=== PATIENT | female | born 1960 | race Caucasian/White ===

== ENCOUNTER → 2018-01-28 | Outpatient (CLI) | payer OTHER ==
--- NOTE | 2018-01-28 09:59 | XR ---
EXAMINATION TYPE: XR Hip Complete LT DATE OF EXAM: 01/28/2018 CLINICAL HISTORY: pain TECHNIQUE: AP and frogleg views of the left hip are obtained. COMPARISON: None. FINDINGS: There is no acute fracture/dislocation evident. The joint space appears mild degenerativ e joint space narrowing.. The overlying soft tissue appears unremarkable. IMPRESSION: 1. There is no acute fracture or dislocation.ICD 10 NO FRACTURE, INITIAL EVALUATION
--- NOTE | 2018-01-28 10:01 | XR ---
EXAMINATION TYPE: XR lumbar spine 2 or 3V DATE OF EXAM: 01/28/2018 CLINICAL HISTORY: pain TECHNIQUE: Three views of the lumbar spine are submitted. COMPARISON: None. FINDINGS: There are 5 lumbar type vertebral bodies identified. The lumbar spine shows satisfactory alignment w ithout evidence of acute fracture or dislocation. Vertebral body heights are within normal limits. Moderate degenerative disc space narrowing is noted throughout with ventral spondylosis. Moderate to severe facet joint arthropathy identified. The overlying soft tissue appears unremarkable. IMPRESSION: No acute fracture or dislocation is seen in the lumbar spine. ICD 10 NO FRACTURE, INITIAL EVALUATION
== END ==
LOC: RADXRMAIN 09:25
PROVIDERS: ATTEND Internal Medicine
DX: M25.552 Pain in left hip (principal); M54.5 Low back pain
CPT/HCPCS: 72100; 73502

== ENCOUNTER 2018-07-14 10:46 | Emergency (ER) | payer OTHER ==
[2018-07-14 11:00] VITALS: RESP 18
[2018-07-14] MEDS ORDERED: HYDROcodone/APAP 5-325MG 1 EACH TAB PO STA (11:06)
--- NOTE | 2018-07-14 11:46 | ED ---
Upper Extremity HPI - General Chief Complaint: Extremity Injury, Upper Stated Complaint: Shoulder/neck pain Time Seen by Provider: 07/14/18 11:00 Source: patient, RN notes reviewed Mode of arrival: ambulatory Limitations: no limitations - History of Present Illness Initial Comments: 57-year-old female presents emergency Department chief complaint right shoulder pain. Patient states she slipped down her stairs and states that she caught herself by grabbing the railing with her arm. Patient is left-hand dominant complaint of right shoulder pain that radiates up and down. Patient states it's better at rest severe pain with movement. No prior injuries. Denies any fall to the ground no head injury no loss conscious. Patient has no paresthesias no focal weakness. - Related Data Home Medications Medication Instructions Recorded Confirmed Gabapentin (Unknown) 1 tab PO DIRECTED 07/14/18 07/14/18 Ibuprofen [Motrin Ib] 400 mg PO Q6H 07/14/18 07/14/18 Meloxicam 15 mg PO DAILY 07/14/18 07/14/18 Previous Rx's Medication Instructions Recorded Hydrocodone/Acetaminophen [[place] 1 tab PO Q6HR PRN #12 tab 07/14/18 5-325] Allergies Allergy/AdvReac Type Severity Reaction Status Date / Time adhesive Allergy Unknown RED SKIN Verified 12/12/15 13:37 ondansetron HCl Allergy Unknown Swelling Verified 12/12/15 13:37 [From Zofran (as hydrochloride)] ibuprofen [From Motrin] Allergy Unknown Verified 07/14/18 11:24 Childhood Review of Systems ROS Statement: Those systems with pertinent positive or pertinent negative responses have been documented in the HPI. ROS Other: All systems not noted in ROS Statement are negative. Past Medical History Past Medical History: Atrial Flutter, Cancer, Chest Pain / Angina, COPD, Fibromyalgia, GERD/Reflux, Hyperlipidemia, Hypertension, Liver Disease, Osteoarthritis (OA) Additional Past Medical History / Comment(s): MIGRAINES, BACK PAIN, HEPATITIS B & C, HX OF CANCER OF STOMACH 2011. feet & leg swelling, hx. small open area in mid-abd for few days-"comes & goes" History of Any Multi-Drug Resistant Organisms: None Reported Past Surgical History: Ablation, Appendectomy, Bariatric Surgery, Cardiac Ablation, Section, Hysterectomy, Joint Replacement Additional Past Surgical History / Comment(s): hx. rouxen-y, spleen removed, both knees replaced, catarats removed Past Anesthesia/Blood Transfusion Reactions: No Reported Reaction Past Psychological History: Depression Smoking Status: Never smoker Past Alcohol Use History: None Reported Past Drug Use History: None Reported - Past Family History Sister(s) Family Medical History: Cancer Daughter(s) Family Medical History: Pulmonary Embolus Mother Family Medical History: Cancer General Exam Limitations: no limitations General appearance: alert, in no apparent distress Head exam: Present: atraumatic, normocephalic, normal inspection Neck exam: Present: normal inspection, full ROM. Absent: tenderness, meningismus, lymphadenopathy Respiratory exam: Present: normal lung sounds bilaterally. Absent: respiratory distress, wheezes, rales, rhonchi, stridor Cardiovascular Exam: Present: regular rate, normal rhythm, normal heart sounds. Absent: systolic murmur, diastolic murmur, rubs, gallop, clicks Extremities exam: Present: other (Limited movement of the right shoulder, full range of motion of the right elbow, neurovascular intact tenderness with palpation with no obvious swelling no ecchymosis.) Neurological exam: Present: alert, oriented X3, CN II-XII intact, reflexes normal. Absent: motor sensory deficit Skin exam: Present: warm, dry, intact, normal color. Absent: rash Course Vital Signs 07/14/18 10:55 Temperature 98.0 F Pulse Rate 79 Respiratory 18 Rate Blood Pressure 199/93 O2 Sat by Pulse 97 Oximetry Medical Decision Making - Medical Decision Making 57-year-old female presented for right shoulder injury. This is consistent with rotator cuff injury possible tear. Patient placed in a sling and follow-up with orthopedics. Patient discharged with pain medication return parameters were discussed. Disposition Clinical Impression: Strain of shoulder, Injury of right rotator cuff Disposition: HOME SELF-CARE Condition: Stable Instructions (If sedation given, give patient instructions): Rotator Cuff Injury (ED) Additional Instructions: Please return to the Emergency Department if symptoms worsen or any other concerns. Prescriptions: Hydrocodone/Acetaminophen [[place] 5-325] 1 tab PO Q6HR PRN #12 tab PRN Reason: Pain Is patient prescribed a controlled substance at d/c from ED?: No Referrals: Gorge Kaur MD [Primary Care Provider] - 1-2 days Rolf Negron MD [STAFF PHYSICIAN] - 1-2 days Time of Disposition: 12:55
--- NOTE | 2018-07-14 12:34 | XR ---
EXAMINATION TYPE: XR shoulder complete RT DATE OF EXAM: 07/14/2018 COMPARISON: NONE HISTORY: Pain TECHNIQUE: Three views are submitted. FINDINGS: The osseous structures are intact. There is no acute fracture or dislocation. There is diffuse osteo penia. Interstitial lung disease within the visualized lung auguste. Hypertrophic change of the AC chapo nt. IMPRESSION: 1. AC joint arthropathy 2. Correlate for chronic interstitial lung disease.
[2018-07-14 13:05] VITALS: BP 147/87; PULSE 78; TEMP 97.7
== END 2018-07-14 13:11 | disposition home or self-care (01) ==
LOC: EC 10:46
DX: S46.011A Strain of muscle(s) and tendon(s) of the rotator cuff of right shoulder, initial encounter (principal); M79.7 Fibromyalgia; M19.90 Unspecified osteoarthritis, unspecified site; G43.909 Migraine, unspecified, not intractable, without status migrainosus; Z85.028 Personal history of other malignant neoplasm of stomach; Z96.653 Presence of artificial knee joint, bilateral; Z79.1 Long term (current) use of non-steroidal anti-inflammatories (NSAID); Z79.899 Other long term (current) drug therapy; Z91.048 Other nonmedicinal substance allergy status; Z88.8 Allergy status to other drugs, medicaments and biological substances; Z88.6 Allergy status to analgesic agent; W18.40XA Slipping, tripping and stumbling without falling, unspecified, initial encounter
CPT/HCPCS: 99283

== ENCOUNTER 2018-07-23 19:13 | Inpatient (IN) | payer OTHER ==
[2018-07-23] MEDS ORDERED: SODIUM CHLORIDE 0.9% 500 ML 500 ML IV STA (19:30)
--- NOTE | 2018-07-23 19:39 | ED ---
General Adult HPI - General Chief complaint: Weakness Stated complaint: Weakness Time Seen by Provider: 07/23/18 19:23 Source: patient, EMS Mode of arrival: EMS Limitations: no limitations - History of Present Illness Initial comments: 57-year-old female presenting for right groin pain. Patient states she has had right groin pain and right shoulder pain for the past week. Patient states it began after she almost fell catching herself the right arm injuring her right hip. Patient states she has been able to ambulate. Patient states the pain has been increasing. Patient states today she felt generalized weak and unwell. Family states patient was not acting like her usual self. She seemed very tired. Patient is out of her Percocet she stated at home. Pt denies fall, chest pain, back, nausea, vomiting, headache, dizziness. Pt states that she just doesnt feel well. Pt poor historian, despite being alert and oriented. remaining ROS (-), Patient denies any recent fever, chills, cough, abdominal pain, nausea or vomiting, numbness or tingling, dysuria or hematuria, constipation or diarrhea, visual changes, or any other complaints. - Related Data Home Medications Medication Instructions Recorded Confirmed Ibuprofen [Motrin Ib] 400 mg PO Q6H 07/14/18 07/23/18 Gabapentin [Neurontin] 300 mg PO QID 07/23/18 07/23/18 Allergies Allergy/AdvReac Type Severity Reaction Status Date / Time adhesive Allergy Unknown RED SKIN Verified 07/23/18 19:41 ondansetron HCl Allergy Unknown Swelling Verified 07/23/18 19:41 [From Zofran (as hydrochloride)] ibuprofen [From Motrin] Allergy Unknown Verified 07/23/18 19:41 Childhood Review of Systems ROS Statement: Those systems with pertinent positive or pertinent negative responses have been documented in the HPI. ROS Other: All systems not noted in ROS Statement are negative. Past Medical History Past Medical History: Atrial Flutter, Cancer, Chest Pain / Angina, COPD, Fibromyalgia, GERD/Reflux, Hyperlipidemia, Hypertension, Liver Disease, Osteoarthritis (OA) Additional Past Medical History / Comment(s): MIGRAINES, BACK PAIN, HEPATITIS B & C, HX OF CANCER OF STOMACH 2011. feet & leg swelling, hx. small open area in mid-abd for few days-"comes & goes" History of Any Multi-Drug Resistant Organisms: None Reported Past Surgical History: Ablation, Appendectomy, Bariatric Surgery, Cardiac Ablation, Section, Hysterectomy, Joint Replacement Additional Past Surgical History / Comment(s): hx. rouxen-y, spleen removed, both knees replaced, catarats removed Past Anesthesia/Blood Transfusion Reactions: No Reported Reaction Past Psychological History: Depression Smoking Status: Never smoker Past Alcohol Use History: None Reported Past Drug Use History: None Reported - Past Family History Sister(s) Family Medical History: Cancer Daughter(s) Family Medical History: Pulmonary Embolus Mother Family Medical History: Cancer General Exam - General Exam Comments Initial Comments: General: The patient is awake and alert, in no distress. Morbidly obese Eye: +3 mm pupils are equal, round and reactive to light, extra-ocular movements are intact. No nystagmus. There is normal conjunctiva bilaterally. No signs of icterus. Ears, nose, mouth and throat: There are moist mucous membranes and no oral lesions. Neck: The neck is supple, there is no tenderness or JVD. Cardiovascular: There is a regular rate and rhythm. No murmur, rub or gallop is appreciated. Respiratory: Lungs are clear to auscultation, respirations are non-labored, breath sounds are equal. No wheezes, stridor, rales, or rhonchi. Gastrointestinal: Soft, non-distended, non-tender abdomen without masses or organomegaly noted. There is no rebound or guarding present. No CVA tenderness. Bowel sounds are unremarkable. Musculoskeletal: Normal ROM, no tenderness. Strength 5/5 of UE and LE b/l. Sensation intact. Pulses equal bilaterally 2+. Neurological: A&O x 3. CN II-XII intact, There are no obvious motor or sensory deficits. Coordination appears grossly intact. Speech is normal. No drift. Skin: Skin is warm and dry and no rashes or lesions are noted. No LE edema. Psychiatric: Cooperative, appropriate mood & affect, normal judgment. Limitations: no limitations Course Vital Signs 07/23/18 07/23/18 07/23/18 19:22 22:14 23:00 Temperature 100.2 F H 99 F Pulse Rate 98 97 77 Respiratory 20 20 20 Rate Blood Pressure 169/89 142/68 138/68 O2 Sat by Pulse 97 98 98 Oximetry 07/24/18 07/24/18 07/24/18 00:52 01:00 02:00 Temperature 98.8 F 98.7 F Pulse Rate 82 81 84 Respiratory 18 20 20 Rate Blood Pressure 146/61 151/85 143/64 O2 Sat by Pulse 97 97 97 Oximetry 07/24/18 07/24/18 07/24/18 03:00 04:00 04:43 Temperature 98.6 F 97.9 F Pulse Rate 79 87 88 Respiratory 18 18 18 Rate Blood Pressure 140/62 134/87 133/73 O2 Sat by Pulse 97 98 97 Oximetry EKG Findings - EKG Comments: EKG Findings:: Ventricular rate 92 bpm, ID interval 142 ms, QRS duration 94 ms, QT/QTC 364/450 ms. Normal sinus rhythm, left axis deviation noted. No ST elevation or depression. EKG reviewed by myself and attending provider. Medical Decision Making - Medical Decision Making 57-year-old female presenting for multiple complaints. Patient states she has had right groin and right shoulder pain since she almost fell a week prior. Patient states she had previous right rotator cuff injury. Patient denies chest pain. EKG revealed no acute abnormalities. Troponin negative. These were completed given patient's obesity female gender and past medical history with concern for atypical chest pain presentation. Patient is able to fully range at the right hip. Patient states it is uncomfortable. Imaging studies reveal no acute osseous injury. Patient neurovascularly intact. Family states patient seems way more tired than usual, and out of it. CT revealed old lacunar infarct, no acute findings. No focal deficits. Pt dry on exam. Unable to give urine sample. Pt states decreased oral intake at home, concern for dehydration. Pt did have low grade fever on arrival, leukocytosis on laboratory studies, CXR (-). No meningeal irritation signs on examination. Pt does not appear overtly altered. Lactic acid elevated, repeat WNL. UA unremarkable. Pt was evaluated in person by attending provider Dr. Savage who is agreeable with patient admission for further evaluation fo leukocytosis, weakness and fever. Pt was placed on broad spectrum antibiotic in the ER. Pt was transferred to the floor appearing well. Blood culture pending. Orthopedic surgery on consult. - Lab Data Result diagrams: 07/23/18 20:08 07/23/18 20:08 Lab Results 07/23/18 07/23/18 07/23/18 Range/Units 20:08 20:08 20:08 WBC 18.8 H (3.8-10.6) k/uL RBC 4.29 (3.80-5.40) m/uL Hgb 14.3 (11.4-16.0) gm/dL Hct 44.2 (34.0-46.0) % MCV 103.1 H (80.0-100.0) fL MCH 33.4 (25.0-35.0) pg MCHC 32.4 (31.0-37.0) g/dL RDW 13.9 (11.5-15.5) % Plt Count 158 (150-450) k/uL Neutrophils % 86 % Lymphocytes % 8 % Monocytes % 5 % Eosinophils % 1 % Basophils % 0 % Neutrophils # 16.1 H (1.3-7.7) k/uL Lymphocytes # 1.5 (1.0-4.8) k/uL Monocytes # 0.8 (0-1.0) k/uL Eosinophils # 0.1 (0-0.7) k/uL Basophils # 0.1 (0-0.2) k/uL Manual Slide Review Performed Large Platelets Present Macrocytosis Slight PT (9.0-12.0) sec INR (<1.2) APTT (22.0-30.0) sec D-Dimer (<0.60) mg/L FEU Sodium 140 (137-145) mmol/L Potassium 4.0 (3.5-5.1) mmol/L Chloride 103 (98-107) mmol/L Carbon Dioxide 29 (22-30) mmol/L Anion Gap 8 mmol/L BUN 19 H (7-17) mg/dL Creatinine 0.46 L (0.52-1.04) mg/dL Est GFR (CKD-EPI)AfAm >90 (>60 ml/min/1.73 sqM) Est GFR (CKD-EPI)NonAf >90 (>60 ml/min/1.73 sqM) Glucose 180 H (74-99) mg/dL Lactic Ac Sepsis Rflx Plasma Lactic Acid Rui (0.7-2.0) mmol/L Calcium 10.0 (8.4-10.2) mg/dL Total Bilirubin 1.4 H (0.2-1.3) mg/dL AST 83 H (14-36) U/L ALT 65 H (9-52) U/L Alkaline Phosphatase 84 (38-126) U/L Troponin I (0.000-0.034) ng/mL Total Protein 7.5 (6.3-8.2) g/dL Albumin 4.1 (3.5-5.0) g/dL Urine Color Urine Appearance (Clear) Urine pH (5.0-8.0) Ur Specific [place] (1.001-1.035) Urine Protein (Negative) Urine Glucose (UA) (Negative) Urine Ketones (Negative) Urine Blood (Negative) Urine Nitrite (Negative) Urine Bilirubin (Negative) Urine Urobilinogen (<2.0) mg/dL Ur Leukocyte Esterase (Negative) Influenza Type A RNA Not Detected (Not Detectd) Influenza Type B (PCR) Not Detected (Not Detectd) 07/23/18 07/23/18 07/23/18 Range/Units 20:08 20:08 20:08 WBC (3.8-10.6) k/uL RBC (3.80-5.40) m/uL Hgb (11.4-16.0) gm/dL Hct (34.0-46.0) % MCV (80.0-100.0) fL MCH (25.0-35.0) pg MCHC (31.0-37.0) g/dL RDW (11.5-15.5) % Plt Count (150-450) k/uL Neutrophils % % Lymphocytes % % Monocytes % % Eosinophils % % Basophils % % Neutrophils # (1.3-7.7) k/uL Lymphocytes # (1.0-4.8) k/uL Monocytes # (0-1.0) k/uL Eosinophils # (0-0.7) k/uL Basophils # (0-0.2) k/uL Manual Slide Review Large Platelets Macrocytosis PT 11.8 (9.0-12.0) sec INR 1.1 (<1.2) APTT 23.7 (22.0-30.0) sec D-Dimer 1.64 H (<0.60) mg/L FEU Sodium (137-145) mmol/L Potassium (3.5-5.1) mmol/L Chloride (98-107) mmol/L Carbon Dioxide (22-30) mmol/L Anion Gap mmol/L BUN (7-17) mg/dL Creatinine (0.52-1.04) mg/dL Est GFR (CKD-EPI)AfAm (>60 ml/min/1.73 sqM) Est GFR (CKD-EPI)NonAf (>60 ml/min/1.73 sqM) Glucose (74-99) mg/dL Lactic Ac Sepsis Rflx Plasma Lactic Acid Rui 2.8 H* (0.7-2.0) mmol/L Calcium (8.4-10.2) mg/dL Total Bilirubin (0.2-1.3) mg/dL AST (14-36) U/L ALT (9-52) U/L Alkaline Phosphatase (38-126) U/L Troponin I <0.012 (0.000-0.034) ng/mL Total Protein (6.3-8.2) g/dL Albumin (3.5-5.0) g/dL Urine Color Urine Appearance (Clear) Urine pH (5.0-8.0) Ur Specific [place] (1.001-1.035) Urine Protein (Negative) Urine Glucose (UA) (Negative) Urine Ketones (Negative) Urine Blood (Negative) Urine Nitrite (Negative) Urine Bilirubin (Negative) Urine Urobilinogen (<2.0) mg/dL Ur Leukocyte Esterase (Negative) Influenza Type A RNA (Not Detectd) Influenza Type B (PCR) (Not Detectd) 07/23/18 07/24/18 07/24/18 Range/Units 21:13 00:26 01:31 WBC (3.8-10.6) k/uL RBC (3.80-5.40) m/uL Hgb (11.4-16.0) gm/dL Hct (34.0-46.0) % MCV (80.0-100.0) fL MCH (25.0-35.0) pg MCHC (31.0-37.0) g/dL RDW (11.5-15.5) % Plt Count (150-450) k/uL Neutrophils % % Lymphocytes % % Monocytes % % Eosinophils % % Basophils % % Neutrophils # (1.3-7.7) k/uL Lymphocytes # (1.0-4.8) k/uL Monocytes # (0-1.0) k/uL Eosinophils # (0-0.7) k/uL Basophils # (0-0.2) k/uL Manual Slide Review Large Platelets Macrocytosis PT (9.0-12.0) sec INR (<1.2) APTT (22.0-30.0) sec D-Dimer (<0.60) mg/L FEU Sodium (137-145) mmol/L Potassium (3.5-5.1) mmol/L Chloride (98-107) mmol/L Carbon Dioxide (22-30) mmol/L Anion Gap mmol/L BUN (7-17) mg/dL Creatinine (0.52-1.04) mg/dL Est GFR (CKD-EPI)AfAm (>60 ml/min/1.73 sqM) Est GFR (CKD-EPI)NonAf (>60 ml/min/1.73 sqM) Glucose (74-99) mg/dL Lactic Ac Sepsis Rflx Y Plasma Lactic Acid Rui 1.5 (0.7-2.0) mmol/L Calcium (8.4-10.2) mg/dL Total Bilirubin (0.2-1.3) mg/dL AST (14-36) U/L ALT (9-52) U/L Alkaline Phosphatase (38-126) U/L Troponin I (0.000-0.034) ng/mL Total Protein (6.3-8.2) g/dL Albumin (3.5-5.0) g/dL Urine Color Yellow Urine Appearance Clear (Clear) Urine pH 6.0 (5.0-8.0) Ur Specific [place] >1.050 H (1.001-1.035) Urine Protein Trace H (Negative) Urine Glucose (UA) 2+ H (Negative) Urine Ketones Negative (Negative) Urine Blood Negative (Negative) Urine Nitrite Negative (Negative) Urine Bilirubin Negative (Negative) Urine Urobilinogen 4.0 (<2.0) mg/dL Ur Leukocyte Esterase Negative (Negative) Influenza Type A RNA (Not Detectd) Influenza Type B (PCR) (Not Detectd) Disposition Clinical Impression: Generalized weakness, Fever, Altered mental status, Right hip pain Disposition: HOME SELF-CARE Condition: Stable Is patient prescribed a controlled substance at d/c from ED?: No Time of Disposition: 02:22 Decision to Admit Reason: Admit from EC Decision Date: 07/24/18 Decision Time: 02:22
[2018-07-23 20:20] LABS: Basophils # (A) 0.1 k/uL (0-0.2); Basophils % (A) 0 %; Eosinophils # (A) 0.1 k/uL (0-0.7); Eosinophils % (A) 1 %; HCT 44.2 % (34.0-46.0); HGB 14.3 gm/dL (11.4-16.0); Lymphocytes # (A) 1.5 k/uL (1.0-4.8); Lymphocytes % (A) 8 %; MCH 33.4 pg (25.0-35.0); MCHC 32.4 g/dL (31.0-37.0); MCV 103.1 fL (80.0-100.0); Macrocytosis Slight; Mean Platelet Volume 12.2; Monocytes # (A) 0.8 k/uL (0-1.0); Monocytes % (A) 5 %; Neutrophils # (A) 16.1 k/uL (1.3-7.7); Neutrophils % (A) 86 %; Platelet Count 158 k/uL (150-450); RBC 4.29 m/uL (3.80-5.40); RDW 13.9 % (11.5-15.5); WBC 18.8 k/uL (3.8-10.6)
[2018-07-23 20:30] LABS: ALT 65 U/L (9-52); AST 83 U/L (14-36); Albumin 4.1 g/dL (3.5-5.0); Alkaline Phosphatase 84 U/L (38-126); Anion Gap 8 mmol/L; Blood Urea Nitrogen 19 mg/dL (7-17); Carbon Dioxide 29 mmol/L (22-30); Chloride 103 mmol/L (98-107); Glucose 180 mg/dL (74-99); Sodium 140 mmol/L (137-145); Total Bilirubin 1.4 mg/dL (0.2-1.3); Total Protein 7.5 g/dL (6.3-8.2)
--- NOTE | 2018-07-23 20:30 | XR ---
EXAMINATION TYPE: XR chest 2V DATE OF EXAM: 07/23/2018 COMPARISON: 06/19/2015 HISTORY: Weakness TECHNIQUE: Frontal and lateral views of the chest are obtained. FINDINGS: There is no heart failure nor confluent pneumonic infiltrate. Costophrenic angles are martha r. There are chest leads. Bony thorax is intact. There are numerous surgical clips in the left upper quadrant. IMPRESSION: No active cardiopulmonary disease. Normal heart. No change.
[2018-07-23 20:34] LABS: INR 1.1 (<1.2)
[2018-07-23 20:35] LABS: Partial Thromboplastin Time 23.7 sec (22.0-30.0); Prothrombin Time 11.8 sec (9.0-12.0)
[2018-07-23 20:42] LABS: D-Dimer 1.64 mg/L FEU (<0.60)
[2018-07-23 21:18] LABS: Large Platelets Present
[2018-07-23] MEDS ORDERED: SODIUM CHLORIDE 0.9% 1,000 ML IV ONE (21:21)
--- NOTE | 2018-07-23 21:25 | CT ---
EXAMINATION TYPE: CT brain wo con DATE OF EXAM: 07/23/2018 COMPARISON: 02/12/2011 HISTORY: Altered mental status. CT DLP: 1189.4 mGycm Automated exposure control for dose reduction was used. FINDINGS: There is 1 cm hypodensity in the anterior left internal capsule consistent with old lacunar infarct. There is mild cerebral atrophy. There is no mass effect nor midline shift. There is no sign of intrac ranial hemorrhage. The calvarium is intact. IMPRESSION: MILD ATROPHY. OLD LEFT INTERNAL CAPSULE LACUNAR INFARCT IS A CHANGE COMPARED TO OLD CT SCAN. NO ACUTE INTRACRANIAL ABNORMALITY.
--- NOTE | 2018-07-23 21:26 | XR ---
EXAMINATION TYPE: XR Hip Complete RT DATE OF EXAM: 07/23/2018 COMPARISON: NONE HISTORY: Right hip pain TECHNIQUE: 2 views FINDINGS: I see no fracture nor dislocation. Hip joint space is fairly normal. There is no sign of hi p dysplasia. Sacroiliac joint appears intact. IMPRESSION: Negative right hip exam.
--- NOTE | 2018-07-23 23:10 | CT ---
EXAM: CT Angiography Chest Without And With Intravenous Contrast CLINICAL HISTORY: ITS.REASON CT Reason: Pain TECHNIQUE: Axial computed tomographic angiography images of the chest without and with intravenous contrast using pulmonary embolism protocol. CTDI is 16. 9 mGy and DLP is 1195 mGy-cm. This CT exam was performed using one or more of the following dose reduction techniques: automated exposure control, adjustment of the mA and/or kV according to patient size, and/or use of iterative reconstruction technique. MIP reconstructed images were created and reviewed. COMPARISON: Chest radiograph on 07/23/2018 FINDINGS: Lung parenchyma: Minimal dependent atelectasis bilaterally. Mild patchy density in the lateral right lower lobe and minimal focal groundglass opacity in the left lower lobe may represent atelectasis. No nodule. Pleural space: Normal. No pleural effusion or pneumothorax. Mediastinum/law: Nonspecific mildly prominent mediastinal and hilar lymph nodes. Heart: Borderline size of the heart. No pericardial effusion. Vasculature: Normal. No pulmonary embolus. Aorta: Normal. No aneurysm or dissection. Airways: Patent. Bones: Osteopenia. Degenerative changes of the spine. No bony lesion or acute fracture. Muscles: No mass. Subcutaneous tissues: Normal. IMPRESSION: 1. No definite pulmonary embolus identified. 2. No aortic aneurysm or dissection. 3. No definite acute pulmonary parenchymal abnormality identified. Possible mild focal atelectasis in the lateral right lower lobe and in the left lower lobe. EXAM: CT Angiography Abdomen and Pelvis Without And With Intravenous Contrast CLINICAL HISTORY: ITS.REASON CT Reason: Pain TECHNIQUE: Axial computed tomographic angiography images of the abdomen and pelvis without and with intravenous contrast. CTDI is 16.9 mGy and DLP is 1334 mGy-cm. This CT exam was performed using one or more of the following dose reduction techniques: automated exposure control, adjustment of the mA and/or kV according to patient size, and/or use of iterative reconstruction technique. MIP reconstructed images were created and reviewed. COMPARISON: None FINDINGS: Liver: Hepatic steatosis. Hepatomegaly. Nodular contour of the liver may represent cirrhosis. No focal lesion. Spleen: Postsurgical changes in the left upper quadrant may be related to prior splenectomy. Prominent splenule noted. Gallbladder: Mildly distended gallbladder. No stones or biliary dilatation. Pancreas: Atrophy of the pancreas. No acute inflammation. No mass. Adrenal glands: Normal. No mass. Kidneys: Punctate nonobstructing bilateral renal stones. No hydronephrosis or definite ureteral stone. Bowel: Appendix is not visualized, but no CT evidence of acute appendicitis. No bowel obstruction or inflammation. Prior gastric surgery. Urinary bladder: Normal. No wall thickening or mass. Reproductive organs: Prior hysterectomy. Muscles: No mass. Subcutaneous tissues: Normal. Peritoneal space: Normal. No free fluid. Lymph nodes: Normal. No lymphadenopathy. Vessels: Mild atherosclerotic changes of the vasculature. No aneurysm or dissection. Bones: Osteopenia. Degenerative changes of the hips and spine. No acute fracture or bony lesion. Lung bases: Normal. IMPRESSION: 1. No aortic aneurysm or dissection. 2. Punctate nonobstructing bilateral renal stones. No hydronephrosis or ureteral stone.
[2018-07-24] MEDS ORDERED: NALOXONE 0.4 MG/ML 1 ML VIAL IV PRN (00:16)
[2018-07-24] MEDS: SODIUM CHLORIDE 0.9% 1,000 ML IV SCH ×2 (00:59→10:49)
[2018-07-24 01:43] LABS: Appearance,Urine Clear (Clear); Bilirubin,Urine Negative (Negative); Blood,Urine Negative (Negative); Color,Urine Yellow; Glucose,Urine (UA) 2+ (Negative); Ketones,Urine Negative (Negative); Leukocyte Esterase,Urine Negative (Negative); Nitrite,Urine Negative (Negative); Protein,Urine Trace (Negative)
[2018-07-24 01:48] LABS: Specific Gravity,Urine >1.050 (1.001-1.035)
[2018-07-24] MEDS ORDERED: MORPHINE SULFATE 4 MG/ML SYRINGE IVP STA (02:06)
[2018-07-24] MEDS ORDERED: VANCOMYCIN IV PER PHARMACY 1 EACH MISC MISCELLANE PRN (02:21)
[2018-07-24] MEDS ORDERED: VANCOMYCIN 2,000 MG in SODIUM CHLORIDE 0.9% 500 ML 500 ML IVPB STA (02:23)
[2018-07-24 05:41] VITALS: BMI 47.0
[2018-07-24] MEDS: MORPHINE SULFATE 2 MG/ML SYRINGE IVP PRN ×4 (06:12→20:52)
[2018-07-24] MEDS: VANCOMYCIN 2,000 MG in SODIUM CHLORIDE 0.9% 500 ML 500 ML IVPB SCH ×2 (10:49→19:17)
[2018-07-24] MEDS: HYDROcodone/APAP 5-325MG 1 EACH TAB PO PRN ×2 (11:06→16:59)
[2018-07-24] MEDS: GABAPENTIN 300 MG CAP PO SCH ×3 (12:31→21:04)
--- NOTE | 2018-07-24 14:34 | XR ---
EXAMINATION TYPE: XR lumbar spine 2 or 3V DATE OF EXAM: 07/24/2018 COMPARISON: 01/28/2018 HISTORY: Low back pain TECHNIQUE: Three-view lumbar spine FINDINGS: Disc heights are preserved. Vertebral body heights are preserved. Alignment is normal. Ther e 5 lumbar-type tubal bodies. The pedicles are intact. IMPRESSION: 1. No acute osseous abnormality.
--- NOTE | 2018-07-24 14:52 | P.GSCN ---
History of Present Illness Consult date: 07/24/18 Reason for Consult: Right groin pain History of present illness: We will consult to see this patient for complaints of right groin pain. Patient was actually moaning when I entered the room and was holding her right groin. She thinks it may be related to a partial fall. Patient had a CAT scan of the chest and also a CAT scan of the abdomen and pelvis without evidence of inflammatory change or hernia. Patient does not notice any redness or swelling. No bulge. Denies abdominal pain to me. Review of Systems The patient denies any acute changes in vision or hearing, no dysphagia or odynophagia, no chest pain or shortness of breath, no dysuria or hematuria, no headache, no runny nose, no rectal bleeding or melena, no unexplained weight loss Past Medical History Past Medical History: Atrial Flutter, Cancer, Chest Pain / Angina, COPD, Fibromyalgia, GERD/Reflux, Hyperlipidemia, Hypertension, Liver Disease, Osteoarthritis (OA) Additional Past Medical History / Comment(s): MIGRAINES, BACK PAIN, HEPATITIS B & C, HX OF CANCER OF STOMACH 2011. feet & leg swelling, hx. small open area in mid-abd for few days-"comes & goes" History of Any Multi-Drug Resistant Organisms: None Reported Past Surgical History: Ablation, Appendectomy, Bariatric Surgery, Cardiac Ablation, Section, Hysterectomy, Joint Replacement Additional Past Surgical History / Comment(s): hx. rouxen-y (1979), spleen removed, both knees replaced, catarats removed Past Anesthesia/Blood Transfusion Reactions: No Reported Reaction Past Psychological History: Depression Additional Psychological History / Comment(s): claustrophobic Smoking Status: Never smoker Past Alcohol Use History: None Reported Past Drug Use History: None Reported - Past Family History Sister(s) Family Medical History: Cancer Daughter(s) Family Medical History: Pulmonary Embolus Mother Family Medical History: Cancer, Myocardial Infarction ([place]) Additional Family Medical History / Comment(s): of massive heart attack Father Additional Family Medical History / Comment(s): Shot himself Medications and Allergies Home Medications Medication Instructions Recorded Confirmed Type Ibuprofen [Motrin Ib] 400 mg PO Q6H 07/14/18 07/23/18 History Gabapentin [Neurontin] 300 mg PO QID 07/23/18 07/23/18 History Allergies Allergy/AdvReac Type Severity Reaction Status Date / Time adhesive Allergy Unknown RED SKIN Verified 07/23/18 19:41 ondansetron HCl Allergy Unknown Swelling Verified 07/23/18 19:41 [From Zofran (as hydrochloride)] ibuprofen [From Motrin] Allergy Unknown Verified 07/23/18 19:41 Childhood Surgical - Exam Vital Signs Temp Pulse Resp BP Pulse Ox 100.2 F H 98 20 169/89 97 07/23/18 19:22 07/23/18 19:22 07/23/18 19:22 07/23/18 19:22 07/23/18 19:22 Physical exam: General: Well-developed, well-nourished HEENT: Normocephalic, sclerae nonicteric Abdomen: Mild to moderate tenderness right groin laterally, no mass, no erythema, nondistended Extremities: No edema Neuro: Alert and oriented Results - Labs 07/23/18 20:08 07/23/18 20:08 Abnormal Lab Results - Last 24 Hours (Table) 07/23/18 07/23/18 07/23/18 Range/Units 20:08 20:08 20:08 WBC 18.8 H (3.8-10.6) k/uL MCV 103.1 H (80.0-100.0) fL Neutrophils # 16.1 H (1.3-7.7) k/uL D-Dimer (<0.60) mg/L FEU BUN 19 H (7-17) mg/dL Creatinine 0.46 L (0.52-1.04) mg/dL Glucose 180 H (74-99) mg/dL Plasma Lactic Acid Rui 2.8 H* (0.7-2.0) mmol/L Total Bilirubin 1.4 H (0.2-1.3) mg/dL AST 83 H (14-36) U/L ALT 65 H (9-52) U/L Ur Specific [place] (1.001-1.035) Urine Protein (Negative) Urine Glucose (UA) (Negative) 07/23/18 07/24/18 Range/Units 20:08 01:31 WBC (3.8-10.6) k/uL MCV (80.0-100.0) fL Neutrophils # (1.3-7.7) k/uL D-Dimer 1.64 H (<0.60) mg/L FEU BUN (7-17) mg/dL Creatinine (0.52-1.04) mg/dL Glucose (74-99) mg/dL Plasma Lactic Acid Rui (0.7-2.0) mmol/L Total Bilirubin (0.2-1.3) mg/dL AST (14-36) U/L ALT (9-52) U/L Ur Specific [place] >1.050 H (1.001-1.035) Urine Protein Trace H (Negative) Urine Glucose (UA) 2+ H (Negative) Diabetes panel 07/23/18 Range/Units 20:08 Sodium 140 (137-145) mmol/L Potassium 4.0 (3.5-5.1) mmol/L Chloride 103 (98-107) mmol/L Carbon Dioxide 29 (22-30) mmol/L BUN 19 H (7-17) mg/dL Creatinine 0.46 L (0.52-1.04) mg/dL Glucose 180 H (74-99) mg/dL Calcium 10.0 (8.4-10.2) mg/dL AST 83 H (14-36) U/L ALT 65 H (9-52) U/L Alkaline Phosphatase 84 (38-126) U/L Total Protein 7.5 (6.3-8.2) g/dL Albumin 4.1 (3.5-5.0) g/dL Calcium panel 07/23/18 Range/Units 20:08 Calcium 10.0 (8.4-10.2) mg/dL Albumin 4.1 (3.5-5.0) g/dL Pituitary panel 07/23/18 Range/Units 20:08 Sodium 140 (137-145) mmol/L Potassium 4.0 (3.5-5.1) mmol/L Chloride 103 (98-107) mmol/L Carbon Dioxide 29 (22-30) mmol/L BUN 19 H (7-17) mg/dL Creatinine 0.46 L (0.52-1.04) mg/dL Glucose 180 H (74-99) mg/dL Calcium 10.0 (8.4-10.2) mg/dL Adrenal panel 07/23/18 Range/Units 20:08 Sodium 140 (137-145) mmol/L Potassium 4.0 (3.5-5.1) mmol/L Chloride 103 (98-107) mmol/L Carbon Dioxide 29 (22-30) mmol/L BUN 19 H (7-17) mg/dL Creatinine 0.46 L (0.52-1.04) mg/dL Glucose 180 H (74-99) mg/dL Calcium 10.0 (8.4-10.2) mg/dL Total Bilirubin 1.4 H (0.2-1.3) mg/dL AST 83 H (14-36) U/L ALT 65 H (9-52) U/L Alkaline Phosphatase 84 (38-126) U/L Total Protein 7.5 (6.3-8.2) g/dL Albumin 4.1 (3.5-5.0) g/dL Assessment and Plan (1) Right hip pain Narrative/Plan: Patient with pain in right groin. No evidence of abscess or hernia on exam or CAT scan. No surgical intervention planned. Suspect musculoskeletal source. We'll sign off. Please call if needed. Current Visit: Yes Status: Acute Code(s): M25.551 - PAIN IN RIGHT HIP SNOMED Code(s): 45689483
--- NOTE | 2018-07-24 17:06 | P.CNOR ---
History of Present Illness - [facility] Consult date: 07/24/18 Consult reason: joint pain History of present illness: Patient is a 57-year-old female who was brought in to [facility] yesterday with regards to right hip/groin pain. Patient states that the pain has been going on for a few days now. Patient has not been able to put weight on the leg, she's had difficulty urinating also. Patient denies any recent traumatic falls. Patient was in the hospital about a week ago after sustaining a stumble down a few steps, she states that she didn't fall she did catch herself with her right arm. She was evaluated for right shoulder pain at that time, she was sent home and advised to follow-up with orthopedics. Patient has not seen an orthopedic surgeon since that initial injury. Upon arrival to the hospital, multiple imaging test labs were done. She was evaluated for a possible cardiac workup due to the shoulder pain, her labs also were very abnormal. She's had multiple medical specialties consult at this time. Our team was consulted with regards to the right hip pain. Patient was evaluated at bedside today, Dr. Waldrop was available to examine the patient also. Patient does have history of bilateral total knee replacements, she is unsure the exact date. She also states she's had a history of back problems in the lumbar spine, she's received previous injections, again she cannot provide the day. She denies any orthopedic surgery involving the right hip. Patient denies any other orthopedic complaints at this time. Review of Systems Constitutional: Reports as per HPI Past Medical History Past Medical History: Atrial Flutter, Cancer, Chest Pain / Angina, COPD, Fibromyalgia, GERD/Reflux, Hyperlipidemia, Hypertension, Liver Disease, Osteoarthritis (OA) Additional Past Medical History / Comment(s): MIGRAINES, BACK PAIN, HEPATITIS B & C, HX OF CANCER OF STOMACH 2011. feet & leg swelling, hx. small open area in mid-abd for few days-"comes & goes" History of Any Multi-Drug Resistant Organisms: None Reported Past Surgical History: Ablation, Appendectomy, Bariatric Surgery, Cardiac Ablation, Section, Hysterectomy, Joint Replacement Additional Past Surgical History / Comment(s): hx. rouxen-y (1979), spleen removed, both knees replaced, catarats removed Past Anesthesia/Blood Transfusion Reactions: No Reported Reaction Past Psychological History: Depression Additional Psychological History / Comment(s): claustrophobic Smoking Status: Never smoker Past Alcohol Use History: None Reported Past Drug Use History: None Reported - Past Family History Sister(s) Family Medical History: Cancer Daughter(s) Family Medical History: Pulmonary Embolus Mother Family Medical History: Cancer, Myocardial Infarction ([place]) Additional Family Medical History / Comment(s): of massive heart attack Father Additional Family Medical History / Comment(s): Shot himself Medications and Allergies Home Medications Medication Instructions Recorded Confirmed Type Ibuprofen [Motrin Ib] 400 mg PO Q6H 07/14/18 07/23/18 History Gabapentin [Neurontin] 300 mg PO QID 07/23/18 07/23/18 History Allergies Allergy/AdvReac Type Severity Reaction Status Date / Time adhesive Allergy Unknown RED SKIN Verified 07/23/18 19:41 ondansetron HCl Allergy Unknown Swelling Verified 07/23/18 19:41 [From Zofran (as hydrochloride)] ibuprofen [From Motrin] Allergy Unknown Verified 07/23/18 19:41 Childhood Physical Examination Right lower extremity: Log roll maneuver of the right leg does reproduce pain in the right groin She has difficulty with lifting the right leg at this time Straight leg raise of the right leg reproduces pain in the right groin and also in the low back No tenderness with palpation over the knee, lower leg, foot or ankle Dorsal pedis pulses 2+, her sensory exam light touch is intact Results - Labs Labs: Abnormal Lab Results - Last 24 Hours (Table) 07/23/18 07/23/18 07/23/18 Range/Units 20:08 20:08 20:08 WBC 18.8 H (3.8-10.6) k/uL MCV 103.1 H (80.0-100.0) fL Neutrophils # 16.1 H (1.3-7.7) k/uL D-Dimer (<0.60) mg/L FEU BUN 19 H (7-17) mg/dL Creatinine 0.46 L (0.52-1.04) mg/dL Glucose 180 H (74-99) mg/dL Plasma Lactic Acid Rui 2.8 H* (0.7-2.0) mmol/L Total Bilirubin 1.4 H (0.2-1.3) mg/dL AST 83 H (14-36) U/L ALT 65 H (9-52) U/L Ur Specific [place] (1.001-1.035) Urine Protein (Negative) Urine Glucose (UA) (Negative) 07/23/18 07/24/18 Range/Units 20:08 01:31 WBC (3.8-10.6) k/uL MCV (80.0-100.0) fL Neutrophils # (1.3-7.7) k/uL D-Dimer 1.64 H (<0.60) mg/L FEU BUN (7-17) mg/dL Creatinine (0.52-1.04) mg/dL Glucose (74-99) mg/dL Plasma Lactic Acid Rui (0.7-2.0) mmol/L Total Bilirubin (0.2-1.3) mg/dL AST (14-36) U/L ALT (9-52) U/L Ur Specific [place] >1.050 H (1.001-1.035) Urine Protein Trace H (Negative) Urine Glucose (UA) 2+ H (Negative) H & H 07/23/18 Range/Units 20:08 Hgb 14.3 (11.4-16.0) gm/dL Hct 44.2 (34.0-46.0) % Coagulation 07/23/18 Range/Units 20:08 INR 1.1 (<1.2) Result Diagrams: 07/23/18 20:08 07/23/18 20:08 - Diagnostic results Hip x-ray: report reviewed, image reviewed Assessment and Plan Plan: Imaging: Hip x-rays were reviewed, negative for any acute fractures or dislocations Assessment: 1. Right hip pain 2. Lumpar pain 3. Likely lumbar radiculopathy 4. Possible right hip AVN/Stress fracture Plan: Dr. Waldrop was available at bedside today to examine the patient and discuss further treatment options. At this time we will order a computed tomography scan of the right hip to further evaluate Recommend pain management consult Other medical specially recommendations Time with Patient: Less than 30
--- NOTE | 2018-07-24 18:07 | HP ---
HISTORY AND PHYSICAL CHIEF COMPLAINT: Right groin pain and right shoulder pain. HISTORY OF PRESENT ILLNESS: This is another admission for this 57-year-old white female who has been having some trouble with right shoulder pain for some time and was going to come into the office, but then she developed acute and severe right groin pain and came to the emergency room. She had no fever or chills. She has had no definite history of trauma but thinks she might have injured it when she stretched or strained recently. REVIEW OF SYSTEMS: She has had no headaches, neurologic problems, shortness of breath, cough, hemoptysis, chest pain, heart disease, abdominal pain, nausea, vomiting, diarrhea, melena, renal disease, diabetes, etc. Past medical history, family history, and personal and social histories are all otherwise unknown or noncontributory. PHYSICAL EXAMINATION: Blood pressure is 138/87 with a pulse of 92, respirations of 36, and she is afebrile. In general she appeared to be well developed, well nourished and in quite a bit of discomfort. She is holding her right groin. Head, ears, eyes, nose, mouth and throat are normal. Chest is clear. Cardiac exam is normal. Abdomen is soft, nontender. There is no palpable mass in the right groin. Her hip does seem irritable. Extremities are normal. Neurologically she is intact. IMPRESSION: 1. Acute right hip pain with leukocytosis. 2. ? septic joint. 3. Rule out inguinal hernia, incarcerated. PLAN: 1. Bed rest. 2. IV fluids. 3. Analgesics. 4. Consult with Surgery and Orthopedics. 5. CT of the hip. MMODL / IJN: [id number] /
[2018-07-25] MEDS: HYDROcodone/APAP 5-325MG 1 EACH TAB PO PRN ×4 (01:06→22:33)
[2018-07-25] MEDS: SODIUM CHLORIDE 0.9% 1,000 ML IV SCH ×2 (03:10→16:57)
[2018-07-25] MEDS: VANCOMYCIN 2,000 MG in SODIUM CHLORIDE 0.9% 500 ML 500 ML IVPB SCH ×2 (03:10→15:19)
[2018-07-25] MEDS: MORPHINE SULFATE 2 MG/ML SYRINGE IVP PRN ×5 (03:29→21:17)
[2018-07-25] MEDS: GABAPENTIN 300 MG CAP PO SCH ×4 (08:28→21:17)
[2018-07-25 08:49] LABS: Anion Gap 5 mmol/L; Blood Urea Nitrogen 16 mg/dL (7-17); Calcium 8.6 mg/dL (8.4-10.2); Carbon Dioxide 25 mmol/L (22-30); Chloride 107 mmol/L (98-107); Glucose 170 mg/dL (74-99); Potassium 3.8 mmol/L (3.5-5.1); Sodium 137 mmol/L (137-145)
[2018-07-25 10:54] LABS: Basophils # (A) 0.1 k/uL (0-0.2); Basophils % (A) 0 %; Eosinophils # (A) 0.1 k/uL (0-0.7); Eosinophils % (A) 1 %; HCT 38.5 % (34.0-46.0); HGB 12.4 gm/dL (11.4-16.0); Lymphocytes # (A) 2.7 k/uL (1.0-4.8); Lymphocytes % (A) 17 %; MCH 34.1 pg (25.0-35.0); MCHC 32.2 g/dL (31.0-37.0); MCV 105.7 fL (80.0-100.0); Macrocytosis Moderate; Mean Platelet Volume 12.9; Monocytes % (A) 6 %; Neutrophils # (A) 11.9 k/uL (1.3-7.7); Neutrophils % (A) 74 %; Platelet Count 141 k/uL (150-450); RBC 3.64 m/uL (3.80-5.40); RDW 13.8 % (11.5-15.5)
--- NOTE | 2018-07-25 11:26 | P.PN ---
Progress Note - Text Progress Note Date: 07/25/18 Patient seen lying in bed. Patient reports that her hip pain has improved and states that her back pain persists. She has no other current orthopedic complaints. Logrolling of the right hip is without significant pain. There is no ecchymosis or discoloration around the right hip area. Distal neurovascular exam is intact. Computed tomography scan of the pelvis was reviewed noting no fracture or other osseous abnormality in the right hip area. There is no suspicious fluid or other abnormality in the right hip or pelvic area. Impression: 1. No evidence for right hip pathology 2. I suspect lumbar radiculopathy as a source of patient's ongoing pain Plan: 1. I would recommend pain management referral 2. We'll sign off on the case and reevaluate if needed
[2018-07-25 12:04] LABS: Large Platelets Present
--- NOTE | 2018-07-25 14:00 | PN ---
PROGRESS NOTE CHIEF COMPLAINT: Right groin pain. HISTORY OF PRESENT ILLNESS: This lady's pain is doing a bit better. She has had a fairly thorough investigation and there has been no obvious etiology. It does not look like she has a septic joint. There is no hernia. PHYSICAL EXAM: Vital signs are normal. Her chest is clear. The cardiac exam is normal and abdomen is soft, nontender and she is not tender in the right groin. IMPRESSION: Right groin pain with leukocytosis and fever. PLAN: 1. Continue to follow. 2. DELL and sed rate. MMODL / IJN: [id number] /
[2018-07-25] MEDS ORDERED: ACETAMINOPHEN TAB 325 MG TAB PO STA (23:57)
--- NOTE | 2018-07-26 00:02 | P.CONS ---
History of Present Illness - Reason for Consult Consult date: 07/25/18 Leukocytosis Requesting physician: Yanick Holm - Chief Complaint Right groin pain x few days - History of Present Illness Patient is a 57-year-old female presenting to the ER at [facility] with a chief complaints of right groin pain apparently the patient said she was trying to prevent a fall and may have stretched her hip area that happened a few days ago patient did have worsening of the pain in the right groin area describing the pain to be more of a sharp nature about 8 out of 10 and no radiation patient has felt nauseated but no vomiting denies having any chest pain shortness of breath or cough no bone pain no diarrhea patient on presentation to the hospital was noticed to have a low-grade fever 100.2 the patient did have elevated white count of 18,000 and she did have extensive workup including CT of the chest that was negative for PE or pneumonia CT of abdominal pelvis did not show any extremity changes in the right lower quadrant area, gallbladder was noted to be slightly distended and the patient did have mildly elevated liver enzymes with a bilirubin of 1.4, patient did have blood culture drawn which are currently pending she has been started on vancomycin and infectious disease was consulted for further recommendation regarding antibiotic therapy Review of Systems CONSTITUTIONAL: Positive for weakness. Low-grade Fever EYES: No complaint. ENT:No complaint. RESPIRATORY: No complaint. CARDIOVASCULAR: No complaint. GENITOURINARY: No complaint. GASTROINTESTINAL: As per history of present illness. MUSCULOSKELETAL: As per history of present illness. INTEGUMENTARY: No complaint. PSYCHOLOGICAL: No complaint. ENDOCRINE: No complaint. NEUROLOGIC: No complaint. Past Medical History Past Medical History: Atrial Flutter, Cancer, Chest Pain / Angina, COPD, Fibromyalgia, GERD/Reflux, Hyperlipidemia, Hypertension, Liver Disease, Os teoarthritis (OA) Additional Past Medical History / Comment(s): MIGRAINES, BACK PAIN, HEPATITIS B & C, HX OF CANCER OF STOMACH 2011. feet & leg swelling, hx. small open area in mid-abd for few days-"comes & goes" History of Any Multi-Drug Resistant Organisms: None Reported Past Surgical History: Ablation, Appendectomy, Bariatric Surgery, Cardiac Ablation, Section, Hysterectomy, Joint Replacement Additional Past Surgical History / Comment(s): hx. rouxen-y (1979), spleen removed, both knees replaced, catarats removed Past Anesthesia/Blood Transfusion Reactions: No Reported Reaction Past Psychological History: Depression Additional Psychological History / Comment(s): claustrophobic Smoking Status: Never smoker Past Alcohol Use History: None Reported Past Drug Use History: None Reported - Past Family History Sister(s) Family Medical History: Cancer Daughter(s) Family Medical History: Pulmonary Embolus Mother Family Medical History: Cancer, Myocardial Infarction ([place]) Additional Family Medical History / Comment(s): of massive heart attack Father Additional Family Medical History / Comment(s): Shot himself Medications and Allergies Home Medications Medication Instructions Recorded Confirmed Type Ibuprofen [Motrin Ib] 400 mg PO Q6H 07/14/18 07/23/18 History Gabapentin [Neurontin] 300 mg PO QID 07/23/18 07/23/18 History Allergies Allergy/AdvReac Type Severity Reaction Status Date / Time adhesive Allergy Unknown RED SKIN Verified 07/23/18 19:41 ondansetron HCl Allergy Unknown Swelling Verified 07/23/18 19:41 [From Zofran (as hydrochloride)] ibuprofen [From Motrin] Allergy Unknown Verified 07/23/18 19:41 Childhood Physical Exam Vitals: Vital Signs Temp Pulse Resp BP Pulse Ox 07/25/18 07:00 98.7 F 70 16 126/77 98 07/25/18 01:18 99.0 F 90 17 150/88 94 L 07/24/18 19:31 99.2 F 78 19 156/72 97 07/24/18 14:48 98.5 F 84 18 167/66 96 Intake and Output 07/24/18 07/25/18 07/25/18 22:59 06:59 14:59 Intake Total 236 Output Total 250 375 Balance -250 -375 236 Intake: Oral 236 Output: Urine 250 375 Other: Voiding Method Indwelling Catheter Indwelling Catheter # Bowel Movements 0 GENERAL DESCRIPTION: Middle-aged female lying in bed, no distress. No tachypnea or accessory muscle of respiration use. HEENT: Shows Pallor , no scleral icterus. Oral mucous membrane is dry. No pharyngeal erythema or thrush NECK: Trachea central, no thyromegaly. LUNGS: Unlabored breathing. Clear to auscultation anteriorly. No wheeze or crackle. HEART: S1, S2, regular rate and rhythm. No loud murmur ABDOMEN: Soft, no tenderness , guarding or rigidity, no organomegaly EXTREMITIES: No edema of feet. Right groin with no redness no point tenderness no open wound SKIN: No rash, no masses palpable. NEUROLOGICAL: The patient is awake, alert, oriented x3, mood and affect normal. Results CBC & Chem 7: 07/25/18 08:15 07/25/18 08:15 Labs: Abnormal Lab Results - Last 24 Hours (Table) 07/25/18 07/25/18 07/25/18 Range/Units 08:15 08:15 08:15 WBC 16.0 H (3.8-10.6) k/uL RBC 3.64 L (3.80-5.40) m/uL MCV 105.7 H (80.0-100.0) fL Plt Count 141 L (150-450) k/uL Neutrophils # 11.9 H (1.3-7.7) k/uL ESR 25 H (0-20) mm/hr Creatinine 0.35 L (0.52-1.04) mg/dL Glucose 170 H (74-99) mg/dL Microbiology - Last 24 Hours (Table) 07/23/18 20:08 Blood Culture - Preliminary Blood No Growth after 24 hours Assessment and Plan Assessment: 1-patient with leukocytosis source is likely multifactorial in this patient has been presented to the hospital with right groin pain however no evidence of any cellulitic changes was noticed on examination or any point tenderness x-rays of the hip were negative CT of abdominal pelvis did not show any inflammatory changes in the right lower quadrant area patient did have elevated liver enzymes are distended gallbladder that could be a source of this elevated white count however were not explain her pain to the right groin, CT of abdominal pelvis to notice some bilateral renal stones with a questionable passage of stone on the right side could be contributing to some of this pain however there was no evidence of any hematuria on the UA Plan: 1-we will obtain ultrasound of the abdominal area concentrating on the gallbladder and the right kidney 2-we will check a CRP and sed rate in the morning 3-continue with empiric vancomycin to which the patient white count seem to have responded We will follow-up on clinical condition and cultures to further adjust medication if needed Thank you for this consultation will follow this patient along with you Time with Patient: Greater than 30
[2018-07-26] MEDS: VANCOMYCIN 2,000 MG in SODIUM CHLORIDE 0.9% 500 ML 500 ML IVPB SCH ×3 (00:22→16:44)
[2018-07-26] MEDS: MORPHINE SULFATE 2 MG/ML SYRINGE IVP PRN ×6 (01:35→23:08)
[2018-07-26] MEDS: HYDROcodone/APAP 5-325MG 1 EACH TAB PO PRN ×2 (04:21→10:03)
[2018-07-26] MEDS ORDERED: VANCOMYCIN TROUGH DUE 1 EACH MISC MISCELLANE ONE (07:00)
[2018-07-26] MEDS: SODIUM CHLORIDE 0.9% 1,000 ML IV SCH ×2 (07:09→23:07)
[2018-07-26 07:57] LABS: ALT 33 U/L (9-52); AST 27 U/L (14-36); Alkaline Phosphatase 64 U/L (38-126); Anion Gap 5 mmol/L; Bilirubin, Delta 0.6 mg/dL (0.0-0.2); Bilirubin,Unconjugated 1.3 mg/dL (0.0-1.1); Blood Urea Nitrogen 12 mg/dL (7-17); C Reactive Protein 87.3 mg/L (<10.0); Calcium 8.5 mg/dL (8.4-10.2); Carbon Dioxide 27 mmol/L (22-30); Chloride 105 mmol/L (98-107); Glucose 114 mg/dL (74-99); Potassium 3.7 mmol/L (3.5-5.1); Sodium 137 mmol/L (137-145); Total Bilirubin 1.9 mg/dL (0.2-1.3)
--- NOTE | 2018-07-26 08:20 | US ---
EXAMINATION TYPE: US abdomen complete DATE OF EXAM: 07/26/2018 COMPARISON: CT 07/23/2018 CLINICAL HISTORY: Fever , elevated liver enzymes. Spleen surgically absent. History of stomach CA. Di fficult and limited exam due to patient body habitus and patient inability to roll onto her side due to pain EXAM MEASUREMENTS: Liver Length: 17.9 cm Gallbladder Wall: 0.2 cm CBD: 0.6 cm Spleen: Surgically absent Right Kidney: 13.7 x 4.8 x 6.9 cm Left Kidney: 14.6 x 5.8 x 5.0 cm Pancreas: Obscured by bowel gas Liver: Limited visualization. Visualized portions heterogeneous, measuring upper limits of normal Gallbladder: Echogenic debris visualized, stone vs sludge Evidence for sonographic Negron's sign: Yes CBD: Measuring upper limits of normal. Distal portion obscured by bowel gas Spleen: Surgically absent. Within the splenic fossa there is a hypoechoic area visualized measuring 6.5 x 6.1 x 6.0 cm, probable splenule visualized on recent CT Right Kidney: No hydronephrosis. Echogenic foci visualized measuring 0.8 cm Left Kidney: No hydronephrosis or masses seen. Limited visualization Upper IVC: wnl Abd Aorta: Obscured by overlying bowel gas The liver is heterogeneous. The intrahepatic portion of the IVC is within normal limits. Common b ile duct is unremarkable. The spleen is surgically absnet. Kidneys are symmetric and free of hydr onephrosis. No renal lesions are seen. The pancreas is obscured. The liver is upper limits of normal in size and slightly heterogenous. There is debris within the gallbladder. Gallbladder wall measures 2.4 mm. The distal common hepatic d uct measures 6 mm. There is right upper quadrant tenderness. The spleen is been surgically removed. There is a 6.5 x 6.1 x 6 cm solid mass in the splenic fossa wh ich may represent a splenule. There is a nonshadowing echogenic focus within the right kidney which may be a nonshadowing calculus or just some echogenic renal sinus fat. The left kidney is unremarkable. Visualized portions of aorta and IVC are unremarkable. IMPRESSION: 1. BORDERLINE HEPATOMEGALY. 2. STATUS POST SPLENECTOMY. 3. DEBRIS WITHIN THE GALLBLADDER. 4. QUESTIONABLE NONSHADOWING CALCULUS IN THE RENAL SINUS OF THE RIGHT KIDNEY.
[2018-07-26] MEDS: GABAPENTIN 300 MG CAP PO SCH ×4 (08:32→23:08)
[2018-07-26 08:33] LABS: Basophils # (A) 0.1 k/uL (0-0.2); Basophils % (A) 1 %; Eosinophils # (A) 0.1 k/uL (0-0.7); Eosinophils % (A) 1 %; HCT 38.5 % (34.0-46.0); HGB 12.4 gm/dL (11.4-16.0); Lymphocytes # (A) 3.1 k/uL (1.0-4.8); Lymphocytes % (A) 29 %; MCH 33.7 pg (25.0-35.0); MCHC 32.3 g/dL (31.0-37.0); MCV 104.3 fL (80.0-100.0); Macrocytosis Slight; Mean Platelet Volume 12.1; Monocytes # (A) 0.7 k/uL (0-1.0); Monocytes % (A) 6 %; Neutrophils # (A) 6.4 k/uL (1.3-7.7); Neutrophils % (A) 60 %; Platelet Count 145 k/uL (150-450); RBC 3.69 m/uL (3.80-5.40); RDW 13.9 % (11.5-15.5); WBC 10.6 k/uL (3.8-10.6)
[2018-07-26 09:45] LABS: Large Platelets Present
[2018-07-26 11:55] LABS: Erythrocyte Sedimentation Rate 36 mm/hr (0-20)
[2018-07-26] MEDS: HYDROcodone/APAP 10-325MG 1 EACH TAB PO PRN ×2 (13:20→20:29)
[2018-07-26 18:11] LABS: Appearance,Urine Clear (Clear); Bilirubin,Urine Negative (Negative); Blood,Urine Moderate (Negative); Color,Urine Yellow; Glucose,Urine (UA) 1+ (Negative); Ketones,Urine Negative (Negative); Leukocyte Esterase,Urine Negative (Negative); Mucus,Urine Occasional /hpf; Nitrite,Urine Negative (Negative); PH, Urine 6.5 (5.0-8.0); Protein,Urine Trace (Negative); RBC,Urine >182 /hpf (0-5); Specific Gravity,Urine 1.019 (1.001-1.035)
--- NOTE | 2018-07-26 22:28 | PN ---
PROGRESS NOTE DATE OF SURGERY: 07/26/2018. REASON FOR FOLLOW UP: 1. Leukocytosis, possibly reactive. 2. Right groin pain more likely secondary to right-sided renal stone. INTERVAL HISTORY: The patient is currently afebrile. The patient pain has slightly eased up. The patient denies having any chest pain. No shortness of breath or cough. No diarrhea. PHYSICAL EXAMINATION: Blood pressure is 142/71 with a pulse of 75, temperature 98.5. She is 97% on room air. General description is a middle aged female, lying in bed in no distress. Respiratory system: Unlabored breathing. Clear to auscultation anteriorly. Heart S1, S2. Regular rate and rhythm. Abdomen soft, no tenderness. Extremities: No edema of the feet. LABS: Hemoglobin is 12.4 with white count 10.6, BUN of 12, creatinine 0.33. Ultrasound of the kidneys shows a right-sided renal stone 8 mm. DIAGNOSTIC IMPRESSION AND PLAN: Patient with right flank pain, more likely due to right-sided renal stone. However, the ultrasound failed to show any evidence of hydronephrosis. The UA will be checked. Discontinue the vancomycin. Rocephin to cover renal stone and repeat CBC tomorrow. MMODL / IJN: [id number] /
[2018-07-27] MEDS: MORPHINE SULFATE 2 MG/ML SYRINGE IVP PRN ×3 (04:48→22:28)
[2018-07-27] MEDS: HYDROcodone/APAP 10-325MG 1 EACH TAB PO PRN ×2 (06:00→15:37)
--- NOTE | 2018-07-27 07:32 | P.GSCN ---
History of Present Illness Consult date: 07/27/18 History of present illness: Patient is a 57-year-old female who came in to the hospital because of some disorientation and right hip and abdominal pain. She was found to have a leukocytosis. She has been evaluated including an abdominal ultrasound that suggested gallbladder sludge and a possible right renal calculus. Because of the right renal calculus we were asked to see the patient. The patient is interviewed at the bedside and appears to be oriented appropriately. The patient states that she has had pain since last week and the right hip region radiating to the right groin region. She has sensation of difficulty or urgency of urination unrelieved by Lema catheter. The patient's initial urinalysis was clear but a subsequent urinalysis was loaded with red blood cells. The patient states that she has a history of passing many small stones but has never collected a stone. She states that she has seen a urologist in the past. The ultrasound reviewed by me shows a possible 8 mm stone in the mid right kidney. There is no hydronephrosis. Her white count yesterday was down to 10,000. She is afebrile with stable vital signs. Review of Systems - Constitutional Reports anorexia - Gastrointestinal Reports abdominal pain - Genitourinary Genitourinary: Reports as per HPI Past Medical History Past Medical History: Atrial Flutter, Cancer, Chest Pain / Angina, COPD, Fibromyalgia, GERD/Reflux, Hyperlipidemia, Hypertension, Liver Disease, Osteoarthritis (OA) Additional Past Medical History / Comment(s): MIGRAINES, BACK PAIN, HEPATITIS B & C, HX OF CANCER OF STOMACH 2011. feet & leg swelling, hx. small open area in mid-abd for few days-"comes & goes" History of Any Multi-Drug Resistant Organisms: None Reported Past Surgical History: Ablation, Appendectomy, Bariatric Surgery, Cardiac Ablation, Section, Hysterectomy, Joint Replacement Additional Past Surgical History / Comment(s): hx. rouxen-y (1979), spleen removed, both knees replaced, catarats removed Past Anesthesia/Blood Transfusion Reactions: No Reported Reaction Past Psychological History: Depression Additional Psychological History / Comment(s): claustrophobic Smoking Status: Never smoker Past Alcohol Use History: None Reported Past Drug Use History: None Reported - Past Family History Sister(s) Family Medical History: Cancer Daughter(s) Family Medical History: Pulmonary Embolus Mother Family Medical History: Cancer, Myocardial Infarction ([place]) Additional Family Medical History / Comment(s): of massive heart attack Father Additional Family Medical History / Comment(s): Shot himself Medications and Allergies Home Medications Medication Instructions Recorded Confirmed Type Ibuprofen [Motrin Ib] 400 mg PO Q6H 07/14/18 07/23/18 History Gabapentin [Neurontin] 300 mg PO QID 07/23/18 07/23/18 History Allergies Allergy/AdvReac Type Severity Reaction Status Date / Time adhesive Allergy Unknown RED SKIN Verified 07/23/18 19:41 ondansetron HCl Allergy Unknown Swelling Verified 07/23/18 19:41 [From Zofran (as hydrochloride)] ibuprofen [From Motrin] Allergy Unknown Verified 07/23/18 19:41 Childhood Surgical - Exam Vital Signs Temp Pulse Resp BP Pulse Ox 100.2 F H 98 20 169/89 97 07/23/18 19:22 07/23/18 19:22 07/23/18 19:22 07/23/18 19:22 07/23/18 19:22 - General well developed, well nourished, obese - Eyes PERRL - ENT no hearing loss - Neck no masses - Respiratory normal expansion, normal respiratory effort - Cardiovascular Rhythm: regular - Abdomen Abdomen: soft, non tender - Integumentary no rash, no growths - Neurologic normal coordination, normal sensation - Musculoskeletal normal posture - Psychiatric oriented to time, oriented to person, oriented to place, speech is normal, memory intact Results - Labs 07/26/18 07:00 07/26/18 07:00 Abnormal Lab Results - Last 24 Hours (Table) 07/26/18 07/26/18 07/26/18 Range/Units 07:00 07:00 18:00 RBC 3.69 L (3.80-5.40) m/uL MCV 104.3 H (80.0-100.0) fL Plt Count 145 L (150-450) k/uL ESR 36 H (0-20) mm/hr Creatinine 0.33 L (0.52-1.04) mg/dL Glucose 114 H (74-99) mg/dL Total Bilirubin 1.9 H (0.2-1.3) mg/dL Unconjugated Bilirubin 1.3 H (0.0-1.1) mg/dL Delta Bilirubin 0.6 H (0.0-0.2) mg/dL C-Reactive Protein 87.3 H (<10.0) mg/L Total Protein 6.0 L (6.3-8.2) g/dL Albumin 3.0 L (3.5-5.0) g/dL Urine Protein Trace H (Negative) Urine Glucose (UA) 1+ H (Negative) Urine Blood Moderate H (Negative) Urine RBC >182 H (0-5) /hpf Urine Mucus Occasional H (None) /hpf Microbiology - Last 24 Hours (Table) 07/23/18 20:08 Blood Culture Gram Stain - Preliminary Blood 07/23/18 20:08 Blood Culture - Final Blood Diabetes panel 07/26/18 Range/Units 07:00 Sodium 137 (137-145) mmol/L Potassium 3.7 (3.5-5.1) mmol/L Chloride 105 (98-107) mmol/L Carbon Dioxide 27 (22-30) mmol/L BUN 12 (7-17) mg/dL Creatinine 0.33 L (0.52-1.04) mg/dL Glucose 114 H (74-99) mg/dL Calcium 8.5 (8.4-10.2) mg/dL AST 27 (14-36) U/L ALT 33 (9-52) U/L Alkaline Phosphatase 64 (38-126) U/L Total Protein 6.0 L (6.3-8.2) g/dL Albumin 3.0 L (3.5-5.0) g/dL Calcium panel 07/26/18 Range/Units 07:00 Calcium 8.5 (8.4-10.2) mg/dL Albumin 3.0 L (3.5-5.0) g/dL Pituitary panel 07/26/18 Range/Units 07:00 Sodium 137 (137-145) mmol/L Potassium 3.7 (3.5-5.1) mmol/L Chloride 105 (98-107) mmol/L Carbon Dioxide 27 (22-30) mmol/L BUN 12 (7-17) mg/dL Creatinine 0.33 L (0.52-1.04) mg/dL Glucose 114 H (74-99) mg/dL Calcium 8.5 (8.4-10.2) mg/dL Adrenal panel 07/26/18 Range/Units 07:00 Sodium 137 (137-145) mmol/L Potassium 3.7 (3.5-5.1) mmol/L Chloride 105 (98-107) mmol/L Carbon Dioxide 27 (22-30) mmol/L BUN 12 (7-17) mg/dL Creatinine 0.33 L (0.52-1.04) mg/dL Glucose 114 H (74-99) mg/dL Calcium 8.5 (8.4-10.2) mg/dL Total Bilirubin 1.9 H (0.2-1.3) mg/dL AST 27 (14-36) U/L ALT 33 (9-52) U/L Alkaline Phosphatase 64 (38-126) U/L Total Protein 6.0 L (6.3-8.2) g/dL Albumin 3.0 L (3.5-5.0) g/dL - Imaging US - abdomen: report reviewed, image reviewed US - pelvic: report reviewed, image reviewed Assessment and Plan Assessment: Impression: Abnormal right renal ultrasound suggesting kidney stone. Right- sided abdominal pain with bladder symptoms. Microscopic hematuria. Personal history of kidney stones Recommendations: Given the information to suggest active kidney stone disease CAT scan of the abdomen would be of benefit given she is having a lot of bladder symptoms. An ultrasound unfortunately will not give us any information in that region. There is no hydronephrosis at the time of the ultrasound. A CAT scan of the the most sufficient test to determine whether she has a stone in the ureter. It also will confirm whether the calcification seen in the kidney as a stone or not.
--- NOTE | 2018-07-27 09:08 | CT ---
EXAMINATION TYPE: CT abdomen pelvis wo con DATE OF EXAM: 07/27/2018 COMPARISON: PET/CT dated 07/15/[address] dated 07/23/2018 HISTORY: Urine retention, painful urination. CT DLP: 1504.4 mGycm Automated exposure control for dose reduction was used. TECHNIQUE: Helical acquisition of images was performed from the lung bases through the pelvis. FINDINGS: LUNG BASES: There are small bilateral pleural effusions are partially visualized with associated comp ressive atelectasis. Right basilar pulmonary nodule is seen peripherally measuring approximately 8 mm . This nodule appears new from the prior 07/23/2018 and therefore likely represents nodular atelectasi s. Medial right lower lobe pulmonary nodule measures 9 mm. Bibasilar atelectasis is nodular. Pulmonar y vascular congestion is seen with scattered groundglass opacities likely on the basis of pulmonary e nora. LIVER/GB: The inferior hepatic margin demonstrates a nodular appearance suggesting underlying hepatoc ellular disease. There is elongation of the left hepatic lobe into the left upper quadrant. Lack of o ral contrast limits evaluation for hepatic mass. No radiopaque calculi are seen within the gallbladde r. PANCREAS: Mild pancreatic parenchymal atrophy is seen without ductal dilatation. 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 This rounded mass measures approximately 7.0 cm. ADRENALS: No significant abnormality is seen. KIDNEYS: Bilateral nonobstructing nephrolithiasis is seen with 2 left-sided calculi measuring up to 4 mm and a right-sided renal calculus measuring up to 5 mm. No hydronephrosis of either kidney. FREE AIR: No free air is visualized ADENOPATHY: No greater than 1 cm short axis lymph node noted in the abdomen or pelvis. REPRODUCTIVE ORGANS: Uterus appears surgically absent. URINARY BLADDER: Brower catheter is seen and therefore the urinary bladder is entirely decompressed a nd nondiagnostic. Minimal fat stranding is seen surrounding the urinary bladder. Correlate with urina lysis to evaluate for cystitis. OSSEOUS STRUCTURES: Moderate femoral acetabular arthropathy seen bilaterally and mild multilevel deg enerative changes of the spine. BOWEL: Postsurgical changes are seen of the stomach in this patient with a known prior just tumor. T here is a small lymph node along the greater curvature the stomach and series 201 image 37 measuring 5 mm that was not seen on the prior PET/CT of 2015. Small gastrohepatic lymph nodes are also present, similar to the prior 2016. Periportal lymph nodes have increased from the prior. These measure up to 1.2 cm in short axis. 1.4 cm fat attenuation within the gastric antrum likely relates to a polyp or lipoma leiomyoma as this was seen on the prior of 2016. OTHER: Mild anasarca is present. Midline ventral scar is present from prior surgical intervention. Mi ld atherosclerosis of the abdominal aorta and its branches are seen. IMPRESSION: 1. BROWER CATHETER IS PLACED WITHIN THE URINARY BLADDER AND THE BLADDER IS ENTIRELY DECOMPRESSED AND N ONDIAGNOSTIC. SMALL AMOUNT OF FAT STRANDING SEEN SURROUNDING THE LATTER SUGGESTS CYSTITIS. CORRELATE WITH URINALYSIS IN THIS PATIENT WITH URINARY RETENTION. 2. FINDINGS SUGGESTING HEPATIC CIRRHOSIS WITH PERIPORTAL ADENOPATHY THAT COULD BE REACTIVE OR NEOPLAS TIC. 3. POSTSURGICAL CHANGES OF THE STOMACH. THERE IS A SOLITARY 5 MM SHORT AXIS LYMPH NODE ALONG THE GREA TER CURVATURE THE STOMACH THAT IS NEW FROM 2016. SURVEILLANCE IS RECOMMENDED FOR THIS NODULE GIVEN TH E PRIOR HISTORY OF GIST TUMOR. GASTROHEPATIC LIGAMENT PROMINENT LYMPH NODES ARE UNCHANGED FROM 2016. 4. BILATERAL NONOBSTRUCTING RENAL CALCULI. 5. PARTIALLY VISUALIZED SMALL PLEURAL EFFUSIONS, MILD PULMONARY EDEMA ATELECTASIS, AND RIGHT LOWER LO BE PULMONARY NODULE FOR WHICH SURVEILLANCE IS ALSO RECOMMENDED. ANASARCA IS ALSO SEEN.
[2018-07-27] MEDS: GABAPENTIN 300 MG CAP PO SCH ×4 (11:14→22:23)
[2018-07-27] MEDS: SODIUM CHLORIDE 0.9% 1,000 ML IV SCH ×2 (11:20→22:23)
[2018-07-27] MEDS ORDERED: IOPAMIDOL-300 CONTRAST 30 ML VIAL (ORAL USE) PO PRN (12:07)
--- NOTE | 2018-07-27 15:35 | PN ---
PROGRESS NOTE DATE OF SERVICE: 07/26/2018 CHIEF COMPLAINT: Right groin pain. HISTORY OF PRESENT ILLNESS: This lady's pain has now moved around toward the back. CT of the abdomen demonstrated stone in the kidney, but nothing else. Her white count is starting to come down and her temperature has only been minimally at night. PHYSICAL EXAMINATION: The abdomen is soft, nontender and there are no masses. Chest is clear and the cardiac exam is normal. IMPRESSION: impression right groin and right low back pain with low-grade fever and elevated white count, etiology unknown. PLAN: 1. Continue workup. 2. Continue to follow temperature and white cell count. Her WBC count is going down. Temperature has a high of 99.8. Blood pressure has been good. No change in program and continue to look for the etiology of her discomfort. It was thought that it might be related to her right kidney where she has a stone, but there is nothing to suggest obstructive uropathy. MMODL / IJN: [id number] /
--- NOTE | 2018-07-27 15:41 | PN ---
PROGRESS NOTE CHIEF COMPLAINT: Right groin and flank pain. HISTORY OF PRESENT ILLNESS: This lady has now developed more discomfort around in the right flank. She has been seen by Urology and CTs going to be done. PHYSICAL EXAM: Abdomen is soft. Chest is clear. There are no rashes seen on the side of her abdomen or trunk. IMPRESSION: Right groin and right low back pain, etiology unknown. PLAN: Continue workup. CT of the abdomen has been ordered. If she continues to have further difficulty, an MRI may be done to assess the abnormality seen in the LS spine. MMODL / IJN: [id number] /
[2018-07-27] MEDS: ceFAZolin IN SWFI 2 GM/20 ML SYRINGE IVP SCH (18:13)
--- NOTE | 2018-07-27 23:26 | PN ---
PROGRESS NOTE DATE OF SERVICE: 07/27/2018. REASON FOR FOLLOW UP: A right groin pain with group C history of bacteremia. INTERVAL HISTORY: The patient overall clinical course complicated by positive blood cultures which were reported to be positive late last night. The patient has been having upper abdominal pain to the right groin area, though no worsening. No nausea, vomiting or any diarrhea. PHYSICAL EXAMINATION: Blood pressure 157/73 with a pulse of 72, temperature 98.5. She is 96% on room air. General description is a middle-aged female lying in bed in no distress. Respiratory system: Unlabored breathing. Clear to auscultation anteriorly. Heart S1, S2. Regular rate and rhythm. Abdomen soft, no tenderness. LABS: No new labs have been obtained today. The blood culture was positive for beta- hemolytic strep group C on 07/03. DIAGNOSTIC IMPRESSION AND PLAN: Patient admitted to the hospital with right flank pain which was thought to be related to her right-sided kidney stone, now with evidence of cholestasis of bacteremia infection though there is no evidence of any cellulitis of the right foot area, underlying deep muscular infection patient is the cultures not entirely excluded. We will go ahead and order an MRI of the right hip area, antibiotic adjusted to cefazolin 2 g q.8h. Blood culture has been repeated to document clearance of bacteremia. Continue supportive care. MMODL / IJN: [id number] /
[2018-07-28] MEDS: ceFAZolin IN SWFI 2 GM/20 ML SYRINGE IVP SCH ×4 (00:30→23:04)
[2018-07-28] MEDS: HYDROcodone/APAP 10-325MG 1 EACH TAB PO PRN ×3 (01:45→21:07)
[2018-07-28] MEDS: MORPHINE SULFATE 2 MG/ML SYRINGE IVP PRN ×3 (04:43→17:15)
--- NOTE | 2018-07-28 06:50 | P.PN ---
Subjective Progress Note Date: 07/28/[address] a ct scan looking for a ureteral stone SHe has tiny bilateral renal stones but no ureteral calculi THe renal stones dont explain her pain pattern No treatment for the renal stones is required at this point in time Objective - Vital Signs Vital signs: Vital Signs Temp 98.6 F 07/27/18 23:00 Pulse 72 07/27/18 23:00 Resp 18 07/27/18 23:00 BP 153/77 07/27/18 23:00 Pulse Ox 97 07/27/18 23:00 Intake & Output 07/27/18 07/27/18 07/28/18 06:59 18:59 06:59 Intake Total 1625 700 Output Total 900 2000 Balance -900 1625 -1300 Intake: Intake, IV Titration 625 Amount Sodium Chloride 0.9% 1, 525 000 ml @ 75 mls/hr IV . [id number] [facility] Rx#:[id number] cefTRIAXone 1 gm In 100 Sodium Chloride 0.9% 50 ml @ 100 mls/hr IVPB Q24HR [facility] Rx#:[id number] Oral 1000 700 Output: Urine 900 2000 Other: Voiding Method Indwelling Catheter Indwelling Catheter Indwelling Catheter # Voids 0 0 # Bowel Movements 0 0 - Labs CBC & Chem 7: 07/26/18 07:00 07/26/18 07:00 Labs: Microbiology - Last 24 Hours (Table) 07/23/18 20:08 Blood Culture Gram Stain - Preliminary Blood Blood Culture - Preliminary Beta Hemolytic Strep Group C
[2018-07-28] MEDS: GABAPENTIN 300 MG CAP PO SCH ×4 (08:56→21:05)
[2018-07-28] MEDS: BISACODYL 5 MG TABLET.DR PO SCH (09:24)
[2018-07-28] MEDS: SODIUM CHLORIDE 0.9% 1,000 ML IV SCH (12:19)
--- NOTE | 2018-07-28 16:59 | MR ---
EXAMINATION TYPE: MR lumbar spine wo/w con DATE OF EXAM: 07/28/2018 COMPARISON: NONE HISTORY: 57-year-old female persistent right back pain Technique: Multiplanar, multisequence images of the lumbar spine were obtained before and after admin istration of 13 mL intravenous Gadavist gadolinium contrast. FINDINGS: Low signal in the marrow without suspicious bone marrow replacement. Findings suggest red marrow hype rplasia. Scattered Modic type II fatty endplate changes are present. Schmorl's node within the visualized lowe r thoracic and upper lumbar spine. A component of mild congenital spinal canal narrowing mid lumbar spine with AP canal dimension of 1.3 cm. Moderate multilevel degenerative disc disease with variable mild disc desiccation and disc bulging. Facet arthropathy mid to lower lumbar spine. Alignment is maintained and vertebral body heights are preserved. Conus medullaris is normal. At T12-L1, mild diffuse disc bulge impressing on the ventral thecal sac without significant spinal ca nal stenosis. No neuroforaminal stenosis. At L1-L2, mild diffuse disc bulge impressing on ventral thecal sac. No significant spinal canal or fo raminal stenosis. At L2-L3, eccentric leftward disc bulge causing minimal inferior left neuroforaminal narrowing. Facet arthropathy contributes to mild right neuroforaminal stenosis. No significant spinal canal stenosis. At L3-L4, is disc bulge with some prominent dorsal epidural fat and ligamentum flavum thickening as w ell as facet degenerative change. Changes result in mild overall attenuation of the thecal sac. No si gnificant neuroforaminal stenosis. At L4-L5, diffuse disc bulge with hypertrophic facet arthropathy with joint effusions. Mild overall s luci canal stenosis. Changes result in moderate right neuroforaminal stenosis. Disc material abuts t he traversing right L5 nerve root. At L5-S1, bulging disc and facet degenerative change. No significant canal or foraminal stenosis. No prevertebral or paravertebral soft tissue abnormality seen. No abnormal enhancement within the spinal canal. IMPRESSION: 1. Mild multilevel degenerative disc disease superimposed on hypertrophic facet arthropathy mid to lo wer lumbar spine and underlying congenital canal narrowing mid lumbar spine. Changes result in overal l mild spinal canal stenosis at L4-L5 and mild attenuation of the thecal sac at L3-L4. No high-grade canal compromise. 2. Moderate right neuroforaminal stenosis at L4-L5 with disc material also abutting the traversing ri ght L5 nerve root at this level. 3. Signal changes suggest red marrow hyperplasia which can be seen in the setting of anemia, obesity, smoking, and chronic disease. Clinically correlate. 4. The facet arthropathy is particularly severe at L4-L5 where bilateral facet joint effusions are pr esent.
--- NOTE | 2018-07-28 18:13 | PN ---
PROGRESS NOTE CHIEF COMPLAINT: Right groin and right flank pain. HISTORY OF PRESENT ILLNESS: This lady continues to have more difficulty with her back pain. The right groin pain seems to have transitioned into right flank pain. She does have a stone in the kidney, but there is apparently no ureteral obstruction or hydronephrosis. It should be noted that when she came in she had an elevated white count and temperature, but temperature has gone down and white count has as well. She did have a positive blood culture for strep. 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 In the meantime, MRI has been ordered of the LS spine and Urology continues to follow. PHYSICAL EXAMINATION: Vital signs are normal. Chest is clear. Cardiac exam is normal. Abdomen is soft and nontender. She has a little tenderness in the right flank. Groin is normal. There is no rash. IMPRESSION: 1. Right groin and right flank pain, etiology unknown. 2. History of prior neoplasm. 3. Positive blood culture. PLAN: Await further treatment recommendations from Urology, and an MRI of the LS spine has been ordered. We will also try to access the records of her neoplasm in 2012. MMODL / IJN: [id number] /
--- NOTE | 2018-07-28 23:10 | PN ---
PROGRESS NOTE DATE OF SERVICE: 07/28/2018 REASON FOR FOLLOWUP: Group C strep bacteremia and right groin pain. INTERVAL HISTORY: The patient is currently afebrile. Pain to the right leg is slightly decreased. The patient denies having any chest pain or shortness of breath or cough. No diarrhea. PHYSICAL EXAMINATION: Blood pressure 147/73 with a pulse of 75, temperature 98.4. She is 96% on room air. General description is a middle-aged female lying in bed in no distress. RESPIRATORY SYSTEM: Unlabored breathing. Clear to auscultation anteriorly. HEART: S1, S2. Regular rate and rhythm. ABDOMEN: Soft. No tenderness. LABS/IMAGING: No new labs have been obtained today. Blood culture with group C strep. Repeat blood culture has been negative so far. MRI of the hip area was ordered, not completed, and has been switched to MRI of the lumbar spine, showing degenerative changes. DIAGNOSTIC IMPRESSION AND PLAN: Patient with group C bacteremia with right flank pain with concern for right hip septic arthritis. An MRI of the right hip was ordered canceled by the admitting physician. MRI of the lumbar spine has been done. She is on cefazolin. Follow-up blood cultures have been negative. negative. Transition to oral antibiotic on discharge with close outpatient followup with Orthopedics. Continue supportive care. MMODL / IJN: [id number] /
[2018-07-29] MEDS: MORPHINE SULFATE 2 MG/ML SYRINGE IVP PRN ×4 (00:52→21:27)
[2018-07-29] MEDS: SODIUM CHLORIDE 0.9% 1,000 ML IV SCH ×2 (04:18→15:38)
[2018-07-29] MEDS: HYDROcodone/APAP 10-325MG 1 EACH TAB PO PRN ×2 (05:33→11:32)
[2018-07-29] MEDS: ceFAZolin IN SWFI 2 GM/20 ML SYRINGE IVP SCH ×2 (08:02→15:31)
[2018-07-29] MEDS: GABAPENTIN 300 MG CAP PO SCH ×4 (08:03→21:24)
[2018-07-29] MEDS: BISACODYL 5 MG TABLET.DR PO SCH (08:03)
[2018-07-29 10:12] LABS: Basophils # (A) 0.1 k/uL (0-0.2); Basophils % (A) 1 %; Eosinophils # (A) 0.4 k/uL (0-0.7); Eosinophils % (A) 5 %; HCT 35.3 % (34.0-46.0); HGB 11.9 gm/dL (11.4-16.0); Lymphocytes # (A) 2.7 k/uL (1.0-4.8); Lymphocytes % (A) 39 %; MCH 35.2 pg (25.0-35.0); MCHC 33.8 g/dL (31.0-37.0); Macrocytosis Slight; Mean Platelet Volume 10.6; Monocytes # (A) 0.4 k/uL (0-1.0); Monocytes % (A) 5 %; Neutrophils # (A) 3.3 k/uL (1.3-7.7); Neutrophils % (A) 47 %; Platelet Count 224 k/uL (150-450); RDW 13.9 % (11.5-15.5)
[2018-07-29 11:08] LABS: Anion Gap 6 mmol/L; Blood Urea Nitrogen 8 mg/dL (7-17); Calcium 8.5 mg/dL (8.4-10.2); Carbon Dioxide 27 mmol/L (22-30); Chloride 106 mmol/L (98-107); Glucose 108 mg/dL (74-99); Potassium 3.9 mmol/L (3.5-5.1); Sodium 139 mmol/L (137-145)
--- NOTE | 2018-07-29 13:54 | PN ---
PROGRESS NOTE DATE OF SERVICE: 07/29/2018 REASON FOR FOLLOWUP: Group C strep bacteremia. INTERVAL HISTORY: The patient is currently afebrile. He has been breathing comfortably. Still complaining of pain to the right sacroiliac area. The patient denies having any chest pain. No shortness of breath or cough. No abdominal pain or any diarrhea. PHYSICAL EXAMINATION: Blood pressure is 160/75 with a pulse of 58, temperature 98, she is 94% on room air. General description is a middle-aged female, up in the bed in no distress. RESPIRATORY SYSTEM: Unlabored breathing, clear to auscultation anteriorly. HEART: S1, S2. Regular rate and rhythm. ABDOMEN: Soft, no tenderness. LABS: Hemoglobin is 11.8, white count 7.0 with a BUN of 8, creatinine 0.31. Blood culture repeat has been negative so far. DIAGNOSTIC IMPRESSION AND PLAN: Patient with leukocytosis and patient has predominantly right hip pain, mostly radiating pain with consult initially for a urinary source. He was noticed to have a stone, but no hydronephrosis. Subsequently, did have a positive blood culture with group C strep bacteremia, culture had been negative currently with Cefazolin. He did request for a MRI of the right hip that was canceled by the admitting physician. An MRI of the lumbosacral spine has mostly with degenerative changes. Cefazolin will be switched over to Keflex on discharge to finish a course of therapy with close outpatient followup. MMODL / IJN: [id number] /
--- NOTE | 2018-07-29 16:39 | PN ---
PROGRESS NOTE CHIEF COMPLAINT: Right groin and right flank pain. HISTORY OF PRESENT ILLNESS: This lady's pain is just about the same, possibly a little bit better. Workup continues to look for the etiology of her discomfort. Urology agrees that the stone in the kidney is not causing the problem. An MRI done yesterday fails to demonstrate any significant process to identify a source of radiculopathy. PHYSICAL EXAMINATION: Chest is clear. Cardiac exam is normal. Abdomen is soft, nontender. IMPRESSION: Pain in the right groin and right flank, etiology unknown. PLAN: If nothing further develops, she was told we will probably send her home tomorrow, and we can consider further treatment as an outpatient. Trying to discover the cause of this lady's pain has not been successful. WALLACEL / IJN: [id number] /
[2018-07-30] MEDS: ceFAZolin IN SWFI 2 GM/20 ML SYRINGE IVP SCH ×4 (00:51→23:19)
[2018-07-30] MEDS: SODIUM CHLORIDE 0.9% 1,000 ML IV SCH ×2 (03:44→17:18)
[2018-07-30] MEDS: MORPHINE SULFATE 2 MG/ML SYRINGE IVP PRN ×4 (04:06→21:01)
[2018-07-30] MEDS: BISACODYL 5 MG TABLET.DR PO SCH (08:15)
[2018-07-30] MEDS: GABAPENTIN 300 MG CAP PO SCH ×4 (08:15→21:01)
--- NOTE | 2018-07-30 15:10 | PN ---
PROGRESS NOTE DATE OF SERVICE: 07/30/2018 REASON FOR FOLLOWUP: Group C strep bacteremia. INTERVAL HISTORY: The patient is currently afebrile. The patient is breathing comfortably. Denies having any chest pain or cough. No abdominal pain, is complaining of some pain in the right flank area. No nausea, vomiting and no diarrhea. PHYSICAL EXAMINATION: Blood pressure 145/77, pulse of 61, temperature 98.2, he is 93% on room air. General description is a middle-aged female, up in the chair in no distress. RESPIRATORY SYSTEM: Unlabored breathing with decreased breath sounds at the base. HEART: S1, S2. Regular rate and rhythm. ABDOMEN: Soft, no tenderness. Examination the right flank area currently with no evidence of any cellulitis, induration or fluctuation. LABS: No new lab has been obtained today. Her white count was normal as of yesterday. Blood culture repeat has been negative. DIAGNOSTIC IMPRESSION AND PLAN: Patient with beta-hemolytic group B bacteremia. This patient's abdominal symptoms has been right groin pain with concern initially for possible ureteral stone. The patient's follow up blood culture has been negative. Currently, Cefazolin will be transferred to oral Keflex for a short course of physical therapy with close outpatient followup. Continue supportive care. MMODL / IJN: [id number] /
--- NOTE | 2018-07-30 15:25 | PN ---
PROGRESS NOTE CHIEF COMPLAINT: Persistent right groin and low back pain. HISTORY OF PRESENT ILLNESS: This lady is still complaining of a right-sided low back pain. It is slowly improving. So far, there has been no obvious etiology for her back and groin pains, nor her temperature and elevated white count. PHYSICAL EXAM: Her chest is clear. Cardiac exam is normal. The abdomen is soft, nontender and hip is not irritable. IMPRESSION: 1. Right hip and low back pain, etiology unknown. 2. Urinary retention. PLAN: If she is continues to improve, she could probably be discharged in the next day or two to outpatient followup. MMODL / IJN: [id number] /
[2018-07-30] MEDS: HYDROcodone/APAP 10-325MG 1 EACH TAB PO PRN (17:50)
[2018-07-31] MEDS: MORPHINE SULFATE 2 MG/ML SYRINGE IVP PRN ×2 (04:03→08:03)
[2018-07-31] MEDS: HYDROcodone/APAP 10-325MG 1 EACH TAB PO PRN ×3 (04:04→17:51)
[2018-07-31] MEDS: SODIUM CHLORIDE 0.9% 1,000 ML IV SCH (06:05)
[2018-07-31] MEDS: GABAPENTIN 300 MG CAP PO SCH ×3 (08:03→17:51)
[2018-07-31] MEDS: BISACODYL 5 MG TABLET.DR PO SCH (08:05)
[2018-07-31] MEDS: ceFAZolin IN SWFI 2 GM/20 ML SYRINGE IVP SCH ×2 (08:37→17:20)
[2018-07-31 09:36] VITALS: RESP 12
--- NOTE | 2018-07-31 14:18 | PN ---
PROGRESS NOTE DATE OF SERVICE: 07/31/2018 REASON FOR FOLLOW UP: Group C strep bacteremia. INTERVAL HISTORY: The patient is currently afebrile. The patient is breathing comfortably. Denies having any chest pain or any cough. No abdominal pain or any diarrhea. PHYSICAL EXAMINATION: Blood pressure is 160/81 with a pulse of 72, temperature 98, she is 94% on room air. General description is a middle-aged female, lying in bed in no distress. RESPIRATORY SYSTEM: Unlabored breathing, clear to auscultation anteriorly. HEART: S1, S2. Regular rate and rhythm. ABDOMEN: Soft, no tenderness. LABS: No new labs have been obtained today. Blood cultures on 07/27 have been negative. DIAGNOSTIC IMPRESSION AND PLAN: Patient with group C bacteremia in this patient predominantly has been right flank and groin pain with concern for possible urinary source. A repeat blood culture has been negative, currently cefazolin will be transitioned to a short course of oral Keflex to finish a course of therapy. Continue supportive care. MMODL / IJN: [id number] /
[2018-07-31 16:03] VITALS: BP 175/74; PULSE 69; TEMP 98.5
--- NOTE | 2018-07-31 18:14 | DS ---
DISCHARGE SUMMARY CHIEF COMPLAINT: Pain in the right groin with fever and elevated white count. HISTORY OF PRESENT ILLNESS AND PHYSICAL EXAM: Details of this lady's history and physical can be found in the initial workup. LABORATORY STUDIES: While she was in the hospital, she had laboratory studies, details of which can be found laboratory section of her chart. COURSE IN HOSPITAL: After admission, she was placed on bedrest and started on intravenous fluids and appropriate cultures were obtained. She was seen by Orthopedics, Infectious Disease and the etiology of the pain was never clarified. The right hip and groin pain subsided and then moved to the right flank area and it was thought that this could be somehow related to renal problem. She was seen by Urology. She has stone in the kidney, but not in the ureter and there is no hydronephrosis. She continued to slowly improve and her temperature stayed down and white count came down to normal. An MRI of the LS spine was obtained to rule out radiculopathy and it was unremarkable. Infectious Disease recommended an MRI of the right hip, but apparently she is too large for the scanner. She is doing well. It was felt she could go home on the and she will go home with home care with [facility]. We will see her in the office in several days. We will continue workup which may include the MRI of the hip. FINAL DIAGNOSES: 1. Acute right hip pain with elevated white count and fever, etiology unknown. 2. Right renal stone. OPERATIONS: None. CONSULTATIONS: Orthopedics, Infectious Disease, urology. She is improved. MMODL / IJN: [id number] /
== END 2018-07-31 18:21 | disposition home health service (06) | DRG 556 ==
LOC: EC 19:13 → SUPCPDRO 19:13 → 4SSUR 07-24 04:20
PROVIDERS: ADMIT Family Medicine; ATTEND Family Medicine
DX: M25.551 Pain in right hip (principal); Z68.42 Body mass index [BMI] 45.0-49.9, adult; R78.81 Bacteremia; D72.829 Elevated white blood cell count, unspecified; R50.9 Fever, unspecified; N20.0 Calculus of kidney; E66.9 Obesity, unspecified; E78.5 Hyperlipidemia, unspecified; F40.240 Claustrophobia; I10 Essential (primary) hypertension; J44.9 Chronic obstructive pulmonary disease, unspecified; K21.9 Gastro-esophageal reflux disease without esophagitis; M54.10 Radiculopathy, site unspecified; M79.7 Fibromyalgia; Z82.49 Family history of ischemic heart disease and other diseases of the circulatory system; Z85.028 Personal history of other malignant neoplasm of stomach; Z86.73 Personal history of transient ischemic attack (TIA), and cerebral infarction without residual deficits; Z87.442 Personal history of urinary calculi; Z90.710 Acquired absence of both cervix and uterus; Z79.1 Long term (current) use of non-steroidal anti-inflammatories (NSAID); Z79.899 Other long term (current) drug therapy; Z88.6 Allergy status to analgesic agent; Z88.8 Allergy status to other drugs, medicaments and biological substances; Z98.84 Bariatric surgery status; Z96.60 Presence of unspecified orthopedic joint implant; B95.4 Other streptococcus as the cause of diseases classified elsewhere
CPT/HCPCS: 36415; 70450; 71046; 71275; 72100; 72158; 73502; 74174; 74176; 76700; 80048; 80053; 80076; 80202; 81001; 81003; 83605; 84484; 85025; 85379; 85610; 85652; 85730; 86038; 86140; 87040; 87077; 87186; 87502; 93005; 96361; 96365; 96366; 96367; 96375; 99285

== ENCOUNTER → 2018-10-03 | Outpatient (CLI) | payer OTHER ==
--- NOTE | 2018-10-07 16:54 | PE ---
EXAMINATION TYPE: PET CT fusion skull to thigh DATE OF EXAM: 10/03/2018 COMPARISON: CT abdomen and pelvis July 27, 2018 and older CTs. Prior PET/CT July 15, 2015 HISTORY: History of stomach cancer or just diagnosed 2011 completed chemotherapy 2016 TECHNIQUE: Following the intravenous administration of 11.54 mCi of F-18 FDG, whole body images are performed from the skull base to the midthigh. Images are reviewed on the computer in the coronal, a xial, and sagittal planes. Reconstructed rotating images are created on independent workstation and reviewed on the computer. A noncontrast CT is performed in conjunction with the PET scan. SCAN: Subsequent Scan FINDINGS: Exam is noted suboptimal secondary to patient's markedly large body habitus. SKULL BASE AND NECK: No definitive new areas of suspicious radiotracer uptake. CHEST, MEDIASTINUM, AND HILAR REGION: No areas of new radiotracer uptake. ABDOMEN AND PELVIS: Normal excretion is seen. Small focus of radiotracer uptake axial image 180 is pr esumed along the course of left ureter. No additional areas of suspicious radiotracer uptake are pres ent. OSSEOUS STRUCTURES: No new areas of suspicious hypermetabolic uptake. OTHER CT: Enlarged pulmonary arteries are present, CT finding suggesting underlying pulmonary artery hypertension. Surgical changes epigastric region are again seen. Fatty-replaced atrophy of pancreas is redemonstrat ed. Uterus is surgically absent. Remnant ovaries are present in the adnexa axial image 209. IMPRESSION: Suboptimal study due to body habitus, no obvious new areas of hypermetabolic uptake to mcdaniel ggest recurrent malignancy are identified.
== END | disposition home or self-care (01) ==
LOC: RADPETMAIN 10:09
PROVIDERS: ATTEND Internal Medicine Hematology & Oncology
DX: D48.1 Neoplasm of uncertain behavior of connective and other soft tissue (principal)
CPT/HCPCS: 78815; A9552

== ENCOUNTER 2019-06-11 18:30 | Emergency (ER) | payer OTHER ==
[2019-06-11 18:36] VITALS: BP 175/92; PULSE 85; RESP 16; TEMP 98
--- NOTE | 2019-06-11 18:58 | ED ---
General Adult HPI - General Chief complaint: Extremity Injury, Upper Stated complaint: right hand swelling Time Seen by Provider: 06/11/19 18:40 Source: patient, RN notes reviewed Mode of arrival: ambulatory Limitations: no limitations - History of Present Illness Initial comments: 58-year-old female presents to the emergency department for a chief complaint of right hand bruising. Patient states that she was at the [facility] and she had to use twist handles to open the machines. States it is very difficult to do so. States later in the day she started to notice bruising to the dorsum of the hand. Patient was concerned it could be a blood clot. Patient does not room or any other injury. Patient denies any Pain except when touching the area. Denies any difficulty flexing or extending the fingers.Patient has no other complaints at this time including shortness of breath, chest pain, abdominal pain, nausea or vomiting, headache, or visual changes. - Related Data Home Medications Medication Instructions Recorded Confirmed Ibuprofen [Motrin Ib] 400 mg PO Q6H 07/14/18 07/23/18 Gabapentin [Neurontin] 300 mg PO QID 07/23/18 07/23/18 Previous Rx's Medication Instructions Recorded Cephalexin [Keflex] 500 mg PO Q6HR #40 cap 07/31/18 Allergies Allergy/AdvReac Type Severity Reaction Status Date / Time adhesive Allergy Unknown RED SKIN Verified 06/11/19 18:35 ondansetron HCl Allergy Unknown Swelling Verified 06/11/19 18:35 [From Zofran (as hydrochloride)] ibuprofen [From Motrin] Allergy Unknown Verified 06/11/19 18:35 Childhood Review of Systems ROS Statement: Those systems with pertinent positive or pertinent negative responses have been documented in the HPI. ROS Other: All systems not noted in ROS Statement are negative. Past Medical History Past Medical History: Atrial Flutter, Cancer, Chest Pain / Angina, COPD, Fibromyalgia, GERD/Reflux, Hyperlipidemia, Hypertension, Liver Disease, Osteoarthritis (OA) Additional Past Medical History / Comment(s): MIGRAINES, BACK PAIN, HEPATITIS B & C, HX OF CANCER OF STOMACH 2011. feet & leg swelling, hx. small open area in mid-abd for few days-"comes & goes" History of Any Multi-Drug Resistant Organisms: None Reported Past Surgical History: Ablation, Appendectomy, Bariatric Surgery, Cardiac Ablation, Section, Hysterectomy, Joint Replacement Additional Past Surgical History / Comment(s): hxEmmanuel mulligan (1979), spleen removed, both knees replaced, catarats removed Past Anesthesia/Blood Transfusion Reactions: No Reported Reaction Past Psychological History: Depression Smoking Status: Never smoker Past Alcohol Use History: None Reported Past Drug Use History: None Reported - Past Family History Sister(s) Family Medical History: Cancer Daughter(s) Family Medical History: Pulmonary Embolus Mother Family Medical History: Cancer, Myocardial Infarction ([place]) Additional Family Medical History / Comment(s): of massive heart attack Father Additional Family Medical History / Comment(s): Shot himself General Exam Limitations: no limitations General appearance: alert, in no apparent distress Head exam: Present: atraumatic, normocephalic, normal inspection Eye exam: Present: normal appearance, PERRL, EOMI. Absent: scleral icterus, conjunctival injection, periorbital swelling ENT exam: Present: normal exam, mucous membranes moist Neck exam: Present: normal inspection, full ROM. Absent: tenderness, meningismus, lymphadenopathy Respiratory exam: Present: normal lung sounds bilaterally. Absent: respiratory distress, wheezes, rales, rhonchi, stridor Cardiovascular Exam: Present: regular rate, normal rhythm, normal heart sounds. Absent: systolic murmur, diastolic murmur, rubs, gallop, clicks Extremities exam: Present: full ROM (Full range of motion of all digits of the right hand including the second and third digits.), tenderness (Tenderness noted over the dorsum of the right second and third metacarpal heads.), normal capillary refill (Capillary refill less than 2 seconds, radial pulse 2+ in the right upper extremity.), other (Patient does have raised area of ecchymosis noted over the dorsum of the second and third metacarpal heads of the right hand. This is about 3 cm x 3 cm in size. There is no sign of cellulitis or abscess.). Absent: pedal edema, joint swelling, calf tenderness Course Vital Signs 06/11/19 18:33 Temperature 98.0 F Pulse Rate 85 Respiratory 16 Rate Blood Pressure 175/92 O2 Sat by Pulse 96 Oximetry Medical Decision Making - Medical Decision Making X-ray of the right hand shows no definite acute fracture or dislocation. I do not have a significant concern for occult fracture. She was wrapped with an Daron wrap. At this time patient will be discharged home. She will return for any worsening symptoms. Disposition Clinical Impression: Contusion, hand Disposition: HOME SELF-CARE Condition: Good Instructions (If sedation given, give patient instructions): Contusion in Adults (ED) Additional Instructions: Please take Motrin and Tylenol for pain. Rest ice and elevate the right hand. Use Daron wrap as needed. Follow-up with primary care in 1-2 days. Return to the emergency department if you have any worsening symptoms. Is patient prescribed a controlled substance at d/c from ED?: No Referrals: Yanick Holm MD [Primary Care Provider] - 1-2 days Time of Disposition: 19:27
--- NOTE | 2019-06-11 19:01 | XR ---
EXAMINATION TYPE: XR hand complete RT DATE OF EXAM: 06/11/2019 COMPARISON: NONE HISTORY: Pain TECHNIQUE: Three views are submitted. FINDINGS: The osseous structures are intact. There is arthropathy of the DIP joints of all digits. And there is no acute fracture or dislocation. IMPRESSION: 1. No definite acute fracture or dislocation if symptoms persist, follow-up study in 7 to 10 days wo uld be suggested 2. Arthropathy.
== END 2019-06-11 19:46 | disposition home or self-care (01) ==
LOC: EC 18:30
DX: S60.221A Contusion of right hand, initial encounter (principal); M19.90 Unspecified osteoarthritis, unspecified site; Z88.6 Allergy status to analgesic agent; Z88.8 Allergy status to other drugs, medicaments and biological substances; Z91.048 Other nonmedicinal substance allergy status; Z79.1 Long term (current) use of non-steroidal anti-inflammatories (NSAID); Z85.028 Personal history of other malignant neoplasm of stomach; Z86.69 Personal history of other diseases of the nervous system and sense organs; Z98.890 Other specified postprocedural states; Z80.9 Family history of malignant neoplasm, unspecified
CPT/HCPCS: 99283

== ENCOUNTER → 2019-11-30 | Outpatient (CLI) | payer OTHER ==
--- NOTE | 2019-11-30 22:45 | CT ---
EXAMINATION TYPE: CT brain wo con DATE OF EXAM: 11/30/2019 HISTORY: Hypertension and multiple repeated recent falls. History of stomach cancer. CT DLP: 1219 mGycm. Automated Exposure Control for Dose Reduction was Utilized. TECHNIQUE: CT scan of the head is performed without contrast. COMPARISON: CT brain July 23, 2018. FINDINGS: There is no acute intracranial hemorrhage or midline shift identified. There is diffuse v entricular and sulcal prominence consistent with diffuse age-related cerebral atrophy. There is low- attenuation in the periventricular white matter consistent with chronic small vessel ischemic change. Old lacunar infarct right internal capsule axial image 32 is redemonstrated. The calvarium is intac t. The globes are intact and the visualized sinuses are clear. IMPRESSION: No acute intracranial hemorrhage or midline shift. There is mild diffuse age-related ce rebral atrophy and mild to borderline moderate chronic small vessel ischemic change along with old le ft side lacunar infarct are all redemonstrated. No significant change from prior CT.
== END | disposition home or self-care (01) ==
LOC: RADCTMAIN 17:25
PROVIDERS: ATTEND Family Medicine
DX: I10 Essential (primary) hypertension (principal); I67.82 Cerebral ischemia; G31.9 Degenerative disease of nervous system, unspecified; R29.6 Repeated falls; Z86.73 Personal history of transient ischemic attack (TIA), and cerebral infarction without residual deficits
CPT/HCPCS: 70450

== ENCOUNTER → 2020-08-17 | Outpatient (CLI) | payer OTHER ==
[2020-08-17 12:29] LABS: INR 1.2 (<1.2); Partial Thromboplastin Time 24.4 sec (22.0-30.0); Prothrombin Time 12.6 sec (9.0-12.0)
[2020-08-17 12:35] LABS: Appearance,Urine Clear (Clear); Bacteria,Urine Rare /hpf; Bilirubin,Urine Negative (Negative); Blood,Urine Small (Negative); Color,Urine Yellow; Glucose,Urine (UA) Trace (Negative); Hyaline Casts,Urine 2 /lpf (0-2); Ketones,Urine Trace (Negative); Leukocyte Esterase,Urine Trace (Negative); Mucus,Urine Many /hpf; Nitrite,Urine Negative (Negative); Protein,Urine 1+ (Negative); RBC,Urine 12 /hpf (0-5); Specific Gravity,Urine 1.037 (1.001-1.035); Squamous Epithelial Cell,Urine 3 /hpf (0-4); WBC,Urine 3 /hpf (0-5)
[2020-08-17 18:54] LABS: HGB 14.2 g/dL (12.0-15.0); MCH 33.9 pg (27.0-32.0); MCV 102.6 fL (80.0-97.0); Mean Platelet Volume 13.8 fL (9.5-12.2); Platelet Count 148 X 10*3/uL (140-440); RBC 4.19 X 10*6/uL (4.10-5.20); RDW 13.5 % (11.5-14.5); WBC 5.52 X 10*3/uL (4.50-10.00)
[2020-08-17 19:03] LABS: Albumin/Globulin Ratio 1.43 (1.60-3.17); Anion Gap 8.7 mmol/L (4.00-12.00); Calcium 9.3 mg/dL (8.7-10.3); Carbon Dioxide 27.3 mmol/L (21.6-31.8); Globulin 2.8 g/dL (1.6-3.3); Non-African American GFR(CKD) 98.4 (60.0-200.0); Potassium 4.6 mmol/L (3.5-5.5); Total Bilirubin 1.8 mg/dL (0.2-1.2); Total Protein 6.8 g/dL (6.2-8.2)
== END | disposition home or self-care (01) ==
LOC: LABWHC1 11:29
PROVIDERS: ATTEND Orthopaedic Surgery
DX: Z01.818 Encounter for other preprocedural examination (principal); R94.31 Abnormal electrocardiogram [ECG] [EKG]
CPT/HCPCS: 36415; 80053; 81001; 85027; 85610; 85730; 87070; 93005

== ENCOUNTER 2020-08-29 07:30 | Inpatient (IN) | payer OTHER ==
[2020-08-24 17:58] VITALS: BMI 48.4
[~2020-08-29 07:30] MED LIST: ACETAMINOPHEN TAB 500 MG TAB PO PRN; DEXAMETHASONE SOD PHOSPHATE 4 MG/ML 1 ML VIAL IV ONE; GABAPENTIN 300 MG CAP PO PRN; HYDROmorphone 0.2 MG/1 ML SYRINGE IVP PRN; LACTATED RINGERS 1,000 ML IV SCH; LIDOCAINE 1% (10MG/ML) FOR IV START INTRADERMA PRN; MAGNESIUM HYDROXIDE 2,400 MG/10 ML CUP PO PRN; MIDAZOLAM 2 MG/2 ML VIAL IV PRN; NA PHOS,M-B/NA PHOS,DI-BA 133 ML ENEMA RECTAL PRN; NALOXONE 0.4 MG/ML 1 ML VIAL IV PRN; TRANEXAMIC ACID 1,000 MG in SODIUM CHLORIDE 0.9% 100 ML IVPB PRN; VANCOMYCIN 2,000 MG in SODIUM CHLORIDE 0.9% 500 ML 500 ML IVPB PRN; bisacodyL 10 MG SUPP RECTAL PRN; hydrOXYzine pamoate 25 MG CAP PO PRN
[2020-08-29] MEDS ORDERED: SUCCINYLCHOLINE CHLORIDE VIAL 200 MG/10 ML VIAL IV ONE (09:24)
[2020-08-29] MEDS ORDERED: GLYCOPYRROLATE 0.2 MG/ML 2 ML VIAL ONE (09:24)
[2020-08-29] MEDS ORDERED: MIDAZOLAM 2 MG/2 ML VIAL ONE (09:24)
[2020-08-29] MEDS ORDERED: NEOSTIGMINE 1 MG/ML 10 ML VIAL ONE (09:24)
[2020-08-29] MEDS ORDERED: LIDOCAINE 1% INJ 10MG/ML (20 ML MDV) ONE (09:24)
[2020-08-29] MEDS ORDERED: ROCURONIUM 10 MG/ML (5 ML VIAL) IV ONE (09:24)
[2020-08-29] MEDS ORDERED: TRANEXAMIC ACID 1,000 MG/10 ML VIAL ONE (09:24)
[2020-08-29] MEDS ORDERED: hydrALAZINE HCL 20 MG/ML 1 ML VIAL ONE (09:24)
[2020-08-29] MEDS ORDERED: PROPOFOL 10 MG/ML 20 ML VIAL IV ONE (09:24)
[2020-08-29] MEDS ORDERED: fentaNYL (PF) 50 MCG/ML 2 ML AMP ONE (09:24)
[2020-08-29] MEDS ORDERED: SODIUM CHLORIDE 0.9% 100 ML BAG ONE (09:24)
[2020-08-29] MEDS ORDERED: HYDROmorphone (PF) 1 MG/ML ONE (09:24)
[2020-08-29] MEDS ORDERED: ESMOLOL 100 MG/10 ML VIAL ONE (09:24)
[2020-08-29] MEDS ORDERED: METOPROLOL TARTRATE 5 MG/5 ML VIAL IVP ONE (09:24)
[2020-08-29] MEDS ORDERED: ceFAZolin 3,000 MG in SODIUM CHLORIDE 0.9% IRRIGATIO 3,000 ML IRRIGATION ONE (09:27)
--- NOTE | 2020-08-29 11:17 | P.OP ---
Date of Procedure: 08/29/20 Preoperative Diagnosis: Ligamentous instability left total knee Postoperative Diagnosis: Ligamentous instability left total knee Procedure(s) Performed: revision left total knee arthroplasty Implants: Guevara [employer] Nephew Legion Oxinium constrained femoral component size 5, right G[employer]hew Legion press-fit stem, straight 16 mm x 160 mm G[employer]vara [employer]hew Legion 10 mm distal 10 mm posterior femoral wedge lateral Guevara & Nephew legion revision tibial baseplate size 3, right G[employer] Legion press-fit stem, straight 15 mm x 160 mm Guevara [employer] Nephew Angela II constrained articular insert size 3-4, 13 mm All components were cemented using Palacos R bone cement.. The articulation is Oxinium on polyethylene. Anesthesia: spinal Surgeon: Gurdeep De Santiago Well Drill Operator Rotary Drill #1: Tana Dao Estimated Blood Loss (ml): 250 Pathology: other (Cultures 2) Condition: stable Disposition: PACU Indications for Procedure: This is a 59-year-old female has had a prior left total knee arthroplasty. She states she is always had some problem with that but this past winter she slipped on some ice and injured her knee. Since that time she's had significant instability of her knee with a sensation of her knee giving out. Her physical exam shows instability of her knee mainly with the posterior cruciate ligament. After discussing the surgical nonsurgical treatment options with her at length she wishes to proceed with a revision left total knee arthroplasty. Informed consent was obtained. Operative Findings: The operative findings are consistent with instability of her left total knee arthroplasty. Description of Procedure: Patient was seen in the preoperative area consent was reviewed and operative site was marked with a skin marker. An adductor canal pain catheter was placed by anesthesia in the preoperative area. Patient was then brought to the operating room and given preoperative antibiotics intravenously. A spinal anesthetic was administered by the anesthesia department. A tourniquet was placed on the upper thigh and the lower extremity was prepped and draped in usual sterile fashion. A gram of transexamic acid was given. A universal timeout was then performed which confirmed the patient's name, surgical site, ALLERGIES, and consent. The lower extremity was then exsanguinated and tourniquet was inflated to 350 mmHg. A standard and anterior midline approach to the knee was performed. The skin and subcutaneous tissue was dissected down to the patellar tendon. A medial parapatellar arthrotomy was then performed. The knee was then extended, the patellar was everted, and the knee was again flexed. The knee was then cultured 2. A frozen section was obtained which was found to be negative for acute inflammation. The prosthesis was then evaluated and the tibial component was found to be loose. Using a small oscillating saw, the cement implant interface was disrupted and the femoral and tibial components were then removed without difficulty. Next, sequential reaming of the femoral canal was then performed by hand. The femur was then sized and the distal cutting block was then placed in the distal femur was then freshened with a cut. Next the 4-in-1 cutting block was then placed, and set for the appropriate rotation. Anterior posterior chamfer cuts were then performed as well as anterior posterior cuts. The trial femur was then placed with appropriate length stem. Next the box cutting guide was placed in the bone for the box was then reamed and removed. Femoral trial was then removed. Attention was then directed to the tibia. Sequential reaming of the tibial canal was then performed with appropriate size. The intramedullary tibial cutting guide was then placed the tibia was then freshened with a minimal resection. The tibia was then sized and the canal was prepared for the stem. The tibial trial was then placed and found to have a good fit. The femoral trial was then placed as well. Next, the insert trials were then sequentially used until the appropriate-sized insert was reached. Knee was able to fully extend and flex to 120 and was stable to varus and valgus and anterior posterior stresses throughout all range of motion. Trials were then removed. The cut surfaces of bone were then irrigated with pulsatile lavage. The knee was also irrigated with Irrisept solution. The components were then opened, the cement was mixed, and the components were then cemented in place. The cement was allowed to harden with the knee in full extension. After the cemented hardened. The tourniquet was released, and hemostasis was obtained. A second gram of transexamic acid was given. The knee was again irrigated. The knee was again taken through range of motion and found to be stable throughout all range of motion of 0-130, and the patella tracked normally. The fascia was then closed with #2 strata fix suture. The subcutaneous tissue was closed with 3-0 Vicryl and 3-0 strata fix. Exofin glue was used for the skin and placed with the knee in flexion. The patient was placed in a sterile silver dressing. Patient was then transferred to recovery room in stable condition. The podiatry assistant KELLI Dean was required due the complexity surgery and the need for a skilled neurosurgical physician assistant. She assisted in positioning, draping, retraction, and closure of the wound.
[2020-08-29] MEDS: HYDROmorphone 0.5 MG/0.5 ML SYRINGE IVP PRN ×2 (12:03→12:57)
[2020-08-29] MEDS ORDERED: HYDROmorphone 1 MG/ML 1 ML SYRINGE IVP ONE ×2 (12:14→12:39)
[2020-08-29] MEDS ORDERED: LACTATED RINGERS 1,000 ML IV ONE (12:19)
[2020-08-29] MEDS ORDERED: diphenhydrAMINE 50 MG/ML 1 ML VIAL IVP ONE (12:20)
--- NOTE | 2020-08-29 13:18 | XR ---
EXAMINATION TYPE: XR knee limited LT DATE OF EXAM: 08/29/2020 COMPARISON: 06/20/2010 HISTORY: Postoperative knee replacement FINDINGS: AP and lateral limited views of the left knee were obtained. There is a left total knee pro sthesis with distal femoral, proximal proximal tibial components and patellar component intact. No ra diographic evidence evidence of fracture or loosening. Mild overlying soft tissue emphysema suggestiv e of recent postsurgical change. IMPRESSION: 1. Postoperative left total knee replacement.
[2020-08-29] MEDS: HYDROcodone/APAP 7.5-325MG 1 EACH TAB PO PRN ×2 (14:00→18:03)
[2020-08-29] MEDS: SODIUM CHLORIDE 0.9% 1,000 ML IV SCH ×2 (14:37→23:32)
[2020-08-29] MEDS: HYDROmorphone 1 MG/ML 1 ML SYRINGE IVP PRN ×2 (15:29→18:23)
[2020-08-29] MEDS ORDERED: ceFAZolin 3 GM in SODIUM CHLORIDE 0.9% 100 ML IVPB SCH (16:00)
[2020-08-29] MEDS ORDERED: VANCOMYCIN 2,000 MG in SODIUM CHLORIDE 0.9% 500 ML 500 ML IVPB ONE (21:00)
[2020-08-29] MEDS: ASPIRIN 325 MG TAB PO SCH (23:14)
[2020-08-29] MEDS: clonazePAM 1 MG TAB PO PRN (23:14)
[2020-08-29] MEDS: SENNOSIDES-DOCUSATE SODIUM 1 EACH TAB PO SCH (23:29)
[2020-08-29] MEDS: GABAPENTIN 300 MG CAP PO SCH (23:32)
[2020-08-29] MEDS: QUEtiapine 100 MG TAB PO SCH (23:32)
[2020-08-29] MEDS: hydrALAZINE HCL 50 MG TAB PO SCH (23:32)
[2020-08-30] MEDS: HYDROcodone/APAP 7.5-325MG 1 EACH TAB PO PRN ×4 (00:56→20:33)
[2020-08-30] MEDS: HYDROmorphone 1 MG/ML 1 ML SYRINGE IVP PRN ×3 (04:45→22:32)
[2020-08-30] MEDS: GABAPENTIN 300 MG CAP PO SCH ×3 (07:02→22:02)
[2020-08-30] MEDS: hydrALAZINE HCL 50 MG TAB PO SCH ×3 (07:02→22:02)
[2020-08-30] MEDS: ASPIRIN 325 MG TAB PO SCH ×2 (07:02→20:34)
--- NOTE | 2020-08-30 08:08 | P.DS ---
Providers Date of admission: 08/29/2020 Expected date of discharge: 08/30/20 Attending physician: Gurdeep De Santiago Consults: 08/29/20 07:00 Consult Physician Routine Consulting Provider: Yanick Holm Consult Reason/Comments: medical management Do you want consulting provider notified?: Yes Primary care physician: Yanick Holm - Discharge Diagnosis(es) (1) Instability of left knee joint Current Visit: Yes Status: Acute (2) Status post revision of total replacement of left knee Current Visit: Yes Status: Acute Hospital Course: This is a 59-year-old female who was last seen with complaint of continued left knee pain. The patient has a known history of total left knee arthroplasty with chronic left knee instability and failure of components. She has presented to discuss surgical options. After discussion and consideration the patient elects to proceed with revision total left knee arthroplasty. The patient is seen preoperatively by her primary care physician and cleared for surgery. The patient is admitted to [facility] for revision total left knee arthroplasty. The procedures performed without complication or sequelae. He is doing well postoperatively. Vital signs are stable at discharge. Labs are stable at discharge. the patient is ambulating well with walker with minimal assistance. The patient is discharged to home on postop day #1 pending medical clearance and physical therapy. Please see orders and refer to the med rec for accurate list of medications. Plan - Discharge Summary Discharge Rx Participant: Yes New Discharge Prescriptions: New Aspirin 325 mg PO BID #60 tab HYDROcodone/APAP 7.5-325MG [[place] 7.5-325] 1 - 2 tab PO Q6H PRN #32 tab PRN Reason: Pain Sennosides [Senokot] 2 tab PO DAILY PRN #60 tablet PRN Reason: Constipation No Action Gabapentin [Neurontin] 300 mg PO TID clonazePAM [KlonoPIN] 1 mg PO TID PRN PRN Reason: Anxiety QUEtiapine [SEROquel] 100 mg PO HS hydrALAZINE HCL [Apresoline] 100 mg PO TID Tears 1 drop BOTH EYES DAILY Aspirin [Adult Low Dose Aspirin EC] 81 mg PO DAILY HYDROcodone/APAP 7.5-325MG [[place] 7.5-325] 1 tab PO DIRECTED PRN PRN Reason: Pain Albuterol Sulfate [Proair Hfa] 1 - 2 puff INHALATION Q4HR PRN PRN Reason: Shortness Of Breath Discharge Medication List Gabapentin [Neurontin] 300 mg PO TID 07/23/18 [History] Albuterol Sulfate [Proair Hfa] 1 - 2 puff INHALATION Q4HR PRN 08/24/20 [History] Aspirin [Adult Low Dose Aspirin EC] 81 mg PO DAILY 08/24/20 [History] HYDROcodone/APAP 7.5-325MG [[place] 7.5-325] 1 tab PO DIRECTED PRN 08/24/20 [History] QUEtiapine [SEROquel] 100 mg PO HS 08/24/20 [History] Tears 1 drop BOTH EYES DAILY 08/24/20 [History] clonazePAM [KlonoPIN] 1 mg PO TID PRN 08/24/20 [History] hydrALAZINE HCL [Apresoline] 100 mg PO TID 08/24/20 [History] Aspirin 325 mg PO BID #60 tab 08/29/20 [Rx] HYDROcodone/APAP 7.5-325MG [[place] 7.5-325] 1 - 2 tab PO Q6H PRN #32 tab 08/29/20 [Rx] Sennosides [Senokot] 2 tab PO DAILY PRN #60 tablet 08/29/20 [Rx] Follow up Appointment(s)/Referral(s): Gurdeep De Santiago DO [Doctor of Osteopathic Medicine] - 2 Weeks Activity/Diet/Wound Care/Special Instructions: Weightbearing as tolerated with a walker. CPM 5-6h daily as tolerated. Leave dressing intact. Dressing may be removed by home care nurse or by patient in 7 days. Then change dressing twice daily until follow up. May shower with initial dressing intact and after removal. If dressing become saturated, please remove. Recommend use of compression stockings daily until follow up to help prevent swelling and blood clots. May remove at night before sleeping. Please take aspirin 325mg twice daily for 30 days to prevent blood clots. Please follow up with [facility] and call with any questions or concerns, . Discharge Disposition: HOME WITH HOME HEALTH SERVICES
[2020-08-30] MEDS ORDERED: NON FORMULARY DRUG (Aspirin [Adult Low Dose Aspirin Ec] 81 MG Tablet.Dr) PO SCH (09:00)
[2020-08-30] MEDS: ARTIFICIAL TEARS-HYPROMELLOSE DROPS 15 ML BTL BOTH EYES SCH (09:00)
[2020-08-30 11:27] LABS: HCT 37.4 % (34.0-46.0); HGB 12.3 gm/dL (11.4-16.0); MCHC 32.8 g/dL (31.0-37.0); MCV 106.8 fL (80.0-100.0); Macrocytosis Moderate; Mean Platelet Volume 12.7; Platelet Count 121 k/uL (150-450); RDW 13.1 % (11.5-15.5); WBC 9.6 k/uL (3.8-10.6)
[2020-08-30] MEDS: SODIUM CHLORIDE 0.9% 1,000 ML IV SCH ×2 (14:17→22:30)
[2020-08-30 14:52] LABS: Band Neutrophils % 1 %; Large Platelets Present; Lymphocytes # (M) 2.98 k/uL (1.0-4.8); Monocytes # (M) 0.77 k/uL (0-1.0); Neutrophils % (M) 60 %; Nucleated Red Blood Cells 0 /100 WBC (0-0); Total Cells Counted 100
[2020-08-30] MEDS: HYDROmorphone 0.5 MG/0.5 ML SYRINGE IVP PRN ×2 (15:44→18:37)
--- NOTE | 2020-08-30 19:57 | PN ---
PROGRESS NOTE DATE OF SERVICE: 08/30/2020 CHIEF COMPLAINT: Status post left TKA. HISTORY OF PRESENT ILLNESS: This lady is doing well and pain is under good control. She has had no fever and chills, shortness of breath, chest pain, abdominal pain, nausea, etc. PHYSICAL EXAMINATION: Color is good. VITAL SIGNS: Normal. Head, ears, eyes, nose, mouth are normal. Chest is clear. Cardiac exam is normal. Abdomen is soft and nontender. Extremities are normal except for the dressing on the left knee. RECOMMENDATIONS: None. She thinks she may be going home today and we will follow her up as an outpatient. MMODL / IJN: [id number] /
[2020-08-30] MEDS: SENNOSIDES-DOCUSATE SODIUM 1 EACH TAB PO SCH (20:40)
[2020-08-30] MEDS: clonazePAM 1 MG TAB PO PRN (22:02)
[2020-08-30] MEDS: QUEtiapine 100 MG TAB PO SCH (22:02)
--- NOTE | 2020-08-30 23:21 | CONS ---
CONSULTATION CHIEF COMPLAINT: Arthritis left knee. HISTORY OF PRESENT ILLNESS: This is another admission for this 59-year-old white male who has come in for an elective left TKA. She has a past history of hypertension, bipolar depression and COPD and she has been in good condition, good health and has not had any recent symptoms of neurologic problems, headaches, chest pain, shortness of breath, abdominal pain, nausea, vomiting, hematemesis, melena, hematochezia, jaundice, hepatitis, hematuria, frequency, urgency, etc. Past medical history, family history, personal and social histories reveal that she is ALLERGIC to SULFA, ZOLOFT, NSAIDs, and SURGICAL TAPE. Her medications include hydralazine, Vicodin, Symbicort, Klonopin, Seroquel, lisinopril, Wellbutrin, Lasix, Vitamin D, Ventolin, Norvasc, and gabapentin. 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 Surgically, she has had an appendectomy and a hysterectomy and a splenectomy along with the gastric surgery for the neoplasm. She has had a procedures on both knees. She is a nonsmoker. PHYSICAL EXAMINATION: Blood pressure is 148/85 with a pulse of 88, respirations 20 and she is afebrile . In general she appeared to be well developed, well nourished, in no acute distress. Skin color was normal. Skin was warm and dry. Lymph nodes were not enlarged. Head, ears, eyes, nose, mouth and throat were normal. Neck veins not distended. Thyroid is not enlarged. Chest is clear. Cardiac exam is normal sinus rhythm. Abdomen is protuberant, soft and nontender without any masses or visceromegaly. Extremities: Normal except for the left knee arthritis. Neurologically she is intact. IMPRESSION: 1. Osteoarthritis of the left knee. 2. Hypertension. 3. Bipolar depression. PLAN: No change in the proposed surgical plan. MMODL / IJN: [id number] /
[2020-08-31] MEDS: HYDROcodone/APAP 7.5-325MG 1 EACH TAB PO PRN ×2 (05:50→12:24)
[2020-08-31] MEDS: ARTIFICIAL TEARS-HYPROMELLOSE DROPS 15 ML BTL BOTH EYES SCH (06:53)
[2020-08-31] MEDS: hydrALAZINE HCL 50 MG TAB PO SCH (06:53)
[2020-08-31] MEDS: ASPIRIN 325 MG TAB PO SCH (06:53)
[2020-08-31] MEDS: GABAPENTIN 300 MG CAP PO SCH (06:53)
[2020-08-31 07:34] VITALS: RESP 19
[2020-08-31] MEDS ORDERED: KETOROLAC 15 MG/ML 1 ML VIAL IVP PRN (09:27)
[2020-08-31] MEDS: HYDROmorphone 1 MG/ML 1 ML SYRINGE IVP PRN (09:43)
[2020-08-31 15:25] VITALS: BP 166/66; PULSE 87; TEMP 98
--- NOTE | 2020-08-31 18:59 | PN ---
PROGRESS NOTE DATE OF SERVICE: 08/31/2020. CHIEF COMPLAINT: Status post left knee replacement. HISTORY OF PRESENT ILLNESS: This lady is doing well. She has had no fever, chills, shortness of breath, chest pain, abdominal pain, nausea, etc. It was planned that she would go home, but she is apparently very weak and unable to bear weight and will be discharged for rehab at a local longterm. FINAL DIAGNOSES: 1. Status post left TKA. 2. Hypertension. OPERATIONS: Left TKA. MMODL / IJN: [id number] /
== END 2020-08-31 16:25 | DRG 467 ==
LOC: OR 07:30 → 4SSUR 14:14 → OR 08-30 10:25
PROVIDERS: ADMIT Orthopaedic Surgery; ATTEND Orthopaedic Surgery
PROC: 0SWD0JZ Revision of Synthetic Substitute in Left Knee Joint, Open Approach (ICD-10-PCS; principal; 2020-08-29 09:15)
DX: T84.023A Instability of internal left knee prosthesis, initial encounter (principal); F31.30 Bipolar disorder, current episode depressed, mild or moderate severity, unspecified; Y79.2 Prosthetic and other implants, materials and accessory orthopedic devices associated with adverse incidents; W00.0XXA Fall on same level due to ice and snow, initial encounter; I10 Essential (primary) hypertension; J44.9 Chronic obstructive pulmonary disease, unspecified; M17.12 Unilateral primary osteoarthritis, left knee; M25.362 Other instability, left knee; Z85.028 Personal history of other malignant neoplasm of stomach; Z90.710 Acquired absence of both cervix and uterus; Z90.81 Acquired absence of spleen; Z90.49 Acquired absence of other specified parts of digestive tract; Z88.6 Allergy status to analgesic agent; Z88.2 Allergy status to sulfonamides; Z88.8 Allergy status to other drugs, medicaments and biological substances; Z75.1 Person awaiting admission to adequate facility elsewhere; Z79.51 Long term (current) use of inhaled steroids; Z79.899 Other long term (current) drug therapy
CPT/HCPCS: 85025; 87070; 87075; 87205

== ENCOUNTER → 2020-10-23 | Outpatient (CLI) | payer OTHER ==
[2020-10-23 23:35] LABS: Basophils # (A) 0.12 X 10*3/uL (0.00-0.10); Basophils % (A) 2.1 %; Eosinophils # (A) 0.16 X 10*3/uL (0.04-0.35); Eosinophils % (A) 2.8 %; HCT 40.6 % (37.2-46.3); HGB 13.2 g/dL (12.0-15.0); Lymphocytes # (A) 3.23 X 10*3/uL (0.90-5.00); Lymphocytes % (A) 56.2 %; MCH 34.6 pg (27.0-32.0); MCHC 32.5 g/dL (32.0-37.0); MCV 106.6 fL (80.0-97.0); Macrocytosis (M) 2+; Mean Platelet Volume 13.6 fL (9.5-12.2); Monocytes # (A) 1.07 X 10*3/uL (0.20-1.00); Monocytes % (A) 18.6 %; Neutrophils # (A) 1.17 X 10*3/uL (1.80-7.70); Neutrophils % (A) 20.3 %; Platelet Count 179 X 10*3/uL (140-440); RBC 3.81 X 10*6/uL (4.10-5.20); RDW 14.7 % (11.5-14.5); WBC 5.75 X 10*3/uL (4.50-10.00)
== END | disposition home or self-care (01) ==
LOC: LABWHC1 15:48
PROVIDERS: ATTEND Family Medicine
DX: M00.9 Pyogenic arthritis, unspecified (principal); M25.562 Pain in left knee
CPT/HCPCS: 36415; 85025; 86140

== ENCOUNTER 2021-03-04 11:46 | Emergency (ER) | payer OTHER ==
[2021-03-04 12:46] VITALS: BP 167/71; RESP 16; TEMP 98.2
--- NOTE | 2021-03-04 13:26 | XR ---
EXAMINATION TYPE: XR wrist complete LT DATE OF EXAM: 03/04/2021 CLINICAL HISTORY: pain TECHNIQUE: 4 images of the left wrist are obtained. COMPARISON: None. FINDINGS: There is no acute fracture/dislocation evident. The joint spaces appear within normal olivia its. The overlying soft tissue appears unremarkable. IMPRESSION: There is no acute fracture or dislocation seen. ICD 10 NO FRACTURE, INITIAL EVALUATION
--- NOTE | 2021-03-04 13:26 | XR ---
EXAMINATION TYPE: XR hand complete LT DATE OF EXAM: 03/04/2021 CLINICAL HISTORY: pain TECHNIQUE: Frontal, lateral and oblique images of the left hand are obtained. COMPARISON: None. FINDINGS: There is no acute fracture/dislocation evident. The joint spaces appear within normal limi ts. The overlying soft tissue appears unremarkable. IMPRESSION: There is no acute fracture or dislocation. ICD 10 NO FRACTURE, INITIAL EVALUATION
--- NOTE | 2021-03-04 13:56 | ED ---
General Adult HPI - General Chief complaint: Extremity Injury, Upper Stated complaint: tripped,lt wrist pain Time Seen by Provider: 03/04/21 13:48 Source: patient, RN notes reviewed, old records reviewed Mode of arrival: wheelchair Limitations: no limitations - History of Present Illness Initial comments: This is a well-appearing 60-year-old female that presents to the emergency room with complaints of left wrist pain for the past 2 days. Patient states that she was sitting in a chair and fell backward catching the wrist and hand on the door. She states that she took Aleve today and it has helped with the pain. She states the pain at this time is 7 out of 10. It is sharp with palpation but otherwise just achy. She denies any other injuries. She did not lose consciousness. She does have a history of osteoarthritis, fibromyalgia, atrial flutter GI cancer. -: days(s) (2) Location: left, upper extremity (wrist) Radiation: non-radiation Severity scale (1-10): 7 Quality: aching, sharp Consistency: constant Improves with: medication (aleve) Associated Symptoms: denies other symptoms Treatments Prior to Arrival: other (aleve) - Related Data Home Medications Medication Instructions Recorded Confirmed Gabapentin [Neurontin] 300 mg PO TID PRN 07/23/18 03/04/21 Albuterol Sulfate [Proair Hfa] 1 - 2 puff INHALATION RT-Q4H PRN 08/24/20 03/04/21 QUEtiapine [SEROquel] 100 mg PO HS 08/24/20 03/04/21 clonazePAM [KlonoPIN] 1 mg PO TID PRN 08/24/20 03/04/21 hydrALAZINE HCL [Apresoline] 100 mg PO TID 08/24/20 03/04/21 Budesonide/Formoterol Fumarate 2 puff INHALATION RT-BID 03/04/21 03/04/21 [Symbicort 160-4.5 Mcg Inhaler] Doxazosin [Cardura] 1 mg PO DAILY 03/04/21 03/04/21 Furosemide [Lasix] 40 mg PO DAILY 03/04/21 03/04/21 Ibuprofen [Advil] 400 mg PO Q8HR PRN 03/04/21 03/04/21 oxyCODONE-APAP 10-325MG [Percocet 1 tab PO Q4H PRN 03/04/21 03/04/21 10-325 mg] Allergies Allergy/AdvReac Type Severity Reaction Status Date / Time adhesive Allergy Unknown RED SKIN Verified 03/04/21 14:15 WITH PROLONGED USE ondansetron HCl Allergy Unknown Swelling Verified 03/04/21 14:15 [From Zofran (as hydrochloride)] ibuprofen [From Motrin] Allergy Rash/Hives Verified 03/04/21 14:15 Review of Systems ROS Statement: Those systems with pertinent positive or pertinent negative responses have been documented in the HPI. ROS Other: All systems not noted in ROS Statement are negative. Past Medical History Past Medical History: Atrial Flutter, Cancer, Chest Pain / Angina, COPD, Fibromyalgia, GERD/Reflux, Hyperlipidemia, Hypertension, Liver Disease, Osteoarthritis (OA) Additional Past Medical History / Comment(s): MIGRAINES, BACK PAIN, HEPATITIS B & C, HX OF CANCER OF STOMACH 2011. feet & leg swelling, hx. small open area in mid-abd for few days-"comes & goes" History of Any Multi-Drug Resistant Organisms: None Reported Past Surgical History: Ablation, Appendectomy, Bariatric Surgery, Cardiac Ablation, Section, Hysterectomy, Joint Replacement Additional Past Surgical History / Comment(s): hx. rouxen-y (1979), spleen removed, both knees replaced, catarats removed Past Anesthesia/Blood Transfusion Reactions: No Reported Reaction Past Psychological History: Depression Smoking Status: Never smoker Past Alcohol Use History: None Reported Past Drug Use History: None Reported - Past Family History Sister(s) Family Medical History: Cancer Daughter(s) Family Medical History: Deep Vein Thrombosis (DVT), Pulmonary Embolus Mother Family Medical History: Cancer, Myocardial Infarction ([place]) Additional Family Medical History / Comment(s): of massive heart attack Father Family Medical History: No Reported History Additional Family Medical History / Comment(s): . General Exam Limitations: no limitations General appearance: alert, in no apparent distress Head exam: Present: atraumatic, normocephalic, normal inspection Eye exam: Present: normal appearance, EOMI Neck exam: Present: normal inspection, full ROM. Absent: tenderness, meningismus, lymphadenopathy Respiratory exam: Present: normal lung sounds bilaterally. Absent: respiratory distress, wheezes, rales, rhonchi, stridor Cardiovascular Exam: Present: regular rate, normal heart sounds. Absent: systolic murmur, diastolic murmur, rubs, gallop, clicks GI/Abdominal exam: Present: soft, normal bowel sounds. Absent: distended, tenderness, guarding, rebound, rigid Left Forearm Wrist exam: Present: full ROM, tenderness, tenderness over anatomical snuff box Hand Wrist exam: Present: full ROM, tenderness (Snuffbox tenderness), swelling (Base of left thumb). Absent: laceration, ecchymosis Neuro motor exam: Present: wrist extension intact Neurosensory exam: Present: radial nerve intact, ulnar nerve intact, median nerve intact Vascular: Present: normal capillary refill. Absent: vascular compromise, Pallo Neurological exam: Present: alert, oriented X3 Psychiatric exam: Present: normal affect, normal mood Skin exam: Present: warm, dry, intact, normal color. Absent: rash Course Vital Signs 03/04/21 03/04/21 12:43 14:28 Temperature 98.2 F Pulse Rate 67 78 Respiratory 16 16 Rate Blood Pressure 167/71 O2 Sat by Pulse 98 98 Oximetry Procedures - Orthopedic Splinting/Casting Injury #1 Side: left Upper Extremity Injury Location: short arm, wrist Upper Extremity Immobilizer: Daron wrap, synthetic pre-padded splint Medical Decision Making - Medical Decision Making 60-year-old female presents to the emergency room after falling off of a chair injuring her left wrist and hand 2 days ago. X-rays are negative for fracture. She does have pain at the anatomical snuffbox. She was placed in a short arm splint and will be referred to orthopedics. She was neurovascularly intact prior to and post splinting. She states that she has seen Dr. Priest in the past for her knee. She has Aleve at home and does not want any other pain medication to be prescribed. She was directed to rest, ice, compress and elevate. Case discussed with Dr. Mendez Disposition Clinical Impression: Left wrist injury Disposition: HOME SELF-CARE Condition: Good Instructions (If sedation given, give patient instructions): Wrist Injury (ED) Additional Instructions: Wear splint until seen by orthopedics next week. Continue your Aleve as directed. Rest, ice, and elevate arm while at home. Return to the emergency room with a new worsening symptoms. Is patient prescribed a controlled substance at d/c from ED?: No Referrals: Yanick Holm MD [Primary Care Provider] - 1-2 days Mitesh Sesay MD [STAFF PHYSICIAN] - 1-2 days Time of Disposition: 14:05
[2021-03-04 14:29] VITALS: PULSE 78
== END 2021-03-04 14:28 | disposition home or self-care (01) ==
LOC: EC 11:46
DX: S69.82XA Other specified injuries of left wrist, hand and finger(s), initial encounter (principal); I48.4 Atypical atrial flutter; J44.9 Chronic obstructive pulmonary disease, unspecified; M79.7 Fibromyalgia; K21.9 Gastro-esophageal reflux disease without esophagitis; E78.5 Hyperlipidemia, unspecified; I10 Essential (primary) hypertension; M19.90 Unspecified osteoarthritis, unspecified site; F32.A Depression, unspecified; Z88.6 Allergy status to analgesic agent; Z85.028 Personal history of other malignant neoplasm of stomach; Z90.49 Acquired absence of other specified parts of digestive tract; Z98.84 Bariatric surgery status; Z90.710 Acquired absence of both cervix and uterus; Z96.653 Presence of artificial knee joint, bilateral; W07.XXXA Fall from chair, initial encounter
CPT/HCPCS: 29125; 99283

== ENCOUNTER 2021-07-05 05:59 | Day surgery (SDC) | payer OTHER ==
[2021-07-03 13:48] VITALS: BMI 47.4
[~2021-07-05 05:59] MED LIST changes: -ACETAMINOPHEN TAB 500 MG TAB PO PRN; +ALPRAZolam 0.25 MG TAB PO PRN; +ALPRAZolam 0.5 MG TAB PO PRN; +ATORVASTATIN 80 MG TAB PO STA; -DEXAMETHASONE SOD PHOSPHATE 4 MG/ML 1 ML VIAL IV ONE; -GABAPENTIN 300 MG CAP PO PRN; -HYDROmorphone 0.2 MG/1 ML SYRINGE IVP PRN; -LACTATED RINGERS 1,000 ML IV SCH; -LIDOCAINE 1% (10MG/ML) FOR IV START INTRADERMA PRN; -MAGNESIUM HYDROXIDE 2,400 MG/10 ML CUP PO PRN; -MIDAZOLAM 2 MG/2 ML VIAL IV PRN; -NA PHOS,M-B/NA PHOS,DI-BA 133 ML ENEMA RECTAL PRN; -NALOXONE 0.4 MG/ML 1 ML VIAL IV PRN; +NITROGLYCERIN SL TABS 0.4 MG TAB SUBLINGUAL PRN; +SODIUM CHLORIDE 0.9% 1,000 ML in EMPTY BAG 1 BAG IV SCH; -TRANEXAMIC ACID 1,000 MG in SODIUM CHLORIDE 0.9% 100 ML IVPB PRN; -VANCOMYCIN 2,000 MG in SODIUM CHLORIDE 0.9% 500 ML 500 ML IVPB PRN; -bisacodyL 10 MG SUPP RECTAL PRN; -hydrOXYzine pamoate 25 MG CAP PO PRN
[2021-07-05] MEDS ORDERED: ASPIRIN 81 MG ONE (06:18)
[2021-07-05 06:46] VITALS: TEMP 98.3
[2021-07-05 06:51] LABS: African American GFR (CKD) >90 (>60 ml/min/1.73 sqM); Anion Gap 6 mmol/L; Blood Urea Nitrogen 10 mg/dL (7-17); Calcium 8.7 mg/dL (8.4-10.2); Carbon Dioxide 28 mmol/L (22-30); Chloride 107 mmol/L (98-107); Glucose 115 mg/dL (74-99); Non-African American GFR(CKD) >90 (>60 ml/min/1.73 sqM); Potassium 3.8 mmol/L (3.5-5.1); Sodium 141 mmol/L (137-145)
[2021-07-05 06:58] LABS: HCT 43.3 % (34.0-46.0); HGB 13.9 gm/dL (11.4-16.0); MCH 34.7 pg (25.0-35.0); MCV 108.5 fL (80.0-100.0); Macrocytosis Marked; Mean Platelet Volume 11.8; Platelet Count 151 k/uL (150-450); RBC 3.99 m/uL (3.80-5.40); RDW 14.2 % (11.5-15.5); WBC 6.8 k/uL (3.8-10.6)
[2021-07-05] MEDS ORDERED: LIDOCAINE 1% INJ 10MG/ML (20 ML MDV) ONE (07:24)
[2021-07-05] MEDS ORDERED: VERAPAMIL 2.5 MG/ML 2 ML AMP ONE (07:25)
[2021-07-05] MEDS ORDERED: fentaNYL (PF) 50 MCG/ML 2 ML AMP ONE (07:35)
[2021-07-05] MEDS ORDERED: MIDAZOLAM 2 MG/2 ML VIAL IV ONE (07:37)
[2021-07-05] MEDS ORDERED: LIDOCAINE 1% INJ 10MG/ML (20 ML MDV) SQ ONE (07:37)
[2021-07-05] MEDS ORDERED: fentaNYL (PF) 50 MCG/ML 2 ML AMP IV ONE (07:37)
[2021-07-05] MEDS: VERAPAMIL SYRINGE (5 MG/10 ML) INTRAARTER ONE ×2 (07:40→07:45)
[2021-07-05] MEDS ORDERED: HEPARIN SODIUM 1,000 UN/ML (10ML VL) ONE (07:41)
[2021-07-05] MEDS ORDERED: HEPARIN SODIUM 1,000 UN/ML (10ML VL) IV ONE (07:42)
[2021-07-05] MEDS ORDERED: NITROGLYCERIN 1000MCG/10ML SYRINGE INTRAARTER ONE (07:47)
[2021-07-05] MEDS ORDERED: IOPAMIDOL-370 125ML BTL INJ ONE (07:51)
--- NOTE | 2021-07-05 08:08 | P.CARDCATH ---
Description of Procedure: PROCEDURES PERFORMED: Left heart catheterization, bilateral coronary angiography INDICATION: Abnormal stress test CONSENT:I have discussed the risks, benefits and alternative therapies for the above-mentioned procedure and for both sedation/analgesia as well as necessary blood product administration, if indicated, as they pertain to this patient. The patient has indicated understanding and acceptance of the risks and procedures discussed. PROCEDURE: After the risks, benefits and alternatives of the above mentioned procedure explained in detail with the patient, informed consent was obtained. Patient was taken to the catheterization lab and prepped and draped in usual fashion. 1% lidocaine was used to anesthetize the right radial artery. A 6- [place] sheath was placed in the right radial artery using modified Seldinger technique. Left coronary angiography was performed with a 5-[place]an JL 3.5 catheter and right coronary angiography was performed with a 5-[place] JR5 catheter in various views. A 5-[place] FR5 catheter was inserted into the left ventricle and pressure measurements were obtained. The right radial sheath was removed and a TR band was placed with hemostasis achieved. The patient tolerated the procedure well. Patient was transported back to the post catheterization holding area in stable condition. Conscious Sedation: Patient was monitored under the direct supervision of vision of myself for conscious sedation using Versed and fentanyl for a total duration of 15 minutes HEMODYNAMICS: Aortic: 188/100 LV: 179/17, LVEDP 24 SELECTIVE CORONARY ARTERIOGRAPHY: LEFT MAIN: The left main is a large caliber vessel which bifurcates into the LAD and circumflex. There is no significant stenosis. LEFT ANTERIOR DESCENDING CORONARY ARTERY: LAD is a large caliber vessel which wraps around to the apex. There are mild luminal irregularities and a 40% mid LAD stenosis. LEFT CIRCUMFLEX CORONARY ARTERY: Left circumflex is a moderate caliber vessel with mild luminal irregularities. RIGHT CORONARY ARTERY: The right coronary artery is a large caliber vessel which gives off a PDA and PLV branch and is the dominant vessel. There are mild luminal irregularities. FINAL IMPRESSION: 1. Mild CAD with up to 40% mid LAD stenosis. 2. Elevated left sided filling pressures, may in part be related to increased blood pressure PLAN: 1. Aggressive risk factor modification per most recent ACC/AHA guidelines. 2. Discussed increasing Lasix to twice a day for one week and monitor response. 3. Follow-up in the office in 1-2 weeks.
[2021-07-05 08:16] LABS: Eosinophils # (M) 0.14 k/uL (0-0.7); Lymphocytes # (M) 3.33 k/uL (1.0-4.8); Monocytes # (M) 1.02 k/uL (0-1.0); Neutrophils # (M) 2.31 k/uL (1.3-7.7); Neutrophils % (M) 34 %; Nucleated Red Blood Cells 0 /100 WBC (0-0); Total Cells Counted 100
[2021-07-05 08:17] LABS: Large Platelets Present
[2021-07-05] MEDS ORDERED: hydrALAZINE HCL 50 MG TAB PO STA (08:17)
[2021-07-05] MEDS ORDERED: lisinopriL 20 MG TAB PO STA (08:17)
[2021-07-05] MEDS ORDERED: DOXAZOSIN 1 MG TAB PO STA (08:17)
[2021-07-05 09:24] VITALS: RESP 16
[2021-07-05 09:25] VITALS: BP 173/76
[2021-07-05] MEDS ORDERED: ALBUTEROL NEBULIZED 2.5 MG/3 ML INHALATION STA (11:07)
[2021-07-05 11:39] VITALS: PULSE 85
== END 2021-07-05 12:00 | disposition home or self-care (01) ==
LOC: CATHCVL 05:59
PROVIDERS: ATTEND Internal Medicine
DX: R94.39 Abnormal result of other cardiovascular function study (principal)
CPT/HCPCS: 93458; 94640; 80048; 85025; 87635; C1894; J2250; J2001; J3010; J1644; Q9967

== ENCOUNTER → 2021-07-12 | Outpatient (CLI) | payer OTHER ==
--- NOTE | 2021-07-13 06:45 | US ---
EXAMINATION TYPE: US kidneys/renal and bladder DATE OF EXAM: 07/12/2021 COMPARISON: 07/27/2018 CLINICAL HISTORY: 60-year-old female Z87.442 HX OF KIDNEY STONE. TECHNIQUE: Multiple sonographic images of the kidneys and bladder were obtained. FINDINGS: EXAM MEASUREMENTS: Right Kidney: 11.4 x 5.5 x 4.4 cm Left Kidney: 12.1 x 4.8 x 5.6 cm [employer] notes: Difficult and limited study due to morbidly obese patient Right Kidney: limited visualization, 1.1cm echogenic focus. No obvious hydronephrosis. Left Kidney: limited visualization, 6.3 x 5.7 x 6.6cm cystic lesion either exophytic from or separate from left kidney. No obvious hydronephrosis. Bladder: wnl Bilateral Jets seen: right jet seen, left jet not seen. IMPRESSION: 1. Possible cystic lesion measuring up to 6.3 cm adjacent to the left kidney. When correlating with mary anne walker's prior 07/27/2018 CT, a stable cyst in the region of the resected spleen is suggested. 2. Suboptimal exam for detailed assessment of the kidneys due to patient's size. No obvious hydroneph rosis is seen. Again, assessment is limited. 3. Possible 1.1 cm nonobstructive right renal calculus.
== END | disposition home or self-care (01) ==
LOC: RADUSWWP 15:16
PROVIDERS: ATTEND Family Medicine
DX: N39.0 Urinary tract infection, site not specified (principal); R10.84 Generalized abdominal pain; Z87.442 Personal history of urinary calculi
CPT/HCPCS: 76770

== ENCOUNTER → 2021-09-26 | Outpatient (CLI) | payer OTHER ==
[2021-09-26 13:53] VITALS: BP 191/79; PULSE 69; RESP 14
--- NOTE | 2021-09-26 14:04 | P.PAINPG ---
PQRS Measure Charge Sheet Comment: HISTORY OF PRESENT ILLNESS: 61 yr old female as a a referral from Dr Holm presents today with severe and chronic LBP secondary to disc bulges, neuroforaminal stenosis, mild spinal stenosis and facet arthropathy for evaluation. Pt states her LBP x 40 yrs is 9/10 in intensity, constant, waxes & wanes in intensity throughout the day based on activity, achy & sharp in character and localized to the lower aspect of her lumbar spine. Pain is provoked with standing & walking for periods of 10 minutes or more. Pain is relieved with home based guided stretching regimen, alternating heat & ice, medications (Neurontin, Percocet), topicals, repositioning and rest. PMH: Morbid Obesity, HTN, GERD, Vitamin D Deficiency, COPD/ Asthma, MDD/Anxiety, Gastric CA PSH: LESIs (at [facility] in ), L Knee Replacement (2009), Total R Knee Replacement (2009), Hysterectomy, Appendectomy, Splenectomy, C - section x 2, Ablasion (2016) SH: Negative x 3. and lives alone. FH: Sister- CA. Father- Oral CA. Mother- CHF/CAD/ . All: See list Meds: See list REVIEW OF ORGAN SYSTEMS: CONSTITUTIONAL: No fevers or chills. No recent weight loss. NEUROLOGICAL: + numbness and tingling along the distal extremities. No seizure disorders or headaches. MUSCULOSKELETAL: + pain PSYCHIATRIC: Denies current depression or suicidal thoughts. Physical Examinations : Constitutional : Cooperative , not in acute distress . Neurologic : Cranial nerve II to XII intact. No focal neurological deficits. Psychiatric : alert & oriented x 3. Matching mood & appropriate affect. Judgment & insight intact. Musculoskeletal : Cervical Spine Motor strength in the deltoid and biceps: Normal right side. Normal Left side Motor strength biceps and the wrist extensors: Normal right side . Normal left side Motor strength in the triceps muscle: Normal right side. Normal left side Deep tendon reflexes: Normal at the biceps. Normal at Brachioradialis. Normal at triceps Vertebral body tenderness to deep palpation over Cervical facet loading test: positive bilaterally Spurling test: positive bilaterally Neck distraction test: positive bilaterally Sarah sign: positive bilaterally Lumbar spine Motor strength lower extremities ,thigh and legs 5/5 Right side , 5/5 Left side Deep tendon reflexes : Normal Knee Jerk. Normal Ankle Jerk Vertebral body tenderness over L3, L4 Lumbar facet Loading Test: positive Right / positive Left Range of motion of the lumbar spine Flexion 30 degrees, extension 10 degrees Straight Leg Raise test: Left/ Right positive at degree Jerry test: positive right / positive left. Severe tenderness over the Sacroiliac joint on the Right / Left sides Gaenslen test: positive bilaterally Seated flexion test: positive bilaterally. Sacral spine : Severe tenderness over the Sacroiliac joint: right side / left side Range of motion: Flexion of the lumbar spine <60 degrees Range of motion: Extension of the lumbar spine <20 degrees Gaenslen's Test positive Wei's Test positive Jerry test: positive right side / left side Thigh Thrust Test Sacral Thrust Test Imaging: MRI without contrast of the lumbar spine from 07/28/18 reviewed Assessment/ Plan : Lumbar DDD Recommendation of LESI L3-L4. May need a series of injections, up to 3 within a 6 mo period, for optimal pain relief. Risks, benefits of procedure discussed and patient verbalized understanding. Denies aspirin or anti- coagulant use or medical history of diabetes. Protocol for discontinuation/ continuation of med ications may procedure discussed. All questions answered. I have spent greater than 30 minutes on patient care today. Dr Campos was available by phone for the evaluation of this patient. The time was used to review the medical records including relevant urine studies and Prescription history (MAPs), review of the available imaging, evaluation and examination of the patient, coordination of care with the medical staff and if applicable referring physicians, as well as creation of the medical record PQRS Narrative: Smoking Status Never smoker Home Medications: Ambulatory Orders Gabapentin [Neurontin] 300 mg PO TID PRN 07/23/18 Albuterol Sulfate [Proair Hfa] 1 - 2 puff INHALATION RT-Q4H PRN 08/24/20 QUEtiapine [SEROquel] 100 mg PO HS 08/24/20 clonazePAM [KlonoPIN] 1 mg PO TID PRN 08/24/20 hydrALAZINE HCL [Apresoline] 100 mg PO TID 08/24/20 Budesonide/Formoterol Fumarate [Symbicort 160-4.5 Mcg Inhaler] 2 puff INHALATION RT-BID 03/04/21 Doxazosin [Cardura] 1 mg PO DAILY 03/04/21 Furosemide [Lasix] 40 mg PO DAILY 03/04/21 Ergocalciferol [Vitamin D2 (1250 Mcg = 44334 Iu)] 1,250 mcg PO Q30D 07/03/21 lisinopriL [Zestril] 40 mg PO DAILY 07/03/21 oxyCODONE-APAP 10-325MG [Percocet 10-325 mg] 1 tab PO Q4HR PRN 07/05/21 Controlled Substance Measures - Controlled Substance Measures Is patient prescribed a controlled substance at discharge?: No
== END ==
LOC: PNWHC3 11:52
PROVIDERS: ATTEND Specialist
DX: M51.36 Other intervertebral disc degeneration, lumbar region (principal); E66.01 Morbid (severe) obesity due to excess calories; I10 Essential (primary) hypertension; J44.9 Chronic obstructive pulmonary disease, unspecified; F41.9 Anxiety disorder, unspecified; Z68.42 Body mass index [BMI] 45.0-49.9, adult; Z91.048 Other nonmedicinal substance allergy status; Z91.040 Latex allergy status; Z88.6 Allergy status to analgesic agent; Z88.5 Allergy status to narcotic agent; Z88.8 Allergy status to other drugs, medicaments and biological substances
CPT/HCPCS: 99211

== ENCOUNTER → 2021-12-04 | Day surgery (SDC) | payer OTHER ==
[~2021-12-04] MED LIST changes: -ALPRAZolam 0.25 MG TAB PO PRN; -ALPRAZolam 0.5 MG TAB PO PRN; -ATORVASTATIN 80 MG TAB PO STA; +IOPAMIDOL M200 10 ML VIAL ONE; +LACTATED RINGERS 1,000 ML IV SCH; -NITROGLYCERIN SL TABS 0.4 MG TAB SUBLINGUAL PRN; -SODIUM CHLORIDE 0.9% 1,000 ML in EMPTY BAG 1 BAG IV SCH; +methylPREDNISolone ACETATE 40 MG/ML 1 ML VIAL ONE
--- NOTE | 2021-12-04 22:33 | P.PCN ---
Date of Procedure: 12/04/21 Description of Procedure: Procedure: 1 L3-L4 Epidural steroid injection under fluoroscopic guidance , 2. Lumbar epidurogram PREOPERATIVE DIAGNOSIS: Lumbar degenerative disc disease, and Lumbar radiculopathy. POSTOPERATIVE DIAGNOSIS: Lumbar degenerative disc disease, and Lumbar radic ulopathy. SURGEON: Jermaine Becerril ANESTHESIA: Local with 1% lidocaine, and IV sedation : none EBL: None. Specimen removed: None Fluoroscopic image: saved to electronic medical records PROCEDURE INDICATION: The patient had history of Lumbar degenerative disc disease and Lumbar radiculopathy. Failed to conservative therapy. Presented for epidural steroid injection. PROCEDURE DESCRIPTION: The patient was seen and identified in the preoperative area. Risks, benefits, complications, and alternatives were discussed with the patient. The patient agreed to proceed with the procedure and signed the consent. IV was started, and vital signs were stable. Patient was taken to the procedure area, and time out was completed. The patient was placed in the prone position on procedure table and a pillow was placed under the abdomen to reduce lumbar lordosis. The lumbosacral area was prepped and draped in the usual sterile fashion. Critical pause was taken. Vital signs were closely monitored during the procedure. Using anterior-posterior fluoroscopy, the L3-L4 interlaminar space was identified, and skin and deeper tissues were localized with 1% lidocaine. Using anterior-posterior fluoroscopy, lateral fluoroscopy, and [id number] technique, a 20 gauge 3.5 Tuohy epidural needle entered the epidural space. After negative aspiration of CSF and blood with no paresthesias, 1 ml of [id number] contrast dye was injected and an excellent epidurogram was seen. Again after negative aspiration of CSF and blood with no paresthesias, 6 mL of block solution was injected into the epidural space. Block solution contained 40 mg of Depo-Medrol, and 5 mL of preservative-free normal saline. Needle was withdrawn intact, skin was cleansed, and bandages were applied. COMPLICATIONS: None. DISPOSITION / PLANS: The patient was placed in a supine position and transferred to the recovery area in a stable condition for observation. Patient was discharged from the recovery room after meeting discharge criteria. Home discharge instructions given to the patient by the staff. The patient was reexamined prior to discharge. The patient will schedule a follow up in the clinic in 4 weeks.
--- NOTE | 2021-12-06 12:59 | FL ---
Fluoroscopy HISTORY: Pain 7 seconds fluoroscopy time supplied to the referring clinician. 2 intraoperative C-arm images docume nt the procedure. See dictated report from anesthesia.
== END ==
LOC: ORPAIN 12:32
DX: M51.16 Intervertebral disc disorders with radiculopathy, lumbar region (principal); J44.9 Chronic obstructive pulmonary disease, unspecified; I10 Essential (primary) hypertension; F32.A Depression, unspecified; K21.9 Gastro-esophageal reflux disease without esophagitis; Z90.49 Acquired absence of other specified parts of digestive tract; Z86.73 Personal history of transient ischemic attack (TIA), and cerebral infarction without residual deficits; Z86.19 Personal history of other infectious and parasitic diseases; Z88.8 Allergy status to other drugs, medicaments and biological substances; Z88.6 Allergy status to analgesic agent; Z91.040 Latex allergy status; Z91.09 Other allergy status, other than to drugs and biological substances; Z88.5 Allergy status to narcotic agent; Z79.51 Long term (current) use of inhaled steroids; Z79.82 Long term (current) use of aspirin; Z79.899 Other long term (current) drug therapy; Z80.9 Family history of malignant neoplasm, unspecified; Z82.49 Family history of ischemic heart disease and other diseases of the circulatory system
CPT/HCPCS: 62323; J1030; Q9966

== ENCOUNTER → 2021-12-20 | Outpatient (CLI) | payer OTHER ==
[2021-12-20 14:44] VITALS: BP 144/77; PULSE 79; RESP 18; TEMP 98.2
--- NOTE | 2021-12-20 14:54 | P.PAINPG ---
PQRS Measure Charge Sheet Comment: A 61 yr old female with a history of severe and chronic low back pain secondary to lumbar degenerative disc diseases and lumbar spondylosis with facet arthropathy without myelopathy presents today for evaluation s/p SHABBIR L3-L4. Pt states she experienced 10% pain relief s/p procedure. Pain level is currently at 8/10 in intensity, constant, localized in the mid lumbar spine, dull & achy in character w shooting towards the L flank. Pain is provoked unknown provocative factors. Pain is alleviated with PT years ago, heat, ice, topicals, meds (Percocet from Dr Holm), repositioning and rest. Pt feels she has kidney stones provoking her pain. She is disinterested in TPI injections at this time. Interventional pain procedures completed include SHABBIR L3-L4. Patient is currently on Percocet. Patient denies any side effects of the medication(s), denies excessive drowsiness or sleepiness, denies suicidal ideation and reports that the current pain medication is helping to control the pain and improve activities of daily living. Patient denies any motor or sensory deficits. Patient denies any fever or night sweats, denies any change in the bowel movements or urination. Physical Examination: -Constitutional: Cooperative. Not in acute distress . - Neurologic: Cranial nerve II to XII intact. No focal neurological deficits. - Psychatric: Alert & oriented x 3. Matching mood & appropriate affect. Judgment and insight intact. - Musculoskeletal: Cervical spine: Muscle bulk/ tone/ strength in the bilateral upper extremities normal Vertebral body tenderness to palpation over Spurling test positive Distraction test positive Facet loading test positive Thoracic spine Muscle bulk / tone/ strength in the bilateral paraspinal muscles normal Vertebral body tender to palpation over Facet loading test positive Lumbar spine: Motor bulk/ tone/ strength lower extremities , thigh and legs : 5/5 Deep tendon reflexes : Normal Knee Jerk. Normal Ankle Jerk . Vertebral body tenderness to palpation over Lumbar Facet Loading Test positive over L L3-L5 Straight Leg Raise: positive at 30 degrees right side/ left side Gaenslen's Test positive Sacral spine : Severe tenderness over the Sacroiliac joint: right side / left side Range of motion: Flexion of the lumbar spine <60 degrees Range of motion: Extension of the lumbar spine <20 degrees Gaenslen's Test positive Wei's Test positive Jerry test: positive right side / left side Thigh Thrust Test Sacral Thrust Test Assessment and plan: Chronic low back pain secondary to lumbar degenerative disc disease , lumbar spondylosis with facet arthropathy without myelopathy Recommendation of Diclofenac gel, use QID prn, Disp 1 tube w 1 RF. All patient questions answered MAPS reviewed and it was appropriate. I have spent less than 30 minutes on patient care today. Dr Campos was available by phone for the evaluation of this patient. The time was used to review the medical records including relevant urine studies and Prescription history (MAPs), review of the available imaging, evaluation and examination of the patient, coordination of care with the medical staff and if applicable referring physicians, as well as creation of the medical record PQRS Narrative: Smoking Status Never smoker Hx Alcohol Use (MH) No Home Medications: Ambulatory Orders Gabapentin [Neurontin] 300 mg PO TID PRN 07/23/18 Albuterol Sulfate [Proair Hfa] 1 - 2 puff INHALATION RT-Q4H PRN 08/24/20 QUEtiapine [SEROquel] 100 mg PO HS 08/24/20 clonazePAM [KlonoPIN] 1 mg PO TID PRN 08/24/20 hydrALAZINE HCL [Apresoline] 100 mg PO TID 08/24/20 Budesonide/Formoterol Fumarate [Symbicort 160-4.5 Mcg Inhaler] 2 puff INHALATION RT-BID 03/04/21 Doxazosin [Cardura] 1 mg PO DAILY 03/04/21 Furosemide [Lasix] 40 mg PO DAILY 03/04/21 Ergocalciferol [Vitamin D2 (1250 Mcg = 20425 Iu)] 1,250 mcg PO Q30D 07/03/21 lisinopriL [Zestril] 40 mg PO DAILY 07/03/21 oxyCODONE-APAP 10-325MG [Percocet 10-325 mg] 1 tab PO Q4HR PRN 07/05/21 Controlled Substance Measures - Controlled Substance Measures Is patient prescribed a controlled substance at discharge?: No
== END ==
LOC: PNWHC3 13:49
PROVIDERS: ATTEND Specialist
DX: M51.36 Other intervertebral disc degeneration, lumbar region (principal); M47.816 Spondylosis without myelopathy or radiculopathy, lumbar region; G89.29 Other chronic pain; Z91.048 Other nonmedicinal substance allergy status; Z88.8 Allergy status to other drugs, medicaments and biological substances; Z91.040 Latex allergy status; Z88.5 Allergy status to narcotic agent; Z88.6 Allergy status to analgesic agent
CPT/HCPCS: 99211

== ENCOUNTER 2022-03-11 17:28 | Inpatient (IN) | payer OTHER ==
[2022-03-11] MEDS ORDERED: methylPREDNISolone SOD SUCCI 125 MG/2 ML VIAL IV STA (17:33)
[2022-03-11] MEDS ORDERED: IPRATROPIUM-ALBUTEROL 3 ML NEB INHALATION STA (17:33)
[2022-03-11 17:58] LABS: HGB 17.2 gm/dL (11.4-16.0); Hypochromasia Slight; MCH 35.4 pg (25.0-35.0); MCHC 32.5 g/dL (31.0-37.0); MCV 109.2 fL (80.0-100.0); Macrocytosis Marked; Mean Platelet Volume 14.3; Platelet Count 124 k/uL (150-450); RBC 4.86 m/uL (3.80-5.40); WBC 23.4 k/uL (3.8-10.6)
[2022-03-11 17:59] LABS: VBG PH 7.26 (7.31-7.41)
[2022-03-11 18:10] LABS: Albumin 3.9 g/dL (3.5-5.0); Calcium 9.4 mg/dL (8.4-10.2); Magnesium 1.4 mg/dL (1.6-2.3); Potassium 3.8 mmol/L (3.5-5.1); Total Bilirubin 3.4 mg/dL (0.2-1.3); Total Protein 7.5 g/dL (6.3-8.2)
[2022-03-11 18:11] LABS: INR 1.9 (<1.2); Partial Thromboplastin Time 31.7 sec (22.0-30.0); Prothrombin Time 19.1 sec (9.0-12.0)
--- NOTE | 2022-03-11 18:14 | ED ---
General Adult HPI - General Chief complaint: Shortness of Breath Stated complaint: ALBINO Time Seen by Provider: 03/11/22 17:31 Source: patient, EMS, RN notes reviewed, old records reviewed Mode of arrival: EMS Limitations: no limitations - History of Present Illness Initial comments: Patient is a 61-year-old female with past medical history remarkable for CAD, heart failure, hypertension, CAD who presents to emergency Department complaining of shortness of breath. She has had worsening shortness of breath for the last 2 weeks. This is exertional, associated with a nonproductive cough, wheezing. Is also has bilateral lower extremity edema that has been symmetrical and getting worse. Has not sought medical attention until today. She denies any sick contacts. Denies any fevers. Denies any abdominal pain, nausea, vomiting. Does endorse intermittent chest pressure like sensation with shortness of breath is bad but currently denies it. Denies any diarrhea. Was at her PCPs office today, and they found that she was hypoxic on room air. She states that 2 L nasal cannula, was 83% when EMS arrived, and was placed on CPAP and transported here for further evaluation. States the CPAP seems to be helping with her breathing. Has no other acute complaints at this time. Presents over concern for shortness of breath and hypoxia. Endorses orthopnea. Denies PND. - Related Data Home Medications Medication Instructions Recorded Confirmed Gabapentin [Neurontin] 300 mg PO TID PRN 07/23/18 03/11/22 QUEtiapine [SEROquel] 100 mg PO HS 08/24/20 03/11/22 clonazePAM [KlonoPIN] 1 mg PO TID PRN 08/24/20 03/11/22 hydrALAZINE HCL [Apresoline] 100 mg PO TID 08/24/20 03/11/22 Budesonide/Formoterol Fumarate 2 puff INHALATION RT-BID 03/04/21 03/11/22 [Symbicort 160-4.5 Mcg Inhaler] Doxazosin [Cardura] 1 mg PO DAILY 03/04/21 03/11/22 Furosemide [Lasix] 40 mg PO DAILY 03/04/21 03/11/22 Ergocalciferol [Vitamin D2 (1250 1,250 mcg PO Q30D 07/03/21 03/11/22 Mcg = 17526 Iu)] lisinopriL [Zestril] 40 mg PO DAILY 07/03/21 03/11/22 oxyCODONE-APAP 10-325MG [Percocet 1 tab PO TID PRN 07/05/21 03/11/22 10-325 mg] Albuterol Nebulized [Ventolin 2.5 mg INHALATION RT-QID PRN 03/11/22 03/11/22 Nebulized] Albuterol Sulfate [Albuterol 1 puff PO RT-QID PRN 03/11/22 03/11/22 Sulfate Hfa] Aspirin EC [Ecotrin Low Dose] 81 mg PO DAILY 03/11/22 03/11/22 buPROPion HCL [Wellbutrin SR] 200 mg PO BID 03/11/22 03/11/22 Allergies Allergy/AdvReac Type Severity Reaction Status Date / Time adhesive Allergy Unknown RED SKIN Verified 11/30/21 14:37 WITH PROLONGED USE ondansetron HCl Allergy Unknown Swelling Verified 11/30/21 14:37 [From Zofran (as hydrochloride)] acetaminophen [From Tylox] Allergy Rash/Hives Verified 11/30/21 14:37 ibuprofen [From Motrin] Allergy Rash/Hives Verified 11/30/21 14:37 latex Allergy blisters, Verified 11/30/21 14:37 redness oxycodone [From Tylox] Allergy Rash/Hives Verified 11/30/21 14:37 Review of Systems ROS Statement: Those systems with pertinent positive or pertinent negative responses have been documented in the HPI. Review of Systems: CONST: Denies fever EYES: Denies blurry vision ENT: Denies nasal congestion C/V: Denies Chest pain RESP: Endorses shortness of breath GI: Denies abdominal pain : Denies dysuria SKIN: Denies rash. MSK: Denies joint pain. NEURO: Denies headache ROS Other: All systems not noted in ROS Statement are negative. Past Medical History Past Medical History: Atrial Flutter, Cancer, Chest Pain / Angina, COPD, Eye Disorder, Fibromyalgia, GERD/Reflux, Hyperlipidemia, Hypertension, Liver Disease, Osteoarthritis (OA) Additional Past Medical History / Comment(s): Migraines, dry eyes, Chronic Back pain, Hepatitis B & C, Hx cancer of stomach 2011. Hx Kidney stones. Edema BLE. Abn stress test. hx. falls, urinary incontinence History of Any Multi-Drug Resistant Organisms: None Reported Past Surgical History: Appendectomy, Bariatric Surgery, Cardiac Ablation, Section, Hysterectomy, Joint Replacement Additional Past Surgical History / Comment(s): C-S x2. hx Jason-en-y (1979), spleen removed, Bilat Total knees replaced, cataracts removed Past Anesthesia/Blood Transfusion Reactions: No Reported Reaction Past Psychological History: Anxiety, Depression Smoking Status: Never smoker Past Alcohol Use History: None Reported Past Drug Use History: None Reported - Past Family History Sister(s) Family Medical History: Cancer Daughter(s) Family Medical History: Deep Vein Thrombosis (DVT), Pulmonary Embolus Mother Family Medical History: Myocardial Infarction ([place]) Additional Family Medical History / Comment(s): of massive heart attack Father Family Medical History: No Reported History Additional Family Medical History / Comment(s): . General Exam - General Exam Comments Initial Comments: General: Appears in mild to moderate respiratory distress. HEAD: Normal with no signs of head trauma. EYES: PERRLA, EOMI, conjunctiva normal, no discharge. ENT: Hearing grossly intact, normal oropharynx. RESPIRATORY: Hypoxic on room air. Bilateral end expiratory wheezing, crackles. Tachypnea. On BiPAP. C/V: Regular rate and rhythm. S1 and S2 auscultated, bilateral peripheral symmetrical pitting edema in the lower extremities, peripheral pulses 2+ and intact throughout ABD: Abd is soft, nontender, nondistended EXT: Normal range of motion, no obvious deformity SKIN: No rashes or lesions observed on exposed skin. NEURO: Alert and oriented 4. No focal deficits. Limitations: no limitations Course Vital Signs 03/11/22 03/11/22 03/11/22 17:30 17:36 17:38 Temperature 97.9 F Pulse Rate 102 H 102 H Respiratory 18 24 Rate Blood Pressure 127/65 O2 Sat by Pulse 96 Oximetry Fraction of 40 40 Inspired Oxygen (FIO2) 03/11/22 03/11/22 03/11/22 18:01 18:18 19:18 Temperature 98.3 F Pulse Rate 105 H 104 H 101 H Respiratory 32 H 27 H Rate Blood Pressure 110/86 129/88 O2 Sat by Pulse 97 Oximetry Fraction of 40 Inspired Oxygen (FIO2) 03/11/22 03/11/22 20:39 20:51 Temperature Pulse Rate 99 97 Respiratory Rate Blood Pressure O2 Sat by Pulse Oximetry Fraction of Inspired Oxygen (FIO2) Procedures - Sepsis Sepsis Focused Exam #1 Time Sepsis Criteria Met: 18:17 Sepsis Focused Exam Date: 03/11/22 Sepsis Focused Exam Time: 20:00 Sepsis Focused Exam Complete: Yes Vital Signs & RN Notes Reviewed: Yes Capillary Refill: < 2 Seconds: Fingers, Toes Peripheral Pulses: Normal: Radial (R), Radial (L) Skin Color: Normal for Patient Respiratory Exam: wheezes, rhonchi Cardiovascular Exam: regular rate, normal rhythm Medical Decision Making - Medical Decision Making Based on the patient's presentation and physical exam, I'm concerned for cardiopulmonary etiology for her current symptoms. This includes CHF exacerbation, COPD exacerbation, as well as possible infectious etiology. Patient has worsening orthopnea, lower extremity edema, exertional dyspnea and is hypoxic on room air. She was immediately transitioned to BiPAP by respiratory. Patient is saturating well at 96%. We will continue to monitor. Due to her wheezing we will treat her for COPD at this time with IV steroids as well as multiple breathing treatments. We'll obtain for a pulmonary labs as well as infectious labs. Chest x-ray will be obtained. EKG will be obtained. She was in agreement with this plan. Vital signs otherwise within acceptable limits. Patient was evaluated in trauma bay 2. EKG shows no signs of acute ischemia.Patient's chest x-ray as interpreted by myself reveals a bilateral pulmonary infiltrate that is more telemarketing sales representative of a pneumonia pattern than heart failure pattern. Of concern for multifocal pneumonia. This is supported with a leukocytosis of 23, elevated hemoglobin of 17.2 which is likely indicative that the patient is mildly dry, is somewhat chronic thrombocytopenia, mildly elevated coags, an AK I with a BUN of 33 and creatinine of 2.76, elevated lactic acid of 7.8, a hypomagnesemia of 1.4 which will be replenished, and determined troponin of 0.013 as well as a slightly elevated BNP of 1590. Patient's lactic acidosis is likely secondary to hypoxia as well as mild dehydration. However with the patient's history of CHF, we will monitor how much fluids we administer the patient. Patient met sepsis criteria at 1817. Make a mice and cefepime are ordered. Patient will not receive the 30 mL per KG fluid boluses the patient has a extensive history of CHF and does present with a mild CHF-like picture. She'll receive a 500 mL bolus as well as placed on maintenance fluids at this time. We will closely monitor her fluid status. Patient's vital signs within acceptable limits on BiPAP at this time. I updated the patient. Patient's wheezing is improved. Work of breathing is improved on BiPAP. She was in agreement with this plan. We will continue to treat her COPD exacerbation with breathing treatments as well as steroids. Antibiotics are ordered and will be continued. She'll be admitted to stepdown. We will continue BiPAP. I spoke with the admitting physician, Dr. Joyce who was in agreement the plan. He requested a cardiology consult which is placed, as well as a infectious disease consult which was placed. I also consulted pulmonology for the COPD exacerbation and pneumonia. Patient will be admitted in serious condition. Patient is Covid negative, influenza A positive. RSV negative. Patient was started on Tamiflu.We'll continue to monitor the patient's volume status as well as lactic acid, which is likely elevated combination of the acute infectious process, as well as the suspected hypoxia that has been ongoing for the last 2 weeks. - Lab Data Result diagrams: 03/11/22 17:38 03/11/22 17:38 Lab Results 03/11/22 03/11/22 03/11/22 Range/Units 17:38 17:38 17:38 WBC 23.4 H (3.8-10.6) k/uL RBC 4.86 (3.80-5.40) m/uL Hgb 17.2 H (11.4-16.0) gm/dL Hct 53.0 H (34.0-46.0) % MCV 109.2 H (80.0-100.0) fL MCH 35.4 H (25.0-35.0) pg MCHC 32.5 (31.0-37.0) g/dL RDW 13.0 (11.5-15.5) % Plt Count 124 L (150-450) k/uL MPV 14.3 Neutrophils % (Manual) 54 % Band Neuts % (Manual) 20 % Lymphocytes % (Manual) 10 % Monocytes % (Manual) 14 % Metamyelocytes % 2 % Neutrophils # (Manual) 17.30 H (1.3-7.7) k/uL Lymphocytes # (Manual) 2.34 (1.0-4.8) k/uL Monocytes # (Manual) 3.28 H (0-1.0) k/uL Metamyelocytes # (Man) 0.47 H (0) k/uL Nucleated RBCs 0 (0-0) /100 WBC Manual Slide Review Performed Large Platelets Present Hypochromasia Slight Macrocytosis Marked A PT 19.1 H (9.0-12.0) sec INR 1.9 H (<1.2) APTT 31.7 H (22.0-30.0) sec VBG pH (7.31-7.41) VBG pCO2 (37-51) mmHg VBG HCO3 (24-28) mmol/L Sodium 139 (137-145) mmol/L Potassium 3.8 (3.5-5.1) mmol/L Chloride 100 (98-107) mmol/L Carbon Dioxide 21 L (22-30) mmol/L Anion Gap 18 mmol/L BUN 33 H (7-17) mg/dL Creatinine 2.76 H (0.52-1.04) mg/dL Est GFR (CKD-EPI)AfAm 20 (>60 ml/min/1.73 sqM) Est GFR (CKD-EPI)NonAf 18 (>60 ml/min/1.73 sqM) Glucose 94 (74-99) mg/dL Lactic Ac Sepsis Rflx Plasma Lactic Acid Rui (0.7-2.0) mmol/L Calcium 9.4 (8.4-10.2) mg/dL Magnesium 1.4 L (1.6-2.3) mg/dL Total Bilirubin 3.4 H (0.2-1.3) mg/dL AST 45 H (14-36) U/L ALT 36 H (4-34) U/L Alkaline Phosphatase 89 (38-126) U/L Troponin I (0.000-0.034) ng/mL NT-Pro-B Natriuret Pep pg/mL Total Protein 7.5 (6.3-8.2) g/dL Albumin 3.9 (3.5-5.0) g/dL 03/11/22 03/11/22 03/11/22 Range/Units 17:38 17:38 17:38 WBC (3.8-10.6) k/uL RBC (3.80-5.40) m/uL Hgb (11.4-16.0) gm/dL Hct (34.0-46.0) % MCV (80.0-100.0) fL MCH (25.0-35.0) pg MCHC (31.0-37.0) g/dL RDW (11.5-15.5) % Plt Count (150-450) k/uL MPV Neutrophils % (Manual) % Band Neuts % (Manual) % Lymphocytes % (Manual) % Monocytes % (Manual) % Metamyelocytes % % Neutrophils # (Manual) (1.3-7.7) k/uL Lymphocytes # (Manual) (1.0-4.8) k/uL Monocytes # (Manual) (0-1.0) k/uL Metamyelocytes # (Man) (0) k/uL Nucleated RBCs (0-0) /100 WBC Manual Slide Review Large Platelets Hypochromasia Macrocytosis PT (9.0-12.0) sec INR (<1.2) APTT (22.0-30.0) sec VBG pH (7.31-7.41) VBG pCO2 (37-51) mmHg VBG HCO3 (24-28) mmol/L Sodium (137-145) mmol/L Potassium (3.5-5.1) mmol/L Chloride (98-107) mmol/L Carbon Dioxide (22-30) mmol/L Anion Gap mmol/L BUN (7-17) mg/dL Creatinine (0.52-1.04) mg/dL Est GFR (CKD-EPI)AfAm (>60 ml/min/1.73 sqM) Est GFR (CKD-EPI)NonAf (>60 ml/min/1.73 sqM) Glucose (74-99) mg/dL Lactic Ac Sepsis Rflx Plasma Lactic Acid Rui 7.8 H* (0.7-2.0) mmol/L Calcium (8.4-10.2) mg/dL Magnesium (1.6-2.3) mg/dL Total Bilirubin (0.2-1.3) mg/dL AST (14-36) U/L ALT (4-34) U/L Alkaline Phosphatase (38-126) U/L Troponin I 0.013 (0.000-0.034) ng/mL NT-Pro-B Natriuret Pep 1590 pg/mL Total Protein (6.3-8.2) g/dL Albumin (3.5-5.0) g/dL 03/11/22 03/11/22 Range/Units 17:47 18:17 WBC (3.8-10.6) k/uL RBC (3.80-5.40) m/uL Hgb (11.4-16.0) gm/dL Hct (34.0-46.0) % MCV (80.0-100.0) fL MCH (25.0-35.0) pg MCHC (31.0-37.0) g/dL RDW (11.5-15.5) % Plt Count (150-450) k/uL MPV Neutrophils % (Manual) % Band Neuts % (Manual) % Lymphocytes % (Manual) % Monocytes % (Manual) % Metamyelocytes % % Neutrophils # (Manual) (1.3-7.7) k/uL Lymphocytes # (Manual) (1.0-4.8) k/uL Monocytes # (Manual) (0-1.0) k/uL Metamyelocytes # (Man) (0) k/uL Nucleated RBCs (0-0) /100 WBC Manual Slide Review Large Platelets Hypochromasia Macrocytosis PT (9.0-12.0) sec INR (<1.2) APTT (22.0-30.0) sec VBG pH 7.26 L (7.31-7.41) VBG pCO2 55 H (37-51) mmHg VBG HCO3 24 (24-28) mmol/L Sodium (137-145) mmol/L Potassium (3.5-5.1) mmol/L Chloride (98-107) mmol/L Carbon Dioxide (22-30) mmol/L Anion Gap mmol/L BUN (7-17) mg/dL Creatinine (0.52-1.04) mg/dL Est GFR (CKD-EPI)AfAm (>60 ml/min/1.73 sqM) Est GFR (CKD-EPI)NonAf (>60 ml/min/1.73 sqM) Glucose (74-99) mg/dL Lactic Ac Sepsis Rflx Y Plasma Lactic Acid Rui (0.7-2.0) mmol/L Calcium (8.4-10.2) mg/dL Magnesium (1.6-2.3) mg/dL Total Bilirubin (0.2-1.3) mg/dL AST (14-36) U/L ALT (4-34) U/L Alkaline Phosphatase (38-126) U/L Troponin I (0.000-0.034) ng/mL NT-Pro-B Natriuret Pep pg/mL Total Protein (6.3-8.2) g/dL Albumin (3.5-5.0) g/dL - EKG Data -: EKG Interpreted by Me EKG Comments: 12-lead Electrocardiogram Interpretation Note EKG was reviewed and interpreted by myself. 12-lead ECG performed at 1734 is interpreted by me as revealing sinus tachycardia at a rate of 105 beats per minute. [place] is normal. PAC present. FL interval is 150 ms, QRS duration is 104 ms, QTc is 426 ms.. There were no ST or T wave abnormalities to suggest myocardial ischemia or injury. R wave progression across the precordium was satisfactory. By my interpretation this EKG is non-diagnostic for acute ischemia. No significant change when compared with EKG from July 2020. QT interval is improved. Critical Care Time Critical Care Time: Yes Total Critical Care Time: 35 Critical Care Time: Upon my evaluation, this patient had a high probability of imminent or life- threatening deterioration due to acute hypoxic respiratory failure secondary to COPD exacerbation, possible mild CHF, as well as suspected bilateral pneumonia requiring noninvasive positive pressure ventilation, sepsis, which required my direct attention, intervention, and personal management. I have personally provided 35 minutes of critical care time exclusive of time spent on separately billable procedures. Time includes review of laboratory data, radiology results, discussion with consultants, and monitoring for potential decompensation. Interventions were performed as documented in my note. Disposition Clinical Impression: Multifocal pneumonia, COPD (chronic obstructive pulmonary disease), Sepsis with acute hypoxic respiratory failure, Sepsis, Lactic acidosis Disposition: ADMITTED IP TO THIS HOSP Condition: Serious Time of Disposition: 19:25
--- NOTE | 2022-03-11 18:15 | XR ---
EXAMINATION TYPE: XR chest 1V portable DATE OF EXAM: 03/11/2022 6:03 PM COMPARISON: Chest radiographs from 07/23/2018 TECHNIQUE: XR chest 1V portable Portable AP radiograph of the chest. CLINICAL INDICATION:Female, 61 years old with history of dyspnea; FINDINGS: Lungs/Pleura: Consolidation changes of the right upper lobe, right lower lobe and left lateral lung a nd lower lobes medially. No pneumothorax or pleural fusion. Pulmonary vascularity: Unremarkable. Heart/mediastinum: Cardiomediastinal silhouette is enlarged and stable. Musculoskeletal: No acute osseous pathology. Other findings: Surgical clips in the left upper quadrant. IMPRESSION: Multifocal airspace opacities concerning for pneumonia.
[2022-03-11] MEDS ORDERED: VANCOMYCIN IV PER PHARMACY 1 EACH MISC MISCELLANE PRN (18:19)
[2022-03-11 18:27] LABS: Band Neutrophils % 20 %; Large Platelets Present; Lymphocytes # (M) 2.34 k/uL (1.0-4.8); Metamyelocytes # (M) 0.47 k/uL (0); Metamyelocytes % 2 %; Monocytes # (M) 3.28 k/uL (0-1.0); Neutrophils % (M) 54 %; Nucleated Red Blood Cells 0 /100 WBC (0-0); Total Cells Counted 100
[2022-03-11] MEDS ORDERED: CEFEPIME 2 GM in SODIUM CHLORIDE 0.9% 100 ML IVPB SCH (18:30)
[2022-03-11] MEDS ORDERED: VANCOMYCIN 1,750 MG in SODIUM CHLORIDE 0.9% 500 ML 500 ML IVPB STA (18:36)
[2022-03-11] MEDS ORDERED: LORazepam 2 MG/ML INJ IV STA ×3 (18:38→21:26)
[2022-03-11] MEDS: CEFEPIME 1 GM in SODIUM CHLORIDE 0.9% 50 ML IVPB SCH (18:58)
[2022-03-11] MEDS ORDERED: SODIUM CHLORIDE 0.9% 1,000 ML IV STA ×2 (19:11→21:33)
[2022-03-11] MEDS ORDERED: ONDANSETRON 4 MG/2 ML VIAL IVP PRN (19:22)
[2022-03-11] MEDS ORDERED: NALOXONE 0.4 MG/ML 1 ML VIAL IV PRN (19:22)
[2022-03-11] MEDS ORDERED: GABAPENTIN 300 MG CAP PO PRN (19:28)
[2022-03-11] MEDS ORDERED: clonazePAM 1 MG TAB PO PRN (19:28)
[2022-03-11] MEDS ORDERED: SODIUM CHLORIDE 0.9% 500 ML 500 ML IV STA (19:33)
[2022-03-11] MEDS: SYMBICORT 160-4.5 MCG INHALER INHALATION SCH (20:38)
[2022-03-11] MEDS: IPRATROPIUM-ALBUTEROL 3 ML NEB INHALATION SCH ×2 (20:39→23:43)
[2022-03-11] MEDS: OSELTAMIVIR 60 MG/10 ML ORAL SYRINGE PO SCH (21:28)
[2022-03-11] MEDS ORDERED: hydrALAZINE HCL 50 MG TAB PO SCH (22:00)
[2022-03-11] MEDS: QUEtiapine 100 MG TAB PO SCH (23:16)
[2022-03-11] MEDS: buPROPion SR 100 MG TABLET.ER PO SCH (23:16)
[2022-03-12] MEDS ORDERED: MORPHINE SULFATE 4 MG/ML SYRINGE IVP STA (01:00)
[2022-03-12 02:26] LABS: Allen Test Performed? Yes
[2022-03-12 02:27] LABS: ABG Base Excess -7.8 mmol/L; ABG HCO3 19 mmol/L (21-25); ABG PCO2 43 mmHg (35-45); ABG PH 7.26 (7.35-7.45); ABG PO2 75 mmHg (83-108); ABG TCO2 21 mmol/L (19-24)
[2022-03-12 03:02] LABS: ABG Oxygen Saturation 95.3 % (94-97)
--- NOTE | 2022-03-12 03:19 | XR ---
EXAMINATION TYPE: XR chest 1V portable DATE OF EXAM: 03/12/2022 COMPARISON: Yesterday HISTORY: Respiratory failure TECHNIQUE: Single view FINDINGS: Endotracheal tube is 1.5 cm from the albin. There is bilateral peripheral pulmonary airspa ce consolidation. There is nasogastric tube in the stomach. Heart is enlarged. Trachea is midline. Dejuan ny thorax is intact. IMPRESSION: There is patchy bilateral airspace consolidation which appears the same or slightly worse than yesterday and consistent with RDS.
--- NOTE | 2022-03-12 03:27 | P.EN ---
A team note patient admitted earlier tonight for acute hypoxic respiratory failure with metabolic acidosis and sepsis secondary to bilateral pneumonia and Influenza A infection patient respiratory effort has been getting worse throughout the night , with increase worsening of her mental status , patient seems to be more lethargic at this point, minimally responsive, with concerns regarding worsening pulmonary status and aspiration risk. patient is tachycardic , tachypnic with abd respiration , elevated Lactic acid , BP remains within normal limits General minimally responsive , increase lethargy lungs diminished breath sounds at lung bases, with shallow respiration bilateral leg edema currently on bipap plan elective intubation , for air way protection secondary to worsening mental status risk of aspiration , and worsening tachypnea with shallow respiration continue with current antibiotics with vanco , cefepime , and tamiflu continue supportive care admit to ICU , d/w ICU attending consider IV pressors if becomes hypotensive Total amount of critical care time spent was 45 minutes not counting procedures performed.
[2022-03-12 03:29] LABS: Glucose,Whole Blood 127 mg/dL (70-110)
[2022-03-12 03:49] LABS: ABG Base Excess -8.7 mmol/L; ABG HCO3 20 mmol/L (21-25); ABG Oxygen Saturation 99.3 % (94-97); ABG PCO2 51 mmHg (35-45); ABG PO2 171 mmHg (83-108); ABG TCO2 21 mmol/L (19-24); Allen Test Performed? Yes
[2022-03-12 03:51] LABS: ABG PH 7.19 (7.35-7.45)
[2022-03-12] MEDS: IPRATROPIUM-ALBUTEROL 3 ML NEB INHALATION SCH ×6 (03:55→23:28)
[2022-03-12] MEDS ORDERED: SODIUM CHLORIDE 0.9% 1,000 ML IV ONE (04:00)
[2022-03-12] MEDS ORDERED: Magnesium Replacement Protocol 1 EACH MISC MISCELLANE PRN (04:01)
[2022-03-12] MEDS: MAGNESIUM SULFATE-D5W PMX 1 GM in DEXTROSE/WATER 1 100ML.BAG IVPB SCH ×3 (04:14→06:18)
[2022-03-12 04:18] LABS: Amorphous Sediment,Urine Occasional /hpf; Appearance,Urine Turbid (Clear); Bacteria,Urine Moderate /hpf; Bilirubin,Urine 1+ (Negative); Blood,Urine Large (Negative); Color,Urine Dark Brown; Glucose,Urine (UA) Negative (Negative); Hyaline Casts,Urine 4 /lpf (0-2); Ketones,Urine Trace (Negative); Leukocyte Esterase,Urine Negative (Negative); Mucus,Urine Occasional /hpf; Nitrite,Urine Negative (Negative); Protein,Urine 2+ (Negative); RBC,Urine >182 /hpf (0-5); Squamous Epithelial Cell,Urine 3 /hpf (0-4); WBC,Urine 3 /hpf (0-5)
[2022-03-12] MEDS ORDERED: METOPROLOL TARTRATE 25 MG TAB PO STA (04:40)
[2022-03-12 04:48] LABS: Calcium 7.6 mg/dL (8.4-10.2); Magnesium 1.5 mg/dL (1.6-2.3)
[2022-03-12 04:54] LABS: Basophils # (A) 0.1 k/uL (0-0.2); Basophils % (A) 1 %; Eosinophils % (A) 0 %; HCT 50.5 % (34.0-46.0); HGB 15.5 gm/dL (11.4-16.0); Hypochromasia Marked; Lymphocytes # (A) 1.8 k/uL (1.0-4.8); Lymphocytes % (A) 11 %; MCH 34.8 pg (25.0-35.0); MCHC 30.7 g/dL (31.0-37.0); MCV 113.4 fL (80.0-100.0); Macrocytosis Marked; Mean Platelet Volume 14.7; Monocytes # (A) 0.9 k/uL (0-1.0); Monocytes % (A) 5 %; Neutrophils # (A) 13.7 k/uL (1.3-7.7); Neutrophils % (A) 80 %; Platelet Count 120 k/uL (150-450); RBC 4.45 m/uL (3.80-5.40); RDW 13.8 % (11.5-15.5); WBC 17.2 k/uL (3.8-10.6)
[2022-03-12 05:15] LABS: Large Platelets Present
[2022-03-12] MEDS: SODIUM CHLORIDE 0.9% 1,000 ML IV SCH (05:17)
[2022-03-12] MEDS: INSULIN ASPART (NovoLOG) 100 UNIT/ML VIAL SQ SCH ×3 (05:58→17:13)
[2022-03-12 05:59] LABS: Glucose,Whole Blood 116 mg/dL (70-110)
--- NOTE | 2022-03-12 07:39 | P.CRDCN ---
History of Present Illness Consult date: 03/12/22 History of present illness: History of Present Illness: The patient is a 61-year-old female with a known history of mild CAD by cardiac catheterization in June, history of hypertension who presented with symptoms of progressive dyspnea. She tested positive for influenza a period had progressive dyspnea requiring mechanical ventilation. Cardiology consultation was r equested. Patient has no history of myocardial infarction or prior cardiomyopathy. I have no recent evaluation of her systolic function. She is in sinus mechanism, intubated and sedated. Her blood pressure is stable. According to the notes and the nursing staff the patient has been having progr essive dyspnea over the last 2 weeks with a cough and wheezing. She was initially placed on BiPAP at with worsening dyspnea required mechanical ventilation. I have no history of prior smoking or documented COPD. On presentation her troponin were normal, she had evidence of acute renal injury. Her NT proBNP was 1590. Her plasma lactic was elevated. She had significant leukocytosis. Her chest x-ray shows patchy bilateral air space consolidation. No other prior history could be obtained at this time. Medications: Aspirin, Zestril 40 mg daily, hydralazine 100 mg 3 times a day, Seroquel, Klonopin, Wellbutrin, Lasix 40 mg daily, Cardura 1 mg daily, albuterol, gabapentin, Symbicort Review of Systems: Could not be obtained the patient is intubated and sedated Physical Examination: 61-year-old female intubated and sedated ,Blood pressure 115/60, Heart rate 100, afebrile Head: Normocephalic. Eyes: Sclerae nonicteric. Neck: Good carotid upstroke, no bruit, no jugular venous distention. Lungs: Clear to auscultation. Heart: Regular rate and rhythm, S1-S2, no S3, no rub. No murmur. Abdomen: Soft nontender, positive bowel sounds no organomegaly, obese. Extremities: No edema, intact distal pulses. Labs: We'll blood cell 17.2 was 23.4 on admission. BUN on admission 33 with a creatin ine of 2.76. Influenza A PCR positive. Plasma lactic acid 7.8. Troponin less than 0.012. Total bilirubin 3.4. Her total bilirubin in July was 1.8. Her renal function were normal in June. EKG: Sinus mechanism rate of 105 left axis deviation multiple PACs, nonspecific ST-T wave changes Impression: 1. Respiratory failure with influenza A infection, no clear evidence of CHF and no evidence of ischemia 2. History of hypertension 3. Acute renal injury with probable dehydration 4. Elevated total bilirubin 5. Mild CAD by cardiac catheterization in June Plan: 1. Obtain an echocardiogram with Doppler 2. Hold diuresis 3. Hold Zestril 4. Continue beta juan 5. Treatment of her infection per pulmonary service 6. Depending on her progress further recommendations will be made. Thank you for this consult we will follow with you. Past Medical History Past Medical History: Atrial Flutter, Cancer, Chest Pain / Angina, COPD, Eye Disorder, Fibromyalgia, GERD/Reflux, Hyperlipidemia, Hypertension, Liver Disease, Osteoarthritis (OA) Additional Past Medical History / Comment(s): Migraines, dry eyes, Chronic Back pain, Hepatitis B & C, Hx cancer of stomach 2011. Hx Kidney stones. Edema BLE. Abn stress test. hx. falls, urinary incontinence History of Any Multi-Drug Resistant Organisms: None Reported Past Surgical History: Appendectomy, Bariatric Surgery, Cardiac Ablation, Section, Hysterectomy, Joint Replacement Additional Past Surgical History / Comment(s): C-S x2. hx Jason-en-y (1979), spleen removed, Bilat Total knees replaced, cataracts removed Past Anesthesia/Blood Transfusion Reactions: No Reported Reaction Past Psychological History: Anxiety, Depression Smoking Status: Never smoker Past Alcohol Use History: None Reported Past Drug Use History: None Reported - Past Family History Sister(s) Family Medical History: Cancer Daughter(s) Family Medical History: Deep Vein Thrombosis (DVT), Pulmonary Embolus Mother Family Medical History: Myocardial Infarction (OR) Additional Family Medical History / Comment(s): of massive heart attack Father Family Medical History: No Reported History Additional Family Medical History / Comment(s): . Medications and Allergies Home Medications Medication Instructions Recorded Confirmed Type Gabapentin [Neurontin] 300 mg PO TID PRN 07/23/18 03/11/22 History QUEtiapine [SEROquel] 100 mg PO HS 08/24/20 03/11/22 History clonazePAM [KlonoPIN] 1 mg PO TID PRN 08/24/20 03/11/22 History hydrALAZINE HCL [Apresoline] 100 mg PO TID 08/24/20 03/11/22 History Budesonide/Formoterol Fumarate 2 puff INHALATION RT-BID 03/04/21 03/11/22 History [Symbicort 160-4.5 Mcg Inhaler] Doxazosin [Cardura] 1 mg PO DAILY 03/04/21 03/11/22 History Furosemide [Lasix] 40 mg PO DAILY 03/04/21 03/11/22 History Ergocalciferol [Vitamin D2 (1250 1,250 mcg PO Q30D 07/03/21 03/11/22 History Mcg = 57577 Iu)] lisinopriL [Zestril] 40 mg PO DAILY 07/03/21 03/11/22 History oxyCODONE-APAP 10-325MG [Percocet 1 tab PO TID PRN 07/05/21 03/11/22 History 10-325 mg] Albuterol Nebulized [Ventolin 2.5 mg INHALATION RT-QID PRN 03/11/22 03/11/22 History Nebulized] Albuterol Sulfate [Albuterol 1 puff PO RT-QID PRN 03/11/22 03/11/22 History Sulfate Hfa] Aspirin EC [Ecotrin Low Dose] 81 mg PO DAILY 03/11/22 03/11/22 History buPROPion HCL [Wellbutrin SR] 200 mg PO BID 03/11/22 03/11/22 History Allergies Allergy/AdvReac Type Severity Reaction Status Date / Time adhesive Allergy Unknown RED SKIN Verified 11/30/21 14:37 WITH PROLONGED USE ondansetron HCl Allergy Unknown Swelling Verified 11/30/21 14:37 [From Zofran (as hydrochloride)] acetaminophen [From Tylox] Allergy Rash/Hives Verified 11/30/21 14:37 ibuprofen [From Motrin] Allergy Rash/Hives Verified 11/30/21 14:37 latex Allergy blisters, Verified 11/30/21 14:37 redness oxycodone [From Tylox] Allergy Rash/Hives Verified 11/30/21 14:37 Physical Exam Vitals: Vital Signs Temp Pulse Resp BP Pulse Ox FiO2 03/12/22 07:20 70 03/12/22 07:00 107 H 25 H 115/67 91 L 70 03/12/22 06:30 106 H 25 H 107/57 93 L 70 12/13/22 06:00 105 H 24 121/56 94 L 70 03/12/22 05:30 112 H 24 128/67 95 70 03/12/22 05:00 112 H 26 H 115/66 93 L 70 03/12/22 04:30 110 H 24 110/63 95 70 03/12/22 04:21 70 03/12/22 04:17 109 H 03/12/22 04:00 98.2 F 112 H 24 114/69 97 85 03/12/22 03:59 80 03/12/22 03:57 112 H 03/12/22 03:30 110 H 24 97 03/12/22 03:21 111 H 03/12/22 03:09 101 H 22 113/60 98 03/12/22 03:06 100 03/12/22 02:59 105 H 20 87/47 97 03/12/22 02:50 100 03/12/22 02:40 50 03/12/22 01:37 107 H 35 H 130/69 97 03/11/22 23:54 102 H 25 H 142/58 97 03/11/22 23:50 100 03/11/22 23:44 101 H 03/11/22 20:51 97 03/11/22 20:39 99 03/11/22 19:18 98.3 F 101 H 27 H 129/88 97 40 03/11/22 18:18 104 H 32 H 110/86 03/11/22 18:01 105 H 03/11/22 17:38 102 H 24 40 03/11/22 17:30 97.9 F 102 H 18 127/65 96 Intake and Output 03/11/22 03/12/22 03/12/22 22:59 06:59 14:59 Intake Total 1780.291 Output Total 75 Balance 1705.291 Intake: IV 1700 Magnesium Sulfate-D5w Pmx 300 1 gm In Dextrose/Water 1 100ml.bag @ 100 mls/hr IVPB Q1H TRE Rx#: [id number] Sodium Chloride 0.9% 1, 400 000 ml @ 100 mls/hr IV . Q10H STA Rx#:[id number] Sodium Chloride 0.9% 1, 1000 000 ml @ 999 mls/hr IV . Q1H1M ONE Rx#:[id number] Intake, IV Titration 20.291 Amount propofoL 1,000 mg In 20.291 Empty Bag 1 bag @ 15 MCG/ KG/MIN 9.389 mls/hr IV . [id number] [facility] Rx#:[id number] Other 60 Output: Urine 75 Other: Voiding Method Indwelling Catheter Weight 104.326 kg Results 03/12/22 04:08 03/12/22 05:00 Cardiac Enzymes 03/11/22 03/11/22 03/11/22 Range/Units 17:38 17:38 20:40 AST 45 H (14-36) U/L Troponin I 0.013 <0.012 (0.000-0.034) ng/mL 03/12/22 Range/Units 00:51 AST (14-36) U/L Troponin I <0.012 (0.000-0.034) ng/mL Coagulation 03/11/22 Range/Units 17:38 PT 19.1 H (9.0-12.0) sec APTT 31.7 H (22.0-30.0) sec CBC 03/11/22 03/12/22 Range/Units 17:38 04:08 WBC 23.4 H 17.2 H (3.8-10.6) k/uL RBC 4.86 4.45 (3.80-5.40) m/uL Hgb 17.2 H 15.5 (11.4-16.0) gm/dL Hct 53.0 H 50.5 H (34.0-46.0) % Plt Count 124 L 120 L (150-450) k/uL Comprehensive Metabolic Panel 03/11/22 03/12/22 03/12/22 Range/Units 17:38 04:08 05:00 Sodium 139 134 L (137-145) mmol/L Potassium 3.8 4.5 (3.5-5.1) mmol/L Chloride 100 105 (98-107) mmol/L Carbon Dioxide 21 L 15 L (22-30) mmol/L BUN 33 H 37 H (7-17) mg/dL Creatinine 2.76 H 2.02 H (0.52-1.04) mg/dL Glucose 94 110 H (74-99) mg/dL Calcium 9.4 7.6 L (8.4-10.2) mg/dL AST 45 H (14-36) U/L ALT 36 H (4-34) U/L Alkaline Phosphatase 89 (38-126) U/L Total Protein 7.5 (6.3-8.2) g/dL Albumin 3.9 (3.5-5.0) g/dL Current Medications Generic Name Dose Route Start Last Admin Trade Name Freq PRN Reason Stop Dose Admin Albuterol/Ipratropium 3 ml 03/11/22 20:00 03/12/22 03:55 Ipratropium-Albuterol 3 Ml Neb INHALATION 3 ml RT-Q4H TRE Administration Aspirin 81 mg 03/12/22 09:00 Aspirin 81 Mg PO DAILY TRE Budesonide/Formoterol Fumarate 2 puff 03/11/22 20:00 03/11/22 20:38 Symbicort 160-4.5 Mcg Inhaler INHALATION Not Given RT-BID [facility] Bupropion HCl 200 mg 03/11/22 21:00 03/11/22 23:16 Bupropion Sr 100 Mg Tablet.Er PO 200 mg BID TRE Administration Chlorhexidine Gluconate 15 ml 03/12/22 09:00 Chlorhexidine Gluconate 15 Ml Cup MUCOUS MEM BID TRE Clonazepam 1 mg 03/11/22 19:28 03/11/22 23:16 Clonazepam 1 Mg Tab PO 1 mg TID PRN Administration Anxiety Doxazosin Mesylate 1 mg 03/12/22 09:00 Doxazosin 1 Mg Tab PO DAILY [facility] Furosemide 40 mg 03/12/22 09:00 Furosemide 40 Mg Tab PO DAILY [facility] Gabapentin 300 mg 03/11/22 19:28 Gabapentin 300 Mg Cap PO TID PRN Pain Hydralazine HCl 100 mg 03/11/22 22:00 03/11/22 23:16 Hydralazine Hcl 50 Mg Tab PO 100 mg TID TRE Administration Cefepime HCl 1 gm/ Sodium 50 mls @ 100 mls/hr 03/11/22 19:00 03/11/22 18:58 Chloride IVPB 100 mls/hr Q12H TRE Administration Vancomycin HCl 1,750 mg/ 500 mls @ 167 mls/hr 03/12/22 12:00 Sodium Chloride IVPB 03/12/22 14:59 ONCE ONE Propofol 1,000 mg/ IV Solution 100 mls @ 9.389 mls/hr 03/12/22 03:15 03/12/22 05:08 IV 20 mcg/kg/min .[id number] TRE 12.519 mls/hr Titration Protocol 15 MCG/KG/MIN Sodium Chloride 1,000 mls @ 100 mls/hr 03/12/22 05:15 03/12/22 05:17 Saline 0.9% IV 100 mls/hr .Q10H TRE Administration Insulin Aspart 0 unit 03/12/22 06:00 03/12/22 05:58 Insulin Aspart (Novolog) 100 Unit/Ml Vial SQ Not Given Q6H TRE Protocol Lisinopril 40 mg 03/12/22 09:00 Lisinopril 20 Mg Tab PO DAILY [facility] Methylprednisolone Sodium Succinate 40 mg 03/12/22 09:00 Methylprednisolone Sod Succi 40 Mg/Ml 1 Ml Vial IV DAILY [facility] Miscellaneous Information 1 each 03/11/22 18:19 Vancomycin Iv Per Pharmacy 1 Each Misc MISCELLANE DIRECTED PRN Per Protocol Protocol Miscellaneous Information 1 each 03/12/22 04:01 Magnesium Replacement Protocol 1 Each Misc MISCELLANE DAILY PRN Per Protocol Protocol Naloxone HCl 0.2 mg 03/11/22 19:22 Naloxone 0.4 Mg/Ml 1 Ml Vial IV Q2M PRN Opioid Reversal Oseltamivir Phosphate 30 mg 03/11/22 21:00 03/11/22 21:28 Oseltamivir 60 Mg/10 Ml Oral Syringe PO 03/15/22 21:01 30 mg HS TRE Administration Protocol Quetiapine Fumarate 100 mg 03/11/22 21:00 03/11/22 23:16 Quetiapine 100 Mg Tab PO 100 mg HS TRE Administration Intake and Output 03/11/22 03/12/22 03/12/22 22:59 06:59 14:59 Intake Total 1780.291 Output Total 75 Balance 1705.291 Intake: IV 1700 Magnesium Sulfate-D5w Pmx 300 1 gm In Dextrose/Water 1 100ml.bag @ 100 mls/hr IVPB Q1H TRE Rx#: [id number] Sodium Chloride 0.9% 1, 400 000 ml @ 100 mls/hr IV . Q10H STA Rx#:[id number] Sodium Chloride 0.9% 1, 1000 000 ml @ 999 mls/hr IV . Q1H1M [facility] Rx#:[id number] Intake, IV Titration 20.291 Amount propofoL 1,000 mg In 20.291 Empty Bag 1 bag @ 15 MCG/ KG/MIN 9.389 mls/hr IV . [id number] TRE Rx#:[id number] Other 60 Output: Urine 75 Other: Voiding Method Indwelling Catheter Weight 104.326 kg 03/12/22 04:08 03/12/22 05:00
[2022-03-12] MEDS: SYMBICORT 160-4.5 MCG INHALER INHALATION SCH (07:40)
[2022-03-12] MEDS ORDERED: CISATRACURIUM 2 MG/ML 5 ML VIAL IV ONE (07:46)
[2022-03-12 08:13] LABS: ABG Base Excess -9.6 mmol/L; ABG HCO3 19 mmol/L (21-25); ABG Oxygen Saturation 94.2 % (94-97); ABG PCO2 54 mmHg (35-45); ABG PO2 80 mmHg (83-108); ABG TCO2 21 mmol/L (19-24); Allen Test Performed? Yes
[2022-03-12] MEDS ORDERED: HEPARIN SODIUM 1,000 UN/ML (10ML VL) IV ONE (08:26)
[2022-03-12] MEDS ORDERED: HEPARIN SODIUM 1,000 UN/ML (10ML VL) IV PRN (08:26)
[2022-03-12] MEDS ORDERED: DEXTROSE 5% IN WATER 100 ML with AMIODARONE 150 MG IV ONE (08:50)
--- NOTE | 2022-03-12 08:50 | XR ---
EXAMINATION TYPE: XR chest 1V portable DATE OF EXAM: 03/12/2022 CLINICAL HISTORY: Difficulty breathing progress study. Central line placement. TECHNIQUE: Two AP portable supine views of the chest are obtained. COMPARISON: Chest x-ray from earlier today FINDINGS: There is new left subclavian central venous catheter terminating in SVC. No pneumothorax i s evident. Stable endotracheal and orogastric tubes. Stable right upper lung and right basilar increased opacity is and peripheral left midlung increased opacity. Stable mild cardiomegaly. Surgical changes left upper quadrant and epigastric region redemon strated. Osseous structures are intact. IMPRESSION: As above.
[2022-03-12] MEDS ORDERED: ENOXAPARIN 40 MG/0.4 ML SYRINGE SQ SCH (09:00)
[2022-03-12] MEDS ORDERED: lisinopriL 20 MG TAB PO SCH (09:00)
[2022-03-12] MEDS ORDERED: AMIODARONE 360 MG in DEXTROSE 5% IN WATER 200 ML IV ONE ×2 (09:00)
[2022-03-12] MEDS ORDERED: DOXAZOSIN 1 MG TAB PO SCH (09:00)
[2022-03-12] MEDS ORDERED: LEVOFLOXACIN 500MG-D5W PMX 500 MG in DEXTROSE/WATER 1 100ML.BAG IVPB SCH (09:00)
[2022-03-12] MEDS ORDERED: FUROSEMIDE 40 MG TAB PO SCH (09:00)
[2022-03-12] MEDS: CEFEPIME 1 GM in SODIUM CHLORIDE 0.9% 50 ML IVPB SCH ×2 (09:09→18:28)
[2022-03-12] MEDS: HEPARIN SOD,PORK IN 0.45% NACL 25,000 UNIT in 0.45% NACL 1 250ML.BAG IV SCH (09:12)
[2022-03-12] MEDS: DEXTROSE 5% IN WATER 1,000 ML with SODIUM BICARB (1 MEQ/ML) 150 ML IV SCH ×2 (09:15→20:49)
[2022-03-12] MEDS: buPROPion SR 100 MG TABLET.ER PO SCH ×2 (10:00→21:39)
[2022-03-12] MEDS: ASPIRIN 81 MG PO SCH (10:00)
[2022-03-12] MEDS: CHLORHEXIDINE GLUCONATE 15 ML CUP MUCOUS MEM SCH ×2 (10:00→21:39)
[2022-03-12] MEDS: METOPROLOL TARTRATE 25 MG TAB PO SCH ×2 (10:01→21:39)
[2022-03-12] MEDS: methylPREDNISolone SOD SUCCI 40 MG/ML 1 ML VIAL IV SCH (10:01)
[2022-03-12 10:50] LABS: ABG PH 7.16 (7.35-7.45)
[2022-03-12] MEDS: NOREPINEPHRINE 8 MG in SODIUM CHLORIDE 0.9% 250 ML IV SCH (11:13)
[2022-03-12 11:23] LABS: Glucose,Whole Blood 186 mg/dL (70-110)
[2022-03-12] MEDS ORDERED: VANCOMYCIN 1,750 MG in SODIUM CHLORIDE 0.9% 500 ML 500 ML IVPB ONE (12:00)
--- NOTE | 2022-03-12 13:13 | P.CNPUL ---
History of Present Illness Consult date: 03/12/22 Reason for consult: dyspnea, hypoxemia, pneumonia History of present illness: Patient is a 61-year-old female with past medical history remarkable for CAD, heart failure, hypertension, CAD who presents to emergency Department complaining of shortness of breath. She has had worsening shortness of breath for the last 2 weeks. This is exertional, associated with a nonproductive cough, wheezing. Patient also had bilateral lower extremity edema that has been symmetrical and getting worse. She denies any sick contacts. Denies any fevers. Denies any abdominal pain, nausea, vomiting. Does endorse intermittent chest pressure like sensation with shortness of breath is bad but currently denies it. Denies any diarrhea. She would this with the primary care physician and the patient was found to be profoundly hypoxic. She was sent over to the emergency department. Immediately, the patient was placed on oxygen, subsequently her condition decompensated and she was placed on the BiPAP and she ultimately failed and she had to be intubated and placed on a mechanical ventilator. Chest x-ray showed diffuse but the pulmonary infiltrates and areas of multifocal airspace opacity concerning for pneumonia. The patient's blood work showed a white cell count of 23 with a hemoglobin of 17. INR was at 1.9 with a PT of 19 and a PTT of 31. Sodium was at 139 with a potassium level of 3.2. BUN was 33 with a creatinine of 2.7. Lactic acid level was as high as 7.8, AST and ALP were 45) respectively, troponins were negative and a proBNP l evel was 1590. Influenza A was positive by PCR. Influenza B, RSV and Covid 19 were all negative. The UA showed 3 WBCs and +2 protein and large amount of blood with a RBC count of 182. This morning, the patient is intubated and mechanically ventilated. The patient is sedated with propofol. The patient is on assist control mode with a rate of 24 with a tidal volume of 400 FiO2 100% with a PEEP of 5. Chest x-ray showed unchanged multifocal breath and pneumonia. The patient was told in the bicarb infusion. The patient computed to have elevated lactic acid level and the level from this morning was at 8.1. She received a total of 3 units of N fluids yesterday. Currently she is in a bicarb infusion. BUN is at 37 with a creatinine of 2.02 which is improved compared to yesterday. Serum bicarbs of 15 and a sodium level is at 134. Most recent blood gas from this morning showed more preferable for and pO2 of 80. White cell count is lower compared to yesterday at 17.2 with a hemoglobin of 15.6. Furthermore, the patient was admitted to physicians of the ventricular response yesterday. The patient converted into sinus rhythm. This morning, that, my evaluation, the patient went back into A. fib RVR. The patient will be started on amiodarone per protocol. No fever. No pressors at this point in time. Review of Systems ROS unobtainable: due to endotracheal tube Past Medical History Past Medical History: Atrial Flutter, Coronary Artery Disease (CAD), Cancer, COPD, Eye Disorder, Fibromyalgia, GERD/Reflux, Hyperlipidemia, Hypertension, Liver Disease, Osteoarthritis (OA) Additional Past Medical History / Comment(s): Migraines, dry eyes, Chronic Back pain, Hepatitis B & C, Hx cancer of stomach 2011. Hx Kidney stones. Edema BLE. Abn stress test. hx. falls, urinary incontinence History of Any Multi-Drug Resistant Organisms: None Reported Past Surgical History: Appendectomy, Bariatric Surgery, Cardiac Ablation, Cesa rean Section, Hysterectomy, Joint Replacement Additional Past Surgical History / Comment(s): C-S x2. hx Jason-en-y (1979), spleen removed, Bilat Total knees replaced, cataracts removed Past Anesthesia/Blood Transfusion Reactions: No Reported Reaction Past Psychological History: Anxiety, Depression Smoking Status: Never smoker Past Alcohol Use History: None Reported Past Drug Use History: None Reported - Past Family History Sister(s) Family Medical History: Cancer Daughter(s) Family Medical History: Deep Vein Thrombosis (DVT), Pulmonary Embolus Mother Family Medical History: Myocardial Infarction (PR) Additional Family Medical History / Comment(s): of massive heart attack Father Family Medical History: No Reported History Additional Family Medical History / Comment(s): . Medications and Allergies Home Medications Medication Instructions Recorded Confirmed Type Gabapentin [Neurontin] 300 mg PO TID PRN 07/23/18 03/11/22 History QUEtiapine [SEROquel] 100 mg PO HS 08/24/20 03/11/22 History clonazePAM [KlonoPIN] 1 mg PO TID PRN 08/24/20 03/11/22 History hydrALAZINE HCL [Apresoline] 100 mg PO TID 08/24/20 03/11/22 History Budesonide/Formoterol Fumarate 2 puff INHALATION RT-BID 03/04/21 03/11/22 History [Symbicort 160-4.5 Mcg Inhaler] Doxazosin [Cardura] 1 mg PO DAILY 03/04/21 03/11/22 History Furosemide [Lasix] 40 mg PO DAILY 03/04/21 03/11/22 History Ergocalciferol [Vitamin D2 (1250 1,250 mcg PO Q30D 07/03/21 03/11/22 History Mcg = 30140 Iu)] lisinopriL [Zestril] 40 mg PO DAILY 07/03/21 03/11/22 History oxyCODONE-APAP 10-325MG [Percocet 1 tab PO TID PRN 07/05/21 03/11/22 History 10-325 mg] Albuterol Nebulized [Ventolin 2.5 mg INHALATION RT-QID PRN 03/11/22 03/11/22 History Nebulized] Albuterol Sulfate [Albuterol 1 puff PO RT-QID PRN 03/11/22 03/11/22 History Sulfate Hfa] Aspirin EC [Ecotrin Low Dose] 81 mg PO DAILY 03/11/22 03/11/22 History buPROPion HCL [Wellbutrin SR] 200 mg PO BID 03/11/22 03/11/22 History Allergies Allergy/AdvReac Type Severity Reaction Status Date / Time adhesive Allergy Unknown RED SKIN Verified 11/30/21 14:37 WITH PROLONGED USE ondansetron HCl Allergy Unknown Swelling Verified 11/30/21 14:37 [From Zofran (as hydrochloride)] acetaminophen [From Tylox] Allergy Rash/Hives Verified 11/30/21 14:37 ibuprofen [From Motrin] Allergy Rash/Hives Verified 11/30/21 14:37 latex Allergy blisters, Verified 11/30/21 14:37 redness oxycodone [From Tylox] Allergy Rash/Hives Verified 11/30/21 14:37 Physical Exam Vitals: Vital Signs Temp Pulse Resp BP Pulse Ox FiO2 03/12/22 07:52 109 H 03/12/22 07:40 105 H 03/12/22 07:20 70 03/12/22 07:00 107 H 25 H 115/67 91 L 70 03/12/22 06:30 106 H 25 H 107/57 93 L 70 03/12/22 06:00 105 H 24 121/56 94 L 70 03/12/22 05:30 112 H 24 128/67 95 70 03/12/22 05:00 112 H 26 H 115/66 93 L 70 03/12/22 04:30 110 H 24 110/63 95 70 03/12/22 04:21 70 03/12/22 04:17 109 H 03/12/22 04:00 98.2 F 112 H 24 114/69 97 85 03/12/22 03:59 80 03/12/22 03:57 112 H 03/12/22 03:30 110 H 24 97 03/12/22 03:21 111 H 03/12/22 03:09 101 H 22 113/60 98 03/12/22 03:06 100 03/12/22 02:59 105 H 20 87/47 97 03/12/22 02:50 100 03/12/22 02:40 50 03/12/22 01:37 107 H 35 H 130/69 97 03/11/22 23:54 102 H 25 H 142/58 97 03/11/22 23:50 100 03/11/22 23:44 101 H 03/11/22 20:51 97 03/11/22 20:39 99 03/11/22 19:18 98.3 F 101 H 27 H 129/88 97 40 03/11/22 18:18 104 H 32 H 110/86 03/11/22 18:01 105 H 03/11/22 17:38 102 H 24 40 03/11/22 17:30 97.9 F 102 H 18 127/65 96 Intake and Output 03/11/22 03/12/22 03/12/22 22:59 06:59 14:59 Intake Total 1780.291 Output Total 75 Balance 1705.291 Intake: IV 1700 Magnesium Sulfate-D5w Pmx 300 1 gm In Dextrose/Water 1 100ml.bag @ 100 mls/hr IVPB Q1H TRE Rx#: [id number] Sodium Chloride 0.9% 1, 400 000 ml @ 100 mls/hr IV . Q10H STA Rx#:[id number] Sodium Chloride 0.9% 1, 1000 000 ml @ 999 mls/hr IV . Q1H1M ONE Rx#:[id number] Intake, IV Titration 20.291 Amount propofoL 1,000 mg In 20.291 Empty Bag 1 bag @ 15 MCG/ KG/MIN 9.389 mls/hr IV . [id number] TRE Rx#:[id number] Other 60 Output: Urine 75 Other: Voiding Method Indwelling Catheter Weight 104.326 kg Obese, comfortable comfortable, no acute distress, sedated on propofol Head exam was generally normal. There was no scleral icterus or corneal arcus. Mucous membranes were moist. Neck was supple and without jugular venous distension, thyromegaly, or carotid bruits. Carotids were easily palpable bilaterally. There was no adenopathy. Orogastric and orotracheal tube are both in place. Lungs are diminished bilaterally otherwise vessels are equal and symmetrical. Cardiac exam revealed the PMI to be normally situated and sized. The rhythm was regular and no extrasystoles were noted during several minutes of auscultation. The first and second heart sounds were normal and physiologic splitting of the second heart sound was noted. There were no murmurs, rubs, clicks, or gallops. Abdominal exam revealed normal bowel sounds. The abdomen was soft, non-tender, and without masses, organomegaly, or appreciable enlargement of the abdominal aorta. Examination of the extremities revealed easily palpable radial, femoral and pedal pulses. There was no cyanosis, clubbing or edema. Diminished pulses in the upper and lower oximetry is bilaterally. Examination of the skin revealed no evidence of significant rashes, suspicious appearing nevi or other concerning lesions. Neurologically the patient withdraws to painful stimulation. Neurologic exam is nonfocal and the patient is equal and symmetrical pupils Results - Laboratory Findings CBC and BMP: 03/12/22 04:08 03/12/22 05:00 ABG WBC 17.2 k/uL (3.8-10.6) H 03/12/22 04:08 RBC 4.45 m/uL (3.80-5.40) 03/12/22 04:08 Hgb 15.5 gm/dL (11.4-16.0) 03/12/22 04:08 Hct 50.5 % (34.0-46.0) H 03/12/22 04:08 MCV 113.4 fL (80.0-100.0) H 03/12/22 04:08 MCH 34.8 pg (25.0-35.0) 03/12/22 04:08 MCHC 30.7 g/dL (31.0-37.0) L 03/12/22 04:08 RDW 13.8 % (11.5-15.5) 03/12/22 04:08 Plt Count 120 k/uL (150-450) L 03/12/22 04:08 MPV 14.7 03/12/22 04:08 Neutrophils % 80 % 03/12/22 04:08 Neutrophils % (Manual) 54 % 03/11/22 17:38 Band Neuts % (Manual) 20 % 03/11/22 17:38 Lymphocytes % 11 % 03/12/22 04:08 Lymphocytes % (Manual) 10 % 03/11/22 17:38 Monocytes % 5 % 03/12/22 04:08 Monocytes % (Manual) 14 % 03/11/22 17:38 Eosinophils % 0 % 03/12/22 04:08 Basophils % 1 % 03/12/22 04:08 Metamyelocytes % 2 % 03/11/22 17:38 Neutrophils # 13.7 k/uL (1.3-7.7) H 03/12/22 04:08 Neutrophils # (Manual) 17.30 k/uL (1.3-7.7) H 03/11/22 17:38 Lymphocytes # 1.8 k/uL (1.0-4.8) 03/12/22 04:08 Lymphocytes # (Manual) 2.34 k/uL (1.0-4.8) 03/11/22 17:38 Monocytes # 0.9 k/uL (0-1.0) 03/12/22 04:08 Monocytes # (Manual) 3.28 k/uL (0-1.0) H 03/11/22 17:38 Eosinophils # 0.0 k/uL (0-0.7) 03/12/22 04:08 Basophils # 0.1 k/uL (0-0.2) 03/12/22 04:08 Metamyelocytes # (Man) 0.47 k/uL (0) H 03/11/22 17:38 Nucleated RBCs 0 /100 WBC (0-0) 03/11/22 17:38 Manual Slide Review Performed 03/12/22 04:08 Large Platelets Present 03/12/22 04:08 Hypochromasia Marked 03/12/22 04:08 Macrocytosis Marked A 03/12/22 04:08 PT 19.1 sec (9.0-12.0) H 03/11/22 17:38 INR 1.9 (<1.2) H 03/11/22 17:38 APTT 31.7 sec (22.0-30.0) H 03/11/22 17:38 Sample Site [facility] 03/12/22 03:43 ABG pH 7.19 (7.35-7.45) L* 03/12/22 03:43 ABG pCO2 51 mmHg (35-45) H 03/12/22 03:43 ABG pO2 171 mmHg (83-108) H 03/12/22 03:43 ABG HCO3 20 mmol/L (21-25) L 03/12/22 03:43 ABG Total CO2 21 mmol/L (19-24) 03/12/22 03:43 ABG O2 Saturation 99.3 % (94-97) H 03/12/22 03:43 ABG Base Excess -8.7 mmol/L 03/12/22 03:43 Demetrio Test Yes 03/12/22 03:43 VBG pH 7.26 (7.31-7.41) L 03/11/22 17:47 VBG pCO2 55 mmHg (37-51) H 03/11/22 17:47 VBG HCO3 24 mmol/L (24-28) 03/11/22 17:47 FiO2 100 % 03/12/22 03:43 Sodium 134 mmol/L (137-145) L 03/12/22 04:08 Potassium 4.5 mmol/L (3.5-5.1) 03/12/22 05:00 Chloride 105 mmol/L (98-107) 03/12/22 04:08 Carbon Dioxide 15 mmol/L (22-30) L 03/12/22 04:08 Anion Gap 14 mmol/L 03/12/22 04:08 BUN 37 mg/dL (7-17) H 03/12/22 04:08 Creatinine 2.02 mg/dL (0.52-1.04) H 03/12/22 04:08 Est GFR (CKD-EPI)AfAm 30 (>60 ml/min/1.73 sqM) 03/12/22 04:08 Est GFR (CKD-EPI)NonAf 26 (>60 ml/min/1.73 sqM) 03/12/22 04:08 Glucose 110 mg/dL (74-99) H 03/12/22 04:08 POC Glucose (mg/dL) 116 mg/dL (70-110) H 03/12/22 05:57 POC Glu Cartography Technician ID Raulito Moncada 03/12/22 05:57 Lactic Ac Sepsis Rflx Y 03/12/22 04:49 Plasma Lactic Acid Rui 8.1 mmol/L (0.7-2.0) H* 03/12/22 06:54 Calcium 7.6 mg/dL (8.4-10.2) L 03/12/22 04:08 Magnesium 1.5 mg/dL (1.6-2.3) L 03/12/22 04:08 Total Bilirubin 3.4 mg/dL (0.2-1.3) H 03/11/22 17:38 AST 45 U/L (14-36) H 03/11/22 17:38 ALT 36 U/L (4-34) H 03/11/22 17:38 Alkaline Phosphatase 89 U/L (38-126) 03/11/22 17:38 Troponin I <0.012 ng/mL (0.000-0.034) 03/12/22 00:51 NT-Pro-B Natriuret Pep 1590 pg/mL 03/11/22 17:38 Total Protein 7.5 g/dL (6.3-8.2) 03/11/22 17:38 Albumin 3.9 g/dL (3.5-5.0) 03/11/22 17:38 Urine Color Dark Brown 03/12/22 04:00 Urine Appearance Turbid (Clear) H 03/12/22 04:00 Urine pH 5.0 (5.0-8.0) 03/12/22 04:00 Ur Specific [place] 1.030 (1.001-1.035) 03/12/22 04:00 Urine Protein 2+ (Negative) H 03/12/22 04:00 Urine Glucose (UA) Negative (Negative) 03/12/22 04:00 Urine Ketones Trace (Negative) H 03/12/22 04:00 Urine Blood Large (Negative) H 03/12/22 04:00 Urine Nitrite Negative (Negative) 03/12/22 04:00 Urine Bilirubin 1+ (Negative) H 03/12/22 04:00 Urine Urobilinogen 3.0 mg/dL (<2.0) 03/12/22 04:00 Ur Leukocyte Esterase Negative (Negative) 03/12/22 04:00 Urine RBC >182 /hpf (0-5) H 03/12/22 04:00 Urine WBC 3 /hpf (0-5) 03/12/22 04:00 Ur Squamous Epith Cells 3 /hpf (0-4) 03/12/22 04:00 Amorphous Sediment Occasional /hpf (None) H 03/12/22 04:00 Urine Bacteria Moderate /hpf (None) H 03/12/22 04:00 Hyaline Casts 4 /lpf (0-2) H 03/12/22 04:00 Urine Mucus Occasional /hpf (None) H 03/12/22 04:00 PT/INR, D-dimer PT 19.1 sec (9.0-12.0) H 03/11/22 17:38 INR 1.9 (<1.2) H 03/11/22 17:38 Abnormal lab findings: Abnormal Labs 03/11/22 03/11/22 03/11/22 17:38 17:38 17:38 WBC 23.4 H Hgb 17.2 H Hct 53.0 H MCV 109.2 H MCH 35.4 H MCHC Plt Count 124 L Neutrophils # Neutrophils # (Manual) 17.30 H Monocytes # (Manual) 3.28 H Metamyelocytes # (Man) 0.47 H Macrocytosis Marked A PT 19.1 H INR 1.9 H APTT 31.7 H ABG pH ABG pCO2 ABG pO2 ABG HCO3 ABG O2 Saturation VBG pH VBG pCO2 Sodium Carbon Dioxide 21 L BUN 33 H Creatinine 2.76 H Glucose POC Glucose (mg/dL) Plasma Lactic Acid Rui Calcium Magnesium 1.4 L Total Bilirubin 3.4 H AST 45 H ALT 36 H Urine Appearance Urine Protein Urine Ketones Urine Blood Urine Bilirubin Urine RBC Amorphous Sediment Urine Bacteria Hyaline Casts Urine Mucus Influenza Type A (PCR) 03/11/22 03/11/22 03/11/22 17:38 17:47 19:22 WBC Hgb Hct MCV MCH MCHC Plt Count Neutrophils # Neutrophils # (Manual) Monocytes # (Manual) Metamyelocytes # (Man) Macrocytosis PT INR APTT ABG pH ABG pCO2 ABG pO2 ABG HCO3 ABG O2 Saturation VBG pH 7.26 L VBG pCO2 55 H Sodium Carbon Dioxide BUN Creatinine Glucose POC Glucose (mg/dL) Plasma Lactic Acid Rui 7.8 H* Calcium Magnesium Total Bilirubin AST ALT Urine Appearance Urine Protein Urine Ketones Urine Blood Urine Bilirubin Urine RBC Amorphous Sediment Urine Bacteria Hyaline Casts Urine Mucus Influenza Type A (PCR) Detected A 03/11/22 03/12/22 03/12/22 20:40 00:07 02:18 WBC Hgb Hct MCV MCH MCHC Plt Count Neutrophils # Neutrophils # (Manual) Monocytes # (Manual) Metamyelocytes # (Man) Macrocytosis PT INR APTT ABG pH 7.26 L ABG pCO2 ABG pO2 75 L ABG HCO3 19 L ABG O2 Saturation VBG pH VBG pCO2 Sodium Carbon Dioxide BUN Creatinine Glucose POC Glucose (mg/dL) Plasma Lactic Acid Rui 7.8 H* 7.1 H* Calcium Magnesium Total Bilirubin AST ALT Urine Appearance Urine Protein Urine Ketones Urine Blood Urine Bilirubin Urine RBC Amorphous Sediment Urine Bacteria Hyaline Casts Urine Mucus Influenza Type A (PCR) 03/12/22 03/12/22 03/12/22 03:27 03:43 04:00 WBC Hgb Hct MCV MCH MCHC Plt Count Neutrophils # Neutrophils # (Manual) Monocytes # (Manual) Metamyelocytes # (Man) Macrocytosis PT INR APTT ABG pH 7.19 L* ABG pCO2 51 H ABG pO2 171 H ABG HCO3 20 L ABG O2 Saturation 99.3 H VBG pH VBG pCO2 Sodium Carbon Dioxide BUN Creatinine Glucose POC Glucose (mg/dL) 127 H Plasma Lactic Acid Rui Calcium Magnesium Total Bilirubin AST ALT Urine Appearance Turbid H Urine Protein 2+ H Urine Ketones Trace H Urine Blood Large H Urine Bilirubin 1+ H Urine RBC >182 H Amorphous Sediment Occasional H Urine Bacteria Moderate H Hyaline Casts 4 H Urine Mucus Occasional H Influenza Type A (PCR) 03/12/22 03/12/22 03/12/22 04:08 04:08 04:08 WBC 17.2 H Hgb Hct 50.5 H MCV 113.4 H MCH MCHC 30.7 L Plt Count 120 L Neutrophils # 13.7 H Neutrophils # (Manual) Monocytes # (Manual) Metamyelocytes # (Man) Macrocytosis Marked A PT INR APTT ABG pH ABG pCO2 ABG pO2 ABG HCO3 ABG O2 Saturation VBG pH VBG pCO2 Sodium 134 L Carbon Dioxide 15 L BUN 37 H Creatinine 2.02 H Glucose 110 H POC Glucose (mg/dL) Plasma Lactic Acid Rui 7.9 H* Calcium 7.6 L Magnesium 1.5 L Total Bilirubin AST ALT Urine Appearance Urine Protein Urine Ketones Urine Blood Urine Bilirubin Urine RBC Amorphous Sediment Urine Bacteria Hyaline Casts Urine Mucus Influenza Type A (PCR) 03/12/22 03/12/22 05:57 06:54 WBC Hgb Hct MCV MCH MCHC Plt Count Neutrophils # Neutrophils # (Manual) Monocytes # (Manual) Metamyelocytes # (Man) Macrocytosis PT INR APTT ABG pH ABG pCO2 ABG pO2 ABG HCO3 ABG O2 Saturation VBG pH VBG pCO2 Sodium Carbon Dioxide BUN Creatinine Glucose POC Glucose (mg/dL) 116 H Plasma Lactic Acid Rui 8.1 H* Calcium Magnesium Total Bilirubin AST ALT Urine Appearance Urine Protein Urine Ketones Urine Blood Urine Bilirubin Urine RBC Amorphous Sediment Urine Bacteria Hyaline Casts Urine Mucus Influenza Type A (PCR) - Diagnostic Findings Chest x-ray: image reviewed Assessment and Plan Plan: Acute bilateral pneumonia, rule out influenza pneumonia, bacterial cannot be ruled out. The patient is multifocal airspace disease. Influenza A was positive by PCR. The rest of the viral analysis was negative Acute hypoxic respiratory failure secondary to above, currently intubated on a mechanical ventilator Acute leukocytosis Acute lactic acidosis New-onset atrial fibrillation with RVR Morbid obesity with previous bariatric surgery Previous history of splenectomy Acute kidney injury secondary to above, improving History of coronary artery disease, nonocclusive disease of the cardiac catheterization from 2021 COPD Fibromyalgia Migraines Chronic back pain History of stomach cancer History of nephrolithiasis History of osteoarthritis History of hepatitis C and hepatitis B Hypertension Plan Continue vent support currently on FiO2 of 100% (wan fio2) with PEEP of 5 and increase the tidal volume of 450 with a rate of 24. Awaiting follow-up blood gas anesthetic ventilator changes will be done. Continue propofol for sedation Start the patient on bicarb infusion at the rate of 100 mL an hour Tamiflu for influenza pneumonia Cover the patient with broad-spectrum antibiotic coverage using a combination of cefepime and vancomycin and Levaquin Check Legionella urine antigen bronchoscopy and bronchial lavage Control atrial fibrillation. The patient is having episodes of A. fib. Will initiate amiodarone drip per protocol, put the patient IV heparin Echocardiogram IV Protonix Condition is critical Time with Patient: Greater than 30
--- NOTE | 2022-03-12 13:16 | P.PCN ---
Date of Procedure: 03/12/22 Preoperative Diagnosis: pneumonia and respiratory failure Postoperative Diagnosis: pneumonia and respiratory failure Procedure(s) Performed: central line arterial line Bronchoscopy and BAL of [facility] Anesthesia: SURAJ REED Surgeon: Natalie Gasca Associate Professor Computer Science #1: Melanie Traore Condition: critical Disposition: ICU Operative Findings: ARTERIAL LINE Indication: Hemodynamic monitoring. A time-out was completed verifying correct patient, procedure, site, positio ta, and implant(s) or special equipment if applicable. Allens test was performed to ensure adequate perfusion. The patients right groin was prepped and draped in sterile fashion. 1% Lidocaine was used to anesthetize the area. An 18G Arrow arterial line was introduced into the femoral artery. The catheter was threaded over the guide wire and the needle was removed with appropriate pulsatile blood return. Blood loss was minimal. The catheter was then sutured in place to the skin and a sterile dressing applied. Perfusion to the extremity distal to the point of catheter insertion was checked and found to be adequate. The patient tolerated the procedure well and there were no complications. CENTRAL lINE Indication: Hemodynamic monitoring/Intravenous access. A time-out was completed verifying correct patient, procedure, site, positioning, and implant(s) or special equipment if applicable. The patient was placed in a dependent position appropriate for central line placement based on the vein to be cannulated. The patients left CHEST was prepped and draped in sterile fashion. 1% Lidocaine was used to anesthetize the surrounding skin area. A triple lumen 9F Cordis catheter was introduced into the LEFT subclavian vein using Seldinger technique. The catheter was threaded smoothly over the guide wire and appropriate blood return was obtained. Each lumen of the catheter was evacuated of air and flushed with sterile saline. The catheter was then sutured in place to the skin and a sterile bg ssing applied. Perfusion to the extremity distal to the point of catheter insertion was checked and found to be adequate. The patient tolerated the procedure well and there were no complications. Bronchoscopy and the BAL This procedure was done in the intensive care unit. The patient was on propofol. The patient was paralyzed with Nimbex and the patient was placed on a percent FiO2 on the mechanical ventilator. Irregular that was attached to the orotracheal tube and following to the bronchoscope was advanced further orotracheal tube with was moved to the lower trachea. The tip of the ET tube was seen at 3 cm above the albin. Airway inspection was done and the visualized there was included a bilateral mainstem bronchi, right upper lobe bronchus and middle lobe bronchus and right lower lobe bronchus and the various 10 segments on the right. Exam of the left side included the left upper lobe bronchus and left lower lobe bronchus, left mainstem bronchus and the various segments of the left. No evidence of any endobronchial tumors or lesions. Posterior secretions were scant. The bronchoscope was wedged into the right middle lobe and bronchial lavage was done. A total of 80 mL of fluid was infused and 20 mL was aspirated without any major difficulties. Aspirate was nonbloody. Therapeutic airway suctioning was done. The bronchoscope was removed and the procedure was terminated. The bronchial lavage from the right middle lobe will be sent for microbial analysis.
[2022-03-12 14:30] LABS: INR 2.3 (<1.2); Partial Thromboplastin Time 46.9 sec (22.0-30.0); Prothrombin Time 22.1 sec (9.0-12.0)
[2022-03-12] MEDS: AMIODARONE 450 MG in DEXTROSE 5% IN WATER 250 ML IV SCH ×2 (14:39)
[2022-03-12 17:11] LABS: Glucose,Whole Blood 196 mg/dL (70-110)
--- NOTE | 2022-03-12 17:49 | CA ---
Transthoracic Echo Report Name: Sharon Dykes Age: 61 Gender: F : 1960 Exam Date: 03/12/2022 13:52 Exam Location: [place] [facility] Ht (in): 66 Wt (lb): 230 Ordering Physician: Kyle Jarrell MD ([id number]) Attending/Referring Phys: Preventive Maintenance Coordinator Gabriella Pal RDCS Procedure CPT: Indications: Respiratory Failure Cardiac Hx: Technical Quality: Fair Contrast 1: Total Dose (mL): Contrast 2: Total Dose (mL): MEASUREMENTS (Male / Female) Normal Values 2D ECHO LV Diastolic Diameter PLAX 4.7 cm 4.2 - 5.9 / 3.9 - 5.3 cm LV Systolic Diameter PLAX 3.8 cm IVS Diastolic Thickness 1.5 cm 0.6 - 1.0 / 0.6 - 0.9 cm LVPW Diastolic Thickness 1.7 cm 0.6 - 1.0 / 0.6 - 0.9 cm LV Relative Wall Thickness 0.7 RV Internal Dim ED PLAX 2.8 cm LA Volume 94.1 cm??? 18 - 58 / 22 - 52 cm??? M-MODE Aortic Root Diameter MM 3.3 cm LA Systolic Diameter MM 4.5 cm LA Ao Ratio MM 1.4 AV Cusp Separation MM 1.9 cm DOPPLER AV Peak Velocity 161.9 cm/s AV Peak Gradient 10.5 mmHg AV Mean Velocity 131.6 cm/s AV Mean Gradient 7.3 mmHg AV Velocity Time Integral 28.1 cm LVOT Peak Velocity 101.5 cm/s LVOT Peak Gradient 4.1 mmHg TR Peak Velocity 205.8 cm/s TR Peak Gradient 16.9 mmHg Right Ventricular Systolic Press 21.9 mmHg FINDINGS Left Ventricle Moderately increased left ventricular wall thickness. Mildley decreased systolic function. Left ventricular ejection fraction is estimated at 45-50 %. Right Ventricle Normal right ventricular size and function. Right ventricular systolic pressure within normal limits. Right Atrium Normal right atrial size. Left Atrium Moderatly increased left atrial volume. Mitral Valve Mitral valve thickened. Mild mitral annular calcification. Mild mitral regurgitation. Aortic Valve No aortic valve stenosis or regurgitation. Tricuspid Valve Mild tricuspid regurgitation. Pulmonic Valve Trace pulmonic regurgitation. Pericardium No pericardial effusion. Aorta Normal size aortic root and proximal ascending aorta. CONCLUSIONS Previewed by: Dr. Bigg Torres MD (Electronically Signed) Final Date: 12 March 2022 17:48
[2022-03-12 19:39] LABS: Appearance,BF Clear
[2022-03-12] MEDS: OSELTAMIVIR 60 MG/10 ML ORAL SYRINGE PO SCH (21:38)
[2022-03-12] MEDS: QUEtiapine 100 MG TAB PO SCH (21:39)
--- NOTE | 2022-03-12 23:18 | P.CONS ---
History of Present Illness - Reason for Consult Consult date: 03/12/22 bilateral multifocal pneumonia Requesting physician: Jayme Steiner - Chief Complaint increasing shortness of breath x few days - History of Present Illness Patient is a 61-year-old female with a past medical history significant for coronary artery disease hypertension heart failure presenting to the ER last evening for evaluation of increasing shortness of breath in this patient symptom apparently has been going on for 2 weeks before presentation to the hospital was mostly exertional dyspnea and also have a cough mild to moderate intensity not bring up any sputum no nausea no vomiting no choking on the food no abdominal pain or any diarrhea patient on presentation to the hospital was afebrile and no fever have been recorded subsequently patient did have elevated lactic acid elevated white count creatinine has been mildly elevated procalcitonin elevated 8.73 urine shows hematuria influenza A positive COVID testing was negative, patient also have a positive blood culture with a gram-positive cocci finalized with staph epi infection , infectious disease was consulted for further management of antibiotic therapy most information has been obtained from review the chart talking nursing staff the patient is currently intubated on the vent and cannot provide any history no family on the bedside Review of Systems Positive points has been mentioned in HPI complete review could not be obtained because of his underlying mental status Past Medical History Past Medical History: Atrial Flutter, Coronary Artery Disease (CAD), Cancer, COPD, Eye Disorder, Fibromyalgia, GERD/Reflux, Hyperlipidemia, Hypertension, Liver Disease, Osteoarthritis (OA) Additional Past Medical History / Comment(s): Migraines, dry eyes, Chronic Back pain, Hepatitis B & C, Hx cancer of stomach 2011. Hx Kidney stones. Edema BLE. Abn stress test. hx. falls, urinary incontinence History of Any Multi-Drug Resistant Organisms: None Reported Past Surgical History: Appendectomy, Bariatric Surgery, Cardiac Ablation, Section, Hysterectomy, Joint Replacement Additional Past Surgical History / Comment(s): C-S x2. hx Jason-en-y (1979), spleen removed, Bilat Total knees replaced, cataracts removed Past Anesthesia/Blood Transfusion Reactions: No Reported Reaction Past Psychological History: Anxiety, Depression Smoking Status: Never smoker Past Alcohol Use History: None Reported Past Drug Use History: None Reported - Past Family History Sister(s) Family Medical History: Cancer Daughter(s) Family Medical History: Deep Vein Thrombosis (DVT), Pulmonary Embolus Mother Family Medical History: Myocardial Infarction ([place]) Additional Family Medical History / Comment(s): of massive heart attack Father Family Medical History: No Reported History Additional Family Medical History / Comment(s): . Medications and Allergies Home Medications Medication Instructions Recorded Confirmed Type Gabapentin [Neurontin] 300 mg PO TID PRN 07/23/18 03/11/22 History QUEtiapine [SEROquel] 100 mg PO HS 08/24/20 03/11/22 History clonazePAM [KlonoPIN] 1 mg PO TID PRN 08/24/20 03/11/22 History hydrALAZINE HCL [Apresoline] 100 mg PO TID 08/24/20 03/11/22 History Budesonide/Formoterol Fumarate 2 puff INHALATION RT-BID 03/04/21 03/11/22 History [Symbicort 160-4.5 Mcg Inhaler] Doxazosin [Cardura] 1 mg PO DAILY 03/04/21 03/11/22 History Furosemide [Lasix] 40 mg PO DAILY 03/04/21 03/11/22 History Ergocalciferol [Vitamin D2 (1250 1,250 mcg PO Q30D 07/03/21 03/11/22 History Mcg = [id number] Iu)] lisinopriL [Zestril] 40 mg PO DAILY 07/03/21 03/11/22 History oxyCODONE-APAP 10-325MG [Percocet 1 tab PO TID PRN 07/05/21 03/11/22 History 10-325 mg] Albuterol Nebulized [Ventolin 2.5 mg INHALATION RT-QID PRN 03/11/22 03/11/22 History Nebulized] Albuterol Sulfate [Albuterol 1 puff PO RT-QID PRN 03/11/22 03/11/22 History Sulfate Hfa] Aspirin EC [Ecotrin Low Dose] 81 mg PO DAILY 03/11/22 03/11/22 History buPROPion HCL [Wellbutrin SR] 200 mg PO BID 03/11/22 03/11/22 History Allergies Allergy/AdvReac Type Severity Reaction Status Date / Time adhesive Allergy Unknown RED SKIN Verified 11/30/21 14:37 WITH PROLONGED USE ondansetron HCl Allergy Unknown Swelling Verified 11/30/21 14:37 [From Zofran (as hydrochloride)] acetaminophen [From Tylox] Allergy Rash/Hives Verified 11/30/21 14:37 ibuprofen [From Motrin] Allergy Rash/Hives Verified 11/30/21 14:37 latex Allergy blisters, Verified 11/30/21 14:37 redness oxycodone [From Tylox] Allergy Rash/Hives Verified 11/30/21 14:37 Physical Exam Vitals: Vital Signs Temp Pulse Resp BP Pulse Ox FiO2 03/12/22 07:52 109 H 03/12/22 07:40 105 H 03/12/22 07:20 70 03/12/22 07:00 107 H 25 H 115/67 91 L 70 03/12/22 06:30 106 H 25 H 107/57 93 L 70 03/12/22 06:00 105 H 24 121/56 94 L 70 03/12/22 05:30 112 H 24 128/67 95 70 03/12/22 05:00 112 H 26 H 115/66 93 L 70 03/12/22 04:30 110 H 24 110/63 95 70 03/12/22 04:21 70 03/12/22 04:17 109 H 03/12/22 04:00 98.2 F 112 H 24 114/69 97 85 03/12/22 03:59 80 03/12/22 03:57 112 H 03/12/22 03:30 110 H 24 97 03/12/22 03:21 111 H 03/12/22 03:09 101 H 22 113/60 98 03/12/22 03:06 100 03/12/22 02:59 105 H 20 87/47 97 03/12/22 02:50 100 03/12/22 02:40 50 03/12/22 01:37 107 H 35 H 130/69 97 03/11/22 23:54 102 H 25 H 142/58 97 03/11/22 23:50 100 03/11/22 23:44 101 H 03/11/22 20:51 97 03/11/22 20:39 99 03/11/22 19:18 98.3 F 101 H 27 H 129/88 97 40 03/11/22 18:18 104 H 32 H 110/86 03/11/22 18:01 105 H 03/11/22 17:38 102 H 24 40 03/11/22 17:30 97.9 F 102 H 18 127/65 96 Intake and Output 03/11/22 03/12/22 03/12/22 22:59 06:59 14:59 Intake Total 1780.291 45.694 Output Total 75 Balance 1705.291 45.694 Intake: IV 1700 Magnesium Sulfate-D5w Pmx 300 1 gm In Dextrose/Water 1 100ml.bag @ 100 mls/hr IVPB Q1H TRE Rx#: [id number] Sodium Chloride 0.9% 1, 400 000 ml @ 100 mls/hr IV . Q10H STA Rx#:[id number] Sodium Chloride 0.9% 1, 1000 000 ml @ 999 mls/hr IV . Q1H1M ONE Rx#:[id number] Intake, IV Titration 20.291 45.694 Amount propofoL 1,000 mg In 20.291 45.694 Empty Bag 1 bag @ 15 MCG/ KG/MIN 9.389 mls/hr IV . [id number] TRE Rx#:[id number] Other 60 Output: Urine 75 Other: Voiding Method Indwelling Catheter Weight 104.326 kg GENERAL DESCRIPTION: Middle-aged female intubated on the [facility], [facility]1983. HEENT: Shows Pallor , no scleral icterus. Oral mucous membrane is dry NECK: Trachea central, no thyromegaly. LUNGS: Unlabored breathing. decrease breath sounds at the base No wheeze or crackle. HEART: S1, S2, regular rate and rhythm. No loud murmur ABDOMEN: Soft, no tenderness , guarding or rigidity, no organomegaly EXTREMITIES: No edema of feet. SKIN: No rash, no masses palpable. NEUROLOGICAL: The patient is sedated on the vent Results CBC & Chem 7: 03/18/22 05:20 03/18/22 12:52 Labs: Abnormal Lab Results - Last 24 Hours (Table) 03/11/22 03/11/22 03/11/22 Range/Units 17:38 17:38 17:38 WBC 23.4 H (3.8-10.6) k/uL Hgb 17.2 H (11.4-16.0) gm/dL Hct 53.0 H (34.0-46.0) % MCV 109.2 H (80.0-100.0) fL MCH 35.4 H (25.0-35.0) pg MCHC (31.0-37.0) g/dL Plt Count 124 L (150-450) k/uL Neutrophils # (1.3-7.7) k/uL Neutrophils # (Manual) 17.30 H (1.3-7.7) k/uL Monocytes # (Manual) 3.28 H (0-1.0) k/uL Metamyelocytes # (Man) 0.47 H (0) k/uL Macrocytosis Marked A PT 19.1 H (9.0-12.0) sec INR 1.9 H (<1.2) APTT 31.7 H (22.0-30.0) sec ABG pH (7.35-7.45) ABG pCO2 (35-45) mmHg ABG pO2 (83-108) mmHg ABG HCO3 (21-25) mmol/L ABG O2 Saturation (94-97) % VBG pH (7.31-7.41) VBG pCO2 (37-51) mmHg Sodium (137-145) mmol/L Carbon Dioxide 21 L (22-30) mmol/L BUN 33 H (7-17) mg/dL Creatinine 2.76 H (0.52-1.04) mg/dL Glucose (74-99) mg/dL POC Glucose (mg/dL) (70-110) mg/dL Plasma Lactic Acid Rui (0.7-2.0) mmol/L Calcium (8.4-10.2) mg/dL Magnesium 1.4 L (1.6-2.3) mg/dL Total Bilirubin 3.4 H (0.2-1.3) mg/dL AST 45 H (14-36) U/L ALT 36 H (4-34) U/L Urine Appearance (Clear) Urine Protein (Negative) Urine Ketones (Negative) Urine Blood (Negative) Urine Bilirubin (Negative) Urine RBC (0-5) /hpf Amorphous Sediment (None) /hpf Urine Bacteria (None) /hpf Hyaline Casts (0-2) /lpf Urine Mucus (None) /hpf Influenza Type A (PCR) (Not Detectd) 03/11/22 03/11/22 03/11/22 Range/Units 17:38 17:47 19:22 WBC (3.8-10.6) k/uL Hgb (11.4-16.0) gm/dL Hct (34.0-46.0) % MCV (80.0-100.0) fL MCH (25.0-35.0) pg MCHC (31.0-37.0) g/dL Plt Count (150-450) k/uL Neutrophils # (1.3-7.7) k/uL Neutrophils # (Manual) (1.3-7.7) k/uL Monocytes # (Manual) (0-1.0) k/uL Metamyelocytes # (Man) (0) k/uL Macrocytosis PT (9.0-12.0) sec INR (<1.2) APTT (22.0-30.0) sec ABG pH (7.35-7.45) ABG pCO2 (35-45) mmHg ABG pO2 (83-108) mmHg ABG HCO3 (21-25) mmol/L ABG O2 Saturation (94-97) % VBG pH 7.26 L (7.31-7.41) VBG pCO2 55 H (37-51) mmHg Sodium (137-145) mmol/L Carbon Dioxide (22-30) mmol/L BUN (7-17) mg/dL Creatinine (0.52-1.04) mg/dL Glucose (74-99) mg/dL POC Glucose (mg/dL) (70-110) mg/dL Plasma Lactic Acid Rui 7.8 H* (0.7-2.0) mmol/L Calcium (8.4-10.2) mg/dL Magnesium (1.6-2.3) mg/dL Total Bilirubin (0.2-1.3) mg/dL AST (14-36) U/L ALT (4-34) U/L Urine Appearance (Clear) Urine Protein (Negative) Urine Ketones (Negative) Urine Blood (Negative) Urine Bilirubin (Negative) Urine RBC (0-5) /hpf Amorphous Sediment (None) /hpf Urine Bacteria (None) /hpf Hyaline Casts (0-2) /lpf Urine Mucus (None) /hpf Influenza Type A (PCR) Detected A (Not Detectd) 03/11/22 03/12/22 03/12/22 Range/Units 20:40 00:07 02:18 WBC (3.8-10.6) k/uL Hgb (11.4-16.0) gm/dL Hct (34.0-46.0) % MCV (80.0-100.0) fL MCH (25.0-35.0) pg MCHC (31.0-37.0) g/dL Plt Count (150-450) k/uL Neutrophils # (1.3-7.7) k/uL Neutrophils # (Manual) (1.3-7.7) k/uL Monocytes # (Manual) (0-1.0) k/uL Metamyelocytes # (Man) (0) k/uL Macrocytosis PT (9.0-12.0) sec INR (<1.2) APTT (22.0-30.0) sec ABG pH 7.26 L (7.35-7.45) ABG pCO2 (35-45) mmHg ABG pO2 75 L (83-108) mmHg ABG HCO3 19 L (21-25) mmol/L ABG O2 Saturation (94-97) % VBG pH (7.31-7.41) VBG pCO2 (37-51) mmHg Sodium (137-145) mmol/L Carbon Dioxide (22-30) mmol/L BUN (7-17) mg/dL Creatinine (0.52-1.04) mg/dL Glucose (74-99) mg/dL POC Glucose (mg/dL) (70-110) mg/dL Plasma Lactic Acid Rui 7.8 H* 7.1 H* (0.7-2.0) mmol/L Calcium (8.4-10.2) mg/dL Magnesium (1.6-2.3) mg/dL Total Bilirubin (0.2-1.3) mg/dL AST (14-36) U/L ALT (4-34) U/L Urine Appearance (Clear) Urine Protein (Negative) Urine Ketones (Negative) Urine Blood (Negative) Urine Bilirubin (Negative) Urine RBC (0-5) /hpf Amorphous Sediment (None) /hpf Urine Bacteria (None) /hpf Hyaline Casts (0-2) /lpf Urine Mucus (None) /hpf Influenza Type A (PCR) (Not Detectd) 03/12/22 03/12/22 03/12/22 Range/Units 03:27 03:43 04:00 WBC (3.8-10.6) k/uL Hgb (11.4-16.0) gm/dL Hct (34.0-46.0) % MCV (80.0-100.0) fL MCH (25.0-35.0) pg MCHC (31.0-37.0) g/dL Plt Count (150-450) k/uL Neutrophils # (1.3-7.7) k/uL Neutrophils # (Manual) (1.3-7.7) k/uL Monocytes # (Manual) (0-1.0) k/uL Metamyelocytes # (Man) (0) k/uL Macrocytosis PT (9.0-12.0) sec INR (<1.2) APTT (22.0-30.0) sec ABG pH 7.19 L* (7.35-7.45) ABG pCO2 51 H (35-45) mmHg ABG pO2 171 H (83-108) mmHg ABG HCO3 20 L (21-25) mmol/L ABG O2 Saturation 99.3 H (94-97) % VBG pH (7.31-7.41) VBG pCO2 (37-51) mmHg Sodium (137-145) mmol/L Carbon Dioxide (22-30) mmol/L BUN (7-17) mg/dL Creatinine (0.52-1.04) mg/dL Glucose (74-99) mg/dL POC Glucose (mg/dL) 127 H (70-110) mg/dL Plasma Lactic Acid Rui (0.7-2.0) mmol/L Calcium (8.4-10.2) mg/dL Magnesium (1.6-2.3) mg/dL Total Bilirubin (0.2-1.3) mg/dL AST (14-36) U/L ALT (4-34) U/L Urine Appearance Turbid H (Clear) Urine Protein 2+ H (Negative) Urine Ketones Trace H (Negative) Urine Blood Large H (Negative) Urine Bilirubin 1+ H (Negative) Urine RBC >182 H (0-5) /hpf Amorphous Sediment Occasional H (None) /hpf Urine Bacteria Moderate H (None) /hpf Hyaline Casts 4 H (0-2) /lpf Urine Mucus Occasional H (None) /hpf Influenza Type A (PCR) (Not Detectd) 03/12/22 03/12/22 03/12/22 Range/Units 04:08 04:08 04:08 WBC 17.2 H (3.8-10.6) k/uL Hgb (11.4-16.0) gm/dL Hct 50.5 H (34.0-46.0) % MCV 113.4 H (80.0-100.0) fL MCH (25.0-35.0) pg MCHC 30.7 L (31.0-37.0) g/dL Plt Count 120 L (150-450) k/uL Neutrophils # 13.7 H (1.3-7.7) k/uL Neutrophils # (Manual) (1.3-7.7) k/uL Monocytes # (Manual) (0-1.0) k/uL Metamyelocytes # (Man) (0) k/uL Macrocytosis Marked A PT (9.0-12.0) sec INR (<1.2) APTT (22.0-30.0) sec ABG pH (7.35-7.45) ABG pCO2 (35-45) mmHg ABG pO2 (83-108) mmHg ABG HCO3 (21-25) mmol/L ABG O2 Saturation (94-97) % VBG pH (7.31-7.41) VBG pCO2 (37-51) mmHg Sodium 134 L (137-145) mmol/L Carbon Dioxide 15 L (22-30) mmol/L BUN 37 H (7-17) mg/dL Creatinine 2.02 H (0.52-1.04) mg/dL Glucose 110 H (74-99) mg/dL POC Glucose (mg/dL) (70-110) mg/dL Plasma Lactic Acid Rui 7.9 H* (0.7-2.0) mmol/L Calcium 7.6 L (8.4-10.2) mg/dL Magnesium 1.5 L (1.6-2.3) mg/dL Total Bilirubin (0.2-1.3) mg/dL AST (14-36) U/L ALT (4-34) U/L Urine Appearance (Clear) Urine Protein (Negative) Urine Ketones (Negative) Urine Blood (Negative) Urine Bilirubin (Negative) Urine RBC (0-5) /hpf Amorphous Sediment (None) /hpf Urine Bacteria (None) /hpf Hyaline Casts (0-2) /lpf Urine Mucus (None) /hpf Influenza Type A (PCR) (Not Detectd) 03/12/22 03/12/22 Range/Units 05:57 06:54 WBC (3.8-10.6) k/uL Hgb (11.4-16.0) gm/dL Hct (34.0-46.0) % MCV (80.0-100.0) fL MCH (25.0-35.0) pg MCHC (31.0-37.0) g/dL Plt Count (150-450) k/uL Neutrophils # (1.3-7.7) k/uL Neutrophils # (Manual) (1.3-7.7) k/uL Monocytes # (Manual) (0-1.0) k/uL Metamyelocytes # (Man) (0) k/uL Macrocytosis PT (9.0-12.0) sec INR (<1.2) APTT (22.0-30.0) sec ABG pH (7.35-7.45) ABG pCO2 (35-45) mmHg ABG pO2 (83-108) mmHg ABG HCO3 (21-25) mmol/L ABG O2 Saturation (94-97) % VBG pH (7.31-7.41) VBG pCO2 (37-51) mmHg Sodium (137-145) mmol/L Carbon Dioxide (22-30) mmol/L BUN (7-17) mg/dL Creatinine (0.52-1.04) mg/dL Glucose (74-99) mg/dL POC Glucose (mg/dL) 116 H (70-110) mg/dL Plasma Lactic Acid Rui 8.1 H* (0.7-2.0) mmol/L Calcium (8.4-10.2) mg/dL Magnesium (1.6-2.3) mg/dL Total Bilirubin (0.2-1.3) mg/dL AST (14-36) U/L ALT (4-34) U/L Urine Appearance (Clear) Urine Protein (Negative) Urine Ketones (Negative) Urine Blood (Negative) Urine Bilirubin (Negative) Urine RBC (0-5) /hpf Amorphous Sediment (None) /hpf Urine Bacteria (None) /hpf Hyaline Casts (0-2) /lpf Urine Mucus (None) /hpf Influenza Type A (PCR) (Not Detectd) Assessment and Plan (1) Multifocal pneumonia Status: Acute Code(s): J18.9 - PNEUMONIA, UNSPECIFIED ORGANISM SNOMED Code(s): 273878368 Plan: 1patient with a positive blood culture with staph epi likely skin contamination, blood cultures however will be repeated document clearance of the bacteremia. 2patient with the acute respiratory failure multifactorial and likely component of pneumonia in this patient sputum as well as BAL cultures are currently pending. 3patient with renal insufficiency and high risk of nephrotoxicity from vancomycin. 4patient to continue cefepime Levaquin however discontinue vancomycin decrease risk of nephrotoxicity we will follow on clinical condition and cultures to further adjust medication if needed Thank you for this consultation will follow this patient along with you Time with Patient: Greater than 30
[2022-03-12 23:48] LABS: Glucose,Whole Blood 174 mg/dL (70-110)
[2022-03-13] MEDS: IPRATROPIUM-ALBUTEROL 3 ML NEB INHALATION SCH ×6 (03:24→23:32)
[2022-03-13 05:29] LABS: Glucose,Whole Blood 162 mg/dL (70-110)
[2022-03-13 05:53] LABS: ABG Base Excess 2.5 mmol/L; ABG HCO3 27 mmol/L (21-25); ABG Oxygen Saturation 93.9 % (94-97); ABG PCO2 43 mmHg (35-45); ABG PH 7.41 (7.35-7.45); ABG PO2 66 mmHg (83-108); ABG TCO2 28 mmol/L (19-24); Allen Test Performed? Yes
[2022-03-13] MEDS: INSULIN ASPART (NovoLOG) 100 UNIT/ML VIAL SQ SCH ×4 (06:08→18:32)
[2022-03-13] MEDS: SODIUM CHLORIDE 0.9% 1,000 ML IV SCH ×4 (06:08→20:59)
[2022-03-13] MEDS: CEFEPIME 1 GM in SODIUM CHLORIDE 0.9% 50 ML IVPB SCH ×2 (06:09→18:15)
--- NOTE | 2022-03-13 06:13 | PN ---
PROGRESS NOTE DATE OF SERVICE: 03/12/2022 CHIEF COMPLAINT: Respiratory failure and congestive heart failure. HISTORY OF PRESENT ILLNESS: This lady desaturated during the night and had to be intubated. She has also developed atrial fibrillation. She is tested positive for flu and negative for COVID. PHYSICAL EXAMINATION: VITAL SIGNS: Normal at this time. GENERAL: She is on the ventilator. She is well perfused. Color is good. LUNGS: Clear on the ventilator. IMPRESSION: 1. Acute respiratory failure. 2. Pneumonitis. 3. Congestive heart failure. 4. Influenza. PLAN: 1. Continue with ICU support and management. 2. Await results of echocardiogram. MMODL / IJN: [id number] /
[2022-03-13] MEDS: AMIODARONE 450 MG in DEXTROSE 5% IN WATER 250 ML IV SCH ×2 (06:51)
--- NOTE | 2022-03-13 07:04 | HP ---
HISTORY AND PHYSICAL CHIEF COMPLAINT: Difficulty breathing. HISTORY OF PRESENT ILLNESS: This is the first known admission for this 61-year-old obese white female. She called on the day of admission for a tele health visit stating that she was short of breath and congested and had been so for several days. On the phone, we could tell that she was in respiratory distress. She was told to come to the office immediately, where she was very dyspneic and pulse ox was well down into the 80s. It was felt that she probably was in acute congestive heart failure and ambulance was summoned. REVIEW OF SYSTEMS: She denied any focal neurologic deficits, chest pain, hemoptysis, sputum production, fever, chills, nausea, vomiting, abdominal pain, urinary complaints, etc. Past medical history, family history, and personal and social histories reveal that she uses, 1. Albuterol. 2. Gabapentin 300 mg t.i.d. 3. Lasix 40 once a day. 4. Wellbutrin 200 once a day. 5. Percocet 10 q.6h p.r.n. 6. Cardura 1 mg once a day. 7. Hydralazine 100 mg 3 times a day. 8. Klonopin 1 mg t.i.d. p.r.n. 9. Seroquel 100 mg once a day. 10.Lisinopril 40 mg once a day. 11.Ventolin HFA. 12.She also takes 81 mg of aspirin. ALLERGIES: She is allergic to sulfa, Zoloft, tape, Tylox and Motrin. She has never been a smoker. She does not drink. She is overweight. ASSESSMENT: She is admitted to the hospital with diagnosis of: 1. Respiratory distress. 2. Acute congestive heart failure. 3. Rule out other processes or diseases such as pneumonitis, pulmonary embolism with or without sepsis, etc. PLAN: 1. Bedrest. 2. IV fluids. 3. Consult with Pulmonology. 4. Appropriate cultures. 5. Echocardiogram. 6. Cardiology consult. MMODL / IJN: [id number] /
--- NOTE | 2022-03-13 08:21 | P.PN ---
Subjective Progress Note Date: 03/13/22 PROGRESS NOTE The patient is a 61-year-old female with a known history of mild CAD by cardiac catheterization in June, history of hypertension who presented with symptoms of progressive dyspnea. She tested positive for influenza a period had progressive dyspnea requiring mechanical ventilation. Cardiology consultation was requested. Patient has no history of myocardial infarction or prior cardiomyop athy. I have no recent evaluation of her systolic function. She is in sinus mechanism, intubated and sedated. Her blood pressure is stable. According to the notes and the nursing staff the patient has been having progressive dyspnea over the last 2 weeks with a cough and wheezing. She was initially placed on BiPAP at with worsening dyspnea required mechanical ventilation. I have no history of prior smoking or documented COPD. On presentation her troponin were normal, she had evidence of acute renal injury. Her NT proBNP was 1590. Her plasma lactic was elevated. She had significant leukocytosis. Her chest x-ray shows patchy bilateral air space consolidation. No other prior history could be obtained at this time. March 13: The patient remains intubated and sedated. She is in atrial fibrillation with episodes of rapid ventricle response. She is on a low dose norepinephrine. Her urine output has been low. She was started on IV amiodarone and IV heparin. There is no ventricular ectopic activity. She is receiving every feeding. There is no evidence of GI bleeding. Her echocardiogram yesterday showed an ejection fraction of 45-50% with mild mitral and tricuspid regurgitation and no evidence of pulmonary hypertension. Medications: IV amiodarone, insulin, IV heparin, metoprolol 25 mg twice a day, aspirin once a day, Tamiflu, Cardura PHYSICAL EXAMINATION: Blood pressure 111/70 heart rate 110-120 LUNGS: Scattered rhonchi HEART: Irregular rate and rhythm, S1, S2. No S3. No systolic murmur ABDOMEN: Soft, obese, no organomegaly, positive bowel sounds EXTREMETIES: No edema LAB: PH 7.4, pO2 66 IMPRESSION: 1. Respiratory failure with influenza A infection 2. Atrial fibrillation, new onset, probably exacerbated by infection. Her score is 2 3. Mild CAD 4. Prior history of hypertension 5. Acute renal injury PLAN: 1. Change amiodarone to oral 2. Increase beta juan 3. Oral anticoagulation if no intervention is planned by the pulmonary service 4. Follow her renal functions 5. Stop Cardura 6. Depending on her progress further recommendations will be made Objective - Vital Signs Vital signs: Vital Signs Temp 97.7 F 03/13/22 04:00 Pulse 120 H 03/13/22 08:10 Resp 32 H 03/13/22 07:30 BP 111/78 03/13/22 07:30 Pulse Ox 87 L 03/13/22 07:30 FiO2 70 03/13/22 07:32 Intake & Output 03/12/22 03/13/22 03/13/22 18:59 06:59 18:59 Intake Total 2295.831 2359.601 144.143 Output Total 200 220 15 Balance 2095.831 2139.601 129.143 Weight 104.326 kg 135 kg Intake: IV 2000 1420 100 Cefepime 1 gm In Sodium 100 Chloride 0.9% 50 ml @ 100 mls/hr IVPB Q12H TRE Rx# :[id number] Dextrose 5% in Water 1, 1100 100 000 ml @ 100 mls/hr IV . [id number] TRE with Sodium Bicarb (1 Meq/ml) 150 ml Rx#:[id number] Dextrose 5% in Water 100 1000 100 ml @ 618 mls/hr IV .Q10M ONE with Amiodarone 150 mg Rx#:[id number] Levofloxacin 500Mg-D5w 100 Pmx 500 mg In Dextrose/ Water 1 100ml.bag @ 100 mls/hr IVPB Q24H TRE Rx#: [id number] Sodium Chloride 0.9% 1, 300 220 000 ml @ 100 mls/hr IV . Q10H STA Rx#:[id number] Vancomycin 1,750 mg In 500 Sodium Chloride 0.9% 500 ml 500 ml @ 167 mls/hr IVPB ONCE ONE Rx#: [id number] Intake, IV Titration 135.831 609.601 44.143 Amount Amiodarone 450 mg In 250 Dextrose 5% in Water 250 ml @ 0.5 MG/MIN 16.667 mls/hr IV .Q15H TRE Rx#: [id number] Norepinephrine 8 mg In 164.559 44.143 Sodium Chloride 0.9% 250 ml @ 0.03 MCG/KG/MIN 6. 056 mls/hr IV .Q24H TRE Rx#:[id number] propofoL 1,000 mg In 135.831 195.042 Empty Bag 1 bag @ 15 MCG/ KG/MIN 9.389 mls/hr IV . [id number] [facility] Rx#:[id number] Tube Feeding 100 240 Other 60 90 Output: Urine 200 220 15 Other: Voiding Method Indwelling Catheter Indwelling Catheter ABP, PAP, CO, CI - Last Documented Arterial Blood Pressure 116/58 - Labs CBC & Chem 7: 03/12/22 04:08 03/12/22 05:00 Labs: Abnormal Lab Results - Last 24 Hours (Table) 03/12/22 03/12/22 03/12/22 Range/Units 08:11 11:22 14:00 PT 22.1 H (9.0-12.0) sec INR 2.3 H (<1.2) APTT 46.9 H (22.0-30.0) sec ABG pH 7.16 L* (7.35-7.45) ABG pCO2 54 H (35-45) mmHg ABG pO2 80 L (83-108) mmHg ABG HCO3 19 L (21-25) mmol/L ABG Total CO2 (19-24) mmol/L ABG O2 Saturation (94-97) % ABG Lactic Acid (0.5-1.6) mmol/L POC Glucose (mg/dL) 186 H (70-110) mg/dL Plasma Lactic Acid Rui (0.7-2.0) mmol/L Procalcitonin (0.02-0.09) ng/mL 03/12/22 03/12/22 03/12/22 Range/Units 14:00 14:00 17:05 PT (9.0-12.0) sec INR (<1.2) APTT (22.0-30.0) sec ABG pH (7.35-7.45) ABG pCO2 (35-45) mmHg ABG pO2 (83-108) mmHg ABG HCO3 (21-25) mmol/L ABG Total CO2 (19-24) mmol/L ABG O2 Saturation (94-97) % ABG Lactic Acid 5.7 H* (0.5-1.6) mmol/L POC Glucose (mg/dL) (70-110) mg/dL Plasma Lactic Acid Rui 4.5 H* (0.7-2.0) mmol/L Procalcitonin 8.73 H (0.02-0.09) ng/mL 03/12/22 03/12/22 03/12/22 Range/Units 17:10 20:00 23:47 PT (9.0-12.0) sec INR (<1.2) APTT (22.0-30.0) sec ABG pH (7.35-7.45) ABG pCO2 (35-45) mmHg ABG pO2 (83-108) mmHg ABG HCO3 (21-25) mmol/L ABG Total CO2 (19-24) mmol/L ABG O2 Saturation (94-97) % ABG Lactic Acid (0.5-1.6) mmol/L POC Glucose (mg/dL) 196 H 174 H (70-110) mg/dL Plasma Lactic Acid Rui 3.8 H* (0.7-2.0) mmol/L Procalcitonin (0.02-0.09) ng/mL 03/13/22 03/13/22 Range/Units 05:27 05:50 PT (9.0-12.0) sec INR (<1.2) APTT (22.0-30.0) sec ABG pH (7.35-7.45) ABG pCO2 (35-45) mmHg ABG pO2 66 L (83-108) mmHg ABG HCO3 27 H (21-25) mmol/L ABG Total CO2 28 H (19-24) mmol/L ABG O2 Saturation 93.9 L (94-97) % ABG Lactic Acid (0.5-1.6) mmol/L POC Glucose (mg/dL) 162 H (70-110) mg/dL Plasma Lactic Acid Rui (0.7-2.0) mmol/L Procalcitonin (0.02-0.09) ng/mL Microbiology - Last 24 Hours (Table) 03/12/22 03:42 Gram Stain - Preliminary Sputum Sputum Culture - Preliminary 03/11/22 17:43 Blood Culture Gram Stain - Preliminary Blood 03/11/22 17:43 Blood Culture - Final Blood 03/11/22 17:26 Blood Culture Gram Stain - Preliminary Blood Blood Culture - Preliminary Staphylococcus epidermidis 03/12/22 08:30 Fungal Culture - Preliminary Bronchoalviolar Lavage - Left 03/12/22 08:30 Bronchial Washings Culture - Preliminary Bronchoalviolar Lavage - Left 03/12/22 08:30 Acid Fast Bacilli Culture - Preliminary Bronchoalviolar Lavage - Left 03/11/22 17:26 Blood Culture - Final Blood
[2022-03-13] MEDS ORDERED: CISATRACURIUM 2 MG/ML 5 ML VIAL IV ONE (08:31)
[2022-03-13] MEDS: HEPARIN SOD,PORK IN 0.45% NACL 25,000 UNIT in 0.45% NACL 1 250ML.BAG IV SCH (08:52)
[2022-03-13] MEDS: DEXTROSE 5% IN WATER 1,000 ML with SODIUM BICARB (1 MEQ/ML) 150 ML IV SCH ×2 (08:53→13:58)
[2022-03-13] MEDS: CISATRACURIUM 200 MG in SODIUM CHLORIDE 0.9% 180 ML IV SCH (09:01)
[2022-03-13 09:19] LABS: Calcium 8.1 mg/dL (8.4-10.2); Potassium 4.2 mmol/L (3.5-5.1)
--- NOTE | 2022-03-13 09:23 | XR ---
EXAMINATION TYPE: XR chest 1V portable DATE OF EXAM: 03/13/2022 COMPARISON: Earlier exam same date INDICATION: Pneumothorax TECHNIQUE: Single frontal view of the chest is obtained. FINDINGS: The heart size is normal. The pulmonary vasculature is normal. Moderate-sized bilateral pneumothoraces are present. There is diffuse increased opacities through the remaining lung auguste. Report was immediately called to Mercedes, the patient's nurse, by Dr. Garcia by telephone 0915 hours. Endotracheal tube tip is above the albin. Nasogastric tube transverses the thorax. Left central veno us catheter tip is in the superior vena cava region. IMPRESSION: 1. Moderate-sized bilateral pneumothoraces. ICU was aware and patient had chest tubes placed. 2. Increased lung opacities in the bilateral lung auguste worsening from comparison. Atelectasis super imposed on pneumonia should be considered. 3. Multiple lines and catheters discussed above.
--- NOTE | 2022-03-13 09:27 | XR ---
EXAMINATION TYPE: XR chest 1V portable DATE OF EXAM: 03/13/2022 COMPARISON: 03/12/2022 INDICATION: Tube placement TECHNIQUE: Single frontal view of the chest is obtained. FINDINGS: The heart size is normal. The pulmonary vasculature is normal in. Diffuse patchy infiltrates are present bilaterally. Finding is nonspecific. Consider atypical pneumon ia. There is a moderate size right pneumothorax. There is a left side central venous catheter with tip i n the superior vena cava region. Endotracheal tube tip is above the albin. Nasogastric tube transver ses the thorax. IMPRESSION: 1. Moderate size right pneumothorax. ICU is aware at the time of dictation. 2. Patchy bilateral lung infiltrates worsening from prior exam. 3. Lines and catheters discussed above.
[2022-03-13] MEDS ORDERED: DEXTROSE 5% IN WATER 100 ML with AMIODARONE 150 MG IV ONE (09:30)
[2022-03-13 09:31] LABS: HCT 37.5 % (34.0-46.0); Hypochromasia Slight; MCH 35.5 pg (25.0-35.0); MCHC 32.3 g/dL (31.0-37.0); MCV 109.9 fL (80.0-100.0); Macrocytosis Marked; Mean Platelet Volume 15.1; RBC 3.41 m/uL (3.80-5.40); RDW 13.5 % (11.5-15.5); WBC 8.1 k/uL (3.8-10.6)
[2022-03-13 09:33] LABS: HGB 12.1 gm/dL (11.4-16.0); Platelet Count 121 k/uL (150-450)
[2022-03-13] MEDS: METOPROLOL TARTRATE 50 MG TAB PO SCH ×2 (09:34→18:15)
[2022-03-13] MEDS: NOREPINEPHRINE 8 MG in SODIUM CHLORIDE 0.9% 250 ML IV SCH (09:35)
[2022-03-13] MEDS: PANTOPRAZOLE 40 MG/10 ML VIAL IVP SCH (09:36)
[2022-03-13] MEDS: CHLORHEXIDINE GLUCONATE 15 ML CUP MUCOUS MEM SCH ×2 (09:36→20:57)
[2022-03-13] MEDS: methylPREDNISolone SOD SUCCI 40 MG/ML 1 ML VIAL IV SCH (09:36)
[2022-03-13 09:43] LABS: INR 1.6 (<1.2); Prothrombin Time 15.7 sec (9.0-12.0)
[2022-03-13] MEDS: LEVOFLOXACIN 250MG-D5W PMX 250 MG in DEXTROSE/WATER 1 50ML.BAG IVPB SCH (10:00)
[2022-03-13] MEDS: ASPIRIN 81 MG PO SCH (10:01)
[2022-03-13] MEDS: AMIODARONE 200 MG TAB PO SCH ×2 (10:01→20:57)
[2022-03-13] MEDS: buPROPion SR 100 MG TABLET.ER PO SCH ×2 (10:08→20:58)
[2022-03-13 10:13] LABS: Band Neutrophils % 6 %; Lymphocytes # (M) 0.97 k/uL (1.0-4.8); Metamyelocytes # (M) 0.08 k/uL (0); Metamyelocytes % 1 %; Monocytes # (M) 1.05 k/uL (0-1.0); Myelocytes # (M) 0.08 k/uL (0); Myelocytes % 1 %; Neutrophils % (M) 69 %; Nucleated Red Blood Cells 0 /100 WBC (0-0); Total Cells Counted 200
[2022-03-13 10:14] LABS: Anisocytosis (M) Present; Large Platelets Present; Total Protein 5.8 g/dL (6.3-8.2)
[2022-03-13 10:15] LABS: Poikilocytosis (M) Present
[2022-03-13 10:52] LABS: ABG HCO3 27 mmol/L (21-25); ABG PCO2 55 mmHg (35-45); ABG PH 7.29 (7.35-7.45); ABG PO2 94 mmHg (83-108); ABG TCO2 28 mmol/L (19-24)
[2022-03-13 10:53] LABS: Allen Test Performed? no
[2022-03-13 11:42] LABS: Glucose,Whole Blood 161 mg/dL (70-110)
[2022-03-13] MEDS: ARTIFICIAL TEARS-HYPROMELLOSE DROPS 15 ML BTL BOTH EYES SCH ×3 (12:42→20:25)
--- NOTE | 2022-03-13 14:11 | P.PN ---
Subjective Progress Note Date: 03/13/22 Patient is a 61-year-old female with past medical history remarkable for CAD, heart failure, hypertension, CAD who presents to emergency Department complaining of shortness of breath. She has had worsening shortness of breath for the last 2 weeks. This is exertional, associated with a nonproductive cou gh, wheezing. Patient also had bilateral lower extremity edema that has been symmetrical and getting worse. She denies any sick contacts. Denies any fevers. Denies any abdominal pain, nausea, vomiting. Does endorse intermittent chest pressure like sensation with shortness of breath is bad but currently denies it. Denies any diarrhea. She would this with the primary care physician and the patient was found to be profoundly hypoxic. She was sent over to the emergency department. Immediately, the patient was placed on oxygen, subsequently her condition decompensated and she was placed on the BiPAP and she ultimately failed and she had to be intubated and placed on a mechanical ventilator. Chest x-ray showed diffuse but the pulmonary infiltrates and areas of multifocal airspace opacity concerning for pneumonia. The patient's blood work showed a white cell count of 23 with a hemoglobin of 17. INR was at 1.9 with a PT of 19 and a PTT of 31. Sodium was at 139 with a potassium level of 3.2. BUN was 33 with a creatinine of 2.7. Lactic acid level was as high as 7.8, AST and ALP were 45) respectively, troponins were negative and a proBNP level was 1590. Influenza A was positive by PCR. Influenza B, RSV and Covid 19 were all negative. The UA showed 3 WBCs and +2 protein and large amount of blood with a RBC count of 182. This morning, the patient is intubated and mechanically ventilated. The patient is sedated with propofol. The patient is on assist control mode with a rate of 24 with a tidal volume of 400 FiO2 100% with a PEEP of 5. Chest x-ray showed unchanged multifocal breath and pneumonia. The patient was told in the bicarb infusion. The patient computed to have elevated lactic acid level and the level from this morning was at 8.1. She received a total of 3 units of N fluids yesterday. Currently she is in a bicarb infusion. BUN is at 37 with a crea tinine of 2.02 which is improved compared to yesterday. Serum bicarbs of 15 and a sodium level is at 134. Most recent blood gas from this morning showed more preferable for and pO2 of 80. White cell count is lower compared to yesterday at 17.2 with a hemoglobin of 15.6. Furthermore, the patient was admitted to physicians of the ventricular response yesterday. The patient converted into sinus rhythm. This morning, that, my evaluation, the patient went back into A. fib RVR. The patient will be started on amiodarone per protocol. No fever. No pressors at this point in time. On 03/13/2022, the patient is being seen for a follow-up. Earlier this morning, the patient started having shortness of breath and the patient was having elevated peak airway pressures and the patient was desaturating. At the time of my arrival to the intensive care unit, the patient was quite uncomfortable, tachypneic and somewhat hypoxic. At that point, I repeated the chest x-ray and the patient was found to have a right-sided pneumothorax. I repeated the chest x-ray and there was a large bilateral pneumothoraces noted. Immediately, bilateral chest tubes were inserted with resolution of the bilateral pneumothoraces. The patient currently is on propofol running at 30 microvascular kilogram per minutes. The patient is currently on assist control mode of mechanical ventilation. There is a 24 and a tidal volume was dropped off to 400 with an FiO2 of 70% with a PEEP of 5. The blood case with a pH of 7.41 with a pCO2 of 43 and pO2 of 66 and this was done prior to the chest tube insertion. Urine output was low earlier this morning around 10-15 mL an hour. Lactic acid level was down trending. The patient was still on amiodarone drip running at 0.5 mg/m and the patient was on IV heparin. The patient was also started on tube feeding with vital high-protein at the rate of 30 mL an hour. The patient currently is hemodynamically stable. The blood work from today showed edematous count of 8.1 and hemoglobin 12.1 and a platelet count of 121. INR is at 1.6 with a PT of 15.7. Sodium level is at 131 with a potassium level of 4.2, chloride is 97 bicarbs 2059 and 62 creatinine is 1.98. The bronchial lavage has not showing any microbial growth. Legionella urine antigen is negative. The pro calcitonin was unexpectedly elevated at 8.7. The patient is covered with broad-spectrum antibiotics and the patient is currently on accommodation of cefepime, Levaquin and vancomycin. The patient remains in a bicarb infusion. Serum bicarb is improved. Lactic acid level is also dropped. Patient currently has bilateral chest tube. There is positive air leak from the right-sided chest tube. Objective - Vital Signs Vital signs: Vital Signs Temp 98.3 F 03/13/22 12:30 Pulse 115 H 03/13/22 13:30 Resp 28 H 03/13/22 13:30 BP 101/65 03/13/22 13:30 Pulse Ox 93 L 03/13/22 13:30 FiO2 100 03/13/22 12:00 Intake & Output 03/12/22 03/13/22 03/13/22 18:59 06:59 18:59 Intake Total 2295.831 2364.559 1620.696 Output Total 200 220 328 Balance 2095.831 2144.559 1292.696 Weight 104.326 kg 135 kg Intake: IV 2000 1420 1000 Cefepime 1 gm In Sodium 100 Chloride 0.9% 50 ml @ 100 mls/hr IVPB Q12H TRE Rx# :[id number] Dextrose 5% in Water 1, 1100 200 000 ml @ 100 mls/hr IV . [id number] TRE with Sodium Bicarb (1 Meq/ml) 150 ml Rx#:[id number] Dextrose 5% in Water 100 1000 100 ml @ 618 mls/hr IV .Q10M ONE with Amiodarone 150 mg Rx#:[id number] Levofloxacin 250Mg-D5w 50 Pmx 250 mg In Dextrose/ Water 1 50ml.bag @ 50 mls /hr IVPB Q24HR TRE Rx#: [id number] Levofloxacin 500Mg-D5w 100 Pmx 500 mg In Dextrose/ Water 1 100ml.bag @ 100 mls/hr IVPB Q24H TRE Rx#: [id number] Sodium Chloride 0.9% 1, 300 220 000 ml @ 100 mls/hr IV . Q10H STA Rx#:[id number] Sodium Chloride 0.9% 1, 750 000 ml @ 150 mls/hr IV . Q6H40M TRE Rx#:[id number] Vancomycin 1,750 mg In 500 Sodium Chloride 0.9% 500 ml 500 ml @ 167 mls/hr IVPB ONCE ONE Rx#: [id number] Intake, IV Titration 135.831 614.559 360.696 Amount Amiodarone 450 mg In 250 57.779 Dextrose 5% in Water 250 ml @ 0.5 MG/MIN 16.667 mls/hr IV .Q15H TRE Rx#: [id number] Heparin Sod,Pork in 0.45% 240.000 NaCl 25,000 unit In 0.45 % NaCl 1 250ml.bag @ 9. 585 UNITS/KG/HR 10 mls/hr IV .Q24H TRE Rx#: [id number] Norepinephrine 8 mg In 164.559 62.917 Sodium Chloride 0.9% 250 ml @ 0.03 MCG/KG/MIN 6. 056 mls/hr IV .Q24H TRE Rx#:[id number] propofoL 1,000 mg In 135.831 200.000 Empty Bag 1 bag @ 15 MCG/ KG/MIN 9.389 mls/hr IV . [id number] TRE Rx#:[id number] Tube Feeding 100 240 200 Other 60 90 60 Output: Chest Tube Drainage 208 Chest Tube Left 180 Chest Tube Right 28 Urine 200 220 120 Other: Voiding Method Indwelling Catheter Indwelling Catheter Indwelling Catheter # Bowel Movements 0 ABP, PAP, CO, CI - Last Documented Arterial Blood Pressure 107/56 - Exam Obese, comfortable comfortable, no acute distress, sedated on propofol Head exam was generally normal. There was no scleral icterus or corneal arcus. Mucous membranes were moist. Neck was supple and without jugular venous distension, thyromegaly, or carotid bruits. Carotids were easily palpable bilaterally. There was no adenopathy. Orogastric and orotracheal tube are both in place. Lungs are diminished bilaterally otherwise vessels are equal and symmetrical. The patient has bilateral chest tubes both chest tubes a 28-Azeri. There is positive air leak on the right. No air leak on the left. Cardiac exam revealed the PMI to be normally situated and sized. The rhythm was regular and no extrasystoles were noted during several minutes of auscultation. The first and second heart sounds were normal and physiologic splitting of the second heart sound was noted. There were no murmurs, rubs, clicks, or gallops. Abdominal exam revealed normal bowel sounds. The abdomen was soft, non-tender, and without masses, organomegaly, or appreciable enlargement of the abdominal aorta. Examination of the extremities revealed easily palpable radial, femoral and pedal pulses. There was no cyanosis, clubbing or edema. Diminished pulses in the upper and lower oximetry is bilaterally. Examination of the skin revealed no evidence of significant rashes, suspicious appearing nevi or other concerning lesions. Neurologically the patient withdraws to painful stimulation. Neurologic exam is nonfocal and the patient is equal and symmetrical pupils - Labs CBC & Chem 7: 03/13/22 08:40 03/13/22 08:40 Labs: Abnormal Lab Results - Last 24 Hours (Table) 03/12/22 03/12/22 03/12/22 Range/Units 14:00 14:00 14:00 RBC (3.80-5.40) m/uL MCV (80.0-100.0) fL MCH (25.0-35.0) pg Plt Count (150-450) k/uL Lymphocytes # (Manual) (1.0-4.8) k/uL Monocytes # (Manual) (0-1.0) k/uL Metamyelocytes # (Man) (0) k/uL Myelocytes # (Manual) (0) k/uL Macrocytosis PT 22.1 H (9.0-12.0) sec INR 2.3 H (<1.2) APTT 46.9 H (22.0-30.0) sec ABG pH (7.35-7.45) ABG pCO2 (35-45) mmHg ABG pO2 (83-108) mmHg ABG HCO3 (21-25) mmol/L ABG Total CO2 (19-24) mmol/L ABG O2 Saturation (94-97) % ABG Lactic Acid 5.7 H* (0.5-1.6) mmol/L Sodium (137-145) mmol/L Chloride (98-107) mmol/L BUN (7-17) mg/dL Creatinine (0.52-1.04) mg/dL Glucose (74-99) mg/dL POC Glucose (mg/dL) (70-110) mg/dL Plasma Lactic Acid Rui (0.7-2.0) mmol/L Calcium (8.4-10.2) mg/dL Lactate Dehydrogenase (313-618) U/L Total Protein (6.3-8.2) g/dL Procalcitonin 8.73 H (0.02-0.09) ng/mL 03/12/22 03/12/22 03/12/22 Range/Units 17:05 17:10 20:00 RBC (3.80-5.40) m/uL MCV (80.0-100.0) fL MCH (25.0-35.0) pg Plt Count (150-450) k/uL Lymphocytes # (Manual) (1.0-4.8) k/uL Monocytes # (Manual) (0-1.0) k/uL Metamyelocytes # (Man) (0) k/uL Myelocytes # (Manual) (0) k/uL Macrocytosis PT (9.0-12.0) sec INR (<1.2) APTT (22.0-30.0) sec ABG pH (7.35-7.45) ABG pCO2 (35-45) mmHg ABG pO2 (83-108) mmHg ABG HCO3 (21-25) mmol/L ABG Total CO2 (19-24) mmol/L ABG O2 Saturation (94-97) % ABG Lactic Acid (0.5-1.6) mmol/L Sodium (137-145) mmol/L Chloride (98-107) mmol/L BUN (7-17) mg/dL Creatinine (0.52-1.04) mg/dL Glucose (74-99) mg/dL POC Glucose (mg/dL) 196 H (70-110) mg/dL Plasma Lactic Acid Rui 4.5 H* 3.8 H* (0.7-2.0) mmol/L Calcium (8.4-10.2) mg/dL Lactate Dehydrogenase (313-618) U/L Total Protein (6.3-8.2) g/dL Procalcitonin (0.02-0.09) ng/mL 03/12/22 03/13/22 03/13/22 Range/Units 23:47 05:27 05:50 RBC (3.80-5.40) m/uL MCV (80.0-100.0) fL MCH (25.0-35.0) pg Plt Count (150-450) k/uL Lymphocytes # (Manual) (1.0-4.8) k/uL Monocytes # (Manual) (0-1.0) k/uL Metamyelocytes # (Man) (0) k/uL Myelocytes # (Manual) (0) k/uL Macrocytosis PT (9.0-12.0) sec INR (<1.2) APTT (22.0-30.0) sec ABG pH (7.35-7.45) ABG pCO2 (35-45) mmHg ABG pO2 66 L (83-108) mmHg ABG HCO3 27 H (21-25) mmol/L ABG Total CO2 28 H (19-24) mmol/L ABG O2 Saturation 93.9 L (94-97) % ABG Lactic Acid (0.5-1.6) mmol/L Sodium (137-145) mmol/L Chloride (98-107) mmol/L BUN (7-17) mg/dL Creatinine (0.52-1.04) mg/dL Glucose (74-99) mg/dL POC Glucose (mg/dL) 174 H 162 H (70-110) mg/dL Plasma Lactic Acid Rui (0.7-2.0) mmol/L Calcium (8.4-10.2) mg/dL Lactate Dehydrogenase (313-618) U/L Total Protein (6.3-8.2) g/dL Procalcitonin (0.02-0.09) ng/mL 03/13/22 03/13/22 03/13/22 Range/Units 08:40 08:40 08:40 RBC 3.41 L (3.80-5.40) m/uL MCV 109.9 H (80.0-100.0) fL MCH 35.5 H (25.0-35.0) pg Plt Count 121 L (150-450) k/uL Lymphocytes # (Manual) 0.97 L (1.0-4.8) k/uL Monocytes # (Manual) 1.05 H (0-1.0) k/uL Metamyelocytes # (Man) 0.08 H (0) k/uL Myelocytes # (Manual) 0.08 H (0) k/uL Macrocytosis Marked A PT 15.7 H (9.0-12.0) sec INR 1.6 H (<1.2) APTT (22.0-30.0) sec ABG pH (7.35-7.45) ABG pCO2 (35-45) mmHg ABG pO2 (83-108) mmHg ABG HCO3 (21-25) mmol/L ABG Total CO2 (19-24) mmol/L ABG O2 Saturation (94-97) % ABG Lactic Acid (0.5-1.6) mmol/L Sodium 131 L (137-145) mmol/L Chloride 97 L (98-107) mmol/L BUN 62 H (7-17) mg/dL Creatinine 1.98 H (0.52-1.04) mg/dL Glucose 213 H (74-99) mg/dL POC Glucose (mg/dL) (70-110) mg/dL Plasma Lactic Acid Rui (0.7-2.0) mmol/L Calcium 8.1 L (8.4-10.2) mg/dL Lactate Dehydrogenase (313-618) U/L Total Protein (6.3-8.2) g/dL Procalcitonin (0.02-0.09) ng/mL 03/13/22 03/13/22 03/13/22 Range/Units 08:40 08:40 10:51 RBC (3.80-5.40) m/uL MCV (80.0-100.0) fL MCH (25.0-35.0) pg Plt Count (150-450) k/uL Lymphocytes # (Manual) (1.0-4.8) k/uL Monocytes # (Manual) (0-1.0) k/uL Metamyelocytes # (Man) (0) k/uL Myelocytes # (Manual) (0) k/uL Macrocytosis PT (9.0-12.0) sec INR (<1.2) APTT (22.0-30.0) sec ABG pH 7.29 L (7.35-7.45) ABG pCO2 55 H (35-45) mmHg ABG pO2 (83-108) mmHg ABG HCO3 27 H (21-25) mmol/L ABG Total CO2 28 H (19-24) mmol/L ABG O2 Saturation (94-97) % ABG Lactic Acid 2.9 H* (0.5-1.6) mmol/L Sodium (137-145) mmol/L Chloride (98-107) mmol/L BUN (7-17) mg/dL Creatinine (0.52-1.04) mg/dL Glucose (74-99) mg/dL POC Glucose (mg/dL) (70-110) mg/dL Plasma Lactic Acid Rui (0.7-2.0) mmol/L Calcium (8.4-10.2) mg/dL Lactate Dehydrogenase 1425 H (313-618) U/L Total Protein 5.8 L (6.3-8.2) g/dL Procalcitonin (0.02-0.09) ng/mL 03/13/22 Range/Units 11:41 RBC (3.80-5.40) m/uL MCV (80.0-100.0) fL MCH (25.0-35.0) pg Plt Count (150-450) k/uL Lymphocytes # (Manual) (1.0-4.8) k/uL Monocytes # (Manual) (0-1.0) k/uL Metamyelocytes # (Man) (0) k/uL Myelocytes # (Manual) (0) k/uL Macrocytosis PT (9.0-12.0) sec INR (<1.2) APTT (22.0-30.0) sec ABG pH (7.35-7.45) ABG pCO2 (35-45) mmHg ABG pO2 (83-108) mmHg ABG HCO3 (21-25) mmol/L ABG Total CO2 (19-24) mmol/L ABG O2 Saturation (94-97) % ABG Lactic Acid (0.5-1.6) mmol/L Sodium (137-145) mmol/L Chloride (98-107) mmol/L BUN (7-17) mg/dL Creatinine (0.52-1.04) mg/dL Glucose (74-99) mg/dL POC Glucose (mg/dL) 161 H (70-110) mg/dL Plasma Lactic Acid Rui (0.7-2.0) mmol/L Calcium (8.4-10.2) mg/dL Lactate Dehydrogenase (313-618) U/L Total Protein (6.3-8.2) g/dL Procalcitonin (0.02-0.09) ng/mL Microbiology - Last 24 Hours (Table) 03/12/22 08:30 Gram Stain - Preliminary Bronchoalviolar Lavage - Left Bronchial Washings Culture - Preliminary 03/12/22 03:42 Gram Stain - Preliminary Sputum Sputum Culture - Preliminary 03/11/22 17:43 Blood Culture Gram Stain - Preliminary Blood 03/11/22 17:43 Blood Culture - Final Blood 03/11/22 17:26 Blood Culture Gram Stain - Preliminary Blood Blood Culture - Preliminary Staphylococcus epidermidis 03/12/22 08:30 Fungal Culture - Preliminary Bronchoalviolar Lavage - Left 03/12/22 08:30 Acid Fast Bacilli Culture - Preliminary Bronchoalviolar Lavage - Left 03/11/22 17:26 Blood Culture - Final Blood Assessment and Plan Plan: Acute bilateral pneumonia, rule out influenza pneumonia, bacterial cannot be ruled out especially with an elevated pro-calcitonin level. The bronchoscopy and bronchoalveolar lavage is still pending for now. Is also negative. The patient is on Tamiflu on broad-spectrum antibiotics and steroids.. The patient is multifocal airspace disease. Influenza A was positive by PCR. The rest of the viral analysis was negative Acute bilateral pneumothoraces, secondary pneumonia. Cannot rule out possibility of barotrauma. Patient has chest tubes bilaterally. Positive air leak on the right. There is adequate expansion of both lungs Acute hypoxic respiratory failure secondary to above, currently intubated on a mechanical ventilator Acute leukocytosis, improving Acute lactic acidosis, improving New-onset atrial fibrillation with RVR, still on amiodarone drip at 0.5 mg per medicine the patient is also on IV heparin. Morbid obesity with previous bariatric surgery Previous history of splenectomy Acute kidney injury secondary to above, improving History of coronary artery disease, nonocclusive disease of the cardiac catheterization from 2021 COPD Fibromyalgia Migraines Chronic back pain History of stomach cancer History of nephrolithiasis History of osteoarthritis History of hepatitis C and hepatitis B Hypertension Plan Continue vent support I'm going to make some ventilator adjustments. We'll going to wean down FiO2 and reduce the tidal volume to 375 and a follow-up blood gases reveal faint. Positive air leak from the chest was bilaterally. Daily chest x-rays Continue sedation with propofol Keep the patient paralyzed over the next 24 hours Change IV fluids to normal saline at the rate of 100 mL an hour Continue the broad-spectrum antibiotic coverage with accommodation of cefepime and Levaquin and vancomycin Monitor the pro calcitonin level Continue amiodarone drip IV heparin Echocardiogram was noted and the patient has an ejection fraction of 40-45% Continue enteral feeding for nutritional support and the patient is currently on vital high-protein wean off norepinephrine and the patient currently is still on low-dose norepinephrine running at 0.06 mcg/kg/m conditions are vesicular we'll continue to follow. I had lengthy discussion with the family and updated them on her condition. critical care evaluation that was done in more than 30 minutes Time with Patient: Greater than 30
--- NOTE | 2022-03-13 14:14 | P.PCN ---
Date of Procedure: 03/13/22 Preoperative Diagnosis: Left-sided pneumothorax, right-sided pneumothorax Postoperative Diagnosis: Bilateral pneumothorax Procedure(s) Performed: Left-sided chest tube insertion Right-sided chest tube insertion Anesthesia: local Surgeon: Natalie Gasca Estimated Blood Loss (ml): 0 Pathology: none sent Condition: critical Disposition: ICU Operative Findings: Left-sided chest tube A time-out was completed verifying correct patient, procedure, site, positioning, and special equipment if applicable. The patient was positioned appropriately for chest tube placement. The patient s left chest was prepped and draped in sterile fashion. 1% Lidocaine was used to anesthetize the surrounding skin area. A 2 cm skin incision was made in the mid-axillary line at the inframammary crease. Utilizing blunt dissection a subcutaneous tunnel was created cephalad just adjacent to the superior rib. The pleural space was entered bluntly and gush of air was observed. A finger was inserted into the pleural space to check for anatomy and guide tube insertion. A 28F thoracostomy tube was inserted using a Emely clamp and positioned appropriately. The chest tube was sutured securely to the skin and a sterile dressing applied. A pleurevac was attached to the chest tube and a chest x-ray obtained. I personally performed this procedure and I was was present for the entire procedure. Estimated Blood Loss: 0 The patient tolerated the procedure well and there were no complications. Right-sided chest tube A time-out was completed verifying correct patient, procedure, site, positionin g, and special equipment if applicable. The patient was positioned appropriately for chest tube placement. The patient s right chest was prepped and draped in sterile fashion. 1% Lidocaine was used to anesthetize the surrounding skin area. A 2 cm skin incision was made in the mid-axillary line at the inframammary crease. Utilizing blunt dissection a subcutaneous tunnel was created cephalad just adjacent to the superior rib. The pleural space was entered bluntly and gush of air was observed. A finger was inserted into the pleural space to check for anatomy and guide tube insertion. A 28F thoracostomy tube was inserted using a Emely clamp and positioned appropriately. The chest tube was sutured securely to the skin and a sterile dressing applied. A pleurevac was attached to the chest tube and a chest x-ray obtained. I personally performed this procedure and I was was present for the entire procedure. Estimated Blood Loss: 0 The patient tolerated the procedure well and there were no complications.
--- NOTE | 2022-03-13 14:26 | XR ---
EXAMINATION TYPE: XR chest 1V portable DATE OF EXAM: 03/13/2022 COMPARISON: 03/13/2022 INDICATION: Bilateral chest tube insertion TECHNIQUE: Single frontal view of the chest is obtained. FINDINGS: The heart size is mildly prominent. The pulmonary vasculature is normal. Patchy bilateral lung infiltrates are present. This has improved from comparison There is interval placement of bilateral chest tubes with the tip directed towards the lung apices. P revious pneumothoraces have resolved. Endotracheal tube tip is above the albin. Nasogastric tube transverses the thorax. Left central veno us catheter tip in superior vena cava region. IMPRESSION: 1. Resolution of previous pneumothoraces post chest tube insertion bilaterally. 2. Patchy bilateral lung infiltrates improved following chest tube insertion.
[2022-03-13 15:24] LABS: ABG Base Excess -0.4 mmol/L; ABG HCO3 27 mmol/L (21-25); ABG Oxygen Saturation 95.6 % (94-97); ABG PCO2 58 mmHg (35-45); ABG PH 7.27 (7.35-7.45); ABG PO2 86 mmHg (83-108); ABG TCO2 28 mmol/L (19-24)
[2022-03-13 15:25] LABS: Allen Test Performed? no
--- NOTE | 2022-03-13 16:50 | P.PN ---
Subjective Progress Note Date: 03/13/22 Principal diagnosis: Pneumonia Patient is a 61-year-old female with a past medical history significant for coronary artery disease hypertension heart failure presenting to the ER last evening for evaluation of increasing shortness of breath in this patient symptom apparently has been going on for 2 weeks before presentation to the hospital, patient did have worsening of respiratory status requiring intubation subsequently developing bilateral pneumothoraces requiring chest tube placement on 03/13/2022. On today's evaluation that is 03/13/2022, the patient did have a low-grade fever 100.6 this morning the patient is afebrile since then, the patient is hemodynamically stable, FiO2 is currently 100%, patient is currently not on any pressor support no significant purulent secretions through the ET or diarrhea reported by nursing staff Objective - Vital Signs Vital signs: Vital Signs Temp 98.3 F 03/13/22 12:30 Pulse 115 H 03/13/22 14:57 Resp 22 03/13/22 14:00 BP 101/65 03/13/22 14:00 Pulse Ox 91 L 03/13/22 14:00 FiO2 100 03/13/22 14:50 Intake & Output 03/12/22 03/13/22 03/13/22 18:59 06:59 18:59 Intake Total 2295.831 2364.559 1830.211 Output Total 200 220 374 Balance 2095.831 2144.559 1456.211 Weight 104.326 kg 135 kg Intake: IV 2000 1420 1150 Cefepime 1 gm In Sodium 100 Chloride 0.9% 50 ml @ 100 mls/hr IVPB Q12H TRE Rx# :[id number] Dextrose 5% in Water 1, 1100 200 000 ml @ 100 mls/hr IV . [id number] TRE with Sodium Bicarb (1 Meq/ml) 150 ml Rx#:[id number] Dextrose 5% in Water 100 1000 100 ml @ 618 mls/hr IV .Q10M ONE with Amiodarone 150 mg Rx#:[id number] Levofloxacin 250Mg-D5w 50 Pmx 250 mg In Dextrose/ Water 1 50ml.bag @ 50 mls /hr IVPB Q24HR TRE Rx#: [id number] Levofloxacin 500Mg-D5w 100 Pmx 500 mg In Dextrose/ Water 1 100ml.bag @ 100 mls/hr IVPB Q24H TRE Rx#: [id number] Sodium Chloride 0.9% 1, 300 220 000 ml @ 100 mls/hr IV . Q10H STA Rx#:[id number] Sodium Chloride 0.9% 1, 900 000 ml @ 150 mls/hr IV . Q6H40M TRE Rx#:[id number] Vancomycin 1,750 mg In 500 Sodium Chloride 0.9% 500 ml 500 ml @ 167 mls/hr IVPB ONCE ONE Rx#: [id number] Intake, IV Titration 135.831 614.559 380.211 Amount Amiodarone 450 mg In 250 57.779 Dextrose 5% in Water 250 ml @ 0.5 MG/MIN 16.667 mls/hr IV .Q15H TRE Rx#: [id number] Heparin Sod,Pork in 0.45% 240.000 NaCl 25,000 unit In 0.45 % NaCl 1 250ml.bag @ 9. 585 UNITS/KG/HR 10 mls/hr IV .Q24H TRE Rx#: [id number] Norepinephrine 8 mg In 164.559 82.432 Sodium Chloride 0.9% 250 ml @ 0.03 MCG/KG/MIN 6. 056 mls/hr IV .Q24H TRE Rx#:[id number] propofoL 1,000 mg In 135.831 200.000 Empty Bag 1 bag @ 15 MCG/ KG/MIN 9.389 mls/hr IV . [id number] TRE Rx#:[id number] Tube Feeding 100 240 240 Other 60 90 60 Output: Chest Tube Drainage 224 Chest Tube Left 194 Chest Tube Right 30 Urine 200 220 150 Other: Voiding Method Indwelling Catheter Indwelling Catheter Indwelling Catheter # Bowel Movements 0 ABP, PAP, CO, CI - Last Documented Arterial Blood Pressure 105/58 - Exam GENERAL DESCRIPTION: Middle-aged female intubated on the vent RESPIRATORY SYSTEM: Unlabored breathing , decreased breath sounds at bases HEART: S1 S2 regular rate and rhythm , ABDOMEN: Soft , no tenderness EXTREMITIES: No edema feet - Labs CBC & Chem 7: 03/13/22 08:40 03/13/22 08:40 Labs: Abnormal Lab Results - Last 24 Hours (Table) 03/12/22 03/12/22 03/12/22 Range/Units 14:00 17:05 17:10 RBC (3.80-5.40) m/uL MCV (80.0-100.0) fL MCH (25.0-35.0) pg Plt Count (150-450) k/uL Lymphocytes # (Manual) (1.0-4.8) k/uL Monocytes # (Manual) (0-1.0) k/uL Metamyelocytes # (Man) (0) k/uL Myelocytes # (Manual) (0) k/uL Macrocytosis PT (9.0-12.0) sec INR (<1.2) ABG pH (7.35-7.45) ABG pCO2 (35-45) mmHg ABG pO2 (83-108) mmHg ABG HCO3 (21-25) mmol/L ABG Total CO2 (19-24) mmol/L ABG O2 Saturation (94-97) % ABG Lactic Acid (0.5-1.6) mmol/L Sodium (137-145) mmol/L Chloride (98-107) mmol/L BUN (7-17) mg/dL Creatinine (0.52-1.04) mg/dL Glucose (74-99) mg/dL POC Glucose (mg/dL) 196 H (70-110) mg/dL Plasma Lactic Acid Rui 4.5 H* (0.7-2.0) mmol/L Calcium (8.4-10.2) mg/dL Lactate Dehydrogenase (313-618) U/L Total Protein (6.3-8.2) g/dL Procalcitonin 8.73 H (0.02-0.09) ng/mL 03/12/22 03/12/22 03/13/22 Range/Units 20:00 23:47 05:27 RBC (3.80-5.40) m/uL MCV (80.0-100.0) fL MCH (25.0-35.0) pg Plt Count (150-450) k/uL Lymphocytes # (Manual) (1.0-4.8) k/uL Monocytes # (Manual) (0-1.0) k/uL Metamyelocytes # (Man) (0) k/uL Myelocytes # (Manual) (0) k/uL Macrocytosis PT (9.0-12.0) sec INR (<1.2) ABG pH (7.35-7.45) ABG pCO2 (35-45) mmHg ABG pO2 (83-108) mmHg ABG HCO3 (21-25) mmol/L ABG Total CO2 (19-24) mmol/L ABG O2 Saturation (94-97) % ABG Lactic Acid (0.5-1.6) mmol/L Sodium (137-145) mmol/L Chloride (98-107) mmol/L BUN (7-17) mg/dL Creatinine (0.52-1.04) mg/dL Glucose (74-99) mg/dL POC Glucose (mg/dL) 174 H 162 H (70-110) mg/dL Plasma Lactic Acid Rui 3.8 H* (0.7-2.0) mmol/L Calcium (8.4-10.2) mg/dL Lactate Dehydrogenase (313-618) U/L Total Protein (6.3-8.2) g/dL Procalcitonin (0.02-0.09) ng/mL 03/13/22 03/13/22 03/13/22 Range/Units 05:50 08:40 08:40 RBC 3.41 L (3.80-5.40) m/uL MCV 109.9 H (80.0-100.0) fL MCH 35.5 H (25.0-35.0) pg Plt Count 121 L (150-450) k/uL Lymphocytes # (Manual) 0.97 L (1.0-4.8) k/uL Monocytes # (Manual) 1.05 H (0-1.0) k/uL Metamyelocytes # (Man) 0.08 H (0) k/uL Myelocytes # (Manual) 0.08 H (0) k/uL Macrocytosis Marked A PT (9.0-12.0) sec INR (<1.2) ABG pH (7.35-7.45) ABG pCO2 (35-45) mmHg ABG pO2 66 L (83-108) mmHg ABG HCO3 27 H (21-25) mmol/L ABG Total CO2 28 H (19-24) mmol/L ABG O2 Saturation 93.9 L (94-97) % ABG Lactic Acid (0.5-1.6) mmol/L Sodium 131 L (137-145) mmol/L Chloride 97 L (98-107) mmol/L BUN 62 H (7-17) mg/dL Creatinine 1.98 H (0.52-1.04) mg/dL Glucose 213 H (74-99) mg/dL POC Glucose (mg/dL) (70-110) mg/dL Plasma Lactic Acid Rui (0.7-2.0) mmol/L Calcium 8.1 L (8.4-10.2) mg/dL Lactate Dehydrogenase (313-618) U/L Total Protein (6.3-8.2) g/dL Procalcitonin (0.02-0.09) ng/mL 03/13/22 03/13/22 03/13/22 Range/Units 08:40 08:40 08:40 RBC (3.80-5.40) m/uL MCV (80.0-100.0) fL MCH (25.0-35.0) pg Plt Count (150-450) k/uL Lymphocytes # (Manual) (1.0-4.8) k/uL Monocytes # (Manual) (0-1.0) k/uL Metamyelocytes # (Man) (0) k/uL Myelocytes # (Manual) (0) k/uL Macrocytosis PT 15.7 H (9.0-12.0) sec INR 1.6 H (<1.2) ABG pH (7.35-7.45) ABG pCO2 (35-45) mmHg ABG pO2 (83-108) mmHg ABG HCO3 (21-25) mmol/L ABG Total CO2 (19-24) mmol/L ABG O2 Saturation (94-97) % ABG Lactic Acid 2.9 H* (0.5-1.6) mmol/L Sodium (137-145) mmol/L Chloride (98-107) mmol/L BUN (7-17) mg/dL Creatinine (0.52-1.04) mg/dL Glucose (74-99) mg/dL POC Glucose (mg/dL) (70-110) mg/dL Plasma Lactic Acid Rui (0.7-2.0) mmol/L Calcium (8.4-10.2) mg/dL Lactate Dehydrogenase 1425 H (313-618) U/L Total Protein 5.8 L (6.3-8.2) g/dL Procalcitonin (0.02-0.09) ng/mL 03/13/22 03/13/22 Range/Units 10:51 11:41 RBC (3.80-5.40) m/uL MCV (80.0-100.0) fL MCH (25.0-35.0) pg Plt Count (150-450) k/uL Lymphocytes # (Manual) (1.0-4.8) k/uL Monocytes # (Manual) (0-1.0) k/uL Metamyelocytes # (Man) (0) k/uL Myelocytes # (Manual) (0) k/uL Macrocytosis PT (9.0-12.0) sec INR (<1.2) ABG pH 7.29 L (7.35-7.45) ABG pCO2 55 H (35-45) mmHg ABG pO2 (83-108) mmHg ABG HCO3 27 H (21-25) mmol/L ABG Total CO2 28 H (19-24) mmol/L ABG O2 Saturation (94-97) % ABG Lactic Acid (0.5-1.6) mmol/L Sodium (137-145) mmol/L Chloride (98-107) mmol/L BUN (7-17) mg/dL Creatinine (0.52-1.04) mg/dL Glucose (74-99) mg/dL POC Glucose (mg/dL) 161 H (70-110) mg/dL Plasma Lactic Acid Rui (0.7-2.0) mmol/L Calcium (8.4-10.2) mg/dL Lactate Dehydrogenase (313-618) U/L Total Protein (6.3-8.2) g/dL Procalcitonin (0.02-0.09) ng/mL Microbiology - Last 24 Hours (Table) 03/12/22 08:30 Gram Stain - Preliminary Bronchoalviolar Lavage - Left Bronchial Washings Culture - Preliminary 03/12/22 03:42 Gram Stain - Preliminary Sputum Sputum Culture - Preliminary 03/11/22 17:43 Blood Culture Gram Stain - Preliminary Blood 03/11/22 17:43 Blood Culture - Final Blood 03/11/22 17:26 Blood Culture Gram Stain - Preliminary Blood Blood Culture - Preliminary Staphylococcus epidermidis 03/12/22 08:30 Fungal Culture - Preliminary Bronchoalviolar Lavage - Left 03/12/22 08:30 Acid Fast Bacilli Culture - Preliminary Bronchoalviolar Lavage - Left 03/11/22 17:26 Blood Culture - Final Blood Assessment and Plan (1) Multifocal pneumonia Current Visit: Yes Status: Acute Code(s): J18.9 - PNEUMONIA, UNSPECIFIED ORGANISM SNOMED Code(s): 907365725 Plan: 1patient with a positive blood culture with staph epi likely skin contaminatio n, blood cultures has been be repeated document clearance of the bacteremia. 2patient with the acute respiratory failure multifactorial and likely component of pneumonia in this patient sputum as well as BAL cultures are currently pending. 3patient with renal insufficiency and high risk of nephrotoxicity from vancomycin. 4patient to continue cefepime and Levaquin and monitor clinical course closely family at the bedside questions were answered Time with Patient: Less than 30
[2022-03-13 17:50] LABS: Appearance,BF Turbid
[2022-03-13 18:33] LABS: Glucose,Whole Blood 148 mg/dL (70-110)
[2022-03-13] MEDS: QUEtiapine 100 MG TAB PO SCH (20:32)
[2022-03-13] MEDS: OSELTAMIVIR 60 MG/10 ML ORAL SYRINGE PO SCH (20:58)
[2022-03-13 23:46] LABS: Glucose,Whole Blood 201 mg/dL (70-110)
[2022-03-14] MEDS: ARTIFICIAL TEARS-HYPROMELLOSE DROPS 15 ML BTL BOTH EYES SCH ×7 (00:02→23:33)
[2022-03-14] MEDS: INSULIN ASPART (NovoLOG) 100 UNIT/ML VIAL SQ SCH ×5 (00:02→23:32)
[2022-03-14] MEDS: IPRATROPIUM-ALBUTEROL 3 ML NEB INHALATION SCH ×6 (03:09→23:24)
--- NOTE | 2022-03-14 03:37 | PN ---
PROGRESS NOTE DATE OF SERVICE: 03/13/2022 CHIEF COMPLAINT: Acute respiratory failure. HISTORY OF PRESENT ILLNESS: This lady has had some new difficulties. She has been in and out of atrial fibrillation with a rapid ventricular response rate. She also this morning developed bilateral pneumothoraces. Chest tube has been placed. She is still on the ventilator. PHYSICAL EXAMINATION: VITAL SIGNS: Normal at this time. CHEST: Good breath sounds bilaterally. CARDIAC: She is currently in atrial fibrillation. IMPRESSION: 1. Acute respiratory failure. 2. Bronchial pneumonia. 3. Congestive heart failure. 4. Atrial fibrillation. 5. Bilateral pneumothoraces. PLAN: Continue to follow her progress with any management that I may be able to offer while she is in the ICU. MMODL / IJN: [id number] /
[2022-03-14 03:46] LABS: HCT 46.6 % (34.0-46.0); HGB 14.5 gm/dL (11.4-16.0); Hypochromasia Moderate; MCH 34.2 pg (25.0-35.0); MCV 110.3 fL (80.0-100.0); Macrocytosis Marked; Mean Platelet Volume 14.4; Platelet Count 140 k/uL (150-450); RBC 4.22 m/uL (3.80-5.40); RDW 13.2 % (11.5-15.5); WBC 15.2 k/uL (3.8-10.6)
[2022-03-14 03:56] LABS: Calcium 8.5 mg/dL (8.4-10.2); Potassium 4.1 mmol/L (3.5-5.1)
[2022-03-14 04:22] LABS: ABG Base Excess -0.5 mmol/L; ABG HCO3 27 mmol/L (21-25); ABG Oxygen Saturation 90.9 % (94-97); ABG PCO2 65 mmHg (35-45); ABG PH 7.23 (7.35-7.45); ABG PO2 66 mmHg (83-108); ABG TCO2 29 mmol/L (19-24); Allen Test Performed? Yes
--- NOTE | 2022-03-14 05:35 | P.PN ---
Subjective Progress Note Date: 03/14/22 Patient is a 61-year-old female with past medical history remarkable for CAD, heart failure, hypertension, CAD who presents to emergency Department complaining of shortness of breath. She has had worsening shortness of breath for the last 2 weeks. This is exertional, associated with a nonproductive cou gh, wheezing. Patient also had bilateral lower extremity edema that has been symmetrical and getting worse. She denies any sick contacts. Denies any fevers. Denies any abdominal pain, nausea, vomiting. Does endorse intermittent chest pressure like sensation with shortness of breath is bad but currently denies it. Denies any diarrhea. She would this with the primary care physician and the patient was found to be profoundly hypoxic. She was sent over to the emergency department. Immediately, the patient was placed on oxygen, subsequently her condition decompensated and she was placed on the BiPAP and she ultimately failed and she had to be intubated and placed on a mechanical ventilator. Chest x-ray showed diffuse but the pulmonary infiltrates and areas of multifocal airspace opacity concerning for pneumonia. The patient's blood work showed a white cell count of 23 with a hemoglobin of 17. INR was at 1.9 with a PT of 19 and a PTT of 31. Sodium was at 139 with a potassium level of 3.2. BUN was 33 with a creatinine of 2.7. Lactic acid level was as high as 7.8, AST and ALP were 45) respectively, troponins were negative and a proBNP level was 1590. Influenza A was positive by PCR. Influenza B, RSV and Covid 19 were all negative. The UA showed 3 WBCs and +2 protein and large amount of blood with a RBC count of 182. This morning, the patient is intubated and mechanically ventilated. The patient is sedated with propofol. The patient is on assist control mode with a rate of 24 with a tidal volume of 400 FiO2 100% with a PEEP of 5. Chest x-ray showed unchanged multifocal breath and pneumonia. The patient was told in the bicarb infusion. The patient computed to have elevated lactic acid level and the level from this morning was at 8.1. She received a total of 3 units of N fluids yesterday. Currently she is in a bicarb infusion. BUN is at 37 with a crea tinine of 2.02 which is improved compared to yesterday. Serum bicarbs of 15 and a sodium level is at 134. Most recent blood gas from this morning showed more preferable for and pO2 of 80. White cell count is lower compared to yesterday at 17.2 with a hemoglobin of 15.6. Furthermore, the patient was admitted to physicians of the ventricular response yesterday. The patient converted into sinus rhythm. This morning, that, my evaluation, the patient went back into A. fib RVR. The patient will be started on amiodarone per protocol. No fever. No pressors at this point in time. On 03/13/2022, the patient is being seen for a follow-up. Earlier this morning, the patient started having shortness of breath and the patient was having elevated peak airway pressures and the patient was desaturating. At the time of my arrival to the intensive care unit, the patient was quite uncomfortable, tachypneic and somewhat hypoxic. At that point, I repeated the chest x-ray and the patient was found to have a right-sided pneumothorax. I repeated the chest x-ray and there was a large bilateral pneumothoraces noted. Immediately, bilateral chest tubes were inserted with resolution of the bilateral pneumothoraces. The patient currently is on propofol running at 30 microvascular kilogram per minutes. The patient is currently on assist control mode of mechanical ventilation. There is a 24 and a tidal volume was dropped off to 400 with an FiO2 of 70% with a PEEP of 5. The blood case with a pH of 7.41 with a pCO2 of 43 and pO2 of 66 and this was done prior to the chest tube insertion. Urine output was low earlier this morning around 10-15 mL an hour. Lactic acid level was down trending. The patient was still on amiodarone drip running at 0.5 mg/m and the patient was on IV heparin. The patient was also started on tube feeding with vital high-protein at the rate of 30 mL an hour. The patient currently is hemodynamically stable. The blood work from today showed edematous count of 8.1 and hemoglobin 12.1 and a platelet count of 121. INR is at 1.6 with a PT of 15.7. Sodium level is at 131 with a potassium level of 4.2, chloride is 97 bicarbs 2059 and 62 creatinine is 1.98. The bronchial lavage has not showing any microbial growth. Legionella urine antigen is negative. The pro calcitonin was unexpectedly elevated at 8.7. The patient is covered with broad-spectrum antibiotics and the patient is currently on accommodation of cefepime, Levaquin and vancomycin. The patient remains in a bicarb infusion. Serum bicarb is improved. Lactic acid level is also dropped. Patient currently has bilateral chest tube. There is positive air leak from the right-sided chest tube. 03/14/2022, patient is being seen for a follow-up. This morning, the patient is sedated on propofol and she is currently at 30 mcg/kg/m of propofol infusion. The patient is also on Nimbex which is running at 1 mcg/kg/m. She is adequately sedated and paralyzed at this point in time. He remains on a mechanical ventilator. She is assist-control mode at the rate of 28, tidal volume of 400, FiO2 of 80% with a PEEP of 5. Current pulse ox on the monitor is around 87%. Peak airway pressures around 31. The patient's return tidal volume is in the order of 380 mL and the patient has bilateral chest tubes. There is evidence of air leak from both chest tubes and airleak is still active. Chest x-ray from this morning is still pending. Noted the patient had developed bilateral pneumothoraces yesterday and bilateral chest tubes were inserted in these are 28-Chinese chest tubes. Output from the left-sided pleural fluid was somewhat purulent and total amount of output has been in the order of 200 mL since inserted. Cultures from the left-sided pleural effusion still pending. The whi te cell count in the left-sided pleural effusion is elevated. As for the right- sided pleural effusion, this is essentially a transudate. The pro calcitonin level was elevated. I do suspect a bacterial infection on top of the influenza infection. Noted the bronchial lavage that was done earlier showed again influenza a. The blood gas from today showed a pH of 7.23 with a pCO2 of 65 and pO2 of 66 and this was on FiO2 of 80%. Hemodynamically, the patient is on no pressors. The patient remains in atrial fibrillation. The patient is currently on oral amiodarone. IV heparin was discontinued briefly yesterday as the patient was having bloody output from her orotracheal tube and the anticoa gulation was held during the chest tube insertion process. The white cell count today's of 15.2 with a hemoglobin of 14.5 and a platelet count of 140. Rest of the blood work shows a sodium of 134 with a potassium level of 4.1, BUN is 74 and the creatinine is 1.45 and a creatinine is obviously improving. Lactic acid level has dropped onto 3.8. The Legionella urine antigen was negative. The pat ient is on enteral feeding for nutritional support and she is currently on vital high-protein at the rate of 47 mL an hour. Overall fluid balance over the past 24 hours is positive for 0.2 L. The patient remains on broad-spectrum antibiotics patient is currently on IV cefepime and Levaquin. Pro-calcitonin level was elevated. A repeat level is to be obtained today. Objective - Vital Signs Vital signs: Vital Signs Temp 97.6 F 03/14/22 04:00 Pulse 128 H 03/14/22 05:00 Resp 22 03/14/22 05:00 BP 101/65 03/14/22 05:00 Pulse Ox 88 L 03/14/22 05:00 FiO2 80 03/14/22 04:00 Intake & Output 03/13/22 03/13/22 03/14/22 06:59 18:59 06:59 Intake Total 2364.559 2770.211 2328.444 Output Total 220 557 438 Balance 2144.559 2213.211 1890.444 Weight 135 kg 142 kg Intake: IV 1420 1800 1650 Cefepime 1 gm In Sodium 50 Chloride 0.9% 50 ml @ 100 mls/hr IVPB Q12H TRE Rx# :[id number] Dextrose 5% in Water 1, 1100 200 000 ml @ 100 mls/hr IV . [id number] TRE with Sodium Bicarb (1 Meq/ml) 150 ml Rx#:[id number] Dextrose 5% in Water 100 100 ml @ 618 mls/hr IV .Q10M ONE with Amiodarone 150 mg Rx#:[id number] Levofloxacin 250Mg-D5w 50 Pmx 250 mg In Dextrose/ Water 1 50ml.bag @ 50 mls /hr IVPB Q24HR TRE Rx#: [id number] Sodium Chloride 0.9% 1, 220 000 ml @ 100 mls/hr IV . Q10H STA Rx#:[id number] Sodium Chloride 0.9% 1, 1500 1650 000 ml @ 150 mls/hr IV . Q6H40M TRE Rx#:[id number] Intake, IV Titration 614.559 480.211 85.444 Amount Amiodarone 450 mg In 250 57.779 Dextrose 5% in Water 250 ml @ 0.5 MG/MIN 16.667 mls/hr IV .Q15H TRE Rx#: [id number] Heparin Sod,Pork in 0.45% 240.000 NaCl 25,000 unit In 0.45 % NaCl 1 250ml.bag @ 9. 585 UNITS/KG/HR 10 mls/hr IV .Q24H TRE Rx#: [id number] Norepinephrine 8 mg In 164.559 82.432 Sodium Chloride 0.9% 250 ml @ 0.03 MCG/KG/MIN 6. 056 mls/hr IV .Q24H TRE Rx#:[id number] propofoL 1,000 mg In 200.000 100 Empty Bag 1 bag @ 15 MCG/ KG/MIN 9.389 mls/hr IV . [id number] TRE Rx#:[id number] propofoL 1,000 mg In 85.444 Empty Bag 1 bag @ 15 MCG/ KG/MIN 9.389 mls/hr IV . [id number] TRE Rx#:[id number] Tube Feeding 240 400 503 Other 90 90 90 Output: Chest Tube Drainage 257 118 Chest Tube Left 214 90 Chest Tube Right 43 28 Urine 220 300 320 Other: Voiding Method Indwelling Catheter Indwelling Catheter Indwelling Catheter # Bowel Movements 0 ABP, PAP, CO, CI - Last Documented Arterial Blood Pressure 156/69 - Exam Obese, comfortable comfortable, no acute distress, sedated on propofol and paralytics Head exam was generally normal. There was no scleral icterus or corneal arcus. Mucous membranes were moist. Neck was supple and without jugular venous distension, thyromegaly, or carotid bruits. Carotids were easily palpable bilaterally. There was no adenopathy. Orogastric and orotracheal tube are both in place. Lungs are diminished bilaterally otherwise vessels are equal and symmetrical. The patient has bilateral chest tubes both chest tubes a 28-Chinese. There is positive air leak on the right and left. Cardiac exam revealed the PMI to be normally situated and sized. The rhythm was regular and no extrasystoles were noted during several minutes of auscultation. The first and second heart sounds were normal and physiologic splitting of the second heart sound was noted. There were no murmurs, rubs, clicks, or gallops. Abdominal exam revealed normal bowel sounds. The abdomen was soft, non-tender, and without masses, organomegaly, or appreciable enlargement of the abdominal aorta. Examination of the extremities revealed easily palpable radial, femoral and pedal pulses. There was no cyanosis, clubbing or edema. Diminished pulses in the upper and lower oximetry is bilaterally. Examination of the skin revealed no evidence of significant rashes, suspicious appearing nevi or other concerning lesions. Neurologically the patient sedated on propofol and paralytics - Labs CBC & Chem 7: 03/14/22 03:20 03/14/22 03:20 Labs: Abnormal Lab Results - Last 24 Hours (Table) 03/12/22 03/13/22 03/13/22 Range/Units 08:30 05:27 05:50 WBC (3.8-10.6) k/uL RBC (3.80-5.40) m/uL Hct (34.0-46.0) % MCV (80.0-100.0) fL MCH (25.0-35.0) pg Plt Count (150-450) k/uL Lymphocytes # (Manual) (1.0-4.8) k/uL Monocytes # (Manual) (0-1.0) k/uL Metamyelocytes # (Man) (0) k/uL Myelocytes # (Manual) (0) k/uL Macrocytosis PT (9.0-12.0) sec INR (<1.2) ABG pH (7.35-7.45) ABG pCO2 (35-45) mmHg ABG pO2 66 L (83-108) mmHg ABG HCO3 27 H (21-25) mmol/L ABG Total CO2 28 H (19-24) mmol/L ABG O2 Saturation 93.9 L (94-97) % ABG Lactic Acid (0.5-1.6) mmol/L Sodium (137-145) mmol/L Chloride (98-107) mmol/L BUN (7-17) mg/dL Creatinine (0.52-1.04) mg/dL Glucose (74-99) mg/dL POC Glucose (mg/dL) 162 H (70-110) mg/dL Calcium (8.4-10.2) mg/dL Lactate Dehydrogenase (313-618) U/L Total Protein (6.3-8.2) g/dL Viral Test See Below A 03/13/22 03/13/22 03/13/22 Range/Units 08:40 08:40 08:40 WBC (3.8-10.6) k/uL RBC 3.41 L (3.80-5.40) m/uL Hct (34.0-46.0) % MCV 109.9 H (80.0-100.0) fL MCH 35.5 H (25.0-35.0) pg Plt Count 121 L (150-450) k/uL Lymphocytes # (Manual) 0.97 L (1.0-4.8) k/uL Monocytes # (Manual) 1.05 H (0-1.0) k/uL Metamyelocytes # (Man) 0.08 H (0) k/uL Myelocytes # (Manual) 0.08 H (0) k/uL Macrocytosis Marked A PT 15.7 H (9.0-12.0) sec INR 1.6 H (<1.2) ABG pH (7.35-7.45) ABG pCO2 (35-45) mmHg ABG pO2 (83-108) mmHg ABG HCO3 (21-25) mmol/L ABG Total CO2 (19-24) mmol/L ABG O2 Saturation (94-97) % ABG Lactic Acid (0.5-1.6) mmol/L Sodium 131 L (137-145) mmol/L Chloride 97 L (98-107) mmol/L BUN 62 H (7-17) mg/dL Creatinine 1.98 H (0.52-1.04) mg/dL Glucose 213 H (74-99) mg/dL POC Glucose (mg/dL) (70-110) mg/dL Calcium 8.1 L (8.4-10.2) mg/dL Lactate Dehydrogenase (313-618) U/L Total Protein (6.3-8.2) g/dL Viral Test 03/13/22 03/13/22 03/13/22 Range/Units 08:40 08:40 10:51 WBC (3.8-10.6) k/uL RBC (3.80-5.40) m/uL Hct (34.0-46.0) % MCV (80.0-100.0) fL MCH (25.0-35.0) pg Plt Count (150-450) k/uL Lymphocytes # (Manual) (1.0-4.8) k/uL Monocytes # (Manual) (0-1.0) k/uL Metamyelocytes # (Man) (0) k/uL Myelocytes # (Manual) (0) k/uL Macrocytosis PT (9.0-12.0) sec INR (<1.2) ABG pH 7.29 L (7.35-7.45) ABG pCO2 55 H (35-45) mmHg ABG pO2 (83-108) mmHg ABG HCO3 27 H (21-25) mmol/L ABG Total CO2 28 H (19-24) mmol/L ABG O2 Saturation (94-97) % ABG Lactic Acid 2.9 H* (0.5-1.6) mmol/L Sodium (137-145) mmol/L Chloride (98-107) mmol/L BUN (7-17) mg/dL Creatinine (0.52-1.04) mg/dL Glucose (74-99) mg/dL POC Glucose (mg/dL) (70-110) mg/dL Calcium (8.4-10.2) mg/dL Lactate Dehydrogenase 1425 H (313-618) U/L Total Protein 5.8 L (6.3-8.2) g/dL Viral Test 03/13/22 03/13/22 03/13/22 Range/Units 11:41 15:22 18:32 WBC (3.8-10.6) k/uL RBC (3.80-5.40) m/uL Hct (34.0-46.0) % MCV (80.0-100.0) fL MCH (25.0-35.0) pg Plt Count (150-450) k/uL Lymphocytes # (Manual) (1.0-4.8) k/uL Monocytes # (Manual) (0-1.0) k/uL Metamyelocytes # (Man) (0) k/uL Myelocytes # (Manual) (0) k/uL Macrocytosis PT (9.0-12.0) sec INR (<1.2) ABG pH 7.27 L (7.35-7.45) ABG pCO2 58 H (35-45) mmHg ABG pO2 (83-108) mmHg ABG HCO3 27 H (21-25) mmol/L ABG Total CO2 28 H (19-24) mmol/L ABG O2 Saturation (94-97) % ABG Lactic Acid (0.5-1.6) mmol/L Sodium (137-145) mmol/L Chloride (98-107) mmol/L BUN (7-17) mg/dL Creatinine (0.52-1.04) mg/dL Glucose (74-99) mg/dL POC Glucose (mg/dL) 161 H 148 H (70-110) mg/dL Calcium (8.4-10.2) mg/dL Lactate Dehydrogenase (313-618) U/L Total Protein (6.3-8.2) g/dL Viral Test 03/13/22 03/14/22 03/14/22 Range/Units 23:44 03:20 03:20 WBC 15.2 H (3.8-10.6) k/uL RBC (3.80-5.40) m/uL Hct 46.6 H (34.0-46.0) % MCV 110.3 H (80.0-100.0) fL MCH (25.0-35.0) pg Plt Count 140 L (150-450) k/uL Lymphocytes # (Manual) (1.0-4.8) k/uL Monocytes # (Manual) (0-1.0) k/uL Metamyelocytes # (Man) (0) k/uL Myelocytes # (Manual) (0) k/uL Macrocytosis Marked A PT (9.0-12.0) sec INR (<1.2) ABG pH (7.35-7.45) ABG pCO2 (35-45) mmHg ABG pO2 (83-108) mmHg ABG HCO3 (21-25) mmol/L ABG Total CO2 (19-24) mmol/L ABG O2 Saturation (94-97) % ABG Lactic Acid (0.5-1.6) mmol/L Sodium 134 L (137-145) mmol/L Chloride (98-107) mmol/L BUN 74 H (7-17) mg/dL Creatinine 1.45 H (0.52-1.04) mg/dL Glucose 177 H (74-99) mg/dL POC Glucose (mg/dL) 201 H (70-110) mg/dL Calcium (8.4-10.2) mg/dL Lactate Dehydrogenase (313-618) U/L Total Protein (6.3-8.2) g/dL Viral Test 03/14/22 Range/Units 04:19 WBC (3.8-10.6) k/uL RBC (3.80-5.40) m/uL Hct (34.0-46.0) % MCV (80.0-100.0) fL MCH (25.0-35.0) pg Plt Count (150-450) k/uL Lymphocytes # (Manual) (1.0-4.8) k/uL Monocytes # (Manual) (0-1.0) k/uL Metamyelocytes # (Man) (0) k/uL Myelocytes # (Manual) (0) k/uL Macrocytosis PT (9.0-12.0) sec INR (<1.2) ABG pH 7.23 L (7.35-7.45) ABG pCO2 65 H (35-45) mmHg ABG pO2 66 L (83-108) mmHg ABG HCO3 27 H (21-25) mmol/L ABG Total CO2 29 H (19-24) mmol/L ABG O2 Saturation 90.9 L (94-97) % ABG Lactic Acid (0.5-1.6) mmol/L Sodium (137-145) mmol/L Chloride (98-107) mmol/L BUN (7-17) mg/dL Creatinine (0.52-1.04) mg/dL Glucose (74-99) mg/dL POC Glucose (mg/dL) (70-110) mg/dL Calcium (8.4-10.2) mg/dL Lactate Dehydrogenase (313-618) U/L Total Protein (6.3-8.2) g/dL Viral Test Microbiology - Last 24 Hours (Table) 03/13/22 10:52 Gram Stain - Preliminary Pleural Fluid Body Fluid Culture - Preliminary 03/12/22 08:30 Acid Fast Bacilli Smear - Final Bronchoalviolar Lavage - Left Acid Fast Bacilli Culture - Preliminary 03/13/22 10:52 Anaerobic Culture - Preliminary Pleural Fluid 03/13/22 10:52 Fungal Culture - Preliminary Pleural Fluid 03/13/22 10:52 Acid Fast Bacilli Culture - Preliminary Pleural Fluid 03/12/22 08:30 Gram Stain - Preliminary Bronchoalviolar Lavage - Left Bronchial Washings Culture - Preliminary 03/12/22 03:42 Gram Stain - Preliminary Sputum Sputum Culture - Preliminary 03/11/22 17:43 Blood Culture Gram Stain - Preliminary Blood Assessment and Plan Plan: Acute bilateral pneumonia, rule out influenza pneumonia, bacterial cannot be ruled out especially with an elevated pro-calcitonin level. The bronchial lavage was consistent with influenza A. The patient is currently on Tamiflu. The patient remains intubated on a mechanical ventilator with diffuse bilateral airspace disease. The patient developed also bilateral pneumothoraces. Purulent left-sided pleural effusion post chest tube insertion. Rule out bacterial pneumonia. Awaiting final cultures. The Gram stain showing gram- positive cocci in the pro calcitonin level is elevated. Considered that a superimposed bacterial infection. Acute bilateral pneumothoraces, secondary pneumonia. Cannot rule out possibility of barotrauma. Patient has chest tubes bilaterally. There is adequate expansion of both lungs. On today's chest x-ray, there may be a tiny right-sided pneumothorax. There is persistent air leak bilaterally. Acute hypoxic respiratory failure secondary to above, currently intubated on a mechanical ventilator Acute kidney injury, improving Acute leukocytosis, improving Acute lactic acidosis, improving New-onset atrial fibrillation with RVR, rate is under better control and the patient remains on amiodarone Morbid obesity with previous bariatric surgery Previous history of splenectomy Acute kidney injury secondary to above, improving History of coronary artery disease, nonocclusive disease of the cardiac catheterization from 2021 COPD Fibromyalgia Migraines Chronic back pain History of stomach cancer History of nephrolithiasis History of osteoarthritis History of hepatitis C and hepatitis B Hypertension Plan Continue vent support Continue propofol and give the patient had paralytic holiday at around 7:00 this morning and this continued the Nimbex is patient remains quite significantly mechanical ventilator Titrate FiO2 to maintain saturation above 90% Keep the chest tube in place as the patient has bilateral air leaks Awaiting pleural fluid cultures from the left Continue Tamiflu continue cefepime and and Levaquin Repeat pro-calcitonin level restart IV heparin Enteral feeding for nutritional support of vital high-protein IV fluids, will be cut down to 50 mL an hour and the patient is currently off pressors conditions are vesicular we'll continue to follow. I had lengthy discussion with the family and updated them on her condition. critical care evaluation that was done in more than 30 minutes Time with Patient: Greater than 30
[2022-03-14 06:28] LABS: Glucose,Whole Blood 157 mg/dL (70-110)
[2022-03-14] MEDS: CEFEPIME 1 GM in SODIUM CHLORIDE 0.9% 50 ML IVPB SCH (06:31)
[2022-03-14] MEDS: METOPROLOL TARTRATE 50 MG TAB PO SCH ×2 (07:17→20:13)
--- NOTE | 2022-03-14 07:45 | P.PN ---
Subjective Progress Note Date: 03/14/22 PROGRESS NOTE The patient is a 61-year-old female with a known history of mild CAD by cardiac catheterization in June, history of hypertension who presented with symptoms of progressive dyspnea. She tested positive for influenza a period had progressive dyspnea requiring mechanical ventilation. Cardiology consultation was requested. Patient has no history of myocardial infarction or prior cardiomyop athy. I have no recent evaluation of her systolic function. She is in sinus mechanism, intubated and sedated. Her blood pressure is stable. According to the notes and the nursing staff the patient has been having progressive dyspnea over the last 2 weeks with a cough and wheezing. She was initially placed on BiPAP at with worsening dyspnea required mechanical ventilation. I have no history of prior smoking or documented COPD. On presentation her troponin were normal, she had evidence of acute renal injury. Her NT proBNP was 1590. Her plasma lactic was elevated. She had significant leukocytosis. Her chest x-ray shows patchy bilateral air space consolidation. No other prior history could be obtained at this time. March 13: The patient remains intubated and sedated. She is in atrial fibrillation with episodes of rapid ventricle response. She is on a low dose norepinephrine. Her urine output has been low. She was started on IV amiodarone and IV heparin. There is no ventricular ectopic activity. She is receiving every feeding. There is no evidence of GI bleeding. Her echocardiogram yesterday showed an ejection fraction of 45-50% with mild mitral and tricuspid regurgitation and no evidence of pulmonary hypertension. March 14: The patient was found to have pneumothorax yesterday, underwent chest tube placement. She continues to have air leak. Her IV heparin was on hold yesterday. She continues to be in atrial ablation with episode of rapid ventricular response. There is no evidence of ventricular ectopic activity. Her urinary output is stable. She is tolerating tube feeding. Medications: amiodarone 400 mg twice a day, insulin, IV heparin to be restarted today, metoprolol 50 mg twice a day, aspirin once a day, Tamiflu, Cardura PHYSICAL EXAMINATION: Blood pressure 101/60 heart rate 110-120 LUNGS: Scattered rhonchi, chest tube in place HEART: Irregular rate and rhythm, S1, S2. No S3. No systolic murmur ABDOMEN: Soft, obese, no organomegaly, positive bowel sounds EXTREMETIES: No edema LAB: Hemoglobin 14.5, BUN 74, creatinine 1.45, potassium 4.1 IMPRESSION: 1. Respiratory failure with influenza A infection, intubated was possible superimposed bacterial infection 2. Atrial fibrillation, new onset, probably exacerbated by infection. Her score is 2 3. Mild CAD 4. Prior history of hypertension 5. Acute renal injury, improving 6. Pneumothorax status post chest tube PLAN: 1. Continue amiodarone beta juan 2. Resume anticoagulation 3. Continue supportive care 4. Depending on her progress further recommendations will be made Objective - Vital Signs Vital signs: Vital Signs Temp 97.6 F 03/14/22 04:00 Pulse 121 H 03/14/22 07:00 Resp 28 H 03/14/22 07:00 BP 101/65 03/14/22 07:00 Pulse Ox 89 L 03/14/22 07:00 FiO2 90 03/14/22 07:24 Intake & Output 03/13/22 03/14/22 03/14/22 18:59 06:59 18:59 Intake Total 2770.211 2525.444 150 Output Total 557 513 30 Balance 2213.211 2012.444 120 Weight 142 kg Intake: IV 1800 1800 150 Cefepime 1 gm In Sodium 50 Chloride 0.9% 50 ml @ 100 mls/hr IVPB Q12H TRE Rx# :[id number] Dextrose 5% in Water 1, 200 000 ml @ 100 mls/hr IV . [id number] TRE with Sodium Bicarb (1 Meq/ml) 150 ml Rx#:[id number] Levofloxacin 250Mg-D5w 50 Pmx 250 mg In Dextrose/ Water 1 50ml.bag @ 50 mls /hr IVPB Q24HR TRE Rx#: [id number] Sodium Chloride 0.9% 1, 1500 1800 150 000 ml @ 150 mls/hr IV . Q6H40M TRE Rx#:[id number] Intake, IV Titration 480.211 85.444 0 Amount Amiodarone 450 mg In 57.779 Dextrose 5% in Water 250 ml @ 0.5 MG/MIN 16.667 mls/hr IV .Q15H TRE Rx#: [id number] Heparin Sod,Pork in 0.45% 240.000 0 NaCl 25,000 unit In 0.45 % NaCl 1 250ml.bag @ 9. 585 UNITS/KG/HR 10 mls/hr IV .Q24H TRE Rx#: [id number] Norepinephrine 8 mg In 82.432 Sodium Chloride 0.9% 250 ml @ 0.03 MCG/KG/MIN 6. 056 mls/hr IV .Q24H TRE Rx#:[id number] propofoL 1,000 mg In 100 Empty Bag 1 bag @ 15 MCG/ KG/MIN 9.389 mls/hr IV . [id number] TRE Rx#:[id number] propofoL 1,000 mg In 85.444 Empty Bag 1 bag @ 15 MCG/ KG/MIN 9.389 mls/hr IV . [id number] TRE Rx#:[id number] Tube Feeding 400 550 Other 90 90 Output: Chest Tube Drainage 257 148 Chest Tube Left 214 120 Chest Tube Right 43 28 Urine 300 365 30 Other: Voiding Method Indwelling Catheter Indwelling Catheter # Bowel Movements 0 ABP, PAP, CO, CI - Last Documented Arterial Blood Pressure 163/66 - Labs CBC & Chem 7: 03/14/22 03:20 03/14/22 03:20 Labs: Abnormal Lab Results - Last 24 Hours (Table) 03/12/22 03/13/22 03/13/22 Range/Units 08:30 08:40 08:40 WBC (3.8-10.6) k/uL RBC 3.41 L (3.80-5.40) m/uL Hct (34.0-46.0) % MCV 109.9 H (80.0-100.0) fL MCH 35.5 H (25.0-35.0) pg Plt Count 121 L (150-450) k/uL Lymphocytes # (Manual) 0.97 L (1.0-4.8) k/uL Monocytes # (Manual) 1.05 H (0-1.0) k/uL Metamyelocytes # (Man) 0.08 H (0) k/uL Myelocytes # (Manual) 0.08 H (0) k/uL Macrocytosis Marked A PT (9.0-12.0) sec INR (<1.2) ABG pH (7.35-7.45) ABG pCO2 (35-45) mmHg ABG pO2 (83-108) mmHg ABG HCO3 (21-25) mmol/L ABG Total CO2 (19-24) mmol/L ABG O2 Saturation (94-97) % ABG Lactic Acid (0.5-1.6) mmol/L Sodium 131 L (137-145) mmol/L Chloride 97 L (98-107) mmol/L BUN 62 H (7-17) mg/dL Creatinine 1.98 H (0.52-1.04) mg/dL Glucose 213 H (74-99) mg/dL POC Glucose (mg/dL) (70-110) mg/dL Calcium 8.1 L (8.4-10.2) mg/dL Lactate Dehydrogenase (313-618) U/L Total Protein (6.3-8.2) g/dL Viral Test See Below A 03/13/22 03/13/22 03/13/22 Range/Units 08:40 08:40 08:40 WBC (3.8-10.6) k/uL RBC (3.80-5.40) m/uL Hct (34.0-46.0) % MCV (80.0-100.0) fL MCH (25.0-35.0) pg Plt Count (150-450) k/uL Lymphocytes # (Manual) (1.0-4.8) k/uL Monocytes # (Manual) (0-1.0) k/uL Metamyelocytes # (Man) (0) k/uL Myelocytes # (Manual) (0) k/uL Macrocytosis PT 15.7 H (9.0-12.0) sec INR 1.6 H (<1.2) ABG pH (7.35-7.45) ABG pCO2 (35-45) mmHg ABG pO2 (83-108) mmHg ABG HCO3 (21-25) mmol/L ABG Total CO2 (19-24) mmol/L ABG O2 Saturation (94-97) % ABG Lactic Acid 2.9 H* (0.5-1.6) mmol/L Sodium (137-145) mmol/L Chloride (98-107) mmol/L BUN (7-17) mg/dL Creatinine (0.52-1.04) mg/dL Glucose (74-99) mg/dL POC Glucose (mg/dL) (70-110) mg/dL Calcium (8.4-10.2) mg/dL Lactate Dehydrogenase 1425 H (313-618) U/L Total Protein 5.8 L (6.3-8.2) g/dL Viral Test 03/13/22 03/13/22 03/13/22 Range/Units 10:51 11:41 15:22 WBC (3.8-10.6) k/uL RBC (3.80-5.40) m/uL Hct (34.0-46.0) % MCV (80.0-100.0) fL MCH (25.0-35.0) pg Plt Count (150-450) k/uL Lymphocytes # (Manual) (1.0-4.8) k/uL Monocytes # (Manual) (0-1.0) k/uL Metamyelocytes # (Man) (0) k/uL Myelocytes # (Manual) (0) k/uL Macrocytosis PT (9.0-12.0) sec INR (<1.2) ABG pH 7.29 L 7.27 L (7.35-7.45) ABG pCO2 55 H 58 H (35-45) mmHg ABG pO2 (83-108) mmHg ABG HCO3 27 H 27 H (21-25) mmol/L ABG Total CO2 28 H 28 H (19-24) mmol/L ABG O2 Saturation (94-97) % ABG Lactic Acid (0.5-1.6) mmol/L Sodium (137-145) mmol/L Chloride (98-107) mmol/L BUN (7-17) mg/dL Creatinine (0.52-1.04) mg/dL Glucose (74-99) mg/dL POC Glucose (mg/dL) 161 H (70-110) mg/dL Calcium (8.4-10.2) mg/dL Lactate Dehydrogenase (313-618) U/L Total Protein (6.3-8.2) g/dL Viral Test 03/13/22 03/13/22 03/14/22 Range/Units 18:32 23:44 03:20 WBC (3.8-10.6) k/uL RBC (3.80-5.40) m/uL Hct (34.0-46.0) % MCV (80.0-100.0) fL MCH (25.0-35.0) pg Plt Count (150-450) k/uL Lymphocytes # (Manual) (1.0-4.8) k/uL Monocytes # (Manual) (0-1.0) k/uL Metamyelocytes # (Man) (0) k/uL Myelocytes # (Manual) (0) k/uL Macrocytosis PT (9.0-12.0) sec INR (<1.2) ABG pH (7.35-7.45) ABG pCO2 (35-45) mmHg ABG pO2 (83-108) mmHg ABG HCO3 (21-25) mmol/L ABG Total CO2 (19-24) mmol/L ABG O2 Saturation (94-97) % ABG Lactic Acid (0.5-1.6) mmol/L Sodium 134 L (137-145) mmol/L Chloride (98-107) mmol/L BUN 74 H (7-17) mg/dL Creatinine 1.45 H (0.52-1.04) mg/dL Glucose 177 H (74-99) mg/dL POC Glucose (mg/dL) 148 H 201 H (70-110) mg/dL Calcium (8.4-10.2) mg/dL Lactate Dehydrogenase (313-618) U/L Total Protein (6.3-8.2) g/dL Viral Test 03/14/22 03/14/22 03/14/22 Range/Units 03:20 04:19 06:26 WBC 15.2 H (3.8-10.6) k/uL RBC (3.80-5.40) m/uL Hct 46.6 H (34.0-46.0) % MCV 110.3 H (80.0-100.0) fL MCH (25.0-35.0) pg Plt Count 140 L (150-450) k/uL Lymphocytes # (Manual) (1.0-4.8) k/uL Monocytes # (Manual) (0-1.0) k/uL Metamyelocytes # (Man) (0) k/uL Myelocytes # (Manual) (0) k/uL Macrocytosis Marked A PT (9.0-12.0) sec INR (<1.2) ABG pH 7.23 L (7.35-7.45) ABG pCO2 65 H (35-45) mmHg ABG pO2 66 L (83-108) mmHg ABG HCO3 27 H (21-25) mmol/L ABG Total CO2 29 H (19-24) mmol/L ABG O2 Saturation 90.9 L (94-97) % ABG Lactic Acid (0.5-1.6) mmol/L Sodium (137-145) mmol/L Chloride (98-107) mmol/L BUN (7-17) mg/dL Creatinine (0.52-1.04) mg/dL Glucose (74-99) mg/dL POC Glucose (mg/dL) 157 H (70-110) mg/dL Calcium (8.4-10.2) mg/dL Lactate Dehydrogenase (313-618) U/L Total Protein (6.3-8.2) g/dL Viral Test Microbiology - Last 24 Hours (Table) 03/13/22 10:52 Gram Stain - Preliminary Pleural Fluid Body Fluid Culture - Preliminary 03/12/22 08:30 Acid Fast Bacilli Smear - Final Bronchoalviolar Lavage - Left Acid Fast Bacilli Culture - Preliminary 03/13/22 10:52 Anaerobic Culture - Preliminary Pleural Fluid 03/13/22 10:52 Fungal Culture - Preliminary Pleural Fluid 03/13/22 10:52 Acid Fast Bacilli Culture - Preliminary Pleural Fluid 03/12/22 08:30 Gram Stain - Preliminary Bronchoalviolar Lavage - Left Bronchial Washings Culture - Preliminary 03/12/22 03:42 Gram Stain - Preliminary Sputum Sputum Culture - Preliminary 03/11/22 17:43 Blood Culture Gram Stain - Preliminary Blood
--- NOTE | 2022-03-14 08:18 | XR ---
EXAMINATION TYPE: XR chest 1V portable DATE OF EXAM: 03/14/2022 COMPARISON: 03/13/2022 INDICATION: Tube placement, thorax TECHNIQUE: Single frontal view of the chest is obtained. FINDINGS: The heart size is normal. The pulmonary vasculature is normal. Diffuse increased lung markings are present bilaterally greater lung bases. Bilateral chest tubes are present. Minimal residual right-sided pneumothorax is evident. A small lef t apical pneumothorax is present IMPRESSION: 1. Minimal bilateral pneumothoraces present. Bilateral chest tubes are present. 2. Diffuse increased lung markings slight improvement over the interval, infiltrates are greater at t he lung bases.
[2022-03-14] MEDS: PANTOPRAZOLE 40 MG/10 ML VIAL IVP SCH (10:03)
[2022-03-14] MEDS: methylPREDNISolone SOD SUCCI 40 MG/ML 1 ML VIAL IV SCH (10:03)
[2022-03-14] MEDS: LEVOFLOXACIN 250MG-D5W PMX 250 MG in DEXTROSE/WATER 1 50ML.BAG IVPB SCH (10:03)
[2022-03-14] MEDS: ASPIRIN 81 MG PO SCH (10:04)
[2022-03-14] MEDS: AMIODARONE 200 MG TAB PO SCH ×2 (10:04→20:13)
[2022-03-14] MEDS: CHLORHEXIDINE GLUCONATE 15 ML CUP MUCOUS MEM SCH ×2 (10:04→20:13)
[2022-03-14] MEDS: SODIUM CHLORIDE 0.9% 1,000 ML IV SCH ×5 (10:12→23:34)
[2022-03-14] MEDS: NOREPINEPHRINE 8 MG in SODIUM CHLORIDE 0.9% 250 ML IV SCH (10:30)
[2022-03-14] MEDS: buPROPion SR 100 MG TABLET.ER PO SCH ×2 (10:32→20:13)
[2022-03-14] MEDS: HEPARIN SOD,PORK IN 0.45% NACL 25,000 UNIT in 0.45% NACL 1 250ML.BAG IV SCH (10:32)
[2022-03-14] MEDS: OSELTAMIVIR 60 MG/10 ML ORAL SYRINGE PO SCH ×2 (10:38→20:34)
[2022-03-14] MEDS: CISATRACURIUM 200 MG in SODIUM CHLORIDE 0.9% 180 ML IV SCH (10:39)
[2022-03-14 11:27] LABS: Glucose,Whole Blood 153 mg/dL (70-110)
[2022-03-14 14:34] LABS: ABG Base Excess -1.5 mmol/L; ABG HCO3 27 mmol/L (21-25); ABG Oxygen Saturation 89.7 % (94-97); ABG PO2 65 mmHg (83-108); ABG TCO2 29 mmol/L (19-24)
[2022-03-14 14:35] LABS: ABG PCO2 72 mmHg (35-45); ABG PH 7.18 (7.35-7.45); Allen Test Performed? no
[2022-03-14] MEDS ORDERED: VANCOMYCIN IV PER PHARMACY 1 EACH MISC MISCELLANE PRN (15:36)
--- NOTE | 2022-03-14 15:37 | P.PN ---
Subjective Progress Note Date: 03/14/22 Principal diagnosis: Pneumonia Patient is a 61-year-old female with a past medical history significant for coronary artery disease hypertension heart failure presenting to the ER last evening for evaluation of increasing shortness of breath in this patient symptom apparently has been going on for 2 weeks before presentation to the hospital, patient did have worsening of respiratory status requiring intubation subsequently developing bilateral pneumothoraces requiring chest tube placement on 03/13/2022. On today's evaluation that is 03/14/2022, the patient is afebrile today, the patient is hemodynamically stable, the patient FiO2 is still at 100%, patient is currently not on any pressor support per the nursing staff, no significant purulent secretions through the ET or diarrhea reported by nursing staff Objective - Vital Signs Vital signs: Vital Signs Temp 98.0 F 03/14/22 08:00 Pulse 100 03/14/22 11:20 Resp 28 H 03/14/22 09:30 BP 101/65 03/14/22 09:30 Pulse Ox 90 L 03/14/22 09:30 FiO2 100 03/14/22 11:05 Intake & Output 03/13/22 03/14/22 03/14/22 18:59 06:59 18:59 Intake Total 2770.211 2525.444 647.647 Output Total 557 513 135 Balance 2213.211 2012.444 512.647 Weight 142 kg Intake: IV 1800 1800 225 Cefepime 1 gm In Sodium 50 Chloride 0.9% 50 ml @ 100 mls/hr IVPB Q12H TRE Rx# :[id number] Dextrose 5% in Water 1, 200 000 ml @ 100 mls/hr IV . [id number] TRE with Sodium Bicarb (1 Meq/ml) 150 ml Rx#:[id number] Levofloxacin 250Mg-D5w 50 Pmx 250 mg In Dextrose/ Water 1 50ml.bag @ 50 mls /hr IVPB Q24HR TRE Rx#: [id number] Sodium Chloride 0.9% 1, 1500 1800 225 000 ml @ 150 mls/hr IV . Q6H40M TRE Rx#:[id number] Intake, IV Titration 480.211 85.444 328.647 Amount Amiodarone 450 mg In 57.779 Dextrose 5% in Water 250 ml @ 0.5 MG/MIN 16.667 mls/hr IV .Q15H TRE Rx#: [id number] Cisatracurium 200 mg In 195.480 Sodium Chloride 0.9% 180 ml @ 1 MCG/KG/MIN 8.1 mls /hr IV .Q24H TRE Rx#: [id number] Heparin Sod,Pork in 0.45% 240.000 33.167 NaCl 25,000 unit In 0.45 % NaCl 1 250ml.bag @ 9. 585 UNITS/KG/HR 10 mls/hr IV .Q24H TRE Rx#: [id number] Norepinephrine 8 mg In 82.432 Sodium Chloride 0.9% 250 ml @ 0.03 MCG/KG/MIN 6. 056 mls/hr IV .Q24H TRE Rx#:[id number] propofoL 1,000 mg In 100 Empty Bag 1 bag @ 15 MCG/ KG/MIN 9.389 mls/hr IV . [id number] TRE Rx#:[id number] propofoL 1,000 mg In 85.444 100 Empty Bag 1 bag @ 15 MCG/ KG/MIN 9.389 mls/hr IV . [id number] TRE Rx#:[id number] Tube Feeding 400 550 94 Other 90 90 Output: Chest Tube Drainage 257 148 10 Chest Tube Left 214 120 0 Chest Tube Right 43 28 10 Urine 300 365 125 Other: Voiding Method Indwelling Catheter Indwelling Catheter # Bowel Movements 0 ABP, PAP, CO, CI - Last Documented Arterial Blood Pressure 141/64 - Exam GENERAL DESCRIPTION: Middle-aged female intubated on the vent RESPIRATORY SYSTEM: Unlabored breathing , decreased breath sounds at bases HEART: S1 S2 regular rate and rhythm , ABDOMEN: Soft , no tenderness EXTREMITIES: No edema feet - Labs CBC & Chem 7: 03/14/22 03:20 03/14/22 03:20 Labs: Abnormal Lab Results - Last 24 Hours (Table) 03/12/22 03/13/22 03/13/22 Range/Units 08:30 15: 18:32 WBC (3.8-10.6) k/uL Hct (34.0-46.0) % MCV (80.0-100.0) fL Plt Count (150-450) k/uL Macrocytosis ABG pH 7.27 L (7.35-7.45) ABG pCO2 58 H (35-45) mmHg ABG pO2 (83-108) mmHg ABG HCO3 27 H (21-25) mmol/L ABG Total CO2 28 H (19-24) mmol/L ABG O2 Saturation (94-97) % Sodium (137-145) mmol/L BUN (7-17) mg/dL Creatinine (0.52-1.04) mg/dL Glucose (74-99) mg/dL POC Glucose (mg/dL) 148 H (70-110) mg/dL Procalcitonin (0.02-0.09) ng/mL Viral Test See Below A 03/13/22 03/14/22 03/14/22 Range/Units 23:44 03:20 03:20 WBC 15.2 H (3.8-10.6) k/uL Hct 46.6 H (34.0-46.0) % MCV 110.3 H (80.0-100.0) fL Plt Count 140 L (150-450) k/uL Macrocytosis Marked A ABG pH (7.35-7.45) ABG pCO2 (35-45) mmHg ABG pO2 (83-108) mmHg ABG HCO3 (21-25) mmol/L ABG Total CO2 (19-24) mmol/L ABG O2 Saturation (94-97) % Sodium 134 L (137-145) mmol/L BUN 74 H (7-17) mg/dL Creatinine 1.45 H (0.52-1.04) mg/dL Glucose 177 H (74-99) mg/dL POC Glucose (mg/dL) 201 H (70-110) mg/dL Procalcitonin (0.02-0.09) ng/mL Viral Test 03/14/22 03/14/22 03/14/22 Range/Units 04:19 05:45 06:26 WBC (3.8-10.6) k/uL Hct (34.0-46.0) % MCV (80.0-100.0) fL Plt Count (150-450) k/uL Macrocytosis ABG pH 7.23 L (7.35-7.45) ABG pCO2 65 H (35-45) mmHg ABG pO2 66 L (83-108) mmHg ABG HCO3 27 H (21-25) mmol/L ABG Total CO2 29 H (19-24) mmol/L ABG O2 Saturation 90.9 L (94-97) % Sodium (137-145) mmol/L BUN (7-17) mg/dL Creatinine (0.52-1.04) mg/dL Glucose (74-99) mg/dL POC Glucose (mg/dL) 157 H (70-110) mg/dL Procalcitonin 4.36 H (0.02-0.09) ng/mL Viral Test 03/14/22 Range/Units 11:26 WBC (3.8-10.6) k/uL Hct (34.0-46.0) % MCV (80.0-100.0) fL Plt Count (150-450) k/uL Macrocytosis ABG pH (7.35-7.45) ABG pCO2 (35-45) mmHg ABG pO2 (83-108) mmHg ABG HCO3 (21-25) mmol/L ABG Total CO2 (19-24) mmol/L ABG O2 Saturation (94-97) % Sodium (137-145) mmol/L BUN (7-17) mg/dL Creatinine (0.52-1.04) mg/dL Glucose (74-99) mg/dL POC Glucose (mg/dL) 153 H (70-110) mg/dL Procalcitonin (0.02-0.09) ng/mL Viral Test Microbiology - Last 24 Hours (Table) 03/12/22 08:30 Gram Stain - Final Bronchoalviolar Lavage - Left Bronchial Washings Culture - Final Methicillin resist S. aureus 03/12/22 03:42 Gram Stain - Final Sputum Sputum Culture - Final Methicillin resist S. aureus 03/13/22 10:52 Gram Stain - Preliminary Pleural Fluid Body Fluid Culture - Preliminary Presumptive MRSA 03/11/22 17:26 Blood Culture Gram Stain - Final Blood Blood Culture - Final Staphylococcus epidermidis 03/11/22 17:43 Blood Culture Gram Stain - Final Blood Blood Culture - Final Coagulase Negative Staph 03/12/22 08:30 Acid Fast Bacilli Smear - Final Bronchoalviolar Lavage - Left Acid Fast Bacilli Culture - Preliminary 03/13/22 10:52 Anaerobic Culture - Preliminary Pleural Fluid 03/13/22 10:52 Fungal Culture - Preliminary Pleural Fluid 03/13/22 10:52 Acid Fast Bacilli Culture - Preliminary Pleural Fluid Assessment and Plan (1) Multifocal pneumonia Current Visit: Yes Status: Acute Code(s): J18.9 - PNEUMONIA, UNSPECIFIED ORGANISM SNOMED Code(s): 013255583 Plan: 1patient with a positive blood culture with staph epi likely skin contamination, blood cultures has been be repeated document clearance of the bacteremia. 2patient with the acute respiratory failure multifactorial and likely component of pneumonia in this patient sputum as well as BAL cultures are currently growing MRSA 3the patient will be started on vancomycin pharmacy to dose and watch her kidney function closely Time with Patient: Greater than 30
[2022-03-14] MEDS: VANCOMYCIN 2,000 MG in SODIUM CHLORIDE 0.9% 500 ML 500 ML IVPB SCH (17:00)
[2022-03-14] MEDS: CEFEPIME 2 GM in SODIUM CHLORIDE 0.9% 100 ML IVPB SCH (17:01)
[2022-03-14 17:30] LABS: Glucose,Whole Blood 177 mg/dL (70-110)
[2022-03-14] MEDS: QUEtiapine 100 MG TAB PO SCH (20:13)
[2022-03-14 20:15] LABS: Glucose, BF Source Pleural Fluid; Glucose, Body Fluid 4 mg/dL; T. Protein, Body Fluid Source Pleural Fluid; Total Protein, Body Fluid 3900 mg/dL
[2022-03-14 22:33] LABS: LDH, Body Fluid Source Pleural Fluid
[2022-03-14 23:32] LABS: Glucose,Whole Blood 166 mg/dL (70-110)
[2022-03-15] MEDS: IPRATROPIUM-ALBUTEROL 3 ML NEB INHALATION SCH ×6 (03:08→23:34)
[2022-03-15] MEDS: ARTIFICIAL TEARS-HYPROMELLOSE DROPS 15 ML BTL BOTH EYES SCH ×5 (03:51→21:06)
--- NOTE | 2022-03-15 04:17 | PN ---
PROGRESS NOTE DATE OF SERVICE: 03/14/2022 CHIEF COMPLAINT: Respiratory failure. HISTORY OF PRESENT ILLNESS: This lady remains on the ventilator. She is back into atrial fibrillation. PHYSICAL EXAMINATION: VITAL SIGNS: Blood pressure is 101/59. CHEST: Demonstrates occasional rhonchi on the ventilator. CARDIAC: Normal. ABDOMEN: Soft, nontender. IMPRESSION: 1. Respiratory failure. 2. Bronchial pneumonia. 3. Congestive heart failure. 4. Atrial fibrillation. PLAN: No change in her treatment or medications at this time. MMODL / IJN: [id number] /
[2022-03-15 05:08] LABS: HCT 46.6 % (34.0-46.0); HGB 14.3 gm/dL (11.4-16.0); Hypochromasia Marked; MCHC 30.7 g/dL (31.0-37.0); MCV 113.9 fL (80.0-100.0); Macrocytosis Marked; Platelet Count 122 k/uL (150-450); RBC 4.09 m/uL (3.80-5.40); RDW 13.7 % (11.5-15.5)
[2022-03-15 05:09] LABS: Albumin 2.3 g/dL (3.5-5.0); Calcium 8.5 mg/dL (8.4-10.2); Total Bilirubin 4.1 mg/dL (0.2-1.3); Total Protein 5.6 g/dL (6.3-8.2)
[2022-03-15 05:17] LABS: ABG HCO3 25 mmol/L (21-25); ABG Oxygen Saturation 90.8 % (94-97); ABG PO2 68 mmHg (83-108); ABG TCO2 28 mmol/L (19-24); Allen Test Performed? Yes
[2022-03-15 05:38] LABS: ABG PCO2 79 mmHg (35-45); ABG PH 7.11 (7.35-7.45)
[2022-03-15] MEDS: CEFEPIME 2 GM in SODIUM CHLORIDE 0.9% 100 ML IVPB SCH ×2 (05:39→18:46)
[2022-03-15 05:50] LABS: Glucose,Whole Blood 181 mg/dL (70-110)
[2022-03-15] MEDS: INSULIN ASPART (NovoLOG) 100 UNIT/ML VIAL SQ SCH ×3 (05:53→18:45)
--- NOTE | 2022-03-15 06:16 | XR ---
EXAMINATION TYPE: XR chest 1V portable DATE OF EXAM: 03/15/2022 CLINICAL HISTORY: Difficulty breathing progress study. TECHNIQUE: Single AP portable semiupright view of the chest is obtained. COMPARISON: Chest x-ray from one day earlier and older studies. FINDINGS: Stable endotracheal and orogastric tubes. Stable bilateral chest tubes and left-sided PICC line. Persistent bilateral multifocal increased opacities. Current exam is suboptimal as does not include e ntire left lung apex. Stable tiny bilateral pneumothoraces are seen in visualized portions. Vertical linear density right central lung presumed external to the patient has does not extend along the enti re course of the mediastinum to suggest pneumomediastinum. Stable mild cardiomegaly. Surgical clips i n the epigastric region and left upper quadrant are redemonstrated. IMPRESSION: Bilateral chest tubes with tiny biapical pneumothoraces redemonstrated and stable. Diffus e bilateral edema and/or infiltrates again seen not significantly changed from one day earlier. Consi natalia ARDS.
[2022-03-15 06:24] LABS: Band Neutrophils % 7 %; Metamyelocytes % 3 %; Myelocytes % 4 %; Neutrophils % (M) 78 %; Nucleated Red Blood Cells 2 /100 WBC (0-0); Total Cells Counted 200
[2022-03-15 06:25] LABS: Large Platelets Present; Lymphocytes # (M) 1.55 k/uL (1.0-4.8); Metamyelocytes # (M) 0.93 k/uL (0); Monocytes # (M) 1.24 k/uL (0-1.0); Myelocytes # (M) 1.24 k/uL (0); Polychromasia Present
--- NOTE | 2022-03-15 07:50 | P.PN ---
Subjective Progress Note Date: 03/15/22 PROGRESS NOTE The patient is a 61-year-old female with a known history of mild CAD by cardiac catheterization in June, history of hypertension who presented with symptoms of progressive dyspnea. She tested positive for influenza a period had progressive dyspnea requiring mechanical ventilation. Cardiology consultation was requested. Patient has no history of myocardial infarction or prior cardiomyop athy. I have no recent evaluation of her systolic function. She is in sinus mechanism, intubated and sedated. Her blood pressure is stable. According to the notes and the nursing staff the patient has been having progressive dyspnea over the last 2 weeks with a cough and wheezing. She was initially placed on BiPAP at with worsening dyspnea required mechanical ventilation. I have no history of prior smoking or documented COPD. On presentation her troponin were normal, she had evidence of acute renal injury. Her NT proBNP was 1590. Her plasma lactic was elevated. She had significant leukocytosis. Her chest x-ray shows patchy bilateral air space consolidation. No other prior history could be obtained at this time. March 13: The patient remains intubated and sedated. She is in atrial fibrillation with episodes of rapid ventricle response. She is on a low dose norepinephrine. Her urine output has been low. She was started on IV amiodarone and IV heparin. There is no ventricular ectopic activity. She is receiving every feeding. There is no evidence of GI bleeding. Her echocardiogram yesterday showed an ejection fraction of 45-50% with mild mitral and tricuspid regurgitation and no evidence of pulmonary hypertension. March 14: The patient was found to have pneumothorax yesterday, underwent chest tube placement. She continues to have air leak. Her IV heparin was on hold yesterday. She continues to be in atrial fibrillation with episode of rapid ventricular response. There is no evidence of ventricular ectopic activity. Her urinary output is stable. She is tolerating tube feeding. March 15: The patient remains intubated and sedated. She continues to be in atrial fibrillation. She has a chest you. She is back on her IV heparin. There is no evidence of ventricular ectopic activity. She sedated. She had evidence of bilateral pneumothorax. The patient had influenza infection and probable super imposed bacterial infection. Her pro-calcitonin was elevated. Her echocardiogram showed a mildly impaired systolic function with no evidence of significant valvular disease. Medications: amiodarone 400 mg twice a day, insulin, IV heparin to be restarted today, metoprolol 50 mg twice a day, aspirin once a day, Tamiflu, Cardura PHYSICAL EXAMINATION: Blood pressure 119/60 heart rate 110-120 LUNGS: Scattered rhonchi, chest tube in place HEART: Irregular rate and rhythm, S1, S2. No S3. No systolic murmur ABDOMEN: Soft, obese, no organomegaly, positive bowel sounds EXTREMETIES: No edema LAB: Hemoglobin 14.3, BUN 95, creatinine 1.40, potassium 5.0, pH 7.11, white blood cell 31,000 IMPRESSION: 1. Respiratory failure with influenza A infection, intubated with possible superimposed bacterial infection, worsening leukocytosis 2. Atrial fibrillation, new onset, probably exacerbated by infection. Her score is 2 3. Mild CAD 4. Prior history of hypertension 5. Acute renal injury, improving 6. Pneumothorax status post chest tube PLAN: 1. Continue amiodarone, beta juan 2. Continue present therapy 3. Follow renal functions 4. Prognosis is guarded Objective - Vital Signs Vital signs: Vital Signs Temp 98.1 F 03/15/22 04:00 Pulse 118 H 03/15/22 07:26 Resp 34 H 03/15/22 07:00 BP 101/65 03/14/22 18:00 Pulse Ox 89 L 03/15/22 07:00 FiO2 100 03/15/22 07:12 Intake & Output 03/14/22 03/15/22 03/15/22 18:59 06:59 18:59 Intake Total 2897.004 2116.628 172 Output Total 681 320 25 Balance 2216.004 1796.628 147 Weight 142 kg 141.5 kg Intake: IV 1650 1175 125 Cefepime 1 gm In Sodium 100 75 25 Chloride 0.9% 50 ml @ 100 mls/hr IVPB Q12H TRE Rx# :[id number] Levofloxacin 250Mg-D5w 50 Pmx 250 mg In Dextrose/ Water 1 50ml.bag @ 50 mls /hr IVPB Q24HR TRE Rx#: [id number] Sodium Chloride 0.9% 1, 300 1100 100 000 ml @ 100 mls/hr IV . Q10H TRE Rx#:[id number] Sodium Chloride 0.9% 1, 700 000 ml @ 75 mls/hr IV . [id number] TRE Rx#:[id number] Vancomycin 2,000 mg In 500 Sodium Chloride 0.9% 500 ml 500 ml @ 167 mls/hr IVPB Q24H TRE Rx#: [id number] Intake, IV Titration 576.004 334.628 Amount Cisatracurium 200 mg In 195.480 Sodium Chloride 0.9% 180 ml @ 1 MCG/KG/MIN 8.1 mls /hr IV .Q24H TRE Rx#: [id number] Heparin Sod,Pork in 0.45% 80.524 NaCl 25,000 unit In 0.45 % NaCl 1 250ml.bag @ 9. 585 UNITS/KG/HR 10 mls/hr IV .Q24H TRE Rx#: [id number] propofoL 1,000 mg In 300.000 334.628 Empty Bag 1 bag @ 15 MCG/ KG/MIN 9.389 mls/hr IV . [id number] TRE Rx#:[id number] Tube Feeding 611 517 47 Other 60 90 Output: Chest Tube Drainage 251 0 Chest Tube Left 150 0 Chest Tube Right 101 0 Urine 430 320 25 Other: Voiding Method Indwelling Catheter Indwelling Catheter ABP, PAP, CO, CI - Last Documented Arterial Blood Pressure 119/58 - Labs CBC & Chem 7: 03/15/22 03:56 03/15/22 03:56 Labs: Abnormal Lab Results - Last 24 Hours (Table) 03/12/22 03/14/22 03/14/22 Range/Units 08:30 05:45 11:26 WBC (3.8-10.6) k/uL Hct (34.0-46.0) % MCV (80.0-100.0) fL MCHC (31.0-37.0) g/dL Plt Count (150-450) k/uL Neutrophils # (Manual) (1.3-7.7) k/uL Monocytes # (Manual) (0-1.0) k/uL Metamyelocytes # (Man) (0) k/uL Myelocytes # (Manual) (0) k/uL Nucleated RBCs (0-0) /100 WBC Macrocytosis APTT (22.0-30.0) sec ABG pH (7.35-7.45) ABG pCO2 (35-45) mmHg ABG pO2 (83-108) mmHg ABG HCO3 (21-25) mmol/L ABG Total CO2 (19-24) mmol/L ABG O2 Saturation (94-97) % ABG Lactic Acid (0.5-1.6) mmol/L Sodium (137-145) mmol/L BUN (7-17) mg/dL Creatinine (0.52-1.04) mg/dL Glucose (74-99) mg/dL POC Glucose (mg/dL) 153 H (70-110) mg/dL Total Bilirubin (0.2-1.3) mg/dL AST (14-36) U/L Total Protein (6.3-8.2) g/dL Albumin (3.5-5.0) g/dL Procalcitonin 4.36 H (0.02-0.09) ng/mL Viral Test See Below A 03/14/22 03/14/22 03/14/22 Range/Units 13:29 14:32 17:28 WBC (3.8-10.6) k/uL Hct (34.0-46.0) % MCV (80.0-100.0) fL MCHC (31.0-37.0) g/dL Plt Count (150-450) k/uL Neutrophils # (Manual) (1.3-7.7) k/uL Monocytes # (Manual) (0-1.0) k/uL Metamyelocytes # (Man) (0) k/uL Myelocytes # (Manual) (0) k/uL Nucleated RBCs (0-0) /100 WBC Macrocytosis APTT 38.4 H (22.0-30.0) sec ABG pH 7.18 L* (7.35-7.45) ABG pCO2 72 H* (35-45) mmHg ABG pO2 65 L (83-108) mmHg ABG HCO3 27 H (21-25) mmol/L ABG Total CO2 29 H (19-24) mmol/L ABG O2 Saturation 89.7 L (94-97) % ABG Lactic Acid (0.5-1.6) mmol/L Sodium (137-145) mmol/L BUN (7-17) mg/dL Creatinine (0.52-1.04) mg/dL Glucose (74-99) mg/dL POC Glucose (mg/dL) 177 H (70-110) mg/dL Total Bilirubin (0.2-1.3) mg/dL AST (14-36) U/L Total Protein (6.3-8.2) g/dL Albumin (3.5-5.0) g/dL Procalcitonin (0.02-0.09) ng/mL Viral Test 03/14/22 03/14/22 03/15/22 Range/Units 20:37 23:31 03:56 WBC (3.8-10.6) k/uL Hct (34.0-46.0) % MCV (80.0-100.0) fL MCHC (31.0-37.0) g/dL Plt Count (150-450) k/uL Neutrophils # (Manual) (1.3-7.7) k/uL Monocytes # (Manual) (0-1.0) k/uL Metamyelocytes # (Man) (0) k/uL Myelocytes # (Manual) (0) k/uL Nucleated RBCs (0-0) /100 WBC Macrocytosis APTT 59.3 H (22.0-30.0) sec ABG pH (7.35-7.45) ABG pCO2 (35-45) mmHg ABG pO2 (83-108) mmHg ABG HCO3 (21-25) mmol/L ABG Total CO2 (19-24) mmol/L ABG O2 Saturation (94-97) % ABG Lactic Acid (0.5-1.6) mmol/L Sodium 134 L (137-145) mmol/L BUN 95 H (7-17) mg/dL Creatinine 1.40 H (0.52-1.04) mg/dL Glucose 190 H (74-99) mg/dL POC Glucose (mg/dL) 166 H (70-110) mg/dL Total Bilirubin 4.1 H (0.2-1.3) mg/dL AST 44 H (14-36) U/L Total Protein 5.6 L (6.3-8.2) g/dL Albumin 2.3 L (3.5-5.0) g/dL Procalcitonin (0.02-0.09) ng/mL Viral Test 03/15/22 03/15/22 03/15/22 Range/Units 03:56 03:56 05:12 WBC 31.0 H (3.8-10.6) k/uL Hct 46.6 H (34.0-46.0) % MCV 113.9 H (80.0-100.0) fL MCHC 30.7 L (31.0-37.0) g/dL Plt Count 122 L (150-450) k/uL Neutrophils # (Manual) 26.30 H (1.3-7.7) k/uL Monocytes # (Manual) 1.24 H (0-1.0) k/uL Metamyelocytes # (Man) 0.93 H (0) k/uL Myelocytes # (Manual) 1.24 H (0) k/uL Nucleated RBCs 2 H (0-0) /100 WBC Macrocytosis Marked A APTT (22.0-30.0) sec ABG pH 7.11 L* (7.35-7.45) ABG pCO2 79 H* (35-45) mmHg ABG pO2 68 L (83-108) mmHg ABG HCO3 (21-25) mmol/L ABG Total CO2 28 H (19-24) mmol/L ABG O2 Saturation 90.8 L (94-97) % ABG Lactic Acid 2.4 H* (0.5-1.6) mmol/L Sodium (137-145) mmol/L BUN (7-17) mg/dL Creatinine (0.52-1.04) mg/dL Glucose (74-99) mg/dL POC Glucose (mg/dL) (70-110) mg/dL Total Bilirubin (0.2-1.3) mg/dL AST (14-36) U/L Total Protein (6.3-8.2) g/dL Albumin (3.5-5.0) g/dL Procalcitonin (0.02-0.09) ng/mL Viral Test 03/15/22 03/15/22 Range/Units 05:48 05:48 WBC (3.8-10.6) k/uL Hct (34.0-46.0) % MCV (80.0-100.0) fL MCHC (31.0-37.0) g/dL Plt Count (150-450) k/uL Neutrophils # (Manual) (1.3-7.7) k/uL Monocytes # (Manual) (0-1.0) k/uL Metamyelocytes # (Man) (0) k/uL Myelocytes # (Manual) (0) k/uL Nucleated RBCs (0-0) /100 WBC Macrocytosis APTT 50.4 H (22.0-30.0) sec ABG pH (7.35-7.45) ABG pCO2 (35-45) mmHg ABG pO2 (83-108) mmHg ABG HCO3 (21-25) mmol/L ABG Total CO2 (19-24) mmol/L ABG O2 Saturation (94-97) % ABG Lactic Acid (0.5-1.6) mmol/L Sodium (137-145) mmol/L BUN (7-17) mg/dL Creatinine (0.52-1.04) mg/dL Glucose (74-99) mg/dL POC Glucose (mg/dL) 181 H (70-110) mg/dL Total Bilirubin (0.2-1.3) mg/dL AST (14-36) U/L Total Protein (6.3-8.2) g/dL Albumin (3.5-5.0) g/dL Procalcitonin (0.02-0.09) ng/mL Viral Test Microbiology - Last 24 Hours (Table) 03/13/22 10:52 Acid Fast Bacilli Smear - Final Pleural Fluid Acid Fast Bacilli Culture - Preliminary 03/12/22 08:30 Gram Stain - Final Bronchoalviolar Lavage - Left Bronchial Washings Culture - Final Methicillin resist S. aureus 03/12/22 03:42 Gram Stain - Final Sputum Sputum Culture - Final Methicillin resist S. aureus 03/13/22 10:52 Gram Stain - Preliminary Pleural Fluid Body Fluid Culture - Preliminary Presumptive MRSA 03/11/22 17:26 Blood Culture Gram Stain - Final Blood Blood Culture - Final Staphylococcus epidermidis 03/11/22 17:43 Blood Culture Gram Stain - Final Blood Blood Culture - Final Coagulase Negative Staph
[2022-03-15] MEDS: AMIODARONE 200 MG TAB PO SCH ×2 (08:10→21:20)
[2022-03-15] MEDS: ASPIRIN 81 MG PO SCH (08:10)
[2022-03-15] MEDS: buPROPion SR 100 MG TABLET.ER PO SCH ×2 (08:11→21:20)
[2022-03-15] MEDS: METOPROLOL TARTRATE 50 MG TAB PO SCH ×2 (08:11→21:19)
[2022-03-15] MEDS: methylPREDNISolone SOD SUCCI 40 MG/ML 1 ML VIAL IV SCH (08:11)
[2022-03-15] MEDS: CHLORHEXIDINE GLUCONATE 15 ML CUP MUCOUS MEM SCH ×2 (08:11→21:19)
[2022-03-15] MEDS: PANTOPRAZOLE 40 MG/10 ML VIAL IVP SCH (08:11)
[2022-03-15 08:42] LABS: ABG Base Excess -4.1 mmol/L; ABG HCO3 24 mmol/L (21-25); ABG Oxygen Saturation 93.3 % (94-97); ABG PCO2 67 mmHg (35-45); ABG PO2 71 mmHg (83-108); ABG TCO2 27 mmol/L (19-24)
[2022-03-15 08:43] LABS: ABG PH 7.17 (7.35-7.45); Allen Test Performed? no
[2022-03-15] MEDS: SODIUM CHLORIDE 0.9% 1,000 ML IV SCH (08:51)
[2022-03-15] MEDS: HEPARIN SOD,PORK IN 0.45% NACL 25,000 UNIT in 0.45% NACL 1 250ML.BAG IV SCH (08:54)
[2022-03-15] MEDS: FUROSEMIDE 10 MG/ML 10 ML VIAL IV SCH ×2 (09:47→21:19)
[2022-03-15] MEDS: CISATRACURIUM 200 MG in SODIUM CHLORIDE 0.9% 180 ML IV SCH (11:44)
[2022-03-15] MEDS: OSELTAMIVIR 60 MG/10 ML ORAL SYRINGE PO SCH ×2 (11:44→22:20)
[2022-03-15 11:51] LABS: Glucose,Whole Blood 174 mg/dL (70-110)
--- NOTE | 2022-03-15 12:26 | P.PN ---
Subjective Progress Note Date: 03/15/22 Patient is a 61-year-old female with past medical history remarkable for CAD, heart failure, hypertension, CAD who presents to emergency Department complaining of shortness of breath. She has had worsening shortness of breath for the last 2 weeks. This is exertional, associated with a nonproductive cou gh, wheezing. Patient also had bilateral lower extremity edema that has been symmetrical and getting worse. She denies any sick contacts. Denies any fevers. Denies any abdominal pain, nausea, vomiting. Does endorse intermittent chest pressure like sensation with shortness of breath is bad but currently denies it. Denies any diarrhea. She would this with the primary care physician and the patient was found to be profoundly hypoxic. She was sent over to the emergency department. Immediately, the patient was placed on oxygen, subsequently her condition decompensated and she was placed on the BiPAP and she ultimately failed and she had to be intubated and placed on a mechanical ventilator. Chest x-ray showed diffuse but the pulmonary infiltrates and areas of multifocal airspace opacity concerning for pneumonia. The patient's blood work showed a white cell count of 23 with a hemoglobin of 17. INR was at 1.9 with a PT of 19 and a PTT of 31. Sodium was at 139 with a potassium level of 3.2. BUN was 33 with a creatinine of 2.7. Lactic acid level was as high as 7.8, AST and ALP were 45) respectively, troponins were negative and a proBNP level was 1590. Influenza A was positive by PCR. Influenza B, RSV and Covid 19 were all negative. The UA showed 3 WBCs and +2 protein and large amount of blood with a RBC count of 182. This morning, the patient is intubated and mechanically ventilated. The patient is sedated with propofol. The patient is on assist control mode with a rate of 24 with a tidal volume of 400 FiO2 100% with a PEEP of 5. Chest x-ray showed unchanged multifocal breath and pneumonia. The patient was told in the bicarb infusion. The patient computed to have elevated lactic acid level and the level from this morning was at 8.1. She received a total of 3 units of N fluids yesterday. Currently she is in a bicarb infusion. BUN is at 37 with a crea tinine of 2.02 which is improved compared to yesterday. Serum bicarbs of 15 and a sodium level is at 134. Most recent blood gas from this morning showed more preferable for and pO2 of 80. White cell count is lower compared to yesterday at 17.2 with a hemoglobin of 15.6. Furthermore, the patient was admitted to physicians of the ventricular response yesterday. The patient converted into sinus rhythm. This morning, that, my evaluation, the patient went back into A. fib RVR. The patient will be started on amiodarone per protocol. No fever. No pressors at this point in time. On 03/13/2022, the patient is being seen for a follow-up. Earlier this morning, the patient started having shortness of breath and the patient was having elevated peak airway pressures and the patient was desaturating. At the time of my arrival to the intensive care unit, the patient was quite uncomfortable, tachypneic and somewhat hypoxic. At that point, I repeated the chest x-ray and the patient was found to have a right-sided pneumothorax. I repeated the chest x-ray and there was a large bilateral pneumothoraces noted. Immediately, bilateral chest tubes were inserted with resolution of the bilateral pneumothoraces. The patient currently is on propofol running at 30 microvascular kilogram per minutes. The patient is currently on assist control mode of mechanical ventilation. There is a 24 and a tidal volume was dropped off to 400 with an FiO2 of 70% with a PEEP of 5. The blood case with a pH of 7.41 with a pCO2 of 43 and pO2 of 66 and this was done prior to the chest tube insertion. Urine output was low earlier this morning around 10-15 mL an hour. Lactic acid level was down trending. The patient was still on amiodarone drip running at 0.5 mg/m and the patient was on IV heparin. The patient was also started on tube feeding with vital high-protein at the rate of 30 mL an hour. The patient currently is hemodynamically stable. The blood work from today showed edematous count of 8.1 and hemoglobin 12.1 and a platelet count of 121. INR is at 1.6 with a PT of 15.7. Sodium level is at 131 with a potassium level of 4.2, chloride is 97 bicarbs 2059 and 62 creatinine is 1.98. The bronchial lavage has not showing any microbial growth. Legionella urine antigen is negative. The pro calcitonin was unexpectedly elevated at 8.7. The patient is covered with broad-spectrum antibiotics and the patient is currently on accommodation of cefepime, Levaquin and vancomycin. The patient remains in a bicarb infusion. Serum bicarb is improved. Lactic acid level is also dropped. Patient currently has bilateral chest tube. There is positive air leak from the right-sided chest tube. 03/14/2022, patient is being seen for a follow-up. This morning, the patient is sedated on propofol and she is currently at 30 mcg/kg/m of propofol infusion. The patient is also on Nimbex which is running at 1 mcg/kg/m. She is adequately sedated and paralyzed at this point in time. He remains on a mechanical ventilator. She is assist-control mode at the rate of 28, tidal volume of 400, FiO2 of 80% with a PEEP of 5. Current pulse ox on the monitor is around 87%. Peak airway pressures around 31. The patient's return tidal volume is in the order of 380 mL and the patient has bilateral chest tubes. There is evidence of air leak from both chest tubes and airleak is still active. Chest x-ray from this morning is still pending. Noted the patient had developed bilateral pneumothoraces yesterday and bilateral chest tubes were inserted in these are 28-Lithuanian chest tubes. Output from the left-sided pleural fluid was somewhat purulent and total amount of output has been in the order of 200 mL since inserted. Cultures from the left-sided pleural effusion still pending. The whi te cell count in the left-sided pleural effusion is elevated. As for the right- sided pleural effusion, this is essentially a transudate. The pro calcitonin level was elevated. I do suspect a bacterial infection on top of the influenza infection. Noted the bronchial lavage that was done earlier showed again influenza a. The blood gas from today showed a pH of 7.23 with a pCO2 of 65 and pO2 of 66 and this was on FiO2 of 80%. Hemodynamically, the patient is on no pressors. The patient remains in atrial fibrillation. The patient is currently on oral amiodarone. IV heparin was discontinued briefly yesterday as the patient was having bloody output from her orotracheal tube and the anticoa gulation was held during the chest tube insertion process. The white cell count today's of 15.2 with a hemoglobin of 14.5 and a platelet count of 140. Rest of the blood work shows a sodium of 134 with a potassium level of 4.1, BUN is 74 and the creatinine is 1.45 and a creatinine is obviously improving. Lactic acid level has dropped onto 3.8. The Legionella urine antigen was negative. The zac iebernardino is on enteral feeding for nutritional support and she is currently on vital high-protein at the rate of 47 mL an hour. Overall fluid balance over the past 24 hours is positive for 0.2 L. The patient remains on broad-spectrum antibiotics patient is currently on IV cefepime and Levaquin. Pro-calcitonin level was elevated. A repeat level is to be obtained today. 03/15/2022, the patient remains intubated on a mechanical ventilator. This morning, the patient sedated on propofol running at 50 mcg/kg/m and the patient is also on Nimbex at 1 mcg/kg/m. His adequately sedated and paralyzed. She remains on a mechanical ventilator on assist control mode and she is at the rate of 34 with a tidal volume of 400, FiO2 of 100% with a PEEP of 10. The chest x- ray is showing diffuse bilateral airspace disease and orotracheal tube is in a good location. The patient also has a bilateral chest tube. Motor the chest tubes on both sides are leaking air and there is ongoing air leak and the sydney ent has volume loss in the order of 50 mL based on the recurrent tidal volumes on a mechanical ventilator. The right-sided chest tube is leaking and a total amount of output has been around 40 mL over the past 8 hours. Left sided chest tube is also leaking output is around 1 10 mL over the past 8 hours. The culture from the left-sided pleural effusion is positive for MRSA and the bronchial lavage was also positive for influenza and MRSA. As such, this patient has a influenza infection/pneumonia with a superinfection with MRSA. The patient remains on Tamiflu. The patient remains on vancomycin. The patient otherwise is in nature fibrillation. Heart rate is irregular and the rate is between 110 and 120. The patient remains on IV heparin. The patient is on oral amiodarone 400 mg by mouth twice a day. Overall fluid balance is positive for liters over the past 24 hours and the patient is on vital high-protein which is being given at rate of 47 mL an hour. She is also on normal saline at rate of 100 mL an hour. The patient's white cell count is at 31 and the patient also has a hemoglobin of 14.2 with a platelet count of 122. The sodium is at 134, potassium is at 5, BUN is at 95 with a creatinine of 1.4. Serum bicarbs of 24. Pro-calcitonin as mentioned was quite elevated consistent with bacterial superinfection. The patient remains on IV heparin regarding her chronic atrial fibrillation. Condition remains extremely critical. Objective - Vital Signs Vital signs: Vital Signs Temp 97.7 F 03/15/22 12:00 Pulse 101 H 03/15/22 12:00 Resp 34 H 03/15/22 12:00 BP 101/65 03/15/22 11:00 Pulse Ox 89 L 03/15/22 12:00 FiO2 100 03/15/22 12:00 Intake & Output 03/14/22 03/15/22 03/15/22 18:59 06:59 18:59 Intake Total 2897.004 2116.628 1566.820 Output Total 681 320 145 Balance 2216.004 5498.847 4567.820 Weight 142 kg 141.5 kg 141.5 kg Intake: IV 1650 1175 625 Cefepime 1 gm In Sodium 100 75 25 Chloride 0.9% 50 ml @ 100 mls/hr IVPB Q12H TRE Rx# :[id number] Levofloxacin 250Mg-D5w 50 Pmx 250 mg In Dextrose/ Water 1 50ml.bag @ 50 mls /hr IVPB Q24HR TRE Rx#: [id number] Sodium Chloride 0.9% 1, 300 1100 600 000 ml @ 100 mls/hr IV . Q10H TRE Rx#:[id number] Sodium Chloride 0.9% 1, 700 000 ml @ 75 mls/hr IV . [id number] TRE Rx#:[id number] Vancomycin 2,000 mg In 500 Sodium Chloride 0.9% 500 ml 500 ml @ 167 mls/hr IVPB Q24H TRE Rx#: [id number] Intake, IV Titration 576.004 334.628 599.820 Amount Cisatracurium 200 mg In 195.480 200 Sodium Chloride 0.9% 180 ml @ 1 MCG/KG/MIN 8.1 mls /hr IV .Q24H TRE Rx#: [id number] Heparin Sod,Pork in 0.45% 80.524 202.643 NaCl 25,000 unit In 0.45 % NaCl 1 250ml.bag @ 9. 585 UNITS/KG/HR 10 mls/hr IV .Q24H TRE Rx#: [id number] propofoL 1,000 mg In 300.000 334.628 197.177 Empty Bag 1 bag @ 15 MCG/ KG/MIN 9.389 mls/hr IV . [id number] TRE Rx#:[id number] Tube Feeding 611 517 282 Other 60 90 60 Output: Chest Tube Drainage 251 0 Chest Tube Left 150 0 Chest Tube Right 101 0 Urine 430 320 145 Other: Voiding Method Indwelling Catheter Indwelling Catheter Indwelling Catheter ABP, PAP, CO, CI - Last Documented Arterial Blood Pressure 109/56 - Exam Obese, comfortable comfortable, no acute distress, sedated on propofol and paralytics Head exam was generally normal. There was no scleral icterus or corneal arcus. Mucous membranes were moist. Neck was supple and without jugular venous distension, thyromegaly, or carotid bruits. Carotids were easily palpable bilaterally. There was no adenopathy. Orogastric and orotracheal tube are both in place. Lungs are diminished bilaterally otherwise vessels are equal and symmetrical. The patient has bilateral chest tubes both chest tubes a 28-Lithuanian. There is positive air leak on the right and left. Cardiac exam revealed the PMI to be normally situated and sized. The rhythm was regular and no extrasystoles were noted during several minutes of auscultation. The first and second heart sounds were normal and physiologic splitting of the second heart sound was noted. There were no murmurs, rubs, clicks, or gallops. Abdominal exam revealed normal bowel sounds. The abdomen was soft, non-tender, and without masses, organomegaly, or appreciable enlargement of the abdominal aorta. Examination of the extremities revealed easily palpable radial, femoral and pedal pulses. There was no cyanosis, clubbing or edema. Diminished pulses in the upper and lower oximetry is bilaterally. Examination of the skin revealed no evidence of significant rashes, suspicious appearing nevi or other concerning lesions. Neurologically the patient sedated on propofol and paralytics - Labs CBC & Chem 7: 03/15/22 03:56 03/15/22 03:56 Labs: Abnormal Lab Results - Last 24 Hours (Table) 03/14/22 03/14/22 03/14/22 Range/Units 13:29 14:32 17:28 WBC (3.8-10.6) k/uL Hct (34.0-46.0) % MCV (80.0-100.0) fL MCHC (31.0-37.0) g/dL Plt Count (150-450) k/uL Neutrophils # (Manual) (1.3-7.7) k/uL Monocytes # (Manual) (0-1.0) k/uL Metamyelocytes # (Man) (0) k/uL Myelocytes # (Manual) (0) k/uL Nucleated RBCs (0-0) /100 WBC Macrocytosis APTT 38.4 H (22.0-30.0) sec ABG pH 7.18 L* (7.35-7.45) ABG pCO2 72 H* (35-45) mmHg ABG pO2 65 L (83-108) mmHg ABG HCO3 27 H (21-25) mmol/L ABG Total CO2 29 H (19-24) mmol/L ABG O2 Saturation 89.7 L (94-97) % ABG Lactic Acid (0.5-1.6) mmol/L Sodium (137-145) mmol/L BUN (7-17) mg/dL Creatinine (0.52-1.04) mg/dL Glucose (74-99) mg/dL POC Glucose (mg/dL) 177 H (70-110) mg/dL Total Bilirubin (0.2-1.3) mg/dL AST (14-36) U/L Total Protein (6.3-8.2) g/dL Albumin (3.5-5.0) g/dL 03/14/22 03/14/22 03/15/22 Range/Units 20:37 23:31 03:56 WBC (3.8-10.6) k/uL Hct (34.0-46.0) % MCV (80.0-100.0) fL MCHC (31.0-37.0) g/dL Plt Count (150-450) k/uL Neutrophils # (Manual) (1.3-7.7) k/uL Monocytes # (Manual) (0-1.0) k/uL Metamyelocytes # (Man) (0) k/uL Myelocytes # (Manual) (0) k/uL Nucleated RBCs (0-0) /100 WBC Macrocytosis APTT 59.3 H (22.0-30.0) sec ABG pH (7.35-7.45) ABG pCO2 (35-45) mmHg ABG pO2 (83-108) mmHg ABG HCO3 (21-25) mmol/L ABG Total CO2 (19-24) mmol/L ABG O2 Saturation (94-97) % ABG Lactic Acid (0.5-1.6) mmol/L Sodium 134 L (137-145) mmol/L BUN 95 H (7-17) mg/dL Creatinine 1.40 H (0.52-1.04) mg/dL Glucose 190 H (74-99) mg/dL POC Glucose (mg/dL) 166 H (70-110) mg/dL Total Bilirubin 4.1 H (0.2-1.3) mg/dL AST 44 H (14-36) U/L Total Protein 5.6 L (6.3-8.2) g/dL Albumin 2.3 L (3.5-5.0) g/dL 03/15/22 03/15/22 03/15/22 Range/Units 03:56 03:56 05:12 WBC 31.0 H (3.8-10.6) k/uL Hct 46.6 H (34.0-46.0) % MCV 113.9 H (80.0-100.0) fL MCHC 30.7 L (31.0-37.0) g/dL Plt Count 122 L (150-450) k/uL Neutrophils # (Manual) 26.30 H (1.3-7.7) k/uL Monocytes # (Manual) 1.24 H (0-1.0) k/uL Metamyelocytes # (Man) 0.93 H (0) k/uL Myelocytes # (Manual) 1.24 H (0) k/uL Nucleated RBCs 2 H (0-0) /100 WBC Macrocytosis Marked A APTT (22.0-30.0) sec ABG pH 7.11 L* (7.35-7.45) ABG pCO2 79 H* (35-45) mmHg ABG pO2 68 L (83-108) mmHg ABG HCO3 (21-25) mmol/L ABG Total CO2 28 H (19-24) mmol/L ABG O2 Saturation 90.8 L (94-97) % ABG Lactic Acid 2.4 H* (0.5-1.6) mmol/L Sodium (137-145) mmol/L BUN (7-17) mg/dL Creatinine (0.52-1.04) mg/dL Glucose (74-99) mg/dL POC Glucose (mg/dL) (70-110) mg/dL Total Bilirubin (0.2-1.3) mg/dL AST (14-36) U/L Total Protein (6.3-8.2) g/dL Albumin (3.5-5.0) g/dL 03/15/22 03/15/22 03/15/22 Range/Units 05:48 05:48 08:38 WBC (3.8-10.6) k/uL Hct (34.0-46.0) % MCV (80.0-100.0) fL MCHC (31.0-37.0) g/dL Plt Count (150-450) k/uL Neutrophils # (Manual) (1.3-7.7) k/uL Monocytes # (Manual) (0-1.0) k/uL Metamyelocytes # (Man) (0) k/uL Myelocytes # (Manual) (0) k/uL Nucleated RBCs (0-0) /100 WBC Macrocytosis APTT 50.4 H (22.0-30.0) sec ABG pH 7.17 L* (7.35-7.45) ABG pCO2 67 H (35-45) mmHg ABG pO2 71 L (83-108) mmHg ABG HCO3 (21-25) mmol/L ABG Total CO2 27 H (19-24) mmol/L ABG O2 Saturation 93.3 L (94-97) % ABG Lactic Acid (0.5-1.6) mmol/L Sodium (137-145) mmol/L BUN (7-17) mg/dL Creatinine (0.52-1.04) mg/dL Glucose (74-99) mg/dL POC Glucose (mg/dL) 181 H (70-110) mg/dL Total Bilirubin (0.2-1.3) mg/dL AST (14-36) U/L Total Protein (6.3-8.2) g/dL Albumin (3.5-5.0) g/dL 03/15/22 Range/Units 11:49 WBC (3.8-10.6) k/uL Hct (34.0-46.0) % MCV (80.0-100.0) fL MCHC (31.0-37.0) g/dL Plt Count (150-450) k/uL Neutrophils # (Manual) (1.3-7.7) k/uL Monocytes # (Manual) (0-1.0) k/uL Metamyelocytes # (Man) (0) k/uL Myelocytes # (Manual) (0) k/uL Nucleated RBCs (0-0) /100 WBC Macrocytosis APTT (22.0-30.0) sec ABG pH (7.35-7.45) ABG pCO2 (35-45) mmHg ABG pO2 (83-108) mmHg ABG HCO3 (21-25) mmol/L ABG Total CO2 (19-24) mmol/L ABG O2 Saturation (94-97) % ABG Lactic Acid (0.5-1.6) mmol/L Sodium (137-145) mmol/L BUN (7-17) mg/dL Creatinine (0.52-1.04) mg/dL Glucose (74-99) mg/dL POC Glucose (mg/dL) 174 H (70-110) mg/dL Total Bilirubin (0.2-1.3) mg/dL AST (14-36) U/L Total Protein (6.3-8.2) g/dL Albumin (3.5-5.0) g/dL Microbiology - Last 24 Hours (Table) 03/14/22 14:02 Blood Culture - Final Blood 03/13/22 10:52 Acid Fast Bacilli Smear - Final Pleural Fluid Acid Fast Bacilli Culture - Preliminary 03/12/22 08:30 Gram Stain - Final Bronchoalviolar Lavage - Left Bronchial Washings Culture - Final Methicillin resist S. aureus 03/12/22 03:42 Gram Stain - Final Sputum Sputum Culture - Final Methicillin resist S. aureus 03/13/22 10:52 Gram Stain - Preliminary Pleural Fluid Body Fluid Culture - Preliminary Presumptive MRSA 03/11/22 17:26 Blood Culture Gram Stain - Final Blood Blood Culture - Final Staphylococcus epidermidis 03/11/22 17:43 Blood Culture Gram Stain - Final Blood Blood Culture - Final Coagulase Negative Staph Assessment and Plan Plan: Acute bilateral pneumonia, secondary to influenza and superimposed bacterial infection with MRSA. Both influenza a and MRSA was cultured from the bronchial lavage and MRSA was also present in the pleural fluid was drained from the left lung. Remains on broad-spectrum antibiotics. Patient remains on vancomycin. The patient remains on Tamiflu. Still intubated on a mechanical ventilator. The patient has bilateral pneumothoraces. Allowing permissive hypercapnia. Oxygenation is stable for now. Empyema with infection with MRSA secondary to underlying pneumonia. The patient had purulent left-sided pleural effusion post chest tube insertion. Acute bilateral pneumothoraces, secondary pneumonia. Cannot rule out possibility of barotrauma. Patient has chest tubes bilaterally. There is persistent air leak bilaterally Acute leukocytosis Acute hypoxic respiratory failure secondary to above, currently intubated on a mechanical ventilator Acute kidney injury, improving Acute lactic acidosis, improving New-onset atrial fibrillation with RVR, rate is under better control and the patient remains on amiodarone, the patient is also on IV heparin Morbid obesity with previous bariatric surgery Previous history of splenectomy Acute kidney injury secondary to above, improving History of coronary artery disease, nonocclusive disease of the cardiac catheterization from 2021 COPD Fibromyalgia Migraines Chronic back pain History of stomach cancer History of nephrolithiasis History of osteoarthritis History of hepatitis C and hepatitis B Hypertension Plan Continue vent support , increase the tidal volumes of 450 Continue propofol and paralytics for another 24 hours Titrate FiO2 to maintain saturation above 90% Keep the chest tube in place as the patient has bilateral air leaks Continue vancomycin Continue Tamiflu Repeat pro-calcitonin level Continue IV heparin Enteral feeding for nutritional support of vital high-protein IV fluids KVO Start the patient on Lasix 60 mg every 12 hours conditions are vesicular we'll continue to follow. I had lengthy discussion with the family and updated them on her condition. critical care evaluation that was done in more than 30 minutes Time with Patient: Greater than 30
[2022-03-15] MEDS: NOREPINEPHRINE 8 MG in SODIUM CHLORIDE 0.9% 250 ML IV SCH (17:20)
[2022-03-15] MEDS: VANCOMYCIN 2,000 MG in SODIUM CHLORIDE 0.9% 500 ML 500 ML IVPB SCH (17:20)
[2022-03-15 18:25] LABS: Glucose,Whole Blood 164 mg/dL (70-110)
--- NOTE | 2022-03-15 19:08 | P.PN ---
Subjective Progress Note Date: 03/15/22 Principal diagnosis: Pneumonia Patient is a 61-year-old female with a past medical history significant for coronary artery disease hypertension heart failure presenting to the ER last evening for evaluation of increasing shortness of breath in this patient symptom apparently has been going on for 2 weeks before presentation to the hospital, patient did have worsening of respiratory status requiring intubation subsequently developing bilateral pneumothoraces requiring chest tube placement on 03/13/2022. On today's evaluation that is 03/15/2022, the patient remains to be afebrile, the patient is still requiring 100% FiO2, patient with no significant purulent secretions through the ET or diarrhea reported by nursing staff Objective - Vital Signs Vital signs: Vital Signs Temp 97.7 F 03/15/22 08:00 Pulse 95 03/15/22 11:17 Resp 34 H 03/15/22 10:00 BP 101/65 03/14/22 18:00 Pulse Ox 88 L 03/15/22 10:00 FiO2 100 03/15/22 11:02 Intake & Output 03/14/22 03/15/22 03/15/22 18:59 06:59 18:59 Intake Total 2897.004 2116.628 945.275 Output Total 681 320 95 Balance 2216.004 1796.628 850.275 Weight 142 kg 141.5 kg 141.5 kg Intake: IV 1650 1175 425 Cefepime 1 gm In Sodium 100 75 25 Chloride 0.9% 50 ml @ 100 mls/hr IVPB Q12H [facility] Rx# :[id number] Levofloxacin 250Mg-D5w 50 Pmx 250 mg In Dextrose/ Water 1 50ml.bag @ 50 mls /hr IVPB Q24HR [facility] Rx#: [id number] Sodium Chloride 0.9% 1, 300 1100 400 000 ml @ 100 mls/hr IV . Q10H [facility] Rx#:[id number] Sodium Chloride 0.9% 1, 700 000 ml @ 75 mls/hr IV . [id number] [facility] Rx#:[id number] Vancomycin 2,000 mg In 500 Sodium Chloride 0.9% 500 ml 500 ml @ 167 mls/hr IVPB Q24H [facility] Rx#: [id number] Intake, IV Titration 576.004 334.628 302.275 Amount Cisatracurium 200 mg In 195.480 Sodium Chloride 0.9% 180 ml @ 1 MCG/KG/MIN 8.1 mls /hr IV .Q24H [facility] Rx#: [id number] Heparin Sod,Pork in 0.45% 80.524 202.643 NaCl 25,000 unit In 0.45 % NaCl 1 250ml.bag @ 9. 585 UNITS/KG/HR 10 mls/hr IV .Q24H [facility] Rx#: [id number] propofoL 1,000 mg In 300.000 334.628 99.632 Empty Bag 1 bag @ 15 MCG/ KG/MIN 9.389 mls/hr IV . [id number] [facility] Rx#:[id number] Tube Feeding 611 517 188 Other 60 90 30 Output: Chest Tube Drainage 251 0 Chest Tube Left 150 0 Chest Tube Right 101 0 Urine 430 320 95 Other: Voiding Method Indwelling Catheter Indwelling Catheter Indwelling Catheter ABP, PAP, CO, CI - Last Documented Arterial Blood Pressure 99/55 - Exam GENERAL DESCRIPTION: Middle-aged female intubated on the vent RESPIRATORY SYSTEM: Unlabored breathing , decreased breath sounds at bases HEART: S1 S2 regular rate and rhythm , ABDOMEN: Soft , no tenderness EXTREMITIES: No edema feet - Labs CBC & Chem 7: 03/15/22 03:56 03/15/22 03:56 Labs: Abnormal Lab Results - Last 24 Hours (Table) 03/14/22 03/14/22 03/14/22 Range/Units 11:26 13:29 14:32 WBC (3.8-10.6) k/uL Hct (34.0-46.0) % MCV (80.0-100.0) fL MCHC (31.0-37.0) g/dL Plt Count (150-450) k/uL Neutrophils # (Manual) (1.3-7.7) k/uL Monocytes # (Manual) (0-1.0) k/uL Metamyelocytes # (Man) (0) k/uL Myelocytes # (Manual) (0) k/uL Nucleated RBCs (0-0) /100 WBC Macrocytosis APTT 38.4 H (22.0-30.0) sec ABG pH 7.18 L* (7.35-7.45) ABG pCO2 72 H* (35-45) mmHg ABG pO2 65 L (83-108) mmHg ABG HCO3 27 H (21-25) mmol/L ABG Total CO2 29 H (19-24) mmol/L ABG O2 Saturation 89.7 L (94-97) % ABG Lactic Acid (0.5-1.6) mmol/L Sodium (137-145) mmol/L BUN (7-17) mg/dL Creatinine (0.52-1.04) mg/dL Glucose (74-99) mg/dL POC Glucose (mg/dL) 153 H (70-110) mg/dL Total Bilirubin (0.2-1.3) mg/dL AST (14-36) U/L Total Protein (6.3-8.2) g/dL Albumin (3.5-5.0) g/dL 03/14/22 03/14/22 03/14/22 Range/Units 17:28 20:37 23:31 WBC (3.8-10.6) k/uL Hct (34.0-46.0) % MCV (80.0-100.0) fL MCHC (31.0-37.0) g/dL Plt Count (150-450) k/uL Neutrophils # (Manual) (1.3-7.7) k/uL Monocytes # (Manual) (0-1.0) k/uL Metamyelocytes # (Man) (0) k/uL Myelocytes # (Manual) (0) k/uL Nucleated RBCs (0-0) /100 WBC Macrocytosis APTT 59.3 H (22.0-30.0) sec ABG pH (7.35-7.45) ABG pCO2 (35-45) mmHg ABG pO2 (83-108) mmHg ABG HCO3 (21-25) mmol/L ABG Total CO2 (19-24) mmol/L ABG O2 Saturation (94-97) % ABG Lactic Acid (0.5-1.6) mmol/L Sodium (137-145) mmol/L BUN (7-17) mg/dL Creatinine (0.52-1.04) mg/dL Glucose (74-99) mg/dL POC Glucose (mg/dL) 177 H 166 H (70-110) mg/dL Total Bilirubin (0.2-1.3) mg/dL AST (14-36) U/L Total Protein (6.3-8.2) g/dL Albumin (3.5-5.0) g/dL 03/15/22 03/15/22 03/15/22 Range/Units 03:56 03:56 03:56 WBC 31.0 H (3.8-10.6) k/uL Hct 46.6 H (34.0-46.0) % MCV 113.9 H (80.0-100.0) fL MCHC 30.7 L (31.0-37.0) g/dL Plt Count 122 L (150-450) k/uL Neutrophils # (Manual) 26.30 H (1.3-7.7) k/uL Monocytes # (Manual) 1.24 H (0-1.0) k/uL Metamyelocytes # (Man) 0.93 H (0) k/uL Myelocytes # (Manual) 1.24 H (0) k/uL Nucleated RBCs 2 H (0-0) /100 WBC Macrocytosis Marked A APTT (22.0-30.0) sec ABG pH (7.35-7.45) ABG pCO2 (35-45) mmHg ABG pO2 (83-108) mmHg ABG HCO3 (21-25) mmol/L ABG Total CO2 (19-24) mmol/L ABG O2 Saturation (94-97) % ABG Lactic Acid 2.4 H* (0.5-1.6) mmol/L Sodium 134 L (137-145) mmol/L BUN 95 H (7-17) mg/dL Creatinine 1.40 H (0.52-1.04) mg/dL Glucose 190 H (74-99) mg/dL POC Glucose (mg/dL) (70-110) mg/dL Total Bilirubin 4.1 H (0.2-1.3) mg/dL AST 44 H (14-36) U/L Total Protein 5.6 L (6.3-8.2) g/dL Albumin 2.3 L (3.5-5.0) g/dL 03/15/22 03/15/22 03/15/22 Range/Units 05:12 05:48 05:48 WBC (3.8-10.6) k/uL Hct (34.0-46.0) % MCV (80.0-100.0) fL MCHC (31.0-37.0) g/dL Plt Count (150-450) k/uL Neutrophils # (Manual) (1.3-7.7) k/uL Monocytes # (Manual) (0-1.0) k/uL Metamyelocytes # (Man) (0) k/uL Myelocytes # (Manual) (0) k/uL Nucleated RBCs (0-0) /100 WBC Macrocytosis APTT 50.4 H (22.0-30.0) sec ABG pH 7.11 L* (7.35-7.45) ABG pCO2 79 H* (35-45) mmHg ABG pO2 68 L (83-108) mmHg ABG HCO3 (21-25) mmol/L ABG Total CO2 28 H (19-24) mmol/L ABG O2 Saturation 90.8 L (94-97) % ABG Lactic Acid (0.5-1.6) mmol/L Sodium (137-145) mmol/L BUN (7-17) mg/dL Creatinine (0.52-1.04) mg/dL Glucose (74-99) mg/dL POC Glucose (mg/dL) 181 H (70-110) mg/dL Total Bilirubin (0.2-1.3) mg/dL AST (14-36) U/L Total Protein (6.3-8.2) g/dL Albumin (3.5-5.0) g/dL 03/15/22 Range/Units 08:38 WBC (3.8-10.6) k/uL Hct (34.0-46.0) % MCV (80.0-100.0) fL MCHC (31.0-37.0) g/dL Plt Count (150-450) k/uL Neutrophils # (Manual) (1.3-7.7) k/uL Monocytes # (Manual) (0-1.0) k/uL Metamyelocytes # (Man) (0) k/uL Myelocytes # (Manual) (0) k/uL Nucleated RBCs (0-0) /100 WBC Macrocytosis APTT (22.0-30.0) sec ABG pH 7.17 L* (7.35-7.45) ABG pCO2 67 H (35-45) mmHg ABG pO2 71 L (83-108) mmHg ABG HCO3 (21-25) mmol/L ABG Total CO2 27 H (19-24) mmol/L ABG O2 Saturation 93.3 L (94-97) % ABG Lactic Acid (0.5-1.6) mmol/L Sodium (137-145) mmol/L BUN (7-17) mg/dL Creatinine (0.52-1.04) mg/dL Glucose (74-99) mg/dL POC Glucose (mg/dL) (70-110) mg/dL Total Bilirubin (0.2-1.3) mg/dL AST (14-36) U/L Total Protein (6.3-8.2) g/dL Albumin (3.5-5.0) g/dL Microbiology - Last 24 Hours (Table) 03/13/22 10:52 Acid Fast Bacilli Smear - Final Pleural Fluid Acid Fast Bacilli Culture - Preliminary 03/12/22 08:30 Gram Stain - Final Bronchoalviolar Lavage - Left Bronchial Washings Culture - Final Methicillin resist S. aureus 03/12/22 03:42 Gram Stain - Final Sputum Sputum Culture - Final Methicillin resist S. aureus 03/13/22 10:52 Gram Stain - Preliminary Pleural Fluid Body Fluid Culture - Preliminary Presumptive MRSA 03/11/22 17:26 Blood Culture Gram Stain - Final Blood Blood Culture - Final Staphylococcus epidermidis 03/11/22 17:43 Blood Culture Gram Stain - Final Blood Blood Culture - Final Coagulase Negative Staph Assessment and Plan (1) Multifocal pneumonia Current Visit: Yes Status: Acute Code(s): J18.9 - PNEUMONIA, UNSPECIFIED ORGANISM SNOMED Code(s): 352860923 Plan: 1patient with a positive blood culture with staph epi likely skin contamination, blood cultures has been be repeated and came back positive with gram-positive cocci with ID and sensitivity is pending. 2patient with the acute respiratory failure multifactorial and likely component of pneumonia in this patient sputum as well as BAL cultures are currently growing MRSA 3the patient to continue with the vancomycin and monitor clinical course closely Time with Patient: Less than 30
[2022-03-15] MEDS: QUEtiapine 100 MG TAB PO SCH (21:20)
[2022-03-16 00:51] LABS: Glucose,Whole Blood 209 mg/dL (70-110)
[2022-03-16] MEDS: ARTIFICIAL TEARS-HYPROMELLOSE DROPS 15 ML BTL BOTH EYES SCH ×6 (00:51→20:46)
[2022-03-16] MEDS: INSULIN ASPART (NovoLOG) 100 UNIT/ML VIAL SQ SCH ×4 (00:53→19:39)
--- NOTE | 2022-03-16 02:44 | PN ---
PROGRESS NOTE DATE OF SERVICE: 03/15/2022 CHIEF COMPLAINT: Respiratory failure, influenza pneumonitis, bilateral pneumothoraces. HISTORY OF PRESENT ILLNESS: This lady's condition is somewhat stable. She is still on the ventilator. It sounds as though there is some leakage around each of the chest tubes. She has grown out MRSA. PHYSICAL EXAMINATION: LUNGS: Breath sounds are heard bilaterally. She is well perfused. CARDIAC: Demonstrates atrial fibrillation. ABDOMEN: Soft and there are no masses. EXTREMITIES: Normal. IMPRESSION: 1. Acute respiratory distress syndrome. 2. Bilateral bronchial pneumonia likely related to influenza as well as Methicillin- resistant Staphylococcus aureus. 3. Bilateral pneumothoraces. PLAN: Her treatment will continue as it has been. Prognosis is poor at this point. MMODL / IJN: [id number] /
[2022-03-16] MEDS: IPRATROPIUM-ALBUTEROL 3 ML NEB INHALATION SCH ×5 (03:12→19:13)
[2022-03-16] MEDS: HEPARIN SOD,PORK IN 0.45% NACL 25,000 UNIT in 0.45% NACL 1 250ML.BAG IV SCH ×2 (03:28→19:25)
[2022-03-16 05:27] LABS: ABG Base Excess -4.9 mmol/L; ABG HCO3 24 mmol/L (21-25); ABG PCO2 65 mmHg (35-45); ABG PO2 67 mmHg (83-108); ABG TCO2 26 mmol/L (19-24); Allen Test Performed? Yes
[2022-03-16 05:28] LABS: ABG PH 7.17 (7.35-7.45)
[2022-03-16] MEDS: CEFEPIME 2 GM in SODIUM CHLORIDE 0.9% 100 ML IVPB SCH ×2 (06:24→18:36)
[2022-03-16 06:28] LABS: Glucose,Whole Blood 213 mg/dL (70-110)
[2022-03-16 06:40] LABS: HCT 44.8 % (34.0-46.0); HGB 13.6 gm/dL (11.4-16.0); Hypochromasia Marked; MCH 34.2 pg (25.0-35.0); MCHC 30.4 g/dL (31.0-37.0); MCV 112.5 fL (80.0-100.0); Macrocytosis Marked; Mean Platelet Volume 15.6; Platelet Count 118 k/uL (150-450); RBC 3.98 m/uL (3.80-5.40); RDW 13.8 % (11.5-15.5)
[2022-03-16 06:58] LABS: Calcium 8.4 mg/dL (8.4-10.2); Potassium 5.2 mmol/L (3.5-5.1)
[2022-03-16 07:00] LABS: WBC 52.9 k/uL (3.8-10.6)
[2022-03-16] MEDS: METOPROLOL TARTRATE 50 MG TAB PO SCH ×2 (08:03→20:47)
[2022-03-16] MEDS: AMIODARONE 200 MG TAB PO SCH ×2 (08:03→20:47)
[2022-03-16] MEDS: ASPIRIN 81 MG PO SCH (08:03)
[2022-03-16] MEDS: buPROPion SR 100 MG TABLET.ER PO SCH ×2 (08:03→20:48)
[2022-03-16] MEDS: PANTOPRAZOLE 40 MG/10 ML VIAL IVP SCH (08:04)
[2022-03-16] MEDS: FUROSEMIDE 10 MG/ML 10 ML VIAL IV SCH ×2 (08:04→20:47)
[2022-03-16] MEDS: CHLORHEXIDINE GLUCONATE 15 ML CUP MUCOUS MEM SCH ×2 (08:04→20:47)
[2022-03-16] MEDS: methylPREDNISolone SOD SUCCI 40 MG/ML 1 ML VIAL IV SCH (08:04)
--- NOTE | 2022-03-16 08:09 | XR ---
EXAMINATION TYPE: XR chest 1V portable DATE OF EXAM: 03/16/2022 5:54 AM COMPARISON: Chest radiograph from one day prior. TECHNIQUE: XR chest 1V portable Portable AP radiograph of the chest. CLINICAL INDICATION:Female, 61 years old with history of Tube placement; FINDINGS: Lungs/Pleura: Similar multifocal airspace opacities. No evidence of pneumothorax or pleural effusion. Pulmonary vascularity: Unremarkable. Heart/mediastinum: Cardiomediastinal silhouette is enlarged and stable. Musculoskeletal: No acute osseous pathology. Other findings: Upper abdomen surgical clips. Lines/Tubes: Endotracheal tube with distal tip 3.3 cm above the albin Nasogastric tube with its distal tip and side-port projecting under the diaphragm. Bilateral thoracotomy tubes are present without evidence of pneumothorax. Left central venous catheter with distal tip at the brachiocephalic and superior vena cava confluence . IMPRESSION: 1. Similar multifocal airspace opacities. 2. Thoracotomy tubes without evidence of pneumothorax. 3. Endotracheal nasogastric tubes in appropriate position. 4.
[2022-03-16] MEDS: NOREPINEPHRINE 8 MG in SODIUM CHLORIDE 0.9% 250 ML IV SCH ×2 (09:16→11:19)
--- NOTE | 2022-03-16 10:11 | P.PN ---
Subjective Progress Note Date: 03/16/22 PROGRESS NOTE The patient is a 61-year-old female with a known history of mild CAD by cardiac catheterization in June, history of hypertension who presented with symptoms of progressive dyspnea. She tested positive for influenza a period had progressive dyspnea requiring mechanical ventilation. Cardiology consultation was requested. Patient has no history of myocardial infarction or prior cardiomyop athy. I have no recent evaluation of her systolic function. She is in sinus mechanism, intubated and sedated. Her blood pressure is stable. According to the notes and the nursing staff the patient has been having progressive dyspnea over the last 2 weeks with a cough and wheezing. She was initially placed on BiPAP at with worsening dyspnea required mechanical ventilation. I have no history of prior smoking or documented COPD. On presentation her troponin were normal, she had evidence of acute renal injury. Her NT proBNP was 1590. Her plasma lactic was elevated. She had significant leukocytosis. Her chest x-ray shows patchy bilateral air space consolidation. No other prior history could be obtained at this time. March 13: The patient remains intubated and sedated. She is in atrial fibrillation with episodes of rapid ventricle response. She is on a low dose norepinephrine. Her urine output has been low. She was started on IV amiodarone and IV heparin. There is no ventricular ectopic activity. She is receiving every feeding. There is no evidence of GI bleeding. Her echocardiogram yesterday showed an ejection fraction of 45-50% with mild mitral and tricuspid regurgitation and no evidence of pulmonary hypertension. March 14: The patient was found to have pneumothorax yesterday, underwent chest tube placement. She continues to have air leak. Her IV heparin was on hold yesterday. She continues to be in atrial fibrillation with episode of rapid ventricular response. There is no evidence of ventricular ectopic activity. Her urinary output is stable. She is tolerating tube feeding. March 15: The patient remains intubated and sedated. She continues to be in atrial fibrillation. She has a chest tube. She is back on her IV heparin. There is no evidence of ventricular ectopic activity. She sedated. She had evidence of bilateral pneumothorax. The patient had influenza infection and probable super imposed bacterial infection. Her pro-calcitonin was elevated. Her echocardiogram showed a mildly impaired systolic function with no evidence of significant valvular disease. March 16: The patient continues to be intubated and sedated, in atrial fibrillation with predominantly controlled ventricular response. She continues to be on amiodarone and beta juan with some episodes of rapid ventricle response. She is on IV heparin. Her urinary output is low and there is worsening of her BUN. She is on no vasopressors. There is no evidence of ventricular ectopic activity. She continues to have chest tube. She has evidence of superimposed bacterial infection on her influenza. Medications: amiodarone 400 mg twice a day, insulin, IV heparin to be restarted today, metoprolol 50 mg twice a day, aspirin once a day, Tamiflu, Cardura, Lasix 60 mg IV every 12 hours PHYSICAL EXAMINATION: Blood pressure 111/50 heart rate 105 LUNGS: Scattered rhonchi, chest tube in place HEART: Irregular rate and rhythm, S1, S2. No S3. No systolic murmur ABDOMEN: Soft, obese, no organomegaly, positive bowel sounds EXTREMETIES: 1+ edema LAB: Hemoglobin 13.6, white blood cell 52.9, BUN 117, creatinine 1.64, potassium 5.2, pH 7.17, IMPRESSION: 1. Respiratory failure with influenza A infection, intubated with possible superimposed bacterial infection, worsening leukocytosis 2. Atrial fibrillation, new onset, probably exacerbated by infection. Her score is 2 3. Mild CAD 4. Prior history of hypertension 5. Acute renal injury, worsening 6. Pneumothorax status post chest tube PLAN: 1. Continue amiodarone, beta juan 2. Follow renal functions 3. Supportive care 4. Prognosis is guarded Objective - Vital Signs Vital signs: Vital Signs Temp 97.9 F 03/16/22 08:00 Pulse 105 H 03/16/22 10:00 Resp 34 H 03/16/22 10:00 BP 101/65 03/15/22 11:00 Pulse Ox 86 L 03/16/22 10:00 FiO2 100 03/16/22 10:00 Intake & Output 03/15/22 03/16/22 03/16/22 18:59 06:59 18:59 Intake Total 2197.308 1359.066 137.598 Output Total 400 590 60 Balance 1797.308 769.066 77.598 Weight 141.5 kg 150.2 kg Intake: IV 775 130 10 Cefepime 1 gm In Sodium 25 Chloride 0.9% 50 ml @ 100 mls/hr IVPB Q12H [facility] Rx# :[id number] Sodium Chloride 0.9% 1, 750 130 10 000 ml @ 10 mls/hr IV . Q24H [facility] Rx#:[id number] Intake, IV Titration 768.308 618.066 50.598 Amount Cisatracurium 200 mg In 200 Sodium Chloride 0.9% 180 ml @ 1 MCG/KG/MIN 8.1 mls /hr IV .Q24H [facility] Rx#: [id number] Heparin Sod,Pork in 0.45% 202.643 224.694 NaCl 25,000 unit In 0.45 % NaCl 1 250ml.bag @ 9. 585 UNITS/KG/HR 10 mls/hr IV .Q24H [facility] Rx#: [id number] propofoL 1,000 mg In 365.665 393.372 50.598 Empty Bag 1 bag @ 15 MCG/ KG/MIN 12.15 mls/hr IV . Q8H14M [facility] Rx#:[id number] Tube Feeding 564 611 47 Other 90 30 Output: Chest Tube Drainage 70 190 30 Chest Tube Left 20 50 Chest Tube Right 50 140 30 Urine 330 400 30 Other: Voiding Method Indwelling Catheter Indwelling Catheter Indwelling Catheter ABP, PAP, CO, CI - Last Documented Arterial Blood Pressure 89/47 - Labs CBC & Chem 7: 03/16/22 06:00 03/16/22 06:00 Labs: Abnormal Lab Results - Last 24 Hours (Table) 03/15/22 03/15/22 03/16/22 Range/Units 11:49 18:23 00:50 WBC (3.8-10.6) k/uL MCV (80.0-100.0) fL MCHC (31.0-37.0) g/dL Plt Count (150-450) k/uL Macrocytosis APTT (22.0-30.0) sec ABG pH (7.35-7.45) ABG pCO2 (35-45) mmHg ABG pO2 (83-108) mmHg ABG Total CO2 (19-24) mmol/L ABG O2 Saturation (94-97) % Sodium (137-145) mmol/L Potassium (3.5-5.1) mmol/L BUN (7-17) mg/dL Creatinine (0.52-1.04) mg/dL Glucose (74-99) mg/dL POC Glucose (mg/dL) 174 H 164 H 209 H (70-110) mg/dL 03/16/22 03/16/22 03/16/22 Range/Units 05:24 06:00 06:00 WBC 52.9 H* (3.8-10.6) k/uL MCV 112.5 H (80.0-100.0) fL MCHC 30.4 L (31.0-37.0) g/dL Plt Count 118 L (150-450) k/uL Macrocytosis Marked A APTT (22.0-30.0) sec ABG pH 7.17 L* (7.35-7.45) ABG pCO2 65 H (35-45) mmHg ABG pO2 67 L (83-108) mmHg ABG Total CO2 26 H (19-24) mmol/L ABG O2 Saturation 91.0 L (94-97) % Sodium 134 L (137-145) mmol/L Potassium 5.2 H (3.5-5.1) mmol/L BUN 117 H* (7-17) mg/dL Creatinine 1.64 H (0.52-1.04) mg/dL Glucose 215 H (74-99) mg/dL POC Glucose (mg/dL) (70-110) mg/dL 03/16/22 03/16/22 Range/Units 06:00 06:26 WBC (3.8-10.6) k/uL MCV (80.0-100.0) fL MCHC (31.0-37.0) g/dL Plt Count (150-450) k/uL Macrocytosis APTT 46.8 H (22.0-30.0) sec ABG pH (7.35-7.45) ABG pCO2 (35-45) mmHg ABG pO2 (83-108) mmHg ABG Total CO2 (19-24) mmol/L ABG O2 Saturation (94-97) % Sodium (137-145) mmol/L Potassium (3.5-5.1) mmol/L BUN (7-17) mg/dL Creatinine (0.52-1.04) mg/dL Glucose (74-99) mg/dL POC Glucose (mg/dL) 213 H (70-110) mg/dL Microbiology - Last 24 Hours (Table) 03/15/22 05:52 Blood Culture - Preliminary Blood No Growth after 24 hours 03/14/22 14:02 Blood Culture Gram Stain - Preliminary Blood 03/13/22 10:52 Anaerobic Culture - Preliminary Pleural Fluid 03/13/22 10:52 Gram Stain - Final Pleural Fluid Body Fluid Culture - Final Methicillin resist S. aureus 03/14/22 14:02 Blood Culture - Final Blood
--- NOTE | 2022-03-16 10:52 | P.PN ---
Subjective Progress Note Date: 03/16/22 Principal diagnosis: Pneumonia Patient is a 61-year-old female with a past medical history significant for coronary artery disease hypertension heart failure presenting to the ER last evening for evaluation of increasing shortness of breath in this patient symptom apparently has been going on for 2 weeks before presentation to the hospital, patient did have worsening of respiratory status requiring intubation subsequently developing bilateral pneumothoraces requiring chest tube placement on 03/13/2022. On today's evaluation that is 03/16/2022, the patient continues to be afebrile, the patient is still requiring 100% FiO2 and did have air leak from the chest tube site per the nursing staff , patient did receive amiodarone and Lopressor for tachycardia subsequently did has slight drop in the blood pressure has been started on Levophed, patient with no significant purulent secretions through the ET or diarrhea reported by nursing staff Objective - Vital Signs Vital signs: Vital Signs Temp 97.9 F 03/16/22 08:00 Pulse 105 H 03/16/22 10:00 Resp 34 H 03/16/22 10:00 BP 101/65 03/15/22 11:00 Pulse Ox 86 L 03/16/22 10:00 FiO2 100 03/16/22 10:00 Intake & Output 03/15/22 03/16/22 03/16/22 18:59 06:59 18:59 Intake Total 2197.308 1359.066 251.598 Output Total 400 590 95 Balance 1797.308 769.066 156.598 Weight 141.5 kg 150.2 kg Intake: IV 775 130 30 Cefepime 1 gm In Sodium 25 Chloride 0.9% 50 ml @ 100 mls/hr IVPB Q12H [facility] Rx# :[id number] Sodium Chloride 0.9% 1, 750 130 30 000 ml @ 10 mls/hr IV . Q24H [facility] Rx#:[id number] Intake, IV Titration 768.308 618.066 50.598 Amount Cisatracurium 200 mg In 200 Sodium Chloride 0.9% 180 ml @ 1 MCG/KG/MIN 8.1 mls /hr IV .Q24H [facility] Rx#: [id number] Heparin Sod,Pork in 0.45% 202.643 224.694 NaCl 25,000 unit In 0.45 % NaCl 1 250ml.bag @ 9. 585 UNITS/KG/HR 10 mls/hr IV .Q24H [facility] Rx#: [id number] propofoL 1,000 mg In 365.665 393.372 50.598 Empty Bag 1 bag @ 15 MCG/ KG/MIN 12.15 mls/hr IV . Q8H14M [facility] Rx#:[id number] Tube Feeding 564 611 141 Other 90 30 Output: Chest Tube Drainage 70 190 30 Chest Tube Left 20 50 Chest Tube Right 50 140 30 Urine 330 400 65 Other: Voiding Method Indwelling Catheter Indwelling Catheter Indwelling Catheter ABP, PAP, CO, CI - Last Documented Arterial Blood Pressure 89/47 - Exam GENERAL DESCRIPTION: Middle-aged female intubated on the vent RESPIRATORY SYSTEM: Unlabored breathing , decreased breath sounds at bases HEART: S1 S2 regular rate and rhythm , ABDOMEN: Soft , no tenderness EXTREMITIES: No edema feet - Labs CBC & Chem 7: 03/16/22 06:00 03/16/22 06:00 Labs: Abnormal Lab Results - Last 24 Hours (Table) 03/15/22 03/15/22 03/16/22 Range/Units 11:49 18:23 00:50 WBC (3.8-10.6) k/uL MCV (80.0-100.0) fL MCHC (31.0-37.0) g/dL Plt Count (150-450) k/uL Macrocytosis APTT (22.0-30.0) sec ABG pH (7.35-7.45) ABG pCO2 (35-45) mmHg ABG pO2 (83-108) mmHg ABG Total CO2 (19-24) mmol/L ABG O2 Saturation (94-97) % Sodium (137-145) mmol/L Potassium (3.5-5.1) mmol/L BUN (7-17) mg/dL Creatinine (0.52-1.04) mg/dL Glucose (74-99) mg/dL POC Glucose (mg/dL) 174 H 164 H 209 H (70-110) mg/dL 03/16/22 03/16/22 03/16/22 Range/Units 05:24 06:00 06:00 WBC 52.9 H* (3.8-10.6) k/uL MCV 112.5 H (80.0-100.0) fL MCHC 30.4 L (31.0-37.0) g/dL Plt Count 118 L (150-450) k/uL Macrocytosis Marked A APTT (22.0-30.0) sec ABG pH 7.17 L* (7.35-7.45) ABG pCO2 65 H (35-45) mmHg ABG pO2 67 L (83-108) mmHg ABG Total CO2 26 H (19-24) mmol/L ABG O2 Saturation 91.0 L (94-97) % Sodium 134 L (137-145) mmol/L Potassium 5.2 H (3.5-5.1) mmol/L BUN 117 H* (7-17) mg/dL Creatinine 1.64 H (0.52-1.04) mg/dL Glucose 215 H (74-99) mg/dL POC Glucose (mg/dL) (70-110) mg/dL 03/16/22 03/16/22 Range/Units 06:00 06:26 WBC (3.8-10.6) k/uL MCV (80.0-100.0) fL MCHC (31.0-37.0) g/dL Plt Count (150-450) k/uL Macrocytosis APTT 46.8 H (22.0-30.0) sec ABG pH (7.35-7.45) ABG pCO2 (35-45) mmHg ABG pO2 (83-108) mmHg ABG Total CO2 (19-24) mmol/L ABG O2 Saturation (94-97) % Sodium (137-145) mmol/L Potassium (3.5-5.1) mmol/L BUN (7-17) mg/dL Creatinine (0.52-1.04) mg/dL Glucose (74-99) mg/dL POC Glucose (mg/dL) 213 H (70-110) mg/dL Microbiology - Last 24 Hours (Table) 03/14/22 14:02 Blood Culture Gram Stain - Preliminary Blood Blood Culture - Preliminary Presumptive MRSA 03/15/22 05:52 Blood Culture - Preliminary Blood No Growth after 24 hours 03/13/22 10:52 Anaerobic Culture - Preliminary Pleural Fluid 03/13/22 10:52 Gram Stain - Final Pleural Fluid Body Fluid Culture - Final Methicillin resist S. aureus 03/14/22 14:02 Blood Culture - Final Blood Assessment and Plan (1) Multifocal pneumonia Current Visit: Yes Status: Acute Code(s): J18.9 - PNEUMONIA, UNSPECIFIED ORGANISM SNOMED Code(s): 614832682 Plan: 1patient with a positive blood culture with staph epi likely skin contamination, however repeat blood culture now growing MRSA, blood cultures repeated daily document clearance of her bacteremia 2patient with the acute respiratory failure multifactorial and likely component of pneumonia in this patient sputum as well as BAL cultures are currently growing MRSA 3patient did have worsening of the white count possibly related to steroids and will be monitored closely 4-the patient to continue with the vancomycin and monitor clinical course closely Time with Patient: Less than 30
[2022-03-16] MEDS: CISATRACURIUM 200 MG in SODIUM CHLORIDE 0.9% 180 ML IV SCH (11:18)
[2022-03-16] MEDS: SODIUM CHLORIDE 0.9% 1,000 ML IV SCH (11:19)
[2022-03-16 12:05] LABS: Glucose,Whole Blood 182 mg/dL (70-110)
--- NOTE | 2022-03-16 16:25 | P.PN ---
Subjective Progress Note Date: 03/16/22 Patient is a 61-year-old female with past medical history remarkable for CAD, heart failure, hypertension, CAD who presents to emergency Department complaining of shortness of breath. She has had worsening shortness of breath for the last 2 weeks. This is exertional, associated with a nonproductive cou gh, wheezing. Patient also had bilateral lower extremity edema that has been symmetrical and getting worse. She denies any sick contacts. Denies any fevers. Denies any abdominal pain, nausea, vomiting. Does endorse intermittent chest pressure like sensation with shortness of breath is bad but currently denies it. Denies any diarrhea. She would this with the primary care physician and the patient was found to be profoundly hypoxic. She was sent over to the emergency department. Immediately, the patient was placed on oxygen, subsequently her condition decompensated and she was placed on the BiPAP and she ultimately failed and she had to be intubated and placed on a mechanical ventilator. Chest x-ray showed diffuse but the pulmonary infiltrates and areas of multifocal airspace opacity concerning for pneumonia. The patient's blood work showed a white cell count of 23 with a hemoglobin of 17. INR was at 1.9 with a PT of 19 and a PTT of 31. Sodium was at 139 with a potassium level of 3.2. BUN was 33 with a creatinine of 2.7. Lactic acid level was as high as 7.8, AST and ALP were 45) respectively, troponins were negative and a proBNP level was 1590. Influenza A was positive by PCR. Influenza B, RSV and Covid 19 were all negative. The UA showed 3 WBCs and +2 protein and large amount of blood with a RBC count of 182. This morning, the patient is intubated and mechanically ventilated. The patient is sedated with propofol. The patient is on assist control mode with a rate of 24 with a tidal volume of 400 FiO2 100% with a PEEP of 5. Chest x-ray showed unchanged multifocal breath and pneumonia. The patient was told in the bicarb infusion. The patient computed to have elevated lactic acid level and the level from this morning was at 8.1. She received a total of 3 units of N fluids yesterday. Currently she is in a bicarb infusion. BUN is at 37 with a crea tinine of 2.02 which is improved compared to yesterday. Serum bicarbs of 15 and a sodium level is at 134. Most recent blood gas from this morning showed more preferable for and pO2 of 80. White cell count is lower compared to yesterday at 17.2 with a hemoglobin of 15.6. Furthermore, the patient was admitted to physicians of the ventricular response yesterday. The patient converted into sinus rhythm. This morning, that, my evaluation, the patient went back into A. fib RVR. The patient will be started on amiodarone per protocol. No fever. No pressors at this point in time. On 03/13/2022, the patient is being seen for a follow-up. Earlier this morning, the patient started having shortness of breath and the patient was having elevated peak airway pressures and the patient was desaturating. At the time of my arrival to the intensive care unit, the patient was quite uncomfortable, tachypneic and somewhat hypoxic. At that point, I repeated the chest x-ray and the patient was found to have a right-sided pneumothorax. I repeated the chest x-ray and there was a large bilateral pneumothoraces noted. Immediately, bilateral chest tubes were inserted with resolution of the bilateral pneumothoraces. The patient currently is on propofol running at 30 microvascular kilogram per minutes. The patient is currently on assist control mode of mechanical ventilation. There is a 24 and a tidal volume was dropped off to 400 with an FiO2 of 70% with a PEEP of 5. The blood case with a pH of 7.41 with a pCO2 of 43 and pO2 of 66 and this was done prior to the chest tube insertion. Urine output was low earlier this morning around 10-15 mL an hour. Lactic acid level was down trending. The patient was still on amiodarone drip running at 0.5 mg/m and the patient was on IV heparin. The patient was also started on tube feeding with vital high-protein at the rate of 30 mL an hour. The patient currently is hemodynamically stable. The blood work from today showed edematous count of 8.1 and hemoglobin 12.1 and a platelet count of 121. INR is at 1.6 with a PT of 15.7. Sodium level is at 131 with a potassium level of 4.2, chloride is 97 bicarbs 2059 and 62 creatinine is 1.98. The bronchial lavage has not showing any microbial growth. Legionella urine antigen is negative. The pro calcitonin was unexpectedly elevated at 8.7. The patient is covered with broad-spectrum antibiotics and the patient is currently on accommodation of cefepime, Levaquin and vancomycin. The patient remains in a bicarb infusion. Serum bicarb is improved. Lactic acid level is also dropped. Patient currently has bilateral chest tube. There is positive air leak from the right-sided chest tube. 03/14/2022, patient is being seen for a follow-up. This morning, the patient is sedated on propofol and she is currently at 30 mcg/kg/m of propofol infusion. The patient is also on Nimbex which is running at 1 mcg/kg/m. She is adequately sedated and paralyzed at this point in time. He remains on a mechanical ventilator. She is assist-control mode at the rate of 28, tidal volume of 400, FiO2 of 80% with a PEEP of 5. Current pulse ox on the monitor is around 87%. Peak airway pressures around 31. The patient's return tidal volume is in the order of 380 mL and the patient has bilateral chest tubes. There is evidence of air leak from both chest tubes and airleak is still active. Chest x-ray from this morning is still pending. Noted the patient had developed bilateral pneumothoraces yesterday and bilateral chest tubes were inserted in these are 28-Salvadorean chest tubes. Output from the left-sided pleural fluid was somewhat purulent and total amount of output has been in the order of 200 mL since inserted. Cultures from the left-sided pleural effusion still pending. The whi te cell count in the left-sided pleural effusion is elevated. As for the right- sided pleural effusion, this is essentially a transudate. The pro calcitonin level was elevated. I do suspect a bacterial infection on top of the influenza infection. Noted the bronchial lavage that was done earlier showed again influenza a. The blood gas from today showed a pH of 7.23 with a pCO2 of 65 and pO2 of 66 and this was on FiO2 of 80%. Hemodynamically, the patient is on no pressors. The patient remains in atrial fibrillation. The patient is currently on oral amiodarone. IV heparin was discontinued briefly yesterday as the patient was having bloody output from her orotracheal tube and the anticoa gulation was held during the chest tube insertion process. The white cell count today's of 15.2 with a hemoglobin of 14.5 and a platelet count of 140. Rest of the blood work shows a sodium of 134 with a potassium level of 4.1, BUN is 74 and the creatinine is 1.45 and a creatinine is obviously improving. Lactic acid level has dropped onto 3.8. The Legionella urine antigen was negative. The zac iebernardino is on enteral feeding for nutritional support and she is currently on vital high-protein at the rate of 47 mL an hour. Overall fluid balance over the past 24 hours is positive for 0.2 L. The patient remains on broad-spectrum antibiotics patient is currently on IV cefepime and Levaquin. Pro-calcitonin level was elevated. A repeat level is to be obtained today. 03/15/2022, the patient remains intubated on a mechanical ventilator. This morning, the patient sedated on propofol running at 50 mcg/kg/m and the patient is also on Nimbex at 1 mcg/kg/m. His adequately sedated and paralyzed. She remains on a mechanical ventilator on assist control mode and she is at the rate of 34 with a tidal volume of 400, FiO2 of 100% with a PEEP of 10. The chest x- ray is showing diffuse bilateral airspace disease and orotracheal tube is in a good location. The patient also has a bilateral chest tube. Motor the chest tubes on both sides are leaking air and there is ongoing air leak and the sydney ent has volume loss in the order of 50 mL based on the recurrent tidal volumes on a mechanical ventilator. The right-sided chest tube is leaking and a total amount of output has been around 40 mL over the past 8 hours. Left sided chest tube is also leaking output is around 1 10 mL over the past 8 hours. The culture from the left-sided pleural effusion is positive for MRSA and the bronchial lavage was also positive for influenza and MRSA. As such, this patient has a influenza infection/pneumonia with a superinfection with MRSA. The patient remains on Tamiflu. The patient remains on vancomycin. The patient otherwise is in nature fibrillation. Heart rate is irregular and the rate is between 110 and 120. The patient remains on IV heparin. The patient is on oral amiodarone 400 mg by mouth twice a day. Overall fluid balance is positive for liters over the past 24 hours and the patient is on vital high-protein which is being given at rate of 47 mL an hour. She is also on normal saline at rate of 100 mL an hour. The patient's white cell count is at 31 and the patient also has a hemoglobin of 14.2 with a platelet count of 122. The sodium is at 134, potassium is at 5, BUN is at 95 with a creatinine of 1.4. Serum bicarbs of 24. Pro-calcitonin as mentioned was quite elevated consistent with bacterial superinfection. The patient remains on IV heparin regarding her chronic atrial fibrillation. Condition remains extremely critical. 03/16/2022, the patient continues to do very poor. She remains septic in the blood culture still positive for MRSA. Note that the bronchoalveolar lavage also showed MRSA in the pleural fluid showed MRSA and the patient remains on vancomycin. The patient remains septic for now. The patient is hypotensive and the patient is on a low-norepinephrine at the rate of 0.3 mcg/kg/m. At the same time, the patient is on propofol and the patient has been adequately sedated with propofol at 50 mcg/kg/m and the patient is also on Nimbex at 1 mcg/kg/m. The patient remains on a mechanical ventilator. The patient is on assist- control mode of mechanical ventilation at the rate of 24 with a tidal volume of 450 and FiO2 of 100% with a PEEP of 10. The patient has a blood gas that showed a pH of 7.17 with a pCO2 of 65 and pO2 of 67. The chest x-ray is unchanged and shows diffuse bilateral pulmonary infiltrates. There is probably some apical pneumothoraces bilaterally. The patient is having airleak some bilaterally from both chest tubes. The volume loss in terms of tidal volume return is no other of 50 mL with each breath. The patient remains on normal saline at rate of 10 mL an hour. The patient remains on vital high-protein at the rate of 47 mL an hour. The patient remains in atrial fibrillation. The patient remains on IV h eparin. The white cell count is up to 52 with a hemoglobin of 15.6 and a platelet of 118. Sodium is 134 with a potassium level of 5.2. Prednisone 6 with a bicarb of 26 and a BUN is 117 with a creatinine of 1.6 and the pro calcitonin level is up to 4.36 slightly improved compared to yesterday's ev aluation. Patient is currently on oral amiodarone. Completed sedated and paralyzed at this point in time. Objective - Vital Signs Vital signs: Vital Signs Temp 97.7 F 03/16/22 12:00 Pulse 112 H 03/16/22 15:53 Resp 34 H 03/16/22 15:00 BP 101/65 03/15/22 11:00 Pulse Ox 88 L 03/16/22 15:00 FiO2 100 03/16/22 15:33 Intake & Output 03/15/22 03/16/22 03/16/22 18:59 06:59 18:59 Intake Total 2197.308 1359.066 937.820 Output Total 400 590 415 Balance 1797.308 769.066 522.820 Weight 141.5 kg 150.2 kg Intake: IV 775 130 80 Cefepime 1 gm In Sodium 25 Chloride 0.9% 50 ml @ 100 mls/hr IVPB Q12H TRE Rx# :[id number] Sodium Chloride 0.9% 1, 750 130 80 000 ml @ 10 mls/hr IV . Q24H TRE Rx#:[id number] Intake, IV Titration 768.308 618.066 421.820 Amount Cisatracurium 200 mg In 200 190.89 Sodium Chloride 0.9% 180 ml @ 1 MCG/KG/MIN 8.1 mls /hr IV .Q24H TRE Rx#: [id number] Heparin Sod,Pork in 0.45% 202.643 224.694 NaCl 25,000 unit In 0.45 % NaCl 1 250ml.bag @ 9. 585 UNITS/KG/HR 10 mls/hr IV .Q24H TRE Rx#: [id number] Norepinephrine 8 mg In 0 Sodium Chloride 0.9% 250 ml @ 0.03 MCG/KG/MIN 6. 056 mls/hr IV .Q24H TRE Rx#:[id number] propofoL 1,000 mg In 365.665 393.372 230.930 Empty Bag 1 bag @ 15 MCG/ KG/MIN 12.15 mls/hr IV . Q8H14M TRE Rx#:[id number] Tube Feeding 564 611 376 Other 90 60 Output: Chest Tube Drainage 70 190 270 Chest Tube Left 20 50 170 Chest Tube Right 50 140 100 Urine 330 400 145 Other: Voiding Method Indwelling Catheter Indwelling Catheter Indwelling Catheter ABP, PAP, CO, CI - Last Documented Arterial Blood Pressure 100/52 - Exam Obese, comfortable comfortable, no acute distress, sedated on propofol and paralytics Head exam was generally normal. There was no scleral icterus or corneal arcus. Mucous membranes were moist. Neck was supple and without jugular venous distension, thyromegaly, or carotid bruits. Carotids were easily palpable bilaterally. There was no adenopathy. Orogastric and orotracheal tube are both in place. Lungs are diminished bilaterally otherwise vessels are equal and symmetrical. The patient has bilateral chest tubes both chest tubes a 28-Salvadorean. There is positive air leak on the right and left. Cardiac exam revealed the PMI to be normally situated and sized. The rhythm was regular and no extrasystoles were noted during several minutes of auscultation. The first and second heart sounds were normal and physiologic splitting of the second heart sound was noted. There were no murmurs, rubs, clicks, or gallops. Abdominal exam revealed normal bowel sounds. The abdomen was soft, non-tender, and without masses, organomegaly, or appreciable enlargement of the abdominal aorta. Examination of the extremities revealed easily palpable radial, femoral and pedal pulses. There was no cyanosis, clubbing or edema. Diminished pulses in the upper and lower oximetry is bilaterally. Examination of the skin revealed no evidence of significant rashes, suspicious appearing nevi or other concerning lesions. Neurologically the patient sedated on propofol and paralytics - Labs CBC & Chem 7: 03/16/22 06:00 03/16/22 06:00 Labs: Abnormal Lab Results - Last 24 Hours (Table) 03/15/22 03/16/22 03/16/22 Range/Units 18:23 00:50 05:24 WBC (3.8-10.6) k/uL MCV (80.0-100.0) fL MCHC (31.0-37.0) g/dL Plt Count (150-450) k/uL Macrocytosis APTT (22.0-30.0) sec ABG pH 7.17 L* (7.35-7.45) ABG pCO2 65 H (35-45) mmHg ABG pO2 67 L (83-108) mmHg ABG Total CO2 26 H (19-24) mmol/L ABG O2 Saturation 91.0 L (94-97) % Sodium (137-145) mmol/L Potassium (3.5-5.1) mmol/L BUN (7-17) mg/dL Creatinine (0.52-1.04) mg/dL Glucose (74-99) mg/dL POC Glucose (mg/dL) 164 H 209 H (70-110) mg/dL 03/16/22 03/16/22 03/16/22 Range/Units 06:00 06:00 06:00 WBC 52.9 H* (3.8-10.6) k/uL MCV 112.5 H (80.0-100.0) fL MCHC 30.4 L (31.0-37.0) g/dL Plt Count 118 L (150-450) k/uL Macrocytosis Marked A APTT 46.8 H (22.0-30.0) sec ABG pH (7.35-7.45) ABG pCO2 (35-45) mmHg ABG pO2 (83-108) mmHg ABG Total CO2 (19-24) mmol/L ABG O2 Saturation (94-97) % Sodium 134 L (137-145) mmol/L Potassium 5.2 H (3.5-5.1) mmol/L BUN 117 H* (7-17) mg/dL Creatinine 1.64 H (0.52-1.04) mg/dL Glucose 215 H (74-99) mg/dL POC Glucose (mg/dL) (70-110) mg/dL 03/16/22 03/16/22 Range/Units 06:26 12:03 WBC (3.8-10.6) k/uL MCV (80.0-100.0) fL MCHC (31.0-37.0) g/dL Plt Count (150-450) k/uL Macrocytosis APTT (22.0-30.0) sec ABG pH (7.35-7.45) ABG pCO2 (35-45) mmHg ABG pO2 (83-108) mmHg ABG Total CO2 (19-24) mmol/L ABG O2 Saturation (94-97) % Sodium (137-145) mmol/L Potassium (3.5-5.1) mmol/L BUN (7-17) mg/dL Creatinine (0.52-1.04) mg/dL Glucose (74-99) mg/dL POC Glucose (mg/dL) 213 H 182 H (70-110) mg/dL Microbiology - Last 24 Hours (Table) 03/14/22 14:02 Blood Culture Gram Stain - Preliminary Blood Blood Culture - Preliminary Presumptive MRSA 03/15/22 05:52 Blood Culture - Preliminary Blood No Growth after 24 hours 03/13/22 10:52 Anaerobic Culture - Preliminary Pleural Fluid 03/13/22 10:52 Gram Stain - Final Pleural Fluid Body Fluid Culture - Final Methicillin resist S. aureus 03/14/22 14:02 Blood Culture - Final Blood Assessment and Plan Plan: Acute bilateral pneumonia, secondary to influenza and superimposed bacterial infection with MRSA. Both influenza a and MRSA was cultured from the bronchial lavage and MRSA was also present in the pleural fluid was drained from the left lung. Remains on broad-spectrum antibiotics. Patient remains on vancomycin. The patient remains on Tamiflu. Still intubated on a mechanical ventilator. The patient has bilateral pneumothoraces. Allowing permissive hypercapnia. Oxygenation is stable for now. Empyema with infection with MRSA secondary to underlying pneumonia. The patient had purulent left-sided pleural effusion post chest tube insertion. septic shock secondary to MRSA pneumonia and empyema and bacteremia Acute bilateral pneumothoraces, secondary pneumonia. Cannot rule out possibili ty of barotrauma. Patient has chest tubes bilaterally. There is persistent air leak bilaterally Acute leukocytosis, white cell count is on the rise Acute hypoxic respiratory failure secondary to above, currently intubated on a mechanical ventilator Acute kidney injury,creatinine is stable New-onset atrial fibrillation with RVR, rate is under better control and the patient remains on amiodarone, the patient is also on IV heparin Morbid obesity with previous bariatric surgery Previous history of splenectomy Acute kidney injury secondary to above, improving History of coronary artery disease, nonocclusive disease of the cardiac catheterization from 2021 COPD Fibromyalgia Migraines Chronic back pain History of stomach cancer History of nephrolithiasis History of osteoarthritis History of hepatitis C and hepatitis B Hypertension Plan Continue vent support No ventilator changes for today Keep the patient sedated with propofol Give the patient on paralytics Continue Tamiflu Continue vancomycin Pro calcitonin level is slightly improved Patient is septic and the patient will be kept on norepinephrine infusion for blood pressure control Continue enteral feeding for nutritional support He has a chest tube in place Moderate air leak Unfortunately, the patient's condition is getting worse. In the next discussion with the patient's family. Updated them on her condition. I had lengthy discussion with the family and updated them on her condition. critical care evaluation that was done in more than 30 minutes Time with Patient: Greater than 30
[2022-03-16] MEDS: VANCOMYCIN 2,000 MG in SODIUM CHLORIDE 0.9% 500 ML 500 ML IVPB SCH (16:55)
[2022-03-16 17:50] LABS: Glucose,Whole Blood 213 mg/dL (70-110)
[2022-03-16] MEDS: QUEtiapine 100 MG TAB PO SCH (20:48)
[2022-03-17] LABS: Glucose,Whole Blood 176 mg/dL (70-110)
[2022-03-17] MEDS: IPRATROPIUM-ALBUTEROL 3 ML NEB INHALATION SCH ×6 (01:01→19:32)
[2022-03-17] MEDS: ARTIFICIAL TEARS-HYPROMELLOSE DROPS 15 ML BTL BOTH EYES SCH ×6 (04:37→21:43)
[2022-03-17 06:01] LABS: ABG Base Excess -8.4 mmol/L; ABG HCO3 21 mmol/L (21-25); ABG Oxygen Saturation 92.3 % (94-97); ABG PCO2 67 mmHg (35-45); ABG PO2 72 mmHg (83-108); ABG TCO2 23 mmol/L (19-24); Allen Test Performed? Yes
[2022-03-17 06:04] LABS: ABG PH 7.11 (7.35-7.45)
[2022-03-17 06:10] LABS: Glucose,Whole Blood 260 mg/dL (70-110)
[2022-03-17] MEDS: CEFEPIME 2 GM in SODIUM CHLORIDE 0.9% 100 ML IVPB SCH (06:14)
[2022-03-17] MEDS: INSULIN ASPART (NovoLOG) 100 UNIT/ML VIAL SQ SCH ×4 (06:15→18:38)
[2022-03-17 06:20] LABS: HGB 13.3 gm/dL (11.4-16.0); Hypochromasia Marked; MCH 34.7 pg (25.0-35.0); MCHC 30.8 g/dL (31.0-37.0); MCV 112.6 fL (80.0-100.0); Macrocytosis Marked; Mean Platelet Volume 15.2; Platelet Count 113 k/uL (150-450); RBC 3.82 m/uL (3.80-5.40)
--- NOTE | 2022-03-17 07:11 | XR ---
EXAMINATION TYPE: XR chest 1V portable DATE OF EXAM: 03/17/2022 5:52 AM COMPARISON: Chest radiograph from one day prior. TECHNIQUE: XR chest 1V portable Portable AP radiograph of the chest. CLINICAL INDICATION:Female, 61 years old with history of Tube placement; FINDINGS: Lungs/Pleura: Similar multifocal airspace opacities. No evidence of pneumothorax or pleural effusion. Pulmonary vascularity: Unremarkable. Heart/mediastinum: Cardiomediastinal silhouette is enlarged and stable. Musculoskeletal: No acute osseous pathology. Lines/Tubes: Endotracheal tube with distal tip 3.5 cm above the albin Nasogastric tube with its distal tip and side-port projecting under the diaphragm. Right thoracotomy tube is present without evidence of pneumothorax. Left internal jugular central venous catheter with distal tip at the superior vena cava brachiocephal ic vein junction. IMPRESSION: 1. Similar multifocal airspace opacities. 2. Stable support lines and tubes.
[2022-03-17 07:14] LABS: Potassium 6.3 mmol/L (3.5-5.1)
[2022-03-17] MEDS: ASPIRIN 81 MG PO SCH (08:00)
[2022-03-17] MEDS: CHLORHEXIDINE GLUCONATE 15 ML CUP MUCOUS MEM SCH ×2 (08:00→22:04)
[2022-03-17] MEDS: methylPREDNISolone SOD SUCCI 40 MG/ML 1 ML VIAL IV SCH (08:00)
[2022-03-17] MEDS: NOREPINEPHRINE 8 MG in SODIUM CHLORIDE 0.9% 250 ML IV SCH ×2 (08:00→17:29)
[2022-03-17] MEDS: FUROSEMIDE 10 MG/ML 10 ML VIAL IV SCH ×2 (08:00→22:04)
[2022-03-17] MEDS: buPROPion SR 100 MG TABLET.ER PO SCH ×2 (08:01→22:05)
[2022-03-17] MEDS: AMIODARONE 200 MG TAB PO SCH (08:01)
[2022-03-17] MEDS: PANTOPRAZOLE 40 MG/10 ML VIAL IVP SCH (08:02)
--- NOTE | 2022-03-17 09:17 | P.PN ---
Subjective Progress Note Date: 03/17/22 PROGRESS NOTE The patient is a 61-year-old female with a known history of mild CAD by cardiac catheterization in June, history of hypertension who presented with symptoms of progressive dyspnea. She tested positive for influenza a period had progressive dyspnea requiring mechanical ventilation. Cardiology consultation was requested. Patient has no history of myocardial infarction or prior cardiomyop athy. I have no recent evaluation of her systolic function. She is in sinus mechanism, intubated and sedated. Her blood pressure is stable. According to the notes and the nursing staff the patient has been having progressive dyspnea over the last 2 weeks with a cough and wheezing. She was initially placed on BiPAP at with worsening dyspnea required mechanical ventilation. I have no history of prior smoking or documented COPD. On presentation her troponin were normal, she had evidence of acute renal injury. Her NT proBNP was 1590. Her plasma lactic was elevated. She had significant leukocytosis. Her chest x-ray shows patchy bilateral air space consolidation. No other prior history could be obtained at this time. March 13: The patient remains intubated and sedated. She is in atrial fibrillation with episodes of rapid ventricle response. She is on a low dose norepinephrine. Her urine output has been low. She was started on IV amiodarone and IV heparin. There is no ventricular ectopic activity. She is receiving every feeding. There is no evidence of GI bleeding. Her echocardiogram yesterday showed an ejection fraction of 45-50% with mild mitral and tricuspid regurgitation and no evidence of pulmonary hypertension. March 14: The patient was found to have pneumothorax yesterday, underwent chest tube placement. She continues to have air leak. Her IV heparin was on hold yesterday. She continues to be in atrial fibrillation with episode of rapid ventricular response. There is no evidence of ventricular ectopic activity. Her urinary output is stable. She is tolerating tube feeding. March 15: The patient remains intubated and sedated. She continues to be in atrial fibrillation. She has a chest tube. She is back on her IV heparin. There is no evidence of ventricular ectopic activity. She sedated. She had evidence of bilateral pneumothorax. The patient had influenza infection and probable super imposed bacterial infection. Her pro-calcitonin was elevated. Her echocardiogram showed a mildly impaired systolic function with no evidence of significant valvular disease. March 16: The patient continues to be intubated and sedated, in atrial fibrillation with predominantly controlled ventricular response. She continues to be on amiodarone and beta juan with some episodes of rapid ventricle response. She is on IV heparin. Her urinary output is low and there is worsening of her BUN. She is on no vasopressors. There is no evidence of ventricular ectopic activity. She continues to have chest tube. She has evidence of superimposed bacterial infection on her influenza. March 17: The patient continues to be intubated and sedated, hemodynamically stable on norepinephrine. She continues to be in atrial ablation with rapid ventricle response. Her urinary output has been poor. Discussion with the family by the intensive care team was done regarding course status because of the poor prognosis. She continues to be on PEEP with evidence of drainage and air leak. She had evidence of MRSA superimposed on her influenza a. She continues to be acidotic and hypercapnic with worsening of her renal function. Medications: amiodarone 400 mg twice a day, insulin, IV heparin , metoprolol 50 mg twice a day, aspirin once a day, Tamiflu, Cardura, Lasix 60 mg IV every 12 hours PHYSICAL EXAMINATION: Blood pressure 92/50 heart rate 120, intubated and sedated LUNGS: Scattered rhonchi, chest tube in place HEART: Irregular rate and rhythm, S1, S2. No S3. systolic ejection murmur ABDOMEN: Soft, obese, no organomegaly, positive bowel sounds EXTREMETIES: 1+ edema LAB: Hemoglobin 13.3, white blood cell 76,000, BUN 146, creatinine 2.26, potassium 6.3, pH 7.11, IMPRESSION: 1. Respiratory failure with influenza A infection, intubated with possible superimposed bacterial infection, worsening leukocytosis 2. Atrial fibrillation, new onset, probably exacerbated by infection. Her score is 2, rapid ventricle response 3. Mild CAD 4. Prior history of hypertension 5. Acute renal injury, worsening with hyperkalemia 6. Pneumothorax status post chest tube 7. Multiorgan failure PLAN: 1. Continue supportive care 2. Prognosis very poor in view of multiorgan failure, awaiting the input of the family regarding CODE STATUS Objective - Vital Signs Vital signs: Vital Signs Temp 98.3 F 03/17/22 08:00 Pulse 138 H 03/17/22 08:28 Resp 34 H 03/17/22 08:00 BP 101/65 03/16/22 22:00 Pulse Ox 89 L 03/17/22 08:00 FiO2 100 03/17/22 08:00 Intake & Output 03/16/22 03/17/22 03/17/22 18:59 06:59 18:59 Intake Total 5656.592 2510.555 216.831 Output Total 475 515 55 Balance 758.236 991.555 161.831 Weight 153.5 kg Intake: IV 110 130 10 Sodium Chloride 0.9% 1, 110 130 10 000 ml @ 10 mls/hr IV . Q24H TRE Rx#:[id number] Intake, IV Titration 516.236 765.555 129.831 Amount Cisatracurium 200 mg In 190.89 Sodium Chloride 0.9% 180 ml @ 1 MCG/KG/MIN 8.1 mls /hr IV .Q24H TRE Rx#: [id number] Heparin Sod,Pork in 0.45% 193.027 NaCl 25,000 unit In 0.45 % NaCl 1 250ml.bag @ 9. 585 UNITS/KG/HR 10 mls/hr IV .Q24H TRE Rx#: [id number] Norepinephrine 8 mg In 0 149.519 33.981 Sodium Chloride 0.9% 250 ml @ 0.03 MCG/KG/MIN 6. 056 mls/hr IV .Q24H TRE Rx#:[id number] propofoL 1,000 mg In 325.346 423.009 95.85 Empty Bag 1 bag @ 15 MCG/ KG/MIN 12.15 mls/hr IV . Q8H14M TRE Rx#:[id number] Tube Feeding 517 611 47 Other 90 30 Output: Chest Tube Drainage 230 230 40 Chest Tube Left 180 100 20 Chest Tube Right 50 130 20 Urine 245 285 15 Other: Voiding Method Indwelling Catheter Indwelling Catheter ABP, PAP, CO, CI - Last Documented Arterial Blood Pressure 94/51 - Labs CBC & Chem 7: 03/17/22 06:07 03/17/22 06:07 Labs: Abnormal Lab Results - Last 24 Hours (Table) 03/16/22 03/16/22 03/16/22 Range/Units 12:03 17:49 23:59 WBC (3.8-10.6) k/uL MCV (80.0-100.0) fL MCHC (31.0-37.0) g/dL Plt Count (150-450) k/uL Macrocytosis APTT (22.0-30.0) sec ABG pH (7.35-7.45) ABG pCO2 (35-45) mmHg ABG pO2 (83-108) mmHg ABG O2 Saturation (94-97) % Sodium (137-145) mmol/L Potassium (3.5-5.1) mmol/L Carbon Dioxide (22-30) mmol/L BUN (7-17) mg/dL Creatinine (0.52-1.04) mg/dL Glucose (74-99) mg/dL POC Glucose (mg/dL) 182 H 213 H 176 H (70-110) mg/dL Calcium (8.4-10.2) mg/dL 03/17/22 03/17/22 03/17/22 Range/Units 05:57 06:07 06:07 WBC 76.0 H* (3.8-10.6) k/uL MCV 112.6 H (80.0-100.0) fL MCHC 30.8 L (31.0-37.0) g/dL Plt Count 113 L (150-450) k/uL Macrocytosis Marked A APTT (22.0-30.0) sec ABG pH 7.11 L* (7.35-7.45) ABG pCO2 67 H (35-45) mmHg ABG pO2 72 L (83-108) mmHg ABG O2 Saturation 92.3 L (94-97) % Sodium 132 L (137-145) mmol/L Potassium 6.3 H* (3.5-5.1) mmol/L Carbon Dioxide 19 L (22-30) mmol/L BUN 146 H* (7-17) mg/dL Creatinine 2.26 H (0.52-1.04) mg/dL Glucose 244 H (74-99) mg/dL POC Glucose (mg/dL) (70-110) mg/dL Calcium 8.0 L (8.4-10.2) mg/dL 03/17/22 03/17/22 Range/Units 06:07 06:09 WBC (3.8-10.6) k/uL MCV (80.0-100.0) fL MCHC (31.0-37.0) g/dL Plt Count (150-450) k/uL Macrocytosis APTT 65.6 H (22.0-30.0) sec ABG pH (7.35-7.45) ABG pCO2 (35-45) mmHg ABG pO2 (83-108) mmHg ABG O2 Saturation (94-97) % Sodium (137-145) mmol/L Potassium (3.5-5.1) mmol/L Carbon Dioxide (22-30) mmol/L BUN (7-17) mg/dL Creatinine (0.52-1.04) mg/dL Glucose (74-99) mg/dL POC Glucose (mg/dL) 260 H (70-110) mg/dL Calcium (8.4-10.2) mg/dL Microbiology - Last 24 Hours (Table) 03/15/22 05:52 Blood Culture - Preliminary Blood No Growth after 48 hours 03/16/22 06:00 Blood Culture - Preliminary Blood No Growth after 24 hours 03/14/22 14:02 Blood Culture Gram Stain - Preliminary Blood Blood Culture - Preliminary Presumptive MRSA
[2022-03-17] MEDS ORDERED: SODIUM BICARB 8.4% 50 ML SYR (1 MEQ/ML) IV STA (09:19)
[2022-03-17] MEDS: METOPROLOL TARTRATE 50 MG TAB PO SCH (09:50)
[2022-03-17] MEDS: SODIUM ZIRCONIUM CYCLOSILICATE 10 GM PACKET PO SCH ×3 (09:53→22:05)
[2022-03-17] MEDS: CISATRACURIUM 200 MG in SODIUM CHLORIDE 0.9% 180 ML IV SCH (09:54)
[2022-03-17] MEDS: SODIUM CHLORIDE 0.9% 1,000 ML IV SCH (09:54)
[2022-03-17] MEDS ORDERED: VANCOMYCIN 2,000 MG in SODIUM CHLORIDE 0.9% 500 ML 500 ML IVPB SCH (12:00)
[2022-03-17 12:15] LABS: Glucose,Whole Blood 224 mg/dL (70-110)
--- NOTE | 2022-03-17 13:04 | P.PN ---
Subjective Progress Note Date: 03/17/22 Patient is a 61-year-old female with past medical history remarkable for CAD, heart failure, hypertension, CAD who presents to emergency Department complaining of shortness of breath. She has had worsening shortness of breath for the last 2 weeks. This is exertional, associated with a nonproductive cou gh, wheezing. Patient also had bilateral lower extremity edema that has been symmetrical and getting worse. She denies any sick contacts. Denies any fevers. Denies any abdominal pain, nausea, vomiting. Does endorse intermittent chest pressure like sensation with shortness of breath is bad but currently denies it. Denies any diarrhea. She would this with the primary care physician and the patient was found to be profoundly hypoxic. She was sent over to the emergency department. Immediately, the patient was placed on oxygen, subsequently her condition decompensated and she was placed on the BiPAP and she ultimately failed and she had to be intubated and placed on a mechanical ventilator. Chest x-ray showed diffuse but the pulmonary infiltrates and areas of multifocal airspace opacity concerning for pneumonia. The patient's blood work showed a white cell count of 23 with a hemoglobin of 17. INR was at 1.9 with a PT of 19 and a PTT of 31. Sodium was at 139 with a potassium level of 3.2. BUN was 33 with a creatinine of 2.7. Lactic acid level was as high as 7.8, AST and ALP were 45) respectively, troponins were negative and a proBNP level was 1590. Influenza A was positive by PCR. Influenza B, RSV and Covid 19 were all negative. The UA showed 3 WBCs and +2 protein and large amount of blood with a RBC count of 182. This morning, the patient is intubated and mechanically ventilated. The patient is sedated with propofol. The patient is on assist control mode with a rate of 24 with a tidal volume of 400 FiO2 100% with a PEEP of 5. Chest x-ray showed unchanged multifocal breath and pneumonia. The patient was told in the bicarb infusion. The patient computed to have elevated lactic acid level and the level from this morning was at 8.1. She received a total of 3 units of N fluids yesterday. Currently she is in a bicarb infusion. BUN is at 37 with a crea tinine of 2.02 which is improved compared to yesterday. Serum bicarbs of 15 and a sodium level is at 134. Most recent blood gas from this morning showed more preferable for and pO2 of 80. White cell count is lower compared to yesterday at 17.2 with a hemoglobin of 15.6. Furthermore, the patient was admitted to physicians of the ventricular response yesterday. The patient converted into sinus rhythm. This morning, that, my evaluation, the patient went back into A. fib RVR. The patient will be started on amiodarone per protocol. No fever. No pressors at this point in time. On 03/13/2022, the patient is being seen for a follow-up. Earlier this morning, the patient started having shortness of breath and the patient was having elevated peak airway pressures and the patient was desaturating. At the time of my arrival to the intensive care unit, the patient was quite uncomfortable, tachypneic and somewhat hypoxic. At that point, I repeated the chest x-ray and the patient was found to have a right-sided pneumothorax. I repeated the chest x-ray and there was a large bilateral pneumothoraces noted. Immediately, bilateral chest tubes were inserted with resolution of the bilateral pneumothoraces. The patient currently is on propofol running at 30 microvascular kilogram per minutes. The patient is currently on assist control mode of mechanical ventilation. There is a 24 and a tidal volume was dropped off to 400 with an FiO2 of 70% with a PEEP of 5. The blood case with a pH of 7.41 with a pCO2 of 43 and pO2 of 66 and this was done prior to the chest tube insertion. Urine output was low earlier this morning around 10-15 mL an hour. Lactic acid level was down trending. The patient was still on amiodarone drip running at 0.5 mg/m and the patient was on IV heparin. The patient was also started on tube feeding with vital high-protein at the rate of 30 mL an hour. The patient currently is hemodynamically stable. The blood work from today showed edematous count of 8.1 and hemoglobin 12.1 and a platelet count of 121. INR is at 1.6 with a PT of 15.7. Sodium level is at 131 with a potassium level of 4.2, chloride is 97 bicarbs 2059 and 62 creatinine is 1.98. The bronchial lavage has not showing any microbial growth. Legionella urine antigen is negative. The pro calcitonin was unexpectedly elevated at 8.7. The patient is covered with broad-spectrum antibiotics and the patient is currently on accommodation of cefepime, Levaquin and vancomycin. The patient remains in a bicarb infusion. Serum bicarb is improved. Lactic acid level is also dropped. Patient currently has bilateral chest tube. There is positive air leak from the right-sided chest tube. 03/14/2022, patient is being seen for a follow-up. This morning, the patient is sedated on propofol and she is currently at 30 mcg/kg/m of propofol infusion. The patient is also on Nimbex which is running at 1 mcg/kg/m. She is adequately sedated and paralyzed at this point in time. He remains on a mechanical ventilator. She is assist-control mode at the rate of 28, tidal volume of 400, FiO2 of 80% with a PEEP of 5. Current pulse ox on the monitor is around 87%. Peak airway pressures around 31. The patient's return tidal volume is in the order of 380 mL and the patient has bilateral chest tubes. There is evidence of air leak from both chest tubes and airleak is still active. Chest x-ray from this morning is still pending. Noted the patient had developed bilateral pneumothoraces yesterday and bilateral chest tubes were inserted in these are 28-[place] chest tubes. Output from the left-sided pleural fluid was somewhat purulent and total amount of output has been in the order of 200 mL since inserted. Cultures from the left-sided pleural effusion still pending. The whi te cell count in the left-sided pleural effusion is elevated. As for the right- sided pleural effusion, this is essentially a transudate. The pro calcitonin level was elevated. I do suspect a bacterial infection on top of the influenza infection. Noted the bronchial lavage that was done earlier showed again influenza a. The blood gas from today showed a pH of 7.23 with a pCO2 of 65 and pO2 of 66 and this was on FiO2 of 80%. Hemodynamically, the patient is on no pressors. The patient remains in atrial fibrillation. The patient is currently on oral amiodarone. IV heparin was discontinued briefly yesterday as the patient was having bloody output from her orotracheal tube and the anticoa gulation was held during the chest tube insertion process. The white cell count today's of 15.2 with a hemoglobin of 14.5 and a platelet count of 140. Rest of the blood work shows a sodium of 134 with a potassium level of 4.1, BUN is 74 and the creatinine is 1.45 and a creatinine is obviously improving. Lactic acid level has dropped onto 3.8. The Legionella urine antigen was negative. The zac iebernardino is on enteral feeding for nutritional support and she is currently on vital high-protein at the rate of 47 mL an hour. Overall fluid balance over the past 24 hours is positive for 0.2 L. The patient remains on broad-spectrum antibiotics patient is currently on IV cefepime and Levaquin. Pro-calcitonin level was elevated. A repeat level is to be obtained today. 03/15/2022, the patient remains intubated on a mechanical ventilator. This morning, the patient sedated on propofol running at 50 mcg/kg/m and the patient is also on Nimbex at 1 mcg/kg/m. His adequately sedated and paralyzed. She remains on a mechanical ventilator on assist control mode and she is at the rate of 34 with a tidal volume of 400, FiO2 of 100% with a PEEP of 10. The chest x- ray is showing diffuse bilateral airspace disease and orotracheal tube is in a good location. The patient also has a bilateral chest tube. Motor the chest tubes on both sides are leaking air and there is ongoing air leak and the sydney ent has volume loss in the order of 50 mL based on the recurrent tidal volumes on a mechanical ventilator. The right-sided chest tube is leaking and a total amount of output has been around 40 mL over the past 8 hours. Left sided chest tube is also leaking output is around 1 10 mL over the past 8 hours. The culture from the left-sided pleural effusion is positive for MRSA and the bronchial lavage was also positive for influenza and MRSA. As such, this patient has a influenza infection/pneumonia with a superinfection with MRSA. The patient remains on Tamiflu. The patient remains on vancomycin. The patient otherwise is in nature fibrillation. Heart rate is irregular and the rate is between 110 and 120. The patient remains on IV heparin. The patient is on oral amiodarone 400 mg by mouth twice a day. Overall fluid balance is positive for liters over the past 24 hours and the patient is on vital high-protein which is being given at rate of 47 mL an hour. She is also on normal saline at rate of 100 mL an hour. The patient's white cell count is at 31 and the patient also has a hemoglobin of 14.2 with a platelet count of 122. The sodium is at 134, potassium is at 5, BUN is at 95 with a creatinine of 1.4. Serum bicarbs of 24. Pro-calcitonin as mentioned was quite elevated consistent with bacterial superinfection. The patient remains on IV heparin regarding her chronic atrial fibrillation. Condition remains extremely critical. 03/16/2022, the patient continues to do very poor. She remains septic in the blood culture still positive for MRSA. Note that the bronchoalveolar lavage also showed MRSA in the pleural fluid showed MRSA and the patient remains on vancomycin. The patient remains septic for now. The patient is hypotensive and the patient is on a low-norepinephrine at the rate of 0.3 mcg/kg/m. At the same time, the patient is on propofol and the patient has been adequately sedated with propofol at 50 mcg/kg/m and the patient is also on Nimbex at 1 mcg/kg/m. The patient remains on a mechanical ventilator. The patient is on assist- control mode of mechanical ventilation at the rate of 24 with a tidal volume of 450 and FiO2 of 100% with a PEEP of 10. The patient has a blood gas that showed a pH of 7.17 with a pCO2 of 65 and pO2 of 67. The chest x-ray is unchanged and shows diffuse bilateral pulmonary infiltrates. There is probably some apical pneumothoraces bilaterally. The patient is having airleak some bilaterally from both chest tubes. The volume loss in terms of tidal volume return is no other of 50 mL with each breath. The patient remains on normal saline at rate of 10 mL an hour. The patient remains on vital high-protein at the rate of 47 mL an hour. The patient remains in atrial fibrillation. The patient remains on IV h eparin. The white cell count is up to 52 with a hemoglobin of 15.6 and a platelet of 118. Sodium is 134 with a potassium level of 5.2. Prednisone 6 with a bicarb of 26 and a BUN is 117 with a creatinine of 1.6 and the pro calcitonin level is up to 4.36 slightly improved compared to yesterday's ev aluation. Patient is currently on oral amiodarone. Completed sedated and paralyzed at this point in time. 03/17/2022, condition is essentially progressively getting worse in this patient. The patient remains on propofol running at 50 mg/kg/m and the patient is also on Nimbex at 1 g. The patient was restarted back on pressors and currently she is on norepinephrine running at 0.1 mcg/kg/m. The patient is adequately sedated and paralyzed. She is on a mechanical ventilator, assist control mode at the rate of 34, tidal volume of 450, FiO2 of 100% with a PEEP of 10. Bilateral chest tubes are present. There is evidence of bilateral air leaks. The blood gas showed a pH of 7.11 with a pCO2 of 67 and pO2 of 72. The patient is developing an acute kidney injury. Creatinine is up to 2.26 with a BUN of 146. Potassium level is up to 6.3. Sodium level is at 132 and a serum bicarb is at 19. Overall fluid balance is +2.5 L over the past 24 hours in the urine output is in order of 20 mL an hour. Remains on vital high-protein at the rate of 47 mL an hour. Blood culture was positive for MRSA. Family has been updated on his condition. Prognosis remains extremely poor. She has signs of multisystem organ failure in addition to bilateral pneumonia and septic shock. Objective - Vital Signs Vital signs: Vital Signs Temp 98.4 F 03/17/22 12:00 Pulse 123 H 03/17/22 12:56 Resp 34 H 03/17/22 12:00 BP 101/65 03/16/22 22:00 Pulse Ox 89 L 03/17/22 12:00 FiO2 100 03/17/22 12:38 Intake & Output 03/16/22 03/17/22 03/17/22 18:59 06:59 18:59 Intake Total 8168.538 7086.555 757.891 Output Total 475 515 150 Balance 758.236 991.555 607.891 Weight 153.5 kg Intake: IV 110 130 50 Sodium Chloride 0.9% 1, 110 130 50 000 ml @ 10 mls/hr IV . Q24H TRE Rx#:[id number] Intake, IV Titration 516.236 765.555 412.891 Amount Cisatracurium 200 mg In 190.89 183.06 Sodium Chloride 0.9% 180 ml @ 1 MCG/KG/MIN 8.1 mls /hr IV .Q24H TRE Rx#: [id number] Heparin Sod,Pork in 0.45% 193.027 NaCl 25,000 unit In 0.45 % NaCl 1 250ml.bag @ 9. 585 UNITS/KG/HR 10 mls/hr IV .Q24H TRE Rx#: [id number] Norepinephrine 8 mg In 0 149.519 33.981 Sodium Chloride 0.9% 250 ml @ 0.03 MCG/KG/MIN 6. 056 mls/hr IV .Q24H TRE Rx#:[id number] propofoL 1,000 mg In 325.346 423.009 195.85 Empty Bag 1 bag @ 15 MCG/ KG/MIN 12.15 mls/hr IV . Q8H14M TRE Rx#:[id number] Tube Feeding 517 611 235 Other 90 60 Output: Chest Tube Drainage 230 230 70 Chest Tube Left 180 100 30 Chest Tube Right 50 130 40 Urine 245 285 80 Other: Voiding Method Indwelling Catheter Indwelling Catheter Indwelling Catheter ABP, PAP, CO, CI - Last Documented Arterial Blood Pressure 103/57 - Exam Obese, comfortable comfortable, no acute distress, sedated on propofol and paralytics Head exam was generally normal. There was no scleral icterus or corneal arcus. Mucous membranes were moist. Neck was supple and without jugular venous distension, thyromegaly, or carotid bruits. Carotids were easily palpable bilaterally. There was no adenopathy. Orogastric and orotracheal tube are both in place. Lungs are diminished bilaterally otherwise vessels are equal and symmetrical. The patient has bilateral chest tubes both chest tubes a 28-[place]. There is positive air leak on the right and left. Cardiac exam revealed the PMI to be normally situated and sized. The rhythm was regular and no extrasystoles were noted during several minutes of auscultation. The first and second heart sounds were normal and physiologic splitting of the second heart sound was noted. There were no murmurs, rubs, clicks, or gallops. Abdominal exam revealed normal bowel sounds. The abdomen was soft, non-tender, and without masses, organomegaly, or appreciable enlargement of the abdominal aorta. Examination of the extremities revealed easily palpable radial, femoral and pedal pulses. There was no cyanosis, clubbing or edema. Diminished pulses in the upper and lower oximetry is bilaterally. Examination of the skin revealed no evidence of significant rashes, suspicious appearing nevi or other concerning lesions. Neurologically the patient sedated on propofol and paralytics - Labs CBC & Chem 7: 03/17/22 06:07 03/17/22 06:07 Labs: Abnormal Lab Results - Last 24 Hours (Table) 03/16/22 03/16/22 03/17/22 Range/Units 17:49 23:59 05:57 WBC (3.8-10.6) k/uL MCV (80.0-100.0) fL MCHC (31.0-37.0) g/dL Plt Count (150-450) k/uL Macrocytosis APTT (22.0-30.0) sec ABG pH 7.11 L* (7.35-7.45) ABG pCO2 67 H (35-45) mmHg ABG pO2 72 L (83-108) mmHg ABG O2 Saturation 92.3 L (94-97) % Sodium (137-145) mmol/L Potassium (3.5-5.1) mmol/L Carbon Dioxide (22-30) mmol/L BUN (7-17) mg/dL Creatinine (0.52-1.04) mg/dL Glucose (74-99) mg/dL POC Glucose (mg/dL) 213 H 176 H (70-110) mg/dL Calcium (8.4-10.2) mg/dL 03/17/22 03/17/22 03/17/22 Range/Units 06:07 06:07 06:07 WBC 76.0 H* (3.8-10.6) k/uL MCV 112.6 H (80.0-100.0) fL MCHC 30.8 L (31.0-37.0) g/dL Plt Count 113 L (150-450) k/uL Macrocytosis Marked A APTT 65.6 H (22.0-30.0) sec ABG pH (7.35-7.45) ABG pCO2 (35-45) mmHg ABG pO2 (83-108) mmHg ABG O2 Saturation (94-97) % Sodium 132 L (137-145) mmol/L Potassium 6.3 H* (3.5-5.1) mmol/L Carbon Dioxide 19 L (22-30) mmol/L BUN 146 H* (7-17) mg/dL Creatinine 2.26 H (0.52-1.04) mg/dL Glucose 244 H (74-99) mg/dL POC Glucose (mg/dL) (70-110) mg/dL Calcium 8.0 L (8.4-10.2) mg/dL 03/17/22 03/17/22 Range/Units 06:09 12:13 WBC (3.8-10.6) k/uL MCV (80.0-100.0) fL MCHC (31.0-37.0) g/dL Plt Count (150-450) k/uL Macrocytosis APTT (22.0-30.0) sec ABG pH (7.35-7.45) ABG pCO2 (35-45) mmHg ABG pO2 (83-108) mmHg ABG O2 Saturation (94-97) % Sodium (137-145) mmol/L Potassium (3.5-5.1) mmol/L Carbon Dioxide (22-30) mmol/L BUN (7-17) mg/dL Creatinine (0.52-1.04) mg/dL Glucose (74-99) mg/dL POC Glucose (mg/dL) 260 H 224 H (70-110) mg/dL Calcium (8.4-10.2) mg/dL Microbiology - Last 24 Hours (Table) 03/15/22 05:52 Blood Culture - Preliminary Blood No Growth after 48 hours 03/16/22 06:00 Blood Culture - Preliminary Blood No Growth after 24 hours 03/14/22 14:02 Blood Culture Gram Stain - Preliminary Blood Blood Culture - Preliminary Presumptive MRSA Assessment and Plan Plan: Acute bilateral pneumonia, secondary to influenza and superimposed bacterial infection with MRSA. Both influenza a and MRSA was cultured from the bronchial lavage and MRSA was also present in the pleural fluid was drained from the left lung. Remains on broad-spectrum antibiotics. Patient remains on vancomycin. The patient remains on Tamiflu. Still intubated on a mechanical ventilator. The patient has bilateral pneumothoraces. Bilateral chest tubes with bilateral air leaks from the chest tube has been noted. No major change in oxygenation or ventilation while being on a mechanical ventilator and the patient remains sedated and paralyzed. Chest x-ray was noted. Septic shock with multisystem organ failure Empyema with infection with MRSA secondary to underlying pneumonia. The patient had purulent left-sided pleural effusion post chest tube insertion. The patient has bilateral air leaks septic shock secondary to MRSA pneumonia and empyema and bacteremia Acute bilateral pneumothoraces, secondary pneumonia. Cannot rule out possibility of barotrauma. Patient has chest tubes bilaterally. There is persistent air leak bilaterally Acute leukocytosis, white cell count is on the rise secondary to septic shock. Acute hypoxic respiratory failure secondary to above, currently intubated on a mechanical ventilator Acute kidney injury,creatinine is on the rise and the patient also developed hyperkalemia. New-onset atrial fibrillation with RVR, rate is under better control and the patient remains on amiodarone, the patient is also on IV heparin Morbid obesity with previous bariatric surgery Previous history of splenectomy Acute kidney injury secondary to above, improving History of coronary artery disease, nonocclusive disease of the cardiac catheterization from 2021 COPD Fibromyalgia Migraines Chronic back pain History of stomach cancer History of nephrolithiasis History of osteoarthritis History of hepatitis C and hepatitis B Hypertension Plan Continue vent support No ventilator changes for today Keep the patient sedated with propofol Give the patient on paralytics Continue Tamiflu Continue vancomycin Norepinephrine for blood pressure control Give the patient sodium bicarbonate total of 150 mEq IV push Give the patient Lokelma 10 mg by mouth 3 times a day and monitor the potassium Patient is septic and the patient will be kept on norepinephrine infusion for blood pressure control, norepinephrine is currently running at 0.1 mg/kg/m. Continue enteral feeding for nutritional support Keep chest tube in place Monitor air leak Unfortunately, the patient's condition is getting worse. In the next discussion with the patient's family. Updated them on her condition. I had lengthy discussion with the family and updated them on her condition. critical care evaluation that was done in more than 30 minutes Time with Patient: Greater than 30
[2022-03-17] MEDS: HEPARIN SOD,PORK IN 0.45% NACL 25,000 UNIT in 0.45% NACL 1 250ML.BAG IV SCH (14:05)
[2022-03-17] MEDS ORDERED: ANIDULAFUNGIN 200 MG in SODIUM CHLORIDE 0.9% 200 ML IVPB ONE (16:00)
[2022-03-17] MEDS ORDERED: CEFEPIME 1 GM in SODIUM CHLORIDE 0.9% 50 ML IVPB SCH (18:00)
[2022-03-17 18:08] LABS: Glucose,Whole Blood 238 mg/dL (70-110)
[2022-03-17] MEDS ORDERED: DEXTROSE 5% IN WATER 100 ML with AMIODARONE 150 MG IV ONE (20:20)
[2022-03-17] MEDS ORDERED: AMIODARONE 360 MG in DEXTROSE 5% IN WATER 200 ML IV ONE ×2 (20:30)
--- NOTE | 2022-03-17 20:56 | P.PN ---
Subjective Progress Note Date: 03/17/22 Principal diagnosis: Pneumonia Patient is a 61-year-old female with a past medical history significant for coronary artery disease hypertension heart failure presenting to the ER last evening for evaluation of increasing shortness of breath in this patient symptom apparently has been going on for 2 weeks before presentation to the hospital, patient did have worsening of respiratory status requiring intubation subsequently developing bilateral pneumothoraces requiring chest tube placement on 03/13/2022. On today's evaluation that is 03/17/2022, the patient remains to be afebrile, the patient is on 100% FiO2 and still hypoxic, the patient is currently on a max dose of pressor support, no significant purulent secretions through the ET diarrhea or any other changes reported by the nursing staff Objective - Vital Signs Vital signs: Vital Signs Temp 98.4 F 03/17/22 12:00 Pulse 123 H 03/17/22 14:00 Resp 35 H 03/17/22 14:00 BP 101/65 03/16/22 22:00 Pulse Ox 86 L 03/17/22 14:00 FiO2 100 03/17/22 14:00 Intake & Output 03/16/22 03/17/22 03/17/22 18:59 06:59 18:59 Intake Total 7146.316 3946.555 1229.560 Output Total 475 515 215 Balance 758.236 837.306 1652.560 Weight 153.5 kg Intake: IV 110 130 70 Sodium Chloride 0.9% 1, 110 130 70 000 ml @ 10 mls/hr IV . Q24H TRE Rx#:[id number] Intake, IV Titration 516.236 765.555 770.560 Amount Cisatracurium 200 mg In 190.89 208.17 Sodium Chloride 0.9% 180 ml @ 1 MCG/KG/MIN 8.1 mls /hr IV .Q24H TRE Rx#: [id number] Heparin Sod,Pork in 0.45% 193.027 225.904 NaCl 25,000 unit In 0.45 % NaCl 1 250ml.bag @ 9. 585 UNITS/KG/HR 10 mls/hr IV .Q24H TRE Rx#: [id number] Norepinephrine 8 mg In 0 149.519 140.636 Sodium Chloride 0.9% 250 ml @ 0.03 MCG/KG/MIN 6. 056 mls/hr IV .Q24H TRE Rx#:[id number] propofoL 1,000 mg In 325.346 423.009 195.85 Empty Bag 1 bag @ 15 MCG/ KG/MIN 12.15 mls/hr IV . Q8H14M RTE Rx#:[id number] Tube Feeding 517 611 329 Other 90 60 Output: Chest Tube Drainage 230 230 70 Chest Tube Left 180 100 30 Chest Tube Right 50 130 40 Urine 245 285 145 Other: Voiding Method Indwelling Catheter Indwelling Catheter Indwelling Catheter ABP, PAP, CO, CI - Last Documented Arterial Blood Pressure 108/51 - Exam GENERAL DESCRIPTION: Middle-aged female intubated on the vent RESPIRATORY SYSTEM: Unlabored breathing , decreased breath sounds at bases HEART: S1 S2 regular rate and rhythm , ABDOMEN: Soft , no tenderness EXTREMITIES: No edema feet - Labs CBC & Chem 7: 03/17/22 06:07 03/17/22 12:19 Labs: Abnormal Lab Results - Last 24 Hours (Table) 03/16/22 03/16/22 03/17/22 Range/Units 17:49 23:59 05:57 WBC (3.8-10.6) k/uL MCV (80.0-100.0) fL MCHC (31.0-37.0) g/dL Plt Count (150-450) k/uL Macrocytosis APTT (22.0-30.0) sec ABG pH 7.11 L* (7.35-7.45) ABG pCO2 67 H (35-45) mmHg ABG pO2 72 L (83-108) mmHg ABG O2 Saturation 92.3 L (94-97) % Sodium (137-145) mmol/L Potassium (3.5-5.1) mmol/L Carbon Dioxide (22-30) mmol/L BUN (7-17) mg/dL Creatinine (0.52-1.04) mg/dL Glucose (74-99) mg/dL POC Glucose (mg/dL) 213 H 176 H (70-110) mg/dL Calcium (8.4-10.2) mg/dL 03/17/22 03/17/22 03/17/22 Range/Units 06:07 06:07 06:07 WBC 76.0 H* (3.8-10.6) k/uL MCV 112.6 H (80.0-100.0) fL MCHC 30.8 L (31.0-37.0) g/dL Plt Count 113 L (150-450) k/uL Macrocytosis Marked A APTT 65.6 H (22.0-30.0) sec ABG pH (7.35-7.45) ABG pCO2 (35-45) mmHg ABG pO2 (83-108) mmHg ABG O2 Saturation (94-97) % Sodium 132 L (137-145) mmol/L Potassium 6.3 H* (3.5-5.1) mmol/L Carbon Dioxide 19 L (22-30) mmol/L BUN 146 H* (7-17) mg/dL Creatinine 2.26 H (0.52-1.04) mg/dL Glucose 244 H (74-99) mg/dL POC Glucose (mg/dL) (70-110) mg/dL Calcium 8.0 L (8.4-10.2) mg/dL 03/17/22 03/17/22 03/17/22 Range/Units 06:09 12:13 12:19 WBC (3.8-10.6) k/uL MCV (80.0-100.0) fL MCHC (31.0-37.0) g/dL Plt Count (150-450) k/uL Macrocytosis APTT (22.0-30.0) sec ABG pH (7.35-7.45) ABG pCO2 (35-45) mmHg ABG pO2 (83-108) mmHg ABG O2 Saturation (94-97) % Sodium (137-145) mmol/L Potassium 5.9 H (3.5-5.1) mmol/L Carbon Dioxide (22-30) mmol/L BUN (7-17) mg/dL Creatinine (0.52-1.04) mg/dL Glucose (74-99) mg/dL POC Glucose (mg/dL) 260 H 224 H (70-110) mg/dL Calcium (8.4-10.2) mg/dL Microbiology - Last 24 Hours (Table) 03/15/22 05:52 Blood Culture - Preliminary Blood No Growth after 48 hours 03/16/22 06:00 Blood Culture - Preliminary Blood No Growth after 24 hours 03/14/22 14:02 Blood Culture Gram Stain - Preliminary Blood Blood Culture - Preliminary Presumptive MRSA Assessment and Plan (1) Multifocal pneumonia Current Visit: Yes Status: Acute Code(s): J18.9 - PNEUMONIA, UNSPECIFIED ORGANISM SNOMED Code(s): 618036583 Plan: 1patient with a positive blood culture with staph epi likely skin contaminat ion, however repeat blood culture now growing MRSA, blood cultures repeated daily document clearance of her bacteremia 2patient with the acute respiratory failure multifactorial and likely component of pneumonia in this patient sputum as well as BAL cultures are currently growing MRSA 3patient did have worsening of the white count possibly related to steroids as cultures has been negative for gram-negative we will discontinue cefepime empirically add Eraxis for antifungal coverage 4-the patient to continue with the vancomycin and monitor clinical course closely Time with Patient: Less than 30
[2022-03-17] MEDS: QUEtiapine 100 MG TAB PO SCH (22:05)
--- NOTE | 2022-03-17 22:31 | PN ---
PROGRESS NOTE DATE OF SERVICE: 03/16/2022 CHIEF COMPLAINT: Respiratory failure, pneumonitis, and renal failure. HISTORY OF PRESENT ILLNESS: This lady remains on the ventilator. She has grown out MRSA. PHYSICAL EXAMINATION: CHEST: Clear. CARDIAC: Continues to reveal atrial fibrillation. ABDOMEN: Soft. IMPRESSION: 1. Influenza pneumonia. 2. Secondary methicillin-resistant Staphylococcus aureus. 3. Renal failure. 4. Bilateral pneumothoraces. PLAN: Continue supportive care. PROGNOSIS: Poor. MMODL / IJN: [id number] /
[2022-03-18] MEDS: IPRATROPIUM-ALBUTEROL 3 ML NEB INHALATION SCH ×5 (00:22→15:01)
[2022-03-18 00:24] LABS: Glucose,Whole Blood 245 mg/dL (70-110)
[2022-03-18] MEDS: ARTIFICIAL TEARS-HYPROMELLOSE DROPS 15 ML BTL BOTH EYES SCH ×5 (00:28→17:40)
[2022-03-18] MEDS: INSULIN ASPART (NovoLOG) 100 UNIT/ML VIAL SQ SCH ×2 (00:28→05:38)
[2022-03-18] MEDS: NOREPINEPHRINE 8 MG in SODIUM CHLORIDE 0.9% 250 ML IV SCH ×3 (00:35→11:02)
[2022-03-18] MEDS ORDERED: AMIODARONE 450 MG in DEXTROSE 5% IN WATER 250 ML IV SCH ×2 (02:30)
--- NOTE | 2022-03-18 03:52 | PN ---
PROGRESS NOTE DATE OF SERVICE: 03/17/2022 CHIEF COMPLAINT: Respiratory failure, probable pneumonitis with secondary MRSA, renal failure. HISTORY OF PRESENT ILLNESS: This lady's case is not improving. MRSA has been grown out. Her pH is down to 7.1. Her potassium is 6.3. GFR is 22. White count 76,000 indicating significant sepsis. PHYSICAL EXAMINATION: LUNGS: She is on a ventilator. There are bilateral chest tubes. Breath sounds are heard on both sides. CARDIAC: Exam demonstrates tachycardia with atrial fibrillation. IMPRESSION: 1. Acute respiratory distress syndrome. 2. Influenza pneumonia. 3. Methicillin-resistant staphylococcus aureus. 4. Renal failure. 5. Acidosis. 6. Hyperkalemia. PLAN: Continue with her ICU management. Prognosis remains poor. MMODL / IJN: [id number] /
[2022-03-18 05:25] LABS: Glucose,Whole Blood 275 mg/dL (70-110)
[2022-03-18 05:33] LABS: ABG Base Excess -10.8 mmol/L; ABG HCO3 19 mmol/L (21-25); ABG Oxygen Saturation 91.6 % (94-97); ABG PCO2 68 mmHg (35-45); ABG PO2 72 mmHg (83-108); ABG TCO2 21 mmol/L (19-24); Allen Test Performed? Yes
[2022-03-18 05:35] LABS: ABG PH 7.07 (7.35-7.45)
[2022-03-18 05:42] LABS: HCT 42.2 % (34.0-46.0); Hypochromasia Marked; MCH 34.9 pg (25.0-35.0); MCHC 30.7 g/dL (31.0-37.0); MCV 113.8 fL (80.0-100.0); Macrocytosis Marked; Mean Platelet Volume 15.8; Platelet Count 104 k/uL (150-450); RBC 3.71 m/uL (3.80-5.40); RDW 14.2 % (11.5-15.5)
--- NOTE | 2022-03-18 06:11 | XR ---
EXAMINATION TYPE: XR chest 1V DATE OF EXAM: 03/18/2022 CLINICAL HISTORY: Difficulty breathing progress study. TECHNIQUE: Single AP portable semiupright view of the chest is obtained. COMPARISON: Chest x-ray from one day earlier and older studies FINDINGS: Stable endotracheal and orogastric tubes. Stable bilateral chest tubes and left-sided subc lavian central venous line. Persistent bilateral multifocal increased opacities. Stable tiny residual left upper lung pneumothora x. Vertical linear density right central lung remains present, etiology uncertain. Stable cardiomegal y. Surgical clips in the epigastric region and left upper quadrant are redemonstrated. IMPRESSION: Bilateral chest tubes with stable tiny residual left apical pneumothorax redemonstrated a nd stable. Diffuse bilateral edema and/or infiltrates again seen not significantly changed from one d ay earlier. Consider ARDS.
[2022-03-18 06:18] LABS: Band Neutrophils % 9 %; Metamyelocytes % 8 %; Myelocytes % 3 %; Neutrophils % (M) 75 %; Nucleated Red Blood Cells 2 /100 WBC (0-0); Total Cells Counted 200
[2022-03-18 06:19] LABS: Lymphocytes # (M) 1.96 k/uL (1.0-4.8); Metamyelocytes # (M) 7.86 k/uL (0); Monocytes # (M) 3.93 k/uL (0-1.0); Myelocytes # (M) 2.95 k/uL (0); WBC 98.2 k/uL (3.8-10.6)
[2022-03-18 06:24] LABS: Calcium 7.5 mg/dL (8.4-10.2)
[2022-03-18 06:50] LABS: Potassium 6.1 mmol/L (3.5-5.1)
--- NOTE | 2022-03-18 07:42 | P.PN ---
Subjective PROGRESS NOTE The patient is a 61-year-old female with a known history of mild CAD by cardiac catheterization in June, history of hypertension who presented with symptoms of progressive dyspnea. She tested positive for influenza a period had progressive dyspnea requiring mechanical ventilation. Cardiology consultation was requested. Patient has no history of myocardial infarction or prior cardiomyopathy. I have no recent evaluation of her systolic function. She is in sinus mechanism, intubated and sedated. Her blood pressure is stable. According to the notes and the nursing staff the patient has been having progressive dyspnea over the last 2 weeks with a cough and wheezing. She was initially placed on BiPAP at with worsening dyspnea required mechanical ventilation. I have no history of prior smoking or documented COPD. On pr esentation her troponin were normal, she had evidence of acute renal injury. Her NT proBNP was 1590. Her plasma lactic was elevated. She had significant leukocytosis. Her chest x-ray shows patchy bilateral air space consolidation. No other prior history could be obtained at this time. March 13: The patient remains intubated and sedated. She is in atrial fibrillation with episodes of rapid ventricle response. She is on a low dose norepinephrine. Her urine output has been low. She was started on IV amiodarone and IV heparin. There is no ventricular ectopic activity. She is receiving every feeding. There is no evidence of GI bleeding. Her echocardiogram yesterday showed an ejection fraction of 45-50% with mild mitral and tricuspid regurgitation and no evidence of pulmonary hypertension. March 14: The patient was found to have pneumothorax yesterday, underwent chest tube placement. She continues to have air leak. Her IV heparin was on hold yesterday. She continues to be in atrial fibrillation with episode of rapid ventricular response. There is no evidence of ventricular ectopic activity. Her urinary output is stable. She is tolerating tube feeding. March 15: The patient remains intubated and sedated. She continues to be in atrial fibrillation. She has a chest tube. She is back on her IV heparin. There is no evidence of ventricular ectopic activity. She sedated. She had evidence of bilateral pneumothorax. The patient had influenza infection and probable super imposed bacterial infection. Her pro-calcitonin was elevated. Her echocardiogram showed a mildly impaired systolic function with no evidence of significant valvular disease. March 16: The patient continues to be intubated and sedated, in atrial fibrillation with predominantly controlled ventricular response. She continues to be on amiodarone and beta juan with some episodes of rapid ventricle response. She is on IV heparin. Her urinary output is low and there is worsening of her BUN. She is on no vasopressors. There is no evidence of ventricular ectopic activi ty. She continues to have chest tube. She has evidence of superimposed bacterial infection on her influenza. March 17: The patient continues to be intubated and sedated, hemodynamically stable on norepinephrine. She continues to be in atrial ablation with rapid ventricle response. Her urinary output has been poor. Discussion with the family by the intensive care team was done regarding course status because of the poor prognosis. She continues to be on PEEP with evidence of drainage and air leak. She had evidence of MRSA superimposed on her influenza a. She continues to be acidotic and hypercapnic with worsening of her renal function. 03/18 Patient seen and examined. Patient remains on 100% FiO2 with 15 of PEEP. Patient was noted to be somewhat more hypotensive and increased norepinephrine up to 0.28. Heart rates in the 120s and 130s and therefore was placed on amiodarone and metoprolol has been held. Blood pressures borderline with a map of 65. Creatinine 2.5 with potassium up to 6.1, ABG pH 7.07, pCO2 68, PaO2 72, bicarb 19. White blood cell count up to 98. PHYSICAL EXAMINATION: Vitals reviewed LUNGS: Scattered rhonchi, chest tube in place HEART: Irregular rate and rhythm, S1, S2. No S3. systolic ejection murmur ABDOMEN: Soft, obese, no organomegaly, positive bowel sounds EXTREMETIES: 1+ edema IMPRESSION: 1. Respiratory failure with influenza A infection, intubated with possible superimposed bacterial infection, worsening leukocytosis 2. Atrial fibrillation, new onset, probably exacerbated by infection. Her score is 2, rapid ventricle response 3. Mild CAD 4. Prior history of hypertension 5. Acute renal injury, worsening with hyperkalemia 6. Pneumothorax status post chest tube 7. Multiorgan failure PLAN: Continue with amiodarone. Hold metoprolol if significantly more hypotensive. Increasing amounts of norepinephrine which appeared to correlate with increasing white blood cell count. Worsening creatinine and hyperkalemia noted. Continue supportive care. Prognosis guarded. Objective - Vital Signs Vital signs: Vital Signs Temp 98.2 F 03/18/22 04:00 Pulse 115 H 03/18/22 06:00 Resp 34 H 03/18/22 06:00 BP 101/65 03/18/22 03:00 Pulse Ox 88 L 03/18/22 06:00 FiO2 100 03/18/22 04:00 Intake & Output 03/17/22 03/18/22 03/18/22 18:59 06:59 18:59 Intake Total 2280.690 1794.898 Output Total 305 330 Balance 3473.263 8991.898 Weight 159.4 kg Intake: IV 610 120 Sodium Chloride 0.9% 1, 110 120 000 ml @ 10 mls/hr IV . Q24H TRE Rx#:[id number] Vancomycin 2,000 mg In 500 Sodium Chloride 0.9% 500 ml 500 ml @ 167 mls/hr IVPB Q24H TRE Rx#: [id number] Intake, IV Titration 3025.239 1573.898 Amount Cisatracurium 200 mg In 208.17 Sodium Chloride 0.9% 180 ml @ 1 MCG/KG/MIN 8.1 mls /hr IV .Q24H TRE Rx#: [id number] Heparin Sod,Pork in 0.45% 225.904 199.078 NaCl 25,000 unit In 0.45 % NaCl 1 250ml.bag @ 9. 585 UNITS/KG/HR 10 mls/hr IV .Q24H TRE Rx#: [id number] Norepinephrine 8 mg In 233.766 432.945 Sodium Chloride 0.9% 250 ml @ 0.03 MCG/KG/MIN 6. 056 mls/hr IV .Q24H TRE Rx#:[id number] propofoL 1,000 mg In 395.85 478.875 Empty Bag 1 bag @ 15 MCG/ KG/MIN 12.15 mls/hr IV . Q8H14M TRE Rx#:[id number] Tube Feeding 517 564 Other 90 Output: Chest Tube Drainage 90 200 Chest Tube Left 40 100 Chest Tube Right 50 100 Urine 215 130 Other: Voiding Method Indwelling Catheter Indwelling Catheter ABP, PAP, CO, CI - Last Documented Arterial Blood Pressure 102/46 - Labs CBC & Chem 7: 03/18/22 05:20 03/18/22 05:20 Labs: Abnormal Lab Results - Last 24 Hours (Table) 03/17/22 03/17/22 03/17/22 Range/Units 06:07 12:13 12:19 WBC (3.8-10.6) k/uL RBC (3.80-5.40) m/uL MCV (80.0-100.0) fL MCHC (31.0-37.0) g/dL Plt Count (150-450) k/uL Neutrophils # (Manual) (1.3-7.7) k/uL Monocytes # (Manual) (0-1.0) k/uL Metamyelocytes # (Man) (0) k/uL Myelocytes # (Manual) (0) k/uL Nucleated RBCs (0-0) /100 WBC Macrocytosis APTT (22.0-30.0) sec ABG pH (7.35-7.45) ABG pCO2 (35-45) mmHg ABG pO2 (83-108) mmHg ABG HCO3 (21-25) mmol/L ABG O2 Saturation (94-97) % Sodium (137-145) mmol/L Potassium 5.9 H (3.5-5.1) mmol/L Carbon Dioxide (22-30) mmol/L BUN 146 H* (7-17) mg/dL Creatinine (0.52-1.04) mg/dL Glucose (74-99) mg/dL POC Glucose (mg/dL) 224 H (70-110) mg/dL Calcium (8.4-10.2) mg/dL 03/17/22 03/18/22 03/18/22 Range/Units 18:07 00:22 05:20 WBC (3.8-10.6) k/uL RBC (3.80-5.40) m/uL MCV (80.0-100.0) fL MCHC (31.0-37.0) g/dL Plt Count (150-450) k/uL Neutrophils # (Manual) (1.3-7.7) k/uL Monocytes # (Manual) (0-1.0) k/uL Metamyelocytes # (Man) (0) k/uL Myelocytes # (Manual) (0) k/uL Nucleated RBCs (0-0) /100 WBC Macrocytosis APTT (22.0-30.0) sec ABG pH (7.35-7.45) ABG pCO2 (35-45) mmHg ABG pO2 (83-108) mmHg ABG HCO3 (21-25) mmol/L ABG O2 Saturation (94-97) % Sodium 131 L (137-145) mmol/L Potassium 6.1 H* (3.5-5.1) mmol/L Carbon Dioxide 17 L (22-30) mmol/L BUN 164 H* (7-17) mg/dL Creatinine 2.50 H (0.52-1.04) mg/dL Glucose 253 H (74-99) mg/dL POC Glucose (mg/dL) 238 H 245 H (70-110) mg/dL Calcium 7.5 L (8.4-10.2) mg/dL 03/18/22 03/18/22 03/18/22 Range/Units 05:20 05:20 05:24 WBC 98.2 H* (3.8-10.6) k/uL RBC 3.71 L (3.80-5.40) m/uL MCV 113.8 H (80.0-100.0) fL MCHC 30.7 L (31.0-37.0) g/dL Plt Count 104 L (150-450) k/uL Neutrophils # (Manual) 82.40 H (1.3-7.7) k/uL Monocytes # (Manual) 3.93 H (0-1.0) k/uL Metamyelocytes # (Man) 7.86 H (0) k/uL Myelocytes # (Manual) 2.95 H (0) k/uL Nucleated RBCs 2 H (0-0) /100 WBC Macrocytosis Marked A APTT 83.2 H (22.0-30.0) sec ABG pH (7.35-7.45) ABG pCO2 (35-45) mmHg ABG pO2 (83-108) mmHg ABG HCO3 (21-25) mmol/L ABG O2 Saturation (94-97) % Sodium (137-145) mmol/L Potassium (3.5-5.1) mmol/L Carbon Dioxide (22-30) mmol/L BUN (7-17) mg/dL Creatinine (0.52-1.04) mg/dL Glucose (74-99) mg/dL POC Glucose (mg/dL) 275 H (70-110) mg/dL Calcium (8.4-10.2) mg/dL 03/18/22 Range/Units 05:30 WBC (3.8-10.6) k/uL RBC (3.80-5.40) m/uL MCV (80.0-100.0) fL MCHC (31.0-37.0) g/dL Plt Count (150-450) k/uL Neutrophils # (Manual) (1.3-7.7) k/uL Monocytes # (Manual) (0-1.0) k/uL Metamyelocytes # (Man) (0) k/uL Myelocytes # (Manual) (0) k/uL Nucleated RBCs (0-0) /100 WBC Macrocytosis APTT (22.0-30.0) sec ABG pH 7.07 L* (7.35-7.45) ABG pCO2 68 H (35-45) mmHg ABG pO2 72 L (83-108) mmHg ABG HCO3 19 L (21-25) mmol/L ABG O2 Saturation 91.6 L (94-97) % Sodium (137-145) mmol/L Potassium (3.5-5.1) mmol/L Carbon Dioxide (22-30) mmol/L BUN (7-17) mg/dL Creatinine (0.52-1.04) mg/dL Glucose (74-99) mg/dL POC Glucose (mg/dL) (70-110) mg/dL Calcium (8.4-10.2) mg/dL Microbiology - Last 24 Hours (Table) 03/13/22 10:52 Anaerobic Culture - Final Pleural Fluid 03/14/22 14:02 Blood Culture Gram Stain - Final Blood Blood Culture - Final Methicillin resist S. aureus 03/15/22 05:52 Blood Culture - Preliminary Blood No Growth after 48 hours 03/16/22 06:00 Blood Culture - Preliminary Blood No Growth after 24 hours
[2022-03-18] MEDS: SODIUM ZIRCONIUM CYCLOSILICATE 10 GM PACKET PO SCH (07:53)
[2022-03-18 08:04] VITALS: TEMP 97.9
[2022-03-18] MEDS ORDERED: SODIUM BICARB 8.4% 50 ML SYR (1 MEQ/ML) IV STA (08:20)
[2022-03-18] MEDS ORDERED: DEXTROSE 5% IN WATER 1,000 ML with SODIUM BICARB (1 MEQ/ML) 150 ML IV SCH (08:30)
[2022-03-18] MEDS ORDERED: DEXTROSE 50% SYRINGE 50 ML IVP PRN ×2 (08:56)
[2022-03-18] MEDS: methylPREDNISolone SOD SUCCI 40 MG/ML 1 ML VIAL IV SCH (09:19)
[2022-03-18] MEDS: FUROSEMIDE 10 MG/ML 10 ML VIAL IV SCH (09:20)
[2022-03-18] MEDS: PANTOPRAZOLE 40 MG/10 ML VIAL IVP SCH (09:20)
[2022-03-18] MEDS ORDERED: INSULIN REGULAR 100 UNIT in SODIUM CHLORIDE 0.9% 100 ML IV SCH (10:00)
[2022-03-18] MEDS: CHLORHEXIDINE GLUCONATE 15 ML CUP MUCOUS MEM SCH (10:10)
[2022-03-18 10:11] LABS: Glucose,Whole Blood 239 mg/dL (70-110)
[2022-03-18] MEDS: ASPIRIN 81 MG PO SCH (10:16)
[2022-03-18] MEDS: buPROPion SR 100 MG TABLET.ER PO SCH (10:17)
[2022-03-18 10:39] LABS: ABG Base Excess -9.8 mmol/L; ABG HCO3 21 mmol/L (21-25); ABG Oxygen Saturation 90.9 % (94-97); ABG PO2 70 mmHg (83-108); ABG TCO2 24 mmol/L (19-24)
[2022-03-18 10:41] LABS: ABG PCO2 81 mmHg (35-45); ABG PH 7.03 (7.35-7.45); Allen Test Performed? no
[2022-03-18 10:55] VITALS: BMI 56.7
[2022-03-18] MEDS: HEPARIN SOD,PORK IN 0.45% NACL 25,000 UNIT in 0.45% NACL 1 250ML.BAG IV SCH (11:00)
[2022-03-18] MEDS: CISATRACURIUM 200 MG in SODIUM CHLORIDE 0.9% 180 ML IV SCH (11:02)
[2022-03-18 11:11] LABS: Glucose,Whole Blood 227 mg/dL (70-110)
[2022-03-18] MEDS ORDERED: NOREPINEPHRINE 32 MG in SODIUM CHLORIDE 0.9% 218 ML IV SCH (11:30)
[2022-03-18 11:58] LABS: Glucose,Whole Blood 242 mg/dL (70-110)
--- NOTE | 2022-03-18 12:30 | P.PN ---
Subjective Progress Note Date: 03/18/22 Principal diagnosis: acute hypoxic and hypercapnic respiratory failure, multifactorial. 03/17/2022, condition is essentially progressively getting worse in this patient. The patient remains on propofol running at 50 mg/kg/m and the patient is also on Nimbex at 1 g. The patient was restarted back on pressors and currently she is on norepinephrine running at 0.1 mcg/kg/m. The patient is adequately sedated and paralyzed. She is on a mechanical ventilator, assist control mode at the rate of 34, tidal volume of 450, FiO2 of 100% with a PEEP of 10. Bilateral chest tubes are present. There is evidence of bilateral air leaks. The blood gas showed a pH of 7.11 with a pCO2 of 67 and pO2 of 72. The patient is developing an acute kidney injury. Creatinine is up to 2.26 with a BUN of 146. Potassium level is up to 6.3. Sodium level is at 132 and a serum bicarb is at 19. Overall fluid balance is +2.5 L over the past 24 hours in the urine output is in order of 20 mL an hour. Remains on vital high-protein at the rate of 47 mL an hour. Blood culture was positive for MRSA. Family has been updated on his condition. Prognosis remains extremely poor. She has signs of multisystem organ failure in addition to bilateral pneumonia and septic shock. Patient was reevaluated today on 03/18/22, patient remains in the ICU, intubated and mechanically ventilated. Patient is an assist-control rate of 34 volume 4 8000% FiO2, PEEP of 15. However after reviewing the patient's ABG and the patient ventilator mechanics, I changed the patient to a pressure control mode of mechanical ventilation, pressure control set at 26, inspiratory time of 0.75, rate is up to 38, and 100% FiO2, earlier ABG showed a pO2 of 72 pCO2 of 68 pH of 7.07,repeat ABG showed a pO2 of 70 pCO2 81 pH of 7.03, hence I recommended starting the patient on bicarb drip, patient will be on bicarb drip with 3 A in 1 L of D5W running at 1 25 mL per hour. She was also given 2 A of bicarb. Hoping to correct her acidosis with bicarb for now, although her acidosis seems to be mostly respiratory in nature. Patient remains on propofol at 50 mcg/kg/m, norepinephrine 0.28, she is also on amiodarone at 0.5 mg/m, Nimbex 1 mcg/kg/m, heparin drip, and she is receiving vital HPI 47 mL per hour.WBC count is 98,000 hemoglobin 13.0.PTT is 33. Basic metabolic profile showed high potassium of 6.1. BUN is 164 creatinine 2.50. And bicarb is 17.chest x-ray continues to show bilateral chest tubes, residual tiny left apical pneumothorax, diffuse bilateral infiltrates noted. Not much of a change, the chest x-ray is consistent with ARDS. Objective - Vital Signs Vital signs: Vital Signs Temp 97.9 F 03/18/22 08:00 Pulse 124 H 03/18/22 10:57 Resp 38 H 03/18/22 10:00 BP 101/65 03/18/22 03:00 Pulse Ox 87 L 03/18/22 10:00 FiO2 100 03/18/22 10:42 Intake & Output 03/17/22 03/18/22 03/18/22 18:59 06:59 18:59 Intake Total 2280.690 1794.898 825.529 Output Total 305 330 103 Balance 7366.879 1766.898 722.529 Weight 159.4 kg 159.4 kg Intake: IV 610 120 50 Sodium Chloride 0.9% 1, 110 120 50 000 ml @ 10 mls/hr IV . Q24H TRE Rx#:[id number] Vancomycin 2,000 mg In 500 Sodium Chloride 0.9% 500 ml 500 ml @ 167 mls/hr IVPB Q24H TRE Rx#: [id number] Intake, IV Titration 9865.360 3441.898 510.529 Amount Cisatracurium 200 mg In 208.17 162.675 Sodium Chloride 0.9% 180 ml @ 1 MCG/KG/MIN 8.1 mls /hr IV .Q24H TRE Rx#: [id number] Heparin Sod,Pork in 0.45% 225.904 199.078 44.734 NaCl 25,000 unit In 0.45 % NaCl 1 250ml.bag @ 9. 585 UNITS/KG/HR 10 mls/hr IV .Q24H TRE Rx#: [id number] Insulin Regular 100 unit 2.458 In Sodium Chloride 0.9% 100 ml @ Titrate IV .Q0M TRE Rx#:[id number] Norepinephrine 8 mg In 233.766 432.945 300.662 Sodium Chloride 0.9% 250 ml @ 0.03 MCG/KG/MIN 6. 056 mls/hr IV .Q24H TRE Rx#:[id number] propofoL 1,000 mg In 395.85 478.875 Empty Bag 1 bag @ 15 MCG/ KG/MIN 12.15 mls/hr IV . Q8H14M TRE Rx#:[id number] Tube Feeding 517 564 235 Other 90 30 Output: Chest Tube Drainage 90 200 96 Chest Tube Left 40 100 86 Chest Tube Right 50 100 10 Urine 215 130 7 Other: Voiding Method Indwelling Catheter Indwelling Catheter ABP, PAP, CO, CI - Last Documented Arterial Blood Pressure 75/40 - Exam Physical Exam: Revealed a 61-year-old female intubated, mechanically ventilated, sedated and paralyzed. Head: Atraumatic, normocephalic. Endotracheal tube is intact, orogastric tube is intact. HEENT:[Neck is supple.] [No neck masses.] [No thyromegaly.] [No JVD.]left subclavian central line is noted. Chest:symmetrical chest expansion, crackles bilaterally Cardiac Exam:distant S1 and S2, no S3 gallop. Abdomen: [obese,Soft, nontender, no megaly, no rebound, no guarding, diminished bowel sounds Extremities: [No clubbing, no edema, no cyanosis.] Neurological Exam: cannot assess, patient is sedated and paralyzed. Psychiatric: Cannot assess, patient is sedated and paralyzed. - Labs CBC & Chem 7: 03/18/22 05:20 03/18/22 05:20 Labs: Abnormal Lab Results - Last 24 Hours (Table) 03/17/22 03/17/22 03/17/22 Range/Units 12:13 12: 18:07 WBC (3.8-10.6) k/uL RBC (3.80-5.40) m/uL MCV (80.0-100.0) fL MCHC (31.0-37.0) g/dL Plt Count (150-450) k/uL Neutrophils # (Manual) (1.3-7.7) k/uL Monocytes # (Manual) (0-1.0) k/uL Metamyelocytes # (Man) (0) k/uL Myelocytes # (Manual) (0) k/uL Nucleated RBCs (0-0) /100 WBC Macrocytosis APTT (22.0-30.0) sec ABG pH (7.35-7.45) ABG pCO2 (35-45) mmHg ABG pO2 (83-108) mmHg ABG HCO3 (21-25) mmol/L ABG O2 Saturation (94-97) % Sodium (137-145) mmol/L Potassium 5.9 H (3.5-5.1) mmol/L Carbon Dioxide (22-30) mmol/L BUN (7-17) mg/dL Creatinine (0.52-1.04) mg/dL Glucose (74-99) mg/dL POC Glucose (mg/dL) 224 H 238 H (70-110) mg/dL Calcium (8.4-10.2) mg/dL 03/18/22 03/18/22 03/18/22 Range/Units 00:22 05:20 05:20 WBC 98.2 H* (3.8-10.6) k/uL RBC 3.71 L (3.80-5.40) m/uL MCV 113.8 H (80.0-100.0) fL MCHC 30.7 L (31.0-37.0) g/dL Plt Count 104 L (150-450) k/uL Neutrophils # (Manual) 82.40 H (1.3-7.7) k/uL Monocytes # (Manual) 3.93 H (0-1.0) k/uL Metamyelocytes # (Man) 7.86 H (0) k/uL Myelocytes # (Manual) 2.95 H (0) k/uL Nucleated RBCs 2 H (0-0) /100 WBC Macrocytosis Marked A APTT (22.0-30.0) sec ABG pH (7.35-7.45) ABG pCO2 (35-45) mmHg ABG pO2 (83-108) mmHg ABG HCO3 (21-25) mmol/L ABG O2 Saturation (94-97) % Sodium 131 L (137-145) mmol/L Potassium 6.1 H* (3.5-5.1) mmol/L Carbon Dioxide 17 L (22-30) mmol/L BUN 164 H* (7-17) mg/dL Creatinine 2.50 H (0.52-1.04) mg/dL Glucose 253 H (74-99) mg/dL POC Glucose (mg/dL) 245 H (70-110) mg/dL Calcium 7.5 L (8.4-10.2) mg/dL 03/18/22 03/18/22 03/18/22 Range/Units 05:20 05:24 05:30 WBC (3.8-10.6) k/uL RBC (3.80-5.40) m/uL MCV (80.0-100.0) fL MCHC (31.0-37.0) g/dL Plt Count (150-450) k/uL Neutrophils # (Manual) (1.3-7.7) k/uL Monocytes # (Manual) (0-1.0) k/uL Metamyelocytes # (Man) (0) k/uL Myelocytes # (Manual) (0) k/uL Nucleated RBCs (0-0) /100 WBC Macrocytosis APTT 83.2 H (22.0-30.0) sec ABG pH 7.07 L* (7.35-7.45) ABG pCO2 68 H (35-45) mmHg ABG pO2 72 L (83-108) mmHg ABG HCO3 19 L (21-25) mmol/L ABG O2 Saturation 91.6 L (94-97) % Sodium (137-145) mmol/L Potassium (3.5-5.1) mmol/L Carbon Dioxide (22-30) mmol/L BUN (7-17) mg/dL Creatinine (0.52-1.04) mg/dL Glucose (74-99) mg/dL POC Glucose (mg/dL) 275 H (70-110) mg/dL Calcium (8.4-10.2) mg/dL 03/18/22 03/18/22 03/18/22 Range/Units 10:08 10:37 11:10 WBC (3.8-10.6) k/uL RBC (3.80-5.40) m/uL MCV (80.0-100.0) fL MCHC (31.0-37.0) g/dL Plt Count (150-450) k/uL Neutrophils # (Manual) (1.3-7.7) k/uL Monocytes # (Manual) (0-1.0) k/uL Metamyelocytes # (Man) (0) k/uL Myelocytes # (Manual) (0) k/uL Nucleated RBCs (0-0) /100 WBC Macrocytosis APTT (22.0-30.0) sec ABG pH 7.03 L* (7.35-7.45) ABG pCO2 81 H* (35-45) mmHg ABG pO2 70 L (83-108) mmHg ABG HCO3 (21-25) mmol/L ABG O2 Saturation 90.9 L (94-97) % Sodium (137-145) mmol/L Potassium (3.5-5.1) mmol/L Carbon Dioxide (22-30) mmol/L BUN (7-17) mg/dL Creatinine (0.52-1.04) mg/dL Glucose (74-99) mg/dL POC Glucose (mg/dL) 239 H 227 H (70-110) mg/dL Calcium (8.4-10.2) mg/dL 03/18/22 Range/Units 11:56 WBC (3.8-10.6) k/uL RBC (3.80-5.40) m/uL MCV (80.0-100.0) fL MCHC (31.0-37.0) g/dL Plt Count (150-450) k/uL Neutrophils # (Manual) (1.3-7.7) k/uL Monocytes # (Manual) (0-1.0) k/uL Metamyelocytes # (Man) (0) k/uL Myelocytes # (Manual) (0) k/uL Nucleated RBCs (0-0) /100 WBC Macrocytosis APTT (22.0-30.0) sec ABG pH (7.35-7.45) ABG pCO2 (35-45) mmHg ABG pO2 (83-108) mmHg ABG HCO3 (21-25) mmol/L ABG O2 Saturation (94-97) % Sodium (137-145) mmol/L Potassium (3.5-5.1) mmol/L Carbon Dioxide (22-30) mmol/L BUN (7-17) mg/dL Creatinine (0.52-1.04) mg/dL Glucose (74-99) mg/dL POC Glucose (mg/dL) 242 H (70-110) mg/dL Calcium (8.4-10.2) mg/dL Microbiology - Last 24 Hours (Table) 03/15/22 05:52 Blood Culture - Preliminary Blood No Growth after 72 hours 03/16/22 06:00 Blood Culture - Preliminary Blood No Growth after 48 hours 03/13/22 10:52 Anaerobic Culture - Final Pleural Fluid 03/14/22 14:02 Blood Culture Gram Stain - Final Blood Blood Culture - Final Methicillin resist S. aureus Assessment and Plan Assessment: impression: Acute hypoxic and hypercapnic respiratory failure secondary to bilateral pneumonia, secondary to influenza infection, and MRSA pneumonia Septic shock, with multisystem organ failure. MRSA empyema with underlying pneumonia, status post drainage from chest tube. Acute bilateral pneumothoraces secondary to barotrauma.Continues to have air leak from the chest tube acute kidney injury secondary to septic shock. Morbid obesity and previous bariatric surgery History of underlying COPD history of fibromyalgia and migraine cephalgia History of stomach cance history of hepatitis C and hepatitis B Benign essential hypertension New-onset atrial fibrillation Recommendation: Continue ventilatory support, continue pressure control mode of mechanical ventilation. continue bicarbonate drip. continue antibiotics continue lokema continue nutritional support Continue hemodynamic support may have to consider adding vasopressin if necessary. Continue both chest seems in place. Overall prognosis is extremely poor and guarded. I believe mortalities over 90%, Continue DO NOT RESUSCITATE CODE STATUS. We'll discuss with family today or tomorrow possibly considering comfort care measures. Critical care time is over 30 minutes. Time with Patient: Greater than 30
--- NOTE | 2022-03-18 12:41 | P.PN ---
Subjective Progress Note Date: 03/18/22 Principal diagnosis: Pneumonia Patient is a 61-year-old female with a past medical history significant for coronary artery disease hypertension heart failure presenting to the ER last evening for evaluation of increasing shortness of breath in this patient symptom apparently has been going on for 2 weeks before presentation to the hospital, patient did have worsening of respiratory status requiring intubation subsequently developing bilateral pneumothoraces requiring chest tube placement on 03/13/2022. On today's evaluation that is 03/18/2022, the patient continues to be afebrile, the patient is still requiring 100% FiO2 and the patient is still hypoxic, the patient is on a max dose of pressor support, no significant purulent secretions through the ET diarrhea or any other changes reported by the nursing staff, patient has been made a DO NOT RESUSCITATE Objective - Vital Signs Vital signs: Vital Signs Temp 97.9 F 03/18/22 08:00 Pulse 124 H 03/18/22 10:57 Resp 38 H 03/18/22 10:00 BP 101/65 03/18/22 03:00 Pulse Ox 87 L 03/18/22 10:00 FiO2 100 03/18/22 10:42 Intake & Output 03/17/22 03/18/22 03/18/22 18:59 06:59 18:59 Intake Total 2280.690 1794.898 609.409 Output Total 305 330 13 Balance 8896.479 3991.898 596.409 Weight 159.4 kg 159.4 kg Intake: IV 610 120 20 Sodium Chloride 0.9% 1, 110 120 20 000 ml @ 10 mls/hr IV . Q24H TRE Rx#:[id number] Vancomycin 2,000 mg In 500 Sodium Chloride 0.9% 500 ml 500 ml @ 167 mls/hr IVPB Q24H TRE Rx#: [id number] Intake, IV Titration 7100.398 6767.898 465.409 Amount Cisatracurium 200 mg In 208.17 162.675 Sodium Chloride 0.9% 180 ml @ 1 MCG/KG/MIN 8.1 mls /hr IV .Q24H TRE Rx#: [id number] Heparin Sod,Pork in 0.45% 225.904 199.078 44.734 NaCl 25,000 unit In 0.45 % NaCl 1 250ml.bag @ 9. 585 UNITS/KG/HR 10 mls/hr IV .Q24H TRE Rx#: [id number] Norepinephrine 8 mg In 233.766 432.945 258.000 Sodium Chloride 0.9% 250 ml @ 0.03 MCG/KG/MIN 6. 056 mls/hr IV .Q24H TRE Rx#:[id number] propofoL 1,000 mg In 395.85 478.875 Empty Bag 1 bag @ 15 MCG/ KG/MIN 12.15 mls/hr IV . Q8H14M TRE Rx#:[id number] Tube Feeding 517 564 94 Other 90 30 Output: Chest Tube Drainage 90 200 6 Chest Tube Left 40 100 6 Chest Tube Right 50 100 0 Urine 215 130 7 Other: Voiding Method Indwelling Catheter Indwelling Catheter ABP, PAP, CO, CI - Last Documented Arterial Blood Pressure 75/40 - Exam GENERAL DESCRIPTION: Middle-aged female intubated on the vent RESPIRATORY SYSTEM: Unlabored breathing , decreased breath sounds at bases HEART: S1 S2 regular rate and rhythm , ABDOMEN: Soft , no tenderness EXTREMITIES: No edema feet - Labs CBC & Chem 7: 03/18/22 05:20 03/18/22 05:20 Labs: Abnormal Lab Results - Last 24 Hours (Table) 03/17/22 03/17/22 03/17/22 Range/Units 12:13 12: 18:07 WBC (3.8-10.6) k/uL RBC (3.80-5.40) m/uL MCV (80.0-100.0) fL MCHC (31.0-37.0) g/dL Plt Count (150-450) k/uL Neutrophils # (Manual) (1.3-7.7) k/uL Monocytes # (Manual) (0-1.0) k/uL Metamyelocytes # (Man) (0) k/uL Myelocytes # (Manual) (0) k/uL Nucleated RBCs (0-0) /100 WBC Macrocytosis APTT (22.0-30.0) sec ABG pH (7.35-7.45) ABG pCO2 (35-45) mmHg ABG pO2 (83-108) mmHg ABG HCO3 (21-25) mmol/L ABG O2 Saturation (94-97) % Sodium (137-145) mmol/L Potassium 5.9 H (3.5-5.1) mmol/L Carbon Dioxide (22-30) mmol/L BUN (7-17) mg/dL Creatinine (0.52-1.04) mg/dL Glucose (74-99) mg/dL POC Glucose (mg/dL) 224 H 238 H (70-110) mg/dL Calcium (8.4-10.2) mg/dL 03/18/22 03/18/22 03/18/22 Range/Units 00:22 05:20 05:20 WBC 98.2 H* (3.8-10.6) k/uL RBC 3.71 L (3.80-5.40) m/uL MCV 113.8 H (80.0-100.0) fL MCHC 30.7 L (31.0-37.0) g/dL Plt Count 104 L (150-450) k/uL Neutrophils # (Manual) 82.40 H (1.3-7.7) k/uL Monocytes # (Manual) 3.93 H (0-1.0) k/uL Metamyelocytes # (Man) 7.86 H (0) k/uL Myelocytes # (Manual) 2.95 H (0) k/uL Nucleated RBCs 2 H (0-0) /100 WBC Macrocytosis Marked A APTT (22.0-30.0) sec ABG pH (7.35-7.45) ABG pCO2 (35-45) mmHg ABG pO2 (83-108) mmHg ABG HCO3 (21-25) mmol/L ABG O2 Saturation (94-97) % Sodium 131 L (137-145) mmol/L Potassium 6.1 H* (3.5-5.1) mmol/L Carbon Dioxide 17 L (22-30) mmol/L BUN 164 H* (7-17) mg/dL Creatinine 2.50 H (0.52-1.04) mg/dL Glucose 253 H (74-99) mg/dL POC Glucose (mg/dL) 245 H (70-110) mg/dL Calcium 7.5 L (8.4-10.2) mg/dL 03/18/22 03/18/22 03/18/22 Range/Units 05:20 05:24 05:30 WBC (3.8-10.6) k/uL RBC (3.80-5.40) m/uL MCV (80.0-100.0) fL MCHC (31.0-37.0) g/dL Plt Count (150-450) k/uL Neutrophils # (Manual) (1.3-7.7) k/uL Monocytes # (Manual) (0-1.0) k/uL Metamyelocytes # (Man) (0) k/uL Myelocytes # (Manual) (0) k/uL Nucleated RBCs (0-0) /100 WBC Macrocytosis APTT 83.2 H (22.0-30.0) sec ABG pH 7.07 L* (7.35-7.45) ABG pCO2 68 H (35-45) mmHg ABG pO2 72 L (83-108) mmHg ABG HCO3 19 L (21-25) mmol/L ABG O2 Saturation 91.6 L (94-97) % Sodium (137-145) mmol/L Potassium (3.5-5.1) mmol/L Carbon Dioxide (22-30) mmol/L BUN (7-17) mg/dL Creatinine (0.52-1.04) mg/dL Glucose (74-99) mg/dL POC Glucose (mg/dL) 275 H (70-110) mg/dL Calcium (8.4-10.2) mg/dL 03/18/22 03/18/22 Range/Units 10:08 10:37 WBC (3.8-10.6) k/uL RBC (3.80-5.40) m/uL MCV (80.0-100.0) fL MCHC (31.0-37.0) g/dL Plt Count (150-450) k/uL Neutrophils # (Manual) (1.3-7.7) k/uL Monocytes # (Manual) (0-1.0) k/uL Metamyelocytes # (Man) (0) k/uL Myelocytes # (Manual) (0) k/uL Nucleated RBCs (0-0) /100 WBC Macrocytosis APTT (22.0-30.0) sec ABG pH 7.03 L* (7.35-7.45) ABG pCO2 81 H* (35-45) mmHg ABG pO2 70 L (83-108) mmHg ABG HCO3 (21-25) mmol/L ABG O2 Saturation 90.9 L (94-97) % Sodium (137-145) mmol/L Potassium (3.5-5.1) mmol/L Carbon Dioxide (22-30) mmol/L BUN (7-17) mg/dL Creatinine (0.52-1.04) mg/dL Glucose (74-99) mg/dL POC Glucose (mg/dL) 239 H (70-110) mg/dL Calcium (8.4-10.2) mg/dL Microbiology - Last 24 Hours (Table) 03/15/22 05:52 Blood Culture - Preliminary Blood No Growth after 72 hours 03/16/22 06:00 Blood Culture - Preliminary Blood No Growth after 48 hours 03/13/22 10:52 Anaerobic Culture - Final Pleural Fluid 03/14/22 14:02 Blood Culture Gram Stain - Final Blood Blood Culture - Final Methicillin resist S. aureus Assessment and Plan (1) Multifocal pneumonia Current Visit: Yes Status: Acute Code(s): J18.9 - PNEUMONIA, UNSPECIFIED ORGANISM SNOMED Code(s): 285218371 Plan: 1patient with a positive blood culture with staph epi likely skin contamination, however repeat blood culture subsequently MRSA, blood cultures repeated on 03/15/2022 as well as 03/16/2022 has been negative 2patient with the acute respiratory failure multifactorial and likely component of pneumonia in this patient sputum as well as BAL cultures are currently growing MRSA 3patient did have worsening of the white count possibly related to steroids as cultures has been negative for gram-negative , Eraxis was added empirically for antifungal coverage 4-the patient to continue with the vancomycin , cannot use Zyvox as the patient was bacteremic and the patient is on bupropion that is contra indicating the use of Zyvox Overall prognosis remains to be guarded sister was at the bedside and questions and concerns were answered Time with Patient: Less than 30
[2022-03-18] MEDS ORDERED: VASOPRESSIN 20 UNIT in SODIUM CHLORIDE 0.9% 50 ML IV SCH (12:45)
[2022-03-18 13:39] LABS: Glucose,Whole Blood 219 mg/dL (70-110)
[2022-03-18 14:44] LABS: Glucose,Whole Blood 217 mg/dL (70-110)
[2022-03-18 14:56] LABS: ABG HCO3 21 mmol/L (21-25); ABG Oxygen Saturation 87.3 % (94-97); ABG PO2 63 mmHg (83-108); ABG TCO2 24 mmol/L (19-24)
[2022-03-18 14:58] LABS: ABG PCO2 88 mmHg (35-45); ABG PH 6.99 (7.35-7.45); Allen Test Performed? no
[2022-03-18] MEDS: SODIUM CHLORIDE 0.9% 1,000 ML IV SCH (15:53)
[2022-03-18] MEDS ORDERED: ANIDULAFUNGIN 100 MG in SODIUM CHLORIDE 0.9% 100 ML IVPB SCH (16:00)
[2022-03-18 16:03] LABS: Glucose,Whole Blood 187 mg/dL (70-110)
[2022-03-18 17:27] LABS: Glucose,Whole Blood 155 mg/dL (70-110)
[2022-03-18] MEDS ORDERED: MORPHINE SULFATE 2 MG/ML SYRINGE IV PRN (17:37)
[2022-03-18] MEDS ORDERED: MORPHINE SULFATE (100 MG/2 ML) 100 MG in SODIUM CHLORIDE 0.9% 100 ML IV SCH (17:45)
[2022-03-18 19:56] VITALS: BP 0/0; PULSE 0; RESP 0
[2022-03-18] MEDS ORDERED: AMIODARONE 200 MG TAB PO SCH (21:00)
--- NOTE | 2022-03-19 20:50 | DS ---
DISCHARGE SUMMARY CHIEF COMPLAINT: Shortness of breath. HISTORY OF PRESENT ILLNESS: This lady is admitted to the hospital with diagnosis of acute respiratory failure and shortness of breath. It was initially felt that this was congestive heart failure, but she was also found to have an influenza pneumonitis. She became quite hypoxic and had to be moved to the Intensive Care Unit and put on a ventilator. After that, she continued to have multiple problems. Her pneumonitis became worse and she became septic. She then began to grow out MRSA. After that, she suddenly developed hemothorax bilaterally and chest tubes were placed. She continued to slowly deteriorate with rising white count and progressive acidosis. She gradually deteriorated to the point that her prognosis was terminal and further treatment was felt futile. This was taken with the family and they agreed to make her comfort measures. She is extubated and on the evening of the . FINAL DIAGNOSES: 1. Influenza pneumonia. 2. Secondary Methicillin-resistant staphylococcus aureus pneumonia. 3. Septicemia. 4. Septic shock. 5. Bilateral pneumothoraces. 6. Renal failure. 7. History of hypertension. OPERATIONS: None. CONSULTATIONS: Infectious Disease, Intensive Medicine, and Cardiology. MMODL / IJN: [id number] /
--- NOTE | 2022-03-20 00:39 | PN ---
PROGRESS NOTE DATE OF SERVICE: 03/18/2022 CHIEF COMPLAINT: Acute respiratory failure with influenza and MRSA pneumonia. HISTORY OF PRESENT ILLNESS: This lady continues to deteriorate. Her pH has dropped below 7. She remains ventilator dependent. She is developing renal failure as well. PHYSICAL EXAMINATION: LUNGS: Breath sounds are heard bilaterally with ventilator. CARDIAC: Normal. Blood pressure is supported. IMPRESSION: 1. Septic shock. 2. Influenza pneumonia. 3. Methicillin-resistant Staphylococcus aureus. 4. Acute respiratory distress syndrome. 5. Bilateral pneumothoraces. PLAN: Continue with supportive effort. Prognosis is becoming worse each day. MMODL / IJN: [id number] /
--- NOTE | 2022-03-27 09:33 | CDI ---
Dr. Randy WILSON, Pneumothorax is documented in Discharge Summary 03/18/2022. Further specificity regarding the pneumothorax is requested. History/risk factors: 61-year-old female with a PMH of morbid obesity s/p bariatric surgery, COPD, heart failure, CAD, and HTN presents for shortness of breath. Patient diagnosed with sepsis with septic shock, ARDS, influenza pneumonia, secondary MRSA pneumonia, pneumothorax, and JASWANT. Clinical Indicators: 03/13 CXR@0914: Moderate-sized bilateral pneumothoraces are present. ICU was aware and patient had chest tubes placed.' 03/13 CXR@0922: There is a moderate-sized right pneumothorax 03/18 Discharge Summary, Mihai WILSON: "admitted to the hospital with diagnosis of acute respiratory failure and shortness of breath...found to have an influenza pneumonitis...she became quite hypoxic and had to be moved to the Intensive Care Unit and put on a ventilator...after that she continued to have multiple problems...pneumonitis became worse, and she became septic...she then began to grow out MRSA...she suddenly developed a hemothorax bilaterally and chest tubes were placed..." Treatment: Insertion of bilateral chest tubes 03/13/22 Please further specify the pneumothorax, if known: [ ] Primary spontaneous pneumothorax [ ] Secondary spontaneous pneumothorax due to patient's co-morbidities (please explain) [ ] Tension pneumothorax [ x ] Other, please specify __better to ask the animal husbandry technician on the case who was managing pneumothorax [ ] Unable to determine MTDD
--- NOTE | 2022-03-27 09:36 | CDI ---
Dr. Randy WILSON, Sepsis is documented in Discharge [place] 03/18/22. For each diagnosis, documentation must be clear to determine if the condition was present at the time of the patients inpatient admission or developed during the hospital stay. Additional clarification regarding the Sepsis is requested. History/Risk Factors: 61-year-old female with a PMH of morbid obesity s/p bariatric surgery, heart failure, CODP, CAD, and HTN presents for shortness of breath. Patient diagnosed with sepsis with septic shock, ARDS, influenza pneumonia, secondary MRSA pneumonia, pneumothorax, and JASWANT. Clinical Indicators: WBC Trend: 03/11 (admission); 23.4 03/12; 17.2 03/13; 8.1 03/14; 15.2 03/11 other significant labs on admission: Neutrophils 17.30, VBG pH 7.26, Carbon Dioxide 21, Creatinine 2.76, Lactic Acid 7.8 03/11 ED note, Jatin WILSON: "concerned for cardiopulmonary etiology for her current symptoms...worsening orthopnea, lower extremity edema...exertional dyspnea and hypoxic on room air...patient meets Sepsis criteria at 1817..." 03/11 ED VS: Temp 97.9F, HR 102, Resp 18/min, BP 127/65, Spo2 96% (BiPAP) 03/18 Discharge Summary, Mihai WILSON: "admitted to the hospital with diagnosis of acute respiratory failure and shortness of breath...found to have an influenza pneumonitis...she became quite hypoxic and had to be moved to the Intensive Care Unit and put on a ventilator...after that she continued to have multiple problems...pneumonitis became worse, and she became septic...she then began to grow out MRSA" Treatment: NS 0.9% IV 500ml and 1,000ml bolus on 03/11 then NS 0.9% 100ml/hr 03/11-03/12, Cefepime 2mg IV Q12 hr 03/11-03/17, Vancomycin 1,750mg IV 03/11 and 03/12, Vancomycin 2,000mg IV Q24hr 03/14-03/17, Levofloxacin 500gm IV Q24hr 03/12-03/14 Definition of Present on Admission (POA): A diagnosis present at the time the order for admission to inpatient status was written. Please clarify if the Sepsis was POA [ x] Y = Yes, the condition was present at the time of the order for inpatient admission. [ ] N = No, the condition was not present at the time of the order for inpatient admission. [ ] W = Clinically undetermined if the condition was present at the time of the order for inpatient admission. MTDD
== END 2022-03-18 21:54 | disposition expired | DRG 870 ==
LOC: EC 17:28 → 3SCARD 19:22 → 2SICU 03-12 03:12
PROVIDERS: ADMIT Family Medicine; ATTEND Family Medicine
PROC: 5A09357 Assistance with Respiratory Ventilation, Less than 24 Consecutive Hours, Continuous Positive Airway Pressure (ICD-10-PCS; 2022-03-11)
PROC: 4A133J1 Monitoring of Arterial Pulse, Peripheral, Percutaneous Approach (ICD-10-PCS; principal; 2022-03-12)
PROC: 5A1955Z Respiratory Ventilation, Greater than 96 Consecutive Hours (ICD-10-PCS; principal; 2022-03-12)
PROC: 0B9D8ZX Drainage of Right Middle Lung Lobe, Via Natural or Artificial Opening Endoscopic, Diagnostic (ICD-10-PCS; principal; 2022-03-12)
PROC: 0BH17EZ Insertion of Endotracheal Airway into Trachea, Via Natural or Artificial Opening (ICD-10-PCS; principal; 2022-03-12)
PROC: 0DH67UZ Insertion of Feeding Device into Stomach, Via Natural or Artificial Opening (ICD-10-PCS; principal; 2022-03-12)
PROC: 3E043XZ Introduction of Vasopressor into Central Vein, Percutaneous Approach (ICD-10-PCS; principal; 2022-03-12)
PROC: 02HV33Z Insertion of Infusion Device into Superior Vena Cava, Percutaneous Approach (ICD-10-PCS; principal; 2022-03-12)
PROC: 4A133B1 Monitoring of Arterial Pressure, Peripheral, Percutaneous Approach (ICD-10-PCS; principal; 2022-03-12)
PROC: 04HY32Z Insertion of Monitoring Device into Lower Artery, Percutaneous Approach (ICD-10-PCS; principal; 2022-03-12)
PROC: 3E0G76Z Introduction of Nutritional Substance into Upper GI, Via Natural or Artificial Opening (ICD-10-PCS; principal; 2022-03-12)
PROC: 0W9930Z Drainage of Right Pleural Cavity with Drainage Device, Percutaneous Approach (ICD-10-PCS; 2022-03-13)
PROC: 0W9B30Z Drainage of Left Pleural Cavity with Drainage Device, Percutaneous Approach (ICD-10-PCS; 2022-03-13)
DX: A41.02 Sepsis due to Methicillin resistant Staphylococcus aureus (principal); J10.01 Influenza due to other identified influenza virus with the same other identified influenza virus pneumonia; J10.08 Influenza due to other identified influenza virus with other specified pneumonia; J15.212 Pneumonia due to Methicillin resistant Staphylococcus aureus; R65.21 Severe sepsis with septic shock; J80 Acute respiratory distress syndrome; J44.0 Chronic obstructive pulmonary disease with (acute) lower respiratory infection; J44.1 Chronic obstructive pulmonary disease with (acute) exacerbation; N17.9 Acute kidney failure, unspecified; I48.20 Chronic atrial fibrillation, unspecified; Z68.43 Body mass index [BMI] 50.0-59.9, adult; I48.92 Unspecified atrial flutter; E87.21 Acute metabolic acidosis; J93.9 Pneumothorax, unspecified; J93.82 Other air leak; I50.9 Heart failure, unspecified; I25.10 Atherosclerotic heart disease of native coronary artery without angina pectoris; I11.0 Hypertensive heart disease with heart failure; E87.5 Hyperkalemia; E86.0 Dehydration; Z20.822 Contact with and (suspected) exposure to COVID-19; Z51.5 Encounter for palliative care; Z66 Do not resuscitate; D69.6 Thrombocytopenia, unspecified; E66.01 Morbid (severe) obesity due to excess calories; E78.5 Hyperlipidemia, unspecified; E83.42 Hypomagnesemia; M79.7 Fibromyalgia; M19.90 Unspecified osteoarthritis, unspecified site; F41.9 Anxiety disorder, unspecified; F32.A Depression, unspecified; K21.9 Gastro-esophageal reflux disease without esophagitis; K76.9 Liver disease, unspecified; G43.909 Migraine, unspecified, not intractable, without status migrainosus; G89.29 Other chronic pain; M54.9 Dorsalgia, unspecified; R31.9 Hematuria, unspecified; Z96.653 Presence of artificial knee joint, bilateral; Z98.84 Bariatric surgery status; Z87.442 Personal history of urinary calculi; Z85.028 Personal history of other malignant neoplasm of stomach; Z79.899 Other long term (current) drug therapy; Z79.82 Long term (current) use of aspirin; Z79.51 Long term (current) use of inhaled steroids; Z88.8 Allergy status to other drugs, medicaments and biological substances; Z91.040 Latex allergy status; Z88.6 Allergy status to analgesic agent; Z88.5 Allergy status to narcotic agent; Z86.19 Personal history of other infectious and parasitic diseases; Z91.81 History of falling; Z90.81 Acquired absence of spleen
CPT/HCPCS: 31624; 36415; 36600; 71045; 80048; 80053; 80202; 81001; 82803; 82805; 82945; 83036; 83605; 83615; 83735; 83880; 84132; 84145; 84155; 84157; 84484; 85025; 85027; 85610; 85730; 87040; 87070; 87075; 87077; 87102; 87116; 87186; 87205; 87206; 87252; 87449; 87496; 87498; 87502; 87529; 87634; 87636; 87798; 88108; 88305; 89050; 93005; 93306; 94002; 94003; 94640; 94660; 96361; 96365; 96366; 96368; 96375; 96376; 99291